=== PATIENT | male | born 1970 | race Caucasian/White ===

== ENCOUNTER 2020-08-20 10:45 | Outpatient (REF) | payer OTHER, MEDICARE, SELFPAY ==
[2020-08-20 13:56] LABS: MANUAL DIFF FLAG NO
[2020-08-20 14:02] LABS: Basophils Absolute Auto 0.1 X10*3/uL (0.0-0.2); Basophils Percent Auto 1.1 % (0-2); Eosinophils Absolute Auto 0.3 X10*3/uL (0.0-0.4); Eosinophils Percent Auto 4.6 % (0-4); Hematocrit 30.1 % (42-52); Hemoglobin 9.3 g/dl (14.0-18.0); Imm Gran Abs Auto 0.02 X10*3/uL (0.00-0.03); Imm Gran Pct Auto 0.4 % (0.0-0.4); Lymphocytes Absolute Auto 1.2 X10*3/uL (1.2-4.9); Lymphocytes Percent Auto 21.7 % (20-40); Mean Corpuscular HGB Conc 30.9 g/dl (31.0-36.0); Mean Corpuscular Hemoglobin 27.4 pg (27.0-33.0); Mean Corpuscular Volume 88.5 fL (80-98); Mean Platelet Volume 10.6 fL (9.4-12.4); Monocytes Absolute Auto 0.6 X10*3/uL (0.1-1.2); Monocytes Percent Auto 10.6 % (2-11); Neutrophils Absolute Auto 3.4 X10*3/uL (2.0-8.3); Neutrophils Percent Auto 61.6 % (45-73); Platelet Count 197 X10*3/uL (160-400); Red Cell Distribution Width 13.2 % (11.0-16.0); White Blood Count 5.5 X10*3/uL (4.8-10.8)
[2020-08-20 14:22] LABS: Estimated Average Glucose 137 mg/dL; Hemoglobin A1c % 6.4 %
[2020-08-20 14:27] LABS: Alanine Aminotransferase 9 U/L (0-40); Albumin Level 4.1 g/dL (3.5-5.0); Alkaline Phosphatase 44 U/L (39-117); Anion Gap 16 (12-20); Aspartate Amino Transferase 13 U/L (5-37); Bilirubin Total 0.5 mg/dL (0.0-1.0); Blood Urea Nitrogen 21 mg/dL (9-16); Calcium 9.1 mg/dL (8.4-10.2); Carbon Dioxide 25 mmol/L (22-29); Chloride 99 mmol/L (96-108); Estimated Glomerular Filt Rate > 60; Glucose Random 296 mg/dL (60-115); Iron 30 mcg/dL (45-160); Percent Iron Saturation 7 % (15-50); Potassium 4.3 mmol/l (3.3-5.1); Sodium 136 mmol/L (135-145); Total Iron Binding Capacity 443 mcg/dL (228-428); Total Protein 7.9 g/dL (6.5-8.0); Unsaturated Iron Binding 413 ug/dL
[2020-08-20 14:50] LABS: Creatinine Urine 13.08 mg/dL; Microalbum/Creatinine Ratio Ur 550.4 ug/mg cr
== END 2020-08-20 10:46 | disposition home or self-care (01) ==
LOC: HO.10HDL 10:45
PROVIDERS: Visit Provider Internal Medicine
DX: E11.9 Type 2 diabetes mellitus without complications (principal); D50.9 Iron deficiency anemia, unspecified; L40.50 Arthropathic psoriasis, unspecified
CPT/HCPCS: 36415; 80053; 82043; 83036; 83540; 85025

== ENCOUNTER 2021-02-16 08:18 | Outpatient (REF) | payer OTHER, MEDICARE, SELFPAY ==
[2021-02-16 10:03] LABS: MANUAL DIFF FLAG NO
[2021-02-16 10:05] LABS: Basophils Absolute Auto 0.1 X10*3/uL (0.0-0.2); Basophils Percent Auto 1.2 % (0-2); Eosinophils Absolute Auto 0.4 X10*3/uL (0.0-0.4); Eosinophils Percent Auto 5.5 % (0-4); Hematocrit 28.7 % (42-52); Hemoglobin 8.7 g/dl (14.0-18.0); Imm Gran Abs Auto 0.02 X10*3/uL (0.00-0.03); Imm Gran Pct Auto 0.3 % (0.0-0.4); Lymphocytes Absolute Auto 1.3 X10*3/uL (1.2-4.9); Lymphocytes Percent Auto 16.9 % (20-40); Mean Corpuscular HGB Conc 30.3 g/dl (31.0-36.0); Mean Corpuscular Hemoglobin 25.1 pg (27.0-33.0); Mean Corpuscular Volume 82.7 fL (80-98); Mean Platelet Volume 10.3 fL (9.4-12.4); Monocytes Absolute Auto 0.7 X10*3/uL (0.1-1.2); Monocytes Percent Auto 9.2 % (2-11); Neutrophils Percent Auto 66.9 % (45-73); Platelet Count 293 X10*3/uL (160-400); Red Blood Count 3.47 X10*6/uL (4.60-5.80); Red Cell Distribution Width 16.7 % (11.0-16.0); White Blood Count 7.5 X10*3/uL (4.8-10.8)
[2021-02-16 10:19] LABS: Estimated Average Glucose 171 mg/dL; Hemoglobin A1c % 7.6 %
[2021-02-16 10:55] LABS: Alanine Aminotransferase 9 U/L (0-40); Alkaline Phosphatase 45 U/L (39-117); Anion Gap 15 (12-20); Aspartate Amino Transferase 13 U/L (5-37); Bilirubin Total 0.3 mg/dL (0.0-1.0); Blood Urea Nitrogen 26 mg/dL (9-16); Carbon Dioxide 24 mmol/L (22-29); Chloride 101 mmol/L (96-108); Cholesterol 151 mg/dL; Estimated Glomerular Filt Rate 55; Glucose Fasting 294 mg/dL (60-99); Iron 23 mcg/dL (45-160); Percent Iron Saturation 5 % (15-50); Potassium 5.4 mmol/L (3.3-5.1); Sodium 135 mmol/L (135-145); Total Iron Binding Capacity 422 mcg/dL (228-428); Total Protein 7.8 g/dL (6.5-8.0); Unsaturated Iron Binding 399 ug/dL
[2021-02-16 11:05] LABS: Prostate Specific Antigen Scr 0.05 ng/mL (<0.05-4.0)
[2021-02-16 11:30] LABS: Creatinine Urine 79.01 mg/dL
== END 2021-02-16 08:19 | disposition home or self-care (01) ==
LOC: HO.10HDL 08:18
PROVIDERS: Visit Provider Internal Medicine
DX: Z12.5 Encounter for screening for malignant neoplasm of prostate (principal); E11.9 Type 2 diabetes mellitus without complications; K21.9 Gastro-esophageal reflux disease without esophagitis; E55.9 Vitamin D deficiency, unspecified; R35.1 Nocturia; D50.9 Iron deficiency anemia, unspecified
CPT/HCPCS: 36415; 80053; 82043; 82465; 83036; 83540; 84153; 85025

== ENCOUNTER 2021-03-24 08:13 | Outpatient (REF) | payer OTHER, MEDICARE, SELFPAY ==
[2021-03-24 10:12] LABS: MANUAL DIFF FLAG NO
[2021-03-24 10:24] LABS: Basophils Absolute Auto 0.1 X10*3/uL (0.0-0.2); Basophils Percent Auto 0.8 % (0-2); Eosinophils Absolute Auto 0.3 X10*3/uL (0.0-0.4); Eosinophils Percent Auto 4.7 % (0-4); Hematocrit 30.8 % (42-52); Hemoglobin 9.1 g/dl (14.0-18.0); Imm Gran Abs Auto 0.01 X10*3/uL (0.00-0.03); Imm Gran Pct Auto 0.1 % (0.0-0.4); Lymphocytes Absolute Auto 1.3 X10*3/uL (1.2-4.9); Lymphocytes Percent Auto 18.2 % (20-40); Mean Corpuscular HGB Conc 29.5 g/dl (31.0-36.0); Mean Corpuscular Volume 84.6 fL (80-98); Mean Platelet Volume 10.1 fL (9.4-12.4); Monocytes Absolute Auto 0.7 X10*3/uL (0.1-1.2); Monocytes Percent Auto 9.8 % (2-11); Neutrophils Absolute Auto 4.8 X10*3/uL (2.0-8.3); Neutrophils Percent Auto 66.4 % (45-73); Platelet Count 266 X10*3/uL (160-400); Red Blood Count 3.64 X10*6/uL (4.60-5.80); Red Cell Distribution Width 16.2 % (11.0-16.0); White Blood Count 7.3 X10*3/uL (4.8-10.8)
[2021-03-24 10:54] LABS: Alanine Aminotransferase 6 U/L (0-40); Alkaline Phosphatase 44 U/L (39-117); Anion Gap 14 (12-20); Aspartate Amino Transferase 11 U/L (5-37); Bilirubin Total 0.5 mg/dL (0.0-1.0); Blood Urea Nitrogen 25 mg/dL (9-16); Calcium 9.4 mg/dL (8.4-10.2); Carbon Dioxide 24 mmol/L (22-29); Chloride 101 mmol/L (96-108); Estimated Glomerular Filt Rate > 60; Glucose Random 238 mg/dL (60-115); Potassium 5.2 mmol/L (3.3-5.1); Sodium 134 mmol/L (135-145)
== END 2021-03-24 08:14 | disposition home or self-care (01) ==
LOC: HO.10HDL 08:13
PROVIDERS: Visit Provider Internal Medicine
DX: D64.9 Anemia, unspecified (principal); E11.22 Type 2 diabetes mellitus with diabetic chronic kidney disease; N18.9 Chronic kidney disease, unspecified
CPT/HCPCS: 36415; 80053; 85025

== ENCOUNTER 2021-06-08 09:31 | Outpatient (REF) | payer OTHER, MEDICARE, SELFPAY ==
[2021-06-08 10:22] LABS: MANUAL DIFF FLAG NO
[2021-06-08 10:26] LABS: Basophils Absolute Auto 0.1 X10*3/uL (0.0-0.2); Eosinophils Absolute Auto 0.4 X10*3/uL (0.0-0.4); Eosinophils Percent Auto 4.9 % (0-4); Hematocrit 27.8 % (42-52); Hemoglobin 8.6 g/dl (14.0-18.0); Imm Gran Abs Auto 0.02 X10*3/uL (0.00-0.03); Imm Gran Pct Auto 0.3 % (0.0-0.4); Lymphocytes Absolute Auto 1.3 X10*3/uL (1.2-4.9); Lymphocytes Percent Auto 17.6 % (20-40); Mean Corpuscular HGB Conc 30.9 g/dl (31.0-36.0); Mean Corpuscular Hemoglobin 25.4 pg (27.0-33.0); Mean Corpuscular Volume 82.2 fL (80-98); Mean Platelet Volume 10.5 fL (9.4-12.4); Monocytes Absolute Auto 0.7 X10*3/uL (0.1-1.2); Monocytes Percent Auto 9.1 % (2-11); Neutrophils Absolute Auto 4.8 X10*3/uL (2.0-8.3); Neutrophils Percent Auto 67.1 % (45-73); Platelet Count 273 X10*3/uL (160-400); Red Blood Count 3.38 X10*6/uL (4.60-5.80); Red Cell Distribution Width 14.3 % (11.0-16.0); White Blood Count 7.2 X10*3/uL (4.8-10.8)
[2021-06-08 10:46] LABS: Alanine Aminotransferase 8 U/L (0-40); Alkaline Phosphatase 45 U/L (39-117); Anion Gap 13 (12-20); Aspartate Amino Transferase 11 U/L (5-37); Bilirubin Total 0.3 mg/dL (0.0-1.0); Blood Urea Nitrogen 20 mg/dL (9-16); Calcium 9.8 mg/dL (8.4-10.2); Carbon Dioxide 27 mmol/L (22-29); Chloride 101 mmol/L (96-108); Estimated Glomerular Filt Rate 55; Glucose Fasting 305 mg/dL (60-99); Iron 31 mcg/dL (45-160); Percent Iron Saturation 7 % (15-50); Potassium 4.8 mmol/L (3.3-5.1); Sodium 136 mmol/L (135-145); Total Iron Binding Capacity 456 mcg/dL (228-428); Total Protein 7.9 g/dL (6.5-8.0); Unsaturated Iron Binding 425 ug/dL
[2021-06-08 11:03] LABS: Estimated Average Glucose 197 mg/dL; Hemoglobin A1c % 8.5 %
== END 2021-06-08 09:32 | disposition home or self-care (01) ==
LOC: HO.10HDL 09:31
PROVIDERS: Visit Provider Internal Medicine
DX: E11.51 Type 2 diabetes mellitus with diabetic peripheral angiopathy without gangrene (principal); I10 Essential (primary) hypertension; D64.9 Anemia, unspecified
CPT/HCPCS: 36415; 80053; 83036; 83540; 85025

== ENCOUNTER 2021-10-14 08:00 | Outpatient (REF) | payer OTHER, MEDICARE, SELFPAY ==
[2021-10-14 11:13] LABS: Alanine Aminotransferase 10 U/L (0-40); Albumin Level 3.9 g/dL (3.5-5.0); Alkaline Phosphatase 43 U/L (39-117); Anion Gap 14 (12-20); Aspartate Amino Transferase 11 U/L (5-37); Bilirubin Total 0.4 mg/dL (0.0-1.0); Blood Urea Nitrogen 18 mg/dL (9-16); Calcium 9.3 mg/dL (8.4-10.2); Carbon Dioxide 27 mmol/L (22-29); Chloride 102 mmol/L (96-108); Estimated Glomerular Filt Rate 51; Glucose Fasting 251 mg/dL (60-99); Iron 23 mcg/dL (45-160); Percent Iron Saturation 5 % (15-50); Potassium 4.6 mmol/L (3.3-5.1); Sodium 138 mmol/L (135-145); Total Iron Binding Capacity 469 mcg/dL (228-428); Total Protein 7.9 g/dL (6.5-8.0); Unsaturated Iron Binding 446 ug/dL
[2021-10-14 11:21] LABS: Vitamin D 25-OH Total 10.9 ng/mL (>30)
[2021-10-14 11:25] LABS: Creatinine Urine 105.27 mg/dL
[2021-10-14 11:33] LABS: Microalbum/Creatinine Ratio Ur 979.3 ug/mg cr
[2021-10-14 11:36] LABS: Estimated Average Glucose 183 mg/dL
== END 2021-10-14 08:01 | disposition home or self-care (01) ==
LOC: HO.10HDL 08:00
PROVIDERS: Visit Provider Internal Medicine
DX: E11.22 Type 2 diabetes mellitus with diabetic chronic kidney disease (principal); N18.9 Chronic kidney disease, unspecified; D63.1 Anemia in chronic kidney disease; L40.50 Arthropathic psoriasis, unspecified; E55.9 Vitamin D deficiency, unspecified
CPT/HCPCS: 36415; 80053; 82043; 82306; 83036; 83540

== ENCOUNTER 2021-12-27 08:11 | Outpatient (REF) | payer OTHER, MEDICARE, SELFPAY ==
--- NOTE | ~2021-12-27 | US_ITS ---
EXAMINATION: US EXTRACRANIAL CAROTID DUPLEX, BILATERAL CLINICAL INFORMATION: Carotid bruit. COMPARISON: None TECHNIQUE: Real-time ultrasound and Doppler techniques (integrating B-mode 2-D vascular images, Doppler spectral analysis and color-flow Doppler imaging) were utilized to interrogate the extracranial carotid arteries, the vertebral arteries and proximal subclavian arteries bilaterally. The degree of stenosis is determined by criteria similar to NASCET. FINDINGS: RIGHT SIDE: 1. There is mild atherosclerotic plaque seen in the bifurcation/proximal ICA region. 2. The common carotid artery PSV proximally is 91.6 cm/s and distally 75.4 cm/s. 3. The proximal internal carotid artery velocities are 101 cm/s systolic and 30.6 cm/s diastolic. 4. The proximal external carotid artery PSV is 133 cm/s. 5. The vertebral artery shows antegrade flow. 6. The subclavian artery waveforms are normal. LEFT SIDE: 1. There is mild atherosclerotic plaque seen in the bifurcation/proximal ICA region. 2. The common carotid artery PSV proximally is 100 cm/s and distally 89.1 cm/s. 3. The proximal internal carotid artery velocities are 71.8 cm/s systolic and 18.3 cm/s diastolic. 4. The proximal external carotid artery PSV is 91.9 cm/s. 5. The vertebral artery shows antegrade flow. 6. The subclavian artery waveforms are 129. US/US carotid duplex BI IMPRESSION: 1. RIGHT: Minimal, non-hemodynamically significant stenosis of the proximal right internal carotid artery corresponding to a 0-49% stenosis by velocity criteria. 2. LEFT: Minimal, non-hemodynamically significant stenosis of the proximal left internal carotid artery corresponding to a 0-49% stenosis by velocity criteria.
== END 2021-12-27 08:12 | disposition home or self-care (01) ==
LOC: HO.HMGCX 08:11
PROVIDERS: PCP Internal Medicine; Visit Provider Internal Medicine
DX: R01.1 Cardiac murmur, unspecified (principal); R09.89 Other specified symptoms and signs involving the circulatory and respiratory systems
CPT/HCPCS: 93880

== ENCOUNTER → 2022-01-18 07:20 | Outpatient (REF) | payer OTHER, MEDICARE, SELFPAY ==
--- NOTE | 2022-01-18 07:45 | CA_ITS ---
Transthoracic Echocardiogram Patient (Last, First, Middle): Dmitriy Dejesus R Gender: Male Date of : 1970 Age: 51 Procedure Date: 01/18/2022 Procedure Type: Transthoracic Echocardiogram Location: OP Height: 162.56 cm Weight: 63.5 kg BSA: 1.68 m2 Heart Rate: bpm BP: 139 / 72 mmHg Broom Bundler: ALETHEA Referring MD: Martínez Dunn MD Various Exceptionalities Teacher: Toni Rahman MD Symptoms: CARDIAC MURMUR,UNSPECIFIED, Study Quality: Fair ECG Rhythm: Sinus Conclusions: - 1. Normal LV systolic function with mild LVH with impaired relaxation filling pattern 2. Moderately dilated left atrium 3. Moderate aortic stenosis 4. Normal RV systolic pressure 5. No gross pericardial effusion Findings Left Ventricle Normal left ventricular size and systolic function. There is mildly increased left ventricular wall thickness. The visually estimated ejection fraction is between 60-65%. Spectral Doppler is indicative of an impaired relaxation filling pattern. E/E prime ratio is between 8 and 15 consistent with indeterminate filling pressures. Right Ventricle Normal right ventricular cavity size and systolic function. Atria The left atrium is moderately dilated. There is lipomatous hypertrophy of the interatrial septum. Interatrial shunt cannot be excluded. The right atrium is normal in size. Aortic Valve There is moderate calcification of the aortic valve. There is moderate aortic valve stenosis. The peak aortic gradient is 32 mmHg.The mean gradient is 15 mmHg. The aortic valve area is 1.41 cm2. There is no aortic valve regurgitation. Mitral Valve There is mild anterior and moderate posterior mitral leaflet thickening. There is moderate mitral annular calcification. There is trace mitral valve regurgitation. There is no mitral valve stenosis. Pulmonic Valve The pulmonic valve was not well visualized. Tricuspid Valve Likely normal tricuspid valve structure and function. There is trace tricuspid valve regurgitation. The right ventricular systolic pressure is normal. The right ventricular systolic pressure is 15 mmHg. Normal right atrial pressure. There is no evidence of pulmonary hypertension. Great Vessels All visible segments of the aorta are normal in size. The pulmonary artery was not well visualized. Venous The inferior vena cava is normal in size and collapses greater than 50% with inspiration. Pericardium/Pleural There is no evidence of pericardial effusion. Prior Study Comparison Changes noted compared to prior study dated: 06/30/2020. aortic stenosis is moderate Measurements 2D Linear Measurements IVSd: 1.28 0.6-0.9/0.6-1.0 cm LVIDd: 3.60 3.9-5.3/4.2-5.9 cm LVIDd Index: 2.14 2.4-3.2/2.2-3.1 cm/m2 LVIDs: 1.75 2.0-3.6 cm LVPWd: 1.26 0.7-1.1 cm LA Diam: 3.60 2.7-3.8/3.0-4.0 cm LAIDs Index: 2.14 1.5-2.3 cm/m2 LV Mass: 192.21 67-162/88-224 g LV Mass Index: 114.41 43-95/49-115 g/m2 LVOT Diam: 2.10 3.0+(-)1.3 cm 2D Systolic Function EF 4C: 61.20 >55% EF 2C: 59.50 >55% EF BiP: 59.90 >55% Mitral Valve MV Pk E: 0.79 MV PK A: 0.97 MV Decel Time: 267.00 E/A: 0.80 E'Lateral: 7.72 E'Medial: 5.22 E/E' Med: 15.10 E/E' Lat: 10.20 PHT: 78.00 MVA PHT: 2.82 Decel Wake: 2.95 Aortic Valve AoV Pk Ruiz: 2.81 AoV Mn Ruiz: 1.81 AoV VTI: 0.56 AoV Pk Grad: 32.00 Aov Mn Grad: 15.00 CHILO Cont.VTI: 1.41 LVOT LVOT Pk Ruiz: 0.88 LVOT Mn Ruiz: 0.67 LVOT VTI: 0.23 LVOT Pk Grad: 3.00 LVOT Mn Grad: 2.00 LVOT Diam: 2.10 LVOT Area: 3.46 Diastolic Function MV Pk E: 0.79 MV Pk A: 0.97 E/A: 0.80 E'Medial: 5.22 E/E' Med: 15.10 E' Laterial: 7.72 E/E' Lat: 10.20 Right Ventricle TAPSE (mm): 26.90 TVS' Ruiz: 14.60 Tricuspid Valve TR Pk Ruiz: 1.72 TR Pk Grad: 12.00 RA Press: 3.00 RVSP: 15.00 Great Vessels Aorta Sinus of Valsalva: 3.40 2.0-3.[address] Ridge: 2.65 1.7-3.4 cm Ao Asc: 3.00 2.1-3.4 cm Ao Arch: 2.90 Updated in Other Vendor System with Status of Final Toni Rahman MD electronically signed on 01/18/2022 10:57:39 AM with status of Final
== END ==
LOC: HO.CARD 07:20
PROVIDERS: PCP Internal Medicine; Visit Provider Internal Medicine
DX: R01.1 Cardiac murmur, unspecified (principal)
CPT/HCPCS: 93306

== ENCOUNTER 2022-02-15 08:11 | Outpatient (REF) | payer OTHER, MEDICARE, SELFPAY ==
[2022-02-15 11:28] LABS: MANUAL DIFF FLAG NO
[2022-02-15 11:33] LABS: Basophils Absolute Auto 0.1 X10*3/uL (0.0-0.2); Basophils Percent Auto 0.9 % (0-2); Eosinophils Absolute Auto 0.3 X10*3/uL (0.0-0.4); Eosinophils Percent Auto 4.7 % (0-4); Hematocrit 26.5 % (42.0-52.0); Hemoglobin 7.6 g/dl (14.0-18.0); Imm Gran Abs Auto 0.01 X10*3/uL (0.00-0.03); Imm Gran Pct Auto 0.2 % (0.0-0.4); Lymphocytes Absolute Auto 1.1 X10*3/uL (1.2-4.9); Lymphocytes Percent Auto 17.3 % (20-40); Mean Corpuscular HGB Conc 28.7 g/dl (31.0-36.0); Mean Corpuscular Volume 80.3 fL (80.0-98.0); Mean Platelet Volume 10.4 fL (9.4-12.4); Monocytes Absolute Auto 0.6 X10*3/uL (0.1-1.2); Monocytes Percent Auto 9.6 % (2-11); Neutrophils Absolute Auto 4.3 x10*3/uL (2.0-8.3); Neutrophils Percent Auto 67.3 % (45-73); Platelet Count 263 X10*3/uL (160-400); Red Cell Distribution Width 16.4 % (11.0-16.0); White Blood Count 6.4 X10*3/uL (4.8-10.8)
[2022-02-15 11:43] LABS: Estimated Average Glucose 151 mg/dL; Hemoglobin A1c % 6.9 %
[2022-02-15 11:45] LABS: Alanine Aminotransferase 9 U/L (0-40); Alkaline Phosphatase 42 U/L (39-117); Anion Gap 15 (12-20); Aspartate Amino Transferase 10 U/L (5-37); Bilirubin Total 0.4 mg/dL (0.0-1.0); Blood Urea Nitrogen 18 mg/dL (9-16); Calcium 9.5 mg/dL (8.4-10.2); Carbon Dioxide 24 mmol/L (22-29); Chloride 105 mmol/L (96-108); Cholesterol 137 mg/dL; Estimated Glomerular Filt Rate > 60; Glucose Fasting 169 mg/dL (60-99); HDL Cholesterol 29 mg/dL; LDL Cholesterol Calculated 67 mg/dl; Potassium 4.7 mmol/L (3.3-5.1); Sodium 139 mmol/L (135-145); Triglycerides 207 mg/dL
[2022-02-15 12:08] LABS: Prostate Specific Antigen 0.16 ng/mL (<0.05-4.0)
== END 2022-02-15 08:12 | disposition home or self-care (01) ==
LOC: HO.HMGCLDS 08:11
PROVIDERS: Visit Provider Internal Medicine
DX: Z00.00 Encounter for general adult medical examination without abnormal findings (principal); Z12.5 Encounter for screening for malignant neoplasm of prostate; E11.9 Type 2 diabetes mellitus without complications
CPT/HCPCS: 36415; 80053; 80061; 83036; 84153; 85025

== ENCOUNTER 2022-06-10 08:01 | Outpatient (REF) | payer OTHER, MEDICARE, SELFPAY ==
[2022-06-10 11:28] LABS: MANUAL DIFF FLAG NO
[2022-06-10 11:44] LABS: Basophils Absolute Auto 0.1 X10*3/uL (0.0-0.2); Basophils Percent Auto 0.8 % (0-2); Eosinophils Absolute Auto 0.3 X10*3/uL (0.0-0.4); Eosinophils Percent Auto 4.6 % (0-4); Hematocrit 33.1 % (42.0-52.0); Hemoglobin 10.6 g/dl (14.0-18.0); Imm Gran Abs Auto 0.01 X10*3/uL (0.00-0.03); Imm Gran Pct Auto 0.2 % (0.0-0.4); Immature Retic Fraction 13.6 % (2.3-13.4); Lymphocytes Absolute Auto 1.2 X10*3/uL (1.2-4.9); Lymphocytes Percent Auto 20.2 % (20-40); Mean Corpuscular Hemoglobin 29.6 pg (27.0-33.0); Mean Corpuscular Volume 92.5 fL (80.0-98.0); Mean Platelet Volume 10.7 fL (9.4-12.4); Monocytes Absolute Auto 0.6 X10*3/uL (0.1-1.2); Monocytes Percent Auto 10.2 % (2-11); Neutrophils Absolute Auto 3.9 x10*3/uL (2.0-8.3); Platelet Count 219 X10*3/uL (160-400); Red Blood Count 3.58 X10*6/uL (4.60-5.80); Red Cell Distribution Width 15.6 % (11.0-16.0); Retic HGB Equivalent 34.3 pg (30.0-35.0); Reticulocyte Percent 1.5 % (0.5-1.8); Reticulocytes Absolute 0.052 X10*6/uL (0.026-0.095); White Blood Count 6.1 X10*3/uL (4.8-10.8)
[2022-06-10 11:53] LABS: Anion Gap 16 (12-20); Blood Urea Nitrogen 22 mg/dL (9-16); Calcium 9.5 mg/dL (8.4-10.2); Carbon Dioxide 24 mmol/L (22-29); Chloride 105 mmol/L (96-108); Estimated Glomerular Filt Rate 52; Glucose Random 233 mg/dL (60-115); Iron 92 mcg/dL (45-160); Percent Iron Saturation 24 % (15-50); Potassium 4.7 mmol/L (3.3-5.1); Sodium 140 mmol/L (135-145); Total Iron Binding Capacity 377 mcg/dL (228-428); Unsaturated Iron Binding 285 ug/dL
[2022-06-10 12:04] LABS: Estimated Average Glucose 146 mg/dL; Hemoglobin A1c % 6.7 %
== END 2022-06-10 08:02 | disposition home or self-care (01) ==
LOC: HO.HMGCLDS 08:01
PROVIDERS: PCP Internal Medicine; Visit Provider Internal Medicine
DX: D64.9 Anemia, unspecified (principal); E11.9 Type 2 diabetes mellitus without complications
CPT/HCPCS: 36415; 80048; 83036; 83540; 85025; 85045

== ENCOUNTER 2022-08-11 07:45 | Outpatient (REF) | payer OTHER, MEDICARE, SELFPAY ==
[2022-08-11 11:07] LABS: MANUAL DIFF FLAG NO
[2022-08-11 11:29] LABS: Basophils Absolute Auto 0.1 X10*3/uL (0.0-0.2); Eosinophils Absolute Auto 0.3 X10*3/uL (0.0-0.4); Eosinophils Percent Auto 5.2 % (0-4); Hematocrit 35.2 % (42.0-52.0); Hemoglobin 11.3 g/dl (14.0-18.0); Imm Gran Abs Auto 0.03 X10*3/uL (0.00-0.03); Imm Gran Pct Auto 0.5 % (0.0-0.4); Lymphocytes Absolute Auto 1.2 X10*3/uL (1.2-4.9); Lymphocytes Percent Auto 19.2 % (20-40); Mean Corpuscular HGB Conc 32.1 g/dl (31.0-36.0); Mean Corpuscular Hemoglobin 30.5 pg (27.0-33.0); Mean Corpuscular Volume 94.9 fL (80.0-98.0); Mean Platelet Volume 10.4 fL (9.4-12.4); Monocytes Absolute Auto 0.6 X10*3/uL (0.1-1.2); Neutrophils Absolute Auto 4.1 x10*3/uL (2.0-8.3); Neutrophils Percent Auto 65.1 % (45-73); Platelet Count 197 X10*3/uL (160-400); Red Blood Count 3.71 X10*6/uL (4.60-5.80); Red Cell Distribution Width 13.2 % (11.0-16.0); White Blood Count 6.2 X10*3/uL (4.8-10.8)
[2022-08-11 12:02] LABS: Anion Gap 16 (12-20); Blood Urea Nitrogen 25 mg/dL (9-16); Carbon Dioxide 23 mmol/L (22-29); Chloride 103 mmol/L (96-108); Estimated Glomerular Filt Rate 51; Glucose Random 315 mg/dL (60-115); Potassium 4.9 mmol/L (3.3-5.1); Sodium 137 mmol/L (135-145)
== END 2022-08-11 07:46 | disposition home or self-care (01) ==
LOC: HO.HMGCLDS 07:45
PROVIDERS: PCP Internal Medicine; Visit Provider Internal Medicine
DX: E11.22 Type 2 diabetes mellitus with diabetic chronic kidney disease (principal); N18.9 Chronic kidney disease, unspecified; E11.40 Type 2 diabetes mellitus with diabetic neuropathy, unspecified; D64.9 Anemia, unspecified
CPT/HCPCS: 36415; 80048; 85025

== ENCOUNTER 2022-11-12 07:07 | Outpatient (REF) | payer OTHER, MEDICARE, SELFPAY ==
[2022-11-12 11:03] LABS: MANUAL DIFF FLAG NO
[2022-11-12 11:09] LABS: Basophils Absolute Auto 0.1 X10*3/uL (0.0-0.2); Eosinophils Absolute Auto 0.4 X10*3/uL (0.0-0.4); Eosinophils Percent Auto 6.6 % (0-4); Hematocrit 33.5 % (42.0-52.0); Hemoglobin 11.1 g/dl (14.0-18.0); Imm Gran Abs Auto 0.02 X10*3/uL (0.00-0.03); Imm Gran Pct Auto 0.3 % (0.0-0.4); Lymphocytes Absolute Auto 1.1 X10*3/uL (1.2-4.9); Lymphocytes Percent Auto 18.4 % (20-40); Mean Corpuscular HGB Conc 33.1 g/dl (31.0-36.0); Mean Corpuscular Hemoglobin 30.7 pg (27.0-33.0); Mean Corpuscular Volume 92.8 fL (80.0-98.0); Mean Platelet Volume 10.7 fL (9.4-12.4); Monocytes Absolute Auto 0.5 X10*3/uL (0.1-1.2); Neutrophils Absolute Auto 3.9 x10*3/uL (2.0-8.3); Neutrophils Percent Auto 64.7 % (45-73); Platelet Count 205 X10*3/uL (160-400); Red Blood Count 3.61 X10*6/uL (4.60-5.80); Red Cell Distribution Width 13.5 % (11.0-16.0)
[2022-11-12 11:21] LABS: Estimated Average Glucose 186 mg/dL; Hemoglobin A1c % 8.1 %
[2022-11-12 11:40] LABS: Alanine Aminotransferase 10 U/L (0-40); Albumin Level 4.1 g/dL (3.5-5.0); Alkaline Phosphatase 44 U/L (39-117); Anion Gap 14 (12-20); Aspartate Amino Transferase 12 U/L (5-37); Bilirubin Total 0.3 mg/dL (0.0-1.0); Blood Urea Nitrogen 29 mg/dL (9-16); Calcium 9.2 mg/dL (8.4-10.2); Carbon Dioxide 21 mmol/L (22-29); Chloride 105 mmol/L (96-108); Estimated Glomerular Filt Rate 46; Glucose Random 345 mg/dL (60-115); Iron 54 mcg/dL (45-160); Sodium 135 mmol/L (135-145); Total Protein 7.5 g/dL (6.5-8.0)
[2022-11-12 13:09] LABS: Percent Iron Saturation 19 % (15-50); Total Iron Binding Capacity 284 mcg/dL (228-428); Unsaturated Iron Binding 230 ug/dL
== END 2022-11-12 07:08 | disposition home or self-care (01) ==
LOC: HO.HMGCLDS 07:07
PROVIDERS: PCP Internal Medicine; Visit Provider Internal Medicine
DX: D64.9 Anemia, unspecified (principal); I12.9 Hypertensive chronic kidney disease with stage 1 through stage 4 chronic kidney disease, or unspecified chronic kidney disease; E11.22 Type 2 diabetes mellitus with diabetic chronic kidney disease; N18.9 Chronic kidney disease, unspecified
CPT/HCPCS: 36415; 80053; 83036; 83540; 85025

== ENCOUNTER 2022-12-23 18:29 | Inpatient (IN) | payer OTHER, MEDICARE, SELFPAY ==
[2022-12-23] VITALS (9 sets, daily range): BP systolic 153–252; BP diastolic 74–112; PULSE 73–87; RESP 18–20; TEMP 36.6–36.9; O2SAT 94–98; BMI 24.5
--- NOTE | ~2022-12-23 | MR_ITS ---
EXAMINATION: MR BRAIN WITHOUT CONTRAST CLINICAL INFORMATION: Facial droop COMPARISON: None. TECHNIQUE: MRI of the brain was obtained using routine sequences without contrast. FINDINGS: Mildly motion degraded examination. There is an acute punctate infarct within the posterior right middle temporal gyrus with diffusion restriction and corresponding T2 FLAIR hyperintensity. No significant mass effect or hemorrhagic transformation. Mild to moderate generalized parenchymal volume loss. Patchy T2 hyperintense foci in the subcortical and periventricular white matter are nonspecific but most suggestive of mild chronic microangiopathy. 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 No mass lesion, mass effect, or herniation pattern. No extra-axial fluid collection. Normal intracranial arterial and dural venous sinus flow voids. Normal appearance of the midline structures. Bilateral intraocular lens replacements. Left ostiomeatal unit pattern of obstruction with opacified left maxillary sinus, anterior ethmoid air cells, and frontal sinus, with suggestion of sclerotic wall thickening of the left maxillary sinus patterson compatible with chronicity. Trace bilateral mastoid effusions. Normal marrow signal. MR/MR head/brain wo con IMPRESSION: 1. Acute punctate infarct within the posterior right middle temporal gyrus without significant mass effect or hemorrhagic transformation. 2. Mild to moderate volume loss and mild chronic microangiopathy. 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 3. Left ostiomeatal unit pattern of obstruction as above with suggestion of sclerotic wall thickening of the left maxillary sinus patterson compatible with chronicity.
--- NOTE | ~2022-12-23 | XR_ITS ---
EXAMINATION: XR CHEST CLINICAL INFORMATION: Confusion COMPARISON: 11/12/2009 TECHNIQUE: AP view of the chest was obtained. FINDINGS: Cardiac leads overlie the chest. The lungs are well expanded. There is no focal consolidation, edema, or effusion. No pneumothorax. The cardiomediastinal silhouette is within normal limits. No acute osseous abnormality. XR/XR chest 1V IMPRESSION: No acute pulmonary disease.
--- NOTE | ~2022-12-23 | CT_ITS ---
EXAMINATION: CT HEAD WITHOUT CONTRAST (STROKE PROTOCOL) CLINICAL INFORMATION: Stroke protocol. Right facial numbness, headache, hypertension COMPARISON: None available. TECHNIQUE: Contiguous axial imaging was performed from the skull base to vertex without intravenous administration of contrast. This CT examination was performed using dose optimization techniques as appropriate, variously including the following: *Automated exposure control *Adjustment of mA and/or kV according to patient size (this includes techniques or standardized protocols for targeted exams where dose is matched to indication/reason for exam; i.e. extremities or head) *Use of iterative reconstruction technique DLP: 579.65 mGy-cm FINDINGS: CT examination shows the ventricles and sulci are normal in size and configuration. No acute hemorrhage, mass effect or shift is evident. Weems-white differentiation is preserved. In the posterior fossa, the brainstem, cerebellum and fourth ventricle image normally. Both orbits are aphakic. The left maxillary sinus is completely opacified. Inflammatory soft tissue extends directly into opacified left ethmoid air cells and the poorly opacified left frontal sinus. The left maxillary infundibulum and frontal ethmoidal recesses are occluded. There is some hyperostosis of the posterior and anterior patterson of the left maxillary sinus as compared to the right. CT/CT head for stroke IMPRESSION: 1. No acute hemorrhage, mass effect or shift. 2. Confluent left maxillary, frontal and ethmoid sinusitis with some hyperostosis and remodeling in the left maxillary sinus suggesting possible antrochoanal polyp formation. ENT correlation is advised This critical result was discussed with Grisel Rojo in the [place] ED at 7:20 PM hours on 12/23/2022. It was ascertained that the content and urgency of the report was understood at the time of direct communication.
--- NOTE | ~2022-12-23 | CT_ITS ---
EXAMINATION: CTA OF THE HEAD/NECK CLINICAL INFORMATION: Right facial numbness. Mild drooping. COMPARISON: Head CT from today TECHNIQUE: A routine non contrast head CT was performed earlier in the evening. A 70 mL bolus of Omnipaque 350 was given. Subsequent multidetector helical imaging was performed of the head and neck. Delayed post contrast imaging was also performed through the head. Multiplanar reformats and MIP were also obtained. Internal carotid artery stenoses are assessed in accordance with NASCET criteria unless otherwise indicated. This CT examination was performed using dose optimization techniques as appropriate, variously including the following: *Automated exposure control *Adjustment of mA and/or kV according to patient size (this includes techniques or standardized protocols for targeted exams where dose is matched to indication/reason for exam; i.e. extremities or head) *Use of iterative reconstruction technique DLP: 1445 mGy-cm. FINDINGS: CT HEAD: There is no evidence of acute intracranial hemorrhage or territorial infarction. No abnormal mass effect or midline shift is seen. Weems to white matter differentiation is well preserved. No extra-axial fluid collections are identified. No suspicious leptomeningeal or parenchymal enhancement on the post-contrast images. No hydrocephalus. Proportional prominence of the ventricles and sulcal spaces is consistent with mild volume loss. Patchy periventricular and deep white matter hypoattenuation is consistent with mild small vessel ischemic changes. The osseous structures and soft tissues are normal. The mastoid air cells are well aerated . Fully opacified left maxillary sinus and anterior aspect of the left ethmoid air cells. CTA NECK: The aortic arch is of normal caliber and the origins of the great vessels are patent without evidence of significant stenosis. The cervical portion of the vertebral arteries are patent bilaterally. No luminal irregularities in the common carotid arteries and the carotid bifurcations are patent bilaterally. The cervical portion of the internal carotid arteries are of normal caliber. Calcified plaque at the origin of the internal carotid arteries without flow-limiting stenosis. The laryngeal structures and pharyngeal mucosal spaces are unremarkable. The oral cavity appears normal. The parotid and submandibular glands are normal. No pathologically enlarged lymph nodes. The thyroid gland is unremarkable. The lung apices are clear without evidence of pneumothorax. Spinal alignment is maintained. CTA HEAD: The intradural portion of the vertebral arteries are of normal caliber. The basilar, superior cerebellar, and posterior communicating arteries are patent. The posterior, middle, and anterior cerebral arteries are of normal caliber without evidence of significant luminal irregularity. No definite intracranial aneurysms. CT/CT angio head neck IMPRESSION: 1. No acute vascular abnormality. No large vessel occlusion. 2. No acute intracranial finding. 3. Opacification of the left maxillary sinus and anterior aspect of the left ethmoid air cells.
--- NOTE | 2022-12-23 19:05 | ED.GENADULT ---
HPI - General Adult General Chief complaint: Stroke <ISABEL Jain - Last Filed: 12/23/22 19:09> Stated complaint: R side face is numb, severe head pain, <ISABEL Jain - Last Filed: 12/23/22 19:09> Time Seen by Provider: 12/23/22 19:14 <ISABEL Jain - Last Filed: 12/23/22 19:09> Source: patient and family <Grisel Rojo MD - Last Filed: 12/23/22 23:35> Mode of arrival: ambulatory <Grisel Rojo MD - Last Filed: 12/23/22 23:35> Limitations: no limitations <Grisel Rojo MD - Last Filed: 12/23/22 23:35> History of Present Illness HPI narrative: Patient comes to the emergency room complaining of a severe headache. Patient states that early in the morning, patient woke up with a severe headache, some right-sided facial numbness sensation, now close to 12 hrs since he symptoms started. Patient states that he was able to take his to work. Then in the afternoon around 17:30, the symptoms that he already had intensified. Patient states that the headache got much worse. The pain is mostly in the front of his head. The patient arrived in triage, patient's blood pressure was 252/102. Patient was taken immediately to the CT scan. Patient states that he has no history of hypertension <Grisel Rojo MD - Last Filed: 12/23/22 23:35> Related Data Home medications: Home Medications Medication Instructions Recorded Confirmed furosemide 20 mg tablet 20 mg PO BID 12/23/22 12/23/22 gabapentin 300 mg capsule PO 12/23/22 glipizide 10 mg tablet, extended 10 mg PO BID 12/23/22 12/23/22 release 24 hr metformin 500 mg tablet 500 mg PO BID 12/23/22 12/23/22 omeprazole 20 mg capsule,delayed 20 mg PO BID 12/23/22 12/23/22 release secukinumab 150 mg/mL subcutaneous mg subcut 12/23/22 pen injector (Cosentyx Pen 300 mg/2 Pens () spironolactone 100 mg tablet PO 12/23/22 <ISABEL Jain - Last Filed: 12/23/22 19:09> Allergies/adverse reactions: Allergies Allergy/AdvReac Type Severity Reaction Status Date / Time shellfish derived Allergy Severe ANAPHYLAXIS Verified 12/23/22 19:43 [SHELLFISH DERIVED] <ISABEL Jain - Last Filed: 12/23/22 19:09> Review of Systems Review of Systems: Constitutional : No Weight loss, No Fever, No Chills, No Night Sweats, No Fatigue, No Malaise ENT/Mouth : No Hearing loss, No Ear Pain, No Nasal Congestion, No Sinus Pain, No Hoarseness, No sore throat, No Rhinorrhea, No Swallowing Difficulty Eyes: No Eye Pain, No Swelling, No Redness, No Foreign Body, No Discharge, No Vision Changes Cardiovascular : No Chest Pain, No SOB, No Dyspnea on Exertion, No Orthopnea, No Edema, No Palpitations Respiratory : No Cough, No Sputum, No Wheezing, No Smoke Exposure, No Dyspnea Gastrointestinal : No Nausea, No Vomiting, No Diarrhea, No Constipation, No abdominal Pain, No Hematochezia, No Melena Genitourinary : no irregular bleeding, No Dysuria, No Urinary Frequency, No Hematuria, No Urinary Incontinence, No Urgency, No Flank Pain, No Urinary Flow Changes, No Hesitancy Musculoskeletal : No joint pain, No Myalgias, No Joint Swelling Skin : No Skin Lesions, No rash Neuro : No Weakness, No Numbness, complaining of paresthesias on the right side of the face, complaining of severe headache Psych : No Anxiety/Panic, No Depression, No SI/HI/AH/VH, No Social Issues, Heme/Lymph: No Bruising, No Bleeding,No Lymphadenopathy Endocrine : No Polyuria, No Polydipsia, No Temperature Intolerance <Grisel Rojo MD - Last Filed: 12/23/22 23:35> COUNT INCLUDES THE [facility] Past Medical History Medical History: Medical History Cirrhosis of liver not due to alcohol Diabetes Rheumatoid arthritis <ISABEL Jain - Last Filed: 12/23/22 19:09> Social History Social History: Social History Advance Directives: No Advance Directives Information Provided: Yes <ISABEL Jain - Last Filed: 12/23/22 19:09> Physical Exam ED Vital Signs: Vital Signs - 24 hr 12/23/22 18:59 12/23/22 19:35 12/23/22 19:23 Temperature 97.8 F Pulse Rate 87 78 78 Respiratory Rate 20 18 20 Blood Pressure 222/112 H 218/92 H 252/102 H Pulse Oximetry 98 97 98 Oxygen Delivery Method Room Air Room Air Room Air 12/23/22 19:49 12/23/22 20:08 12/23/22 20:23 Temperature Pulse Rate 78 77 73 Respiratory Rate 18 18 18 Blood Pressure 203/91 H 193/90 H 174/78 H Pulse Oximetry 97 95 Oxygen Delivery Method Room Air Room Air Room Air 12/23/22 21:04 12/23/22 22:25 Temperature 98.1 F Pulse Rate 75 80 Respiratory Rate 19 Blood Pressure 168/78 H 153/74 H Pulse Oximetry 96 98 Oxygen Delivery Method Room Air BMI result Body Mass Index 24.5 <ISABEL Jain - Last Filed: 12/23/22 19:09> Vital Signs - 24 hr 12/23/22 18:59 12/23/22 19:35 12/23/22 19:23 Temperature 97.8 F Pulse Rate 87 78 78 Respiratory Rate 20 18 20 Blood Pressure 222/112 H 218/92 H 252/102 H Pulse Oximetry 98 97 98 Oxygen Delivery Method Room Air Room Air Room Air 12/23/22 19:49 12/23/22 20:08 12/23/22 20:23 Temperature Pulse Rate 78 77 73 Respiratory Rate 18 18 18 Blood Pressure 203/91 H 193/90 H 174/78 H Pulse Oximetry 97 95 Oxygen Delivery Method Room Air Room Air Room Air 12/23/22 21:04 12/23/22 22:25 Temperature 98.1 F Pulse Rate 75 80 Respiratory Rate 19 Blood Pressure 168/78 H 153/74 H Pulse Oximetry 96 98 Oxygen Delivery Method Room Air BMI result Body Mass Index 24.5 <Grisel Rojo MD - Last Filed: 12/23/22 23:35> Const Other: Appearance: Alert. Oriented X3. No acute distress. Eyes: Pupils equal, round and reactive to light. ENT: Pharynx normal. Neck: Normal inspection. Neck supple. No lymph nodes noted. No crepitus CVS: Normal heart rate and rhythm. Pulses normal. Normal S1 and S2 Respiratory: No respiratory distress. Breath sounds normal. No Wheezing. No rales Abdomen: Soft and nontender. No rigidity. No distention. Skin: Skin warm and dry. Normal skin color. Normal skin turgor. Extremities: No lower extremity edema. No Lacerations. No Rash Neuro: Oriented X 3. No motor deficit. No sensory deficit. Moving all extremities. No slurred speech. CN 2 through 12 grossly intact Psych: calm, cooperative, normal affect <Grisel Rojo MD - Last Filed: 12/23/22 23:35> NIH Stroke Scale Level of Consciousness: Alert <Grisel Rojo MD - Last Filed: 12/23/22 23:35> Level of Consciousness Questions: Answers both questions correctly <Grisel Rojo MD - Last Filed: 12/23/22 23:35> Level of Consciousness Commands: Performs both tasks correctly <Grisel Rojo MD - Last Filed: 12/23/22 23:35> Best Gaze: Normal <Grisel Rojo MD - Last Filed: 12/23/22 23:35> Visual: No visual loss <Grisel Rojo MD - Last Filed: 12/23/22 23:35> Facial Palsy: Normal <Grisel Rojo MD - Last Filed: 12/23/22 23:35> Motor Arm (Right): No drift <Grisel Rojo MD - Last Filed: 12/23/22 23:35> Motor Arm (Left): No drift <Grisel Rojo MD - Last Filed: 12/23/22 23:35> Motor Leg (Right): No drift <Grisel Rojo MD - Last Filed: 12/23/22 23:35> Motor Leg (Left): No drift <Grisel Rojo MD - Last Filed: 12/23/22 23:35> Limb Ataxia: Absent <Grisel Rojo MD - Last Filed: 12/23/22 23:35> Sensory: Normal <Grisel Rojo MD - Last Filed: 12/23/22 23:35> Best Language: No aphasia <Grisel Rojo MD - Last Filed: 12/23/22 23:35> Dysarthia: Normal <Grisel Rojo MD - Last Filed: 12/23/22 23:35> Extinction and Inattention: No abnormality <Grisel Rojo MD - Last Filed: 12/23/22 23:35> Score: 0 <Grisel Rojo MD - Last Filed: 12/23/22 23:35> Course Course Course Narrative: RME--52-year-old male with a past medical history of cirrhosis, CKD, presenting to ED complaining of headache since waking this morning, reports headache became more severe at approximately 17:00 with associated right-sided facial numbness, tingling, and reported confusion per . Patient admits to increasing lethargy. Patient very hypertensive to 224/112 in triage. No focal deficits appreciated. Patient in wheelchair ED attending and charge nurse aware, patient headed directly to CT <ISABEL Jain - Last Filed: 12/23/22 19:09> Medications Administered Discontinued Medications Generic Name Dose Route Start Last Admin Trade Name Freq PRN Reason Stop Dose Admin Diphenhydramine HCl 25 mg 12/23/22 21:53 12/23/22 22:07 Diphenhydramine Hcl 50 Mg/Ml Vial IVPUSH 12/23/22 21:54 25 mg ONCE ONE Administration Hydromorphone HCl 1 mg 12/23/22 21:53 12/23/22 22:27 Hydromorphone Hcl 1 Mg/Ml Syringe IVPUSH 12/23/22 21:54 1 mg ONCE ONE Administration Protocol Iohexol 70 ml 12/23/22 23:10 12/23/22 23:11 Iohexol 350 Mg/Ml 100 Ml Infus..Btl IV 12/23/22 23:11 70 ml ONCE ONE Administration Labetalol HCl 10 mg 12/23/22 19:20 12/23/22 19:28 Labetalol Hcl 100 Mg/20 Ml Vial IVPUSH 12/23/22 19:21 10 mg ONCE ONE Administration Labetalol HCl 10 mg 12/23/22 20:05 12/23/22 20:16 Labetalol Hcl 100 Mg/20 Ml Vial IVPUSH 12/23/22 20:06 10 mg ONCE ONE Administration Lorazepam 1 mg 12/23/22 19:24 12/23/22 19:44 Lorazepam 2 Mg/Ml Vial IVPUSH 12/23/22 19:25 1 mg ONCE ONE Administration Metoclopramide HCl 10 mg 12/23/22 21:53 12/23/22 22:07 Metoclopramide Hcl 10 Mg/2 Ml Vial IVPUSH 12/23/22 21:54 10 mg ONCE ONE Administration Morphine Sulfate 4 mg 12/23/22 19:24 12/23/22 19:31 Morphine Sulfate 4 Mg/Ml Cartridge IVPUSH 12/23/22 19:25 4 mg ONCE ONE Administration Protocol <ISABEL Jain - Last Filed: 12/23/22 19:09> Medications Administered Discontinued Medications Generic Name Dose Route Start Last Admin Trade Name Carlita PRN Reason Stop Dose Admin Diphenhydramine HCl 25 mg 12/23/22 21:53 12/23/22 22:07 Diphenhydramine Hcl 50 Mg/Ml Vial IVPUSH 12/23/22 21:54 25 mg ONCE ONE Administration Hydromorphone HCl 1 mg 12/23/22 21:53 12/23/22 22:27 Hydromorphone Hcl 1 Mg/Ml Syringe IVPUSH 12/23/22 21:54 1 mg ONCE ONE Administration Protocol Iohexol 70 ml 12/23/22 23:10 12/23/22 23:11 Iohexol 350 Mg/Ml 100 Ml Infus..Btl IV 12/23/22 23:11 70 ml ONCE ONE Administration Labetalol HCl 10 mg 12/23/22 19:20 12/23/22 19:28 Labetalol Hcl 100 Mg/20 Ml Vial IVPUSH 12/23/22 19:21 10 mg ONCE ONE Administration Labetalol HCl 10 mg 12/23/22 20:05 12/23/22 20:16 Labetalol Hcl 100 Mg/20 Ml Vial IVPUSH 12/23/22 20:06 10 mg ONCE ONE Administration Lorazepam 1 mg 12/23/22 19:24 12/23/22 19:44 Lorazepam 2 Mg/Ml Vial IVPUSH 12/23/22 19:25 1 mg ONCE ONE Administration Metoclopramide HCl 10 mg 12/23/22 21:53 12/23/22 22:07 Metoclopramide Hcl 10 Mg/2 Ml Vial IVPUSH 12/23/22 21:54 10 mg ONCE ONE Administration Morphine Sulfate 4 mg 12/23/22 19:24 12/23/22 19:31 Morphine Sulfate 4 Mg/Ml Cartridge IVPUSH 12/23/22 19:25 4 mg ONCE ONE Administration Protocol <Grisel Rojo MD - Last Filed: 12/23/22 23:35> Medical Decision Making Medical Decision Making [facility] Narrative: -it is unclear when patient's symptoms started, all we know it was that he woke up with a severe headache and facial numbness on the right side, by 17:00, all the symptoms worsen. -given the uncertainty of when the patient's symptoms started, he is not a candidate to tPA. Also, patient's NIH score is 0. -when patient arrived to the main ED, initial blood pressure 253/106. Patient had already had a head CT done which showed no acute intracranial bleed. -patient received 1 dose of 10 mg IV labetalol, blood pressure improved to 203/91, patient still having severe headache. -a 2nd dose of labetalol 10 mg IV was given, blood pressure improved to 168/78. However, patient states that the headache is getting better but still present. -patient got 1 dose of Dilaudid on arrival he already had a dose of morphine -I discussed the patient with Dr. Oro, when she evaluated the patient, she noted that the patient has mild right-sided mouth droop when he speaks -CTA has been ordered. <Grisel Rojo MD - Last Filed: 12/23/22 23:35> Differential Diagnosis Differential Diagnoses: The differential diagnosis associated with the presentation includes <Grisel Rojo MD - Last Filed: 12/23/22 23:35> Intracerebral hemorrhage, CVA, hypertensive emergency <Grisel Rojo MD - Last Filed: 12/23/22 23:35> Admission/Observation Consideration of admission/observation: Escalation of care including admission/observation considered <Grisel Rojo MD - Last Filed: 12/23/22 23:35> Consult Healthcare Provider Management of the patient was discussed with: [employer] Clerk <Grisel Rojo MD - Last Filed: 12/23/22 23:35> Lab Data [facility] Lab Attestation statement: I reviewed the patient's lab results. <Grisel Rojo MD - Last Filed: 12/23/22 23:35> Result Diagrams: 12/23/22 19:28 12/23/22 19:28 <ISABEL Jain - Last Filed: 12/23/22 19:09> Labs: Lab Results 12/23/22 12/23/22 12/23/22 Range/Units 19:18 19:28 19:28 WBC 6.6 (4.8-10.8) X10*3/uL RBC 3.62 L (4.60-5.80) X10*6/uL Hgb 11.4 L (14.0-18.0) g/dl Hct 33.4 L (42.0-52.0) % MCV 92.3 (80.0-98.0) fL MCH 31.5 (27.0-33.0) pg MCHC 34.1 (31.0-36.0) g/dl RDW 13.4 (11.0-16.0) % Plt Count 221 (160-400) X10*3/uL MPV 9.6 (9.4-12.4) fL Immature Gran % (Auto) 0.2 (0.0-0.4) % Neut % (Auto) 59.3 (45-73) % Lymph % (Auto) 23.3 (20-40) % [place] % (Auto) 10.9 (2-11) % Eos % (Auto) 5.4 H (0-4) % Baso % (Auto) 0.9 (0-2) % Lymph # (Auto) 1.5 (1.2-4.9) X10*3/uL [place] # (Auto) 0.7 (0.1-1.2) X10*3/uL Eos # (Auto) 0.4 (0.0-0.4) X10*3/uL Baso # (Auto) 0.1 (0.0-0.2) X10*3/uL Abs Immat Gran (auto) 0.01 (0.00-0.03) X10*3/uL Absolute Neuts (auto) 3.9 (2.0-8.3) x10*3/uL Absolute Nucleated RBC 0.000 (0.0-0.012) X10*3/uL Nucleated RBC % (auto) 0.0 (0.0-0.2) /100WBC PT 12.8 (10.0-13.1) SEC Whole Blood PT 13.0 (11.1-13.5) sec INR 1.1 (0.9-1.1) Whole Blood INR 1.1 (0.9-1.1) Sodium (135-145) mmol/L Potassium (3.3-5.1) mmol/L Chloride (96-108) mmol/L Carbon Dioxide (22-29) mmol/L Anion Gap (12-20) BUN (9-16) mg/dL Creatinine (0.5-1.4) mg/dL Estim Creat Clear Calc Estimated GFR Random Glucose (60-115) mg/dL Calcium (8.4-10.2) mg/dL Magnesium (1.6-2.6) mg/dL Total Bilirubin (0.0-1.0) mg/dL Direct Bilirubin (0.0-0.5) mg/dL AST (5-37) U/L ALT (0-40) U/L Alkaline Phosphatase (39-117) U/L Troponin I High Sens (<3.5-35.0) ng/L Total Protein (6.5-8.0) g/dL Albumin (3.5-5.0) g/dL COVID-19 ([facility]) (Negative) COVID-19 Clin Com 12/23/22 12/23/22 12/23/22 Range/Units 19:28 19:28 19:33 WBC (4.8-10.8) X10*3/uL RBC (4.60-5.80) X10*6/uL Hgb (14.0-18.0) g/dl Hct (42.0-52.0) % MCV (80.0-98.0) fL MCH (27.0-33.0) pg MCHC (31.0-36.0) g/dl RDW (11.0-16.0) % Plt Count (160-400) X10*3/uL MPV (9.4-12.4) fL Immature Gran % (Auto) (0.0-0.4) % Neut % (Auto) (45-73) % Lymph % (Auto) (20-40) % [place] % (Auto) (2-11) % Eos % (Auto) (0-4) % Baso % (Auto) (0-2) % Lymph # (Auto) (1.2-4.9) X10*3/uL [place] # (Auto) (0.1-1.2) X10*3/uL Eos # (Auto) (0.0-0.4) X10*3/uL Baso # (Auto) (0.0-0.2) X10*3/uL Abs Immat Gran (auto) (0.00-0.03) X10*3/uL Absolute Neuts (auto) (2.0-8.3) x10*3/uL Absolute Nucleated RBC (0.0-0.012) X10*3/uL Nucleated RBC % (auto) (0.0-0.2) /100WBC PT (10.0-13.1) SEC Whole Blood PT (11.1-13.5) sec INR (0.9-1.1) Whole Blood INR (0.9-1.1) Sodium 134 L (135-145) mmol/L Potassium 4.8 (3.3-5.1) mmol/L Chloride 104 (96-108) mmol/L Carbon Dioxide 21 L (22-29) mmol/L Anion Gap 14 (12-20) BUN 26 H (9-16) mg/dL Creatinine 1.47 H (0.5-1.4) mg/dL Estim Creat Clear Calc 48.1 Estimated GFR 50 Random Glucose 141 H (60-115) mg/dL Calcium 8.8 (8.4-10.2) mg/dL Magnesium 2.0 (1.6-2.6) mg/dL Total Bilirubin 0.3 (0.0-1.0) mg/dL Direct Bilirubin < 0.2 (0.0-0.5) mg/dL AST 14 (5-37) U/L ALT 8 (0-40) U/L Alkaline Phosphatase 45 (39-117) U/L Troponin I High Sens < 3.5 (<3.5-35.0) ng/L Total Protein 7.5 (6.5-8.0) g/dL Albumin 4.1 (3.5-5.0) g/dL COVID-19 ([facility]) Negative (Negative) COVID-19 Clin Com See Note <ISABEL Jain - Last Filed: 12/23/22 19:09> Lab Results 12/23/22 12/23/22 12/23/22 Range/Units 19:18 19:28 19:28 WBC 6.6 (4.8-10.8) X10*3/uL RBC 3.62 L (4.60-5.80) X10*6/uL Hgb 11.4 L (14.0-18.0) g/dl Hct 33.4 L (42.0-52.0) % MCV 92.3 (80.0-98.0) fL MCH 31.5 (27.0-33.0) pg MCHC 34.1 (31.0-36.0) g/dl RDW 13.4 (11.0-16.0) % Plt Count 221 (160-400) X10*3/uL MPV 9.6 (9.4-12.4) fL Immature Gran % (Auto) 0.2 (0.0-0.4) % Neut % (Auto) 59.3 (45-73) % Lymph % (Auto) 23.3 (20-40) % [place] % (Auto) 10.9 (2-11) % Eos % (Auto) 5.4 H (0-4) % Baso % (Auto) 0.9 (0-2) % Lymph # (Auto) 1.5 (1.2-4.9) X10*3/uL [place] # (Auto) 0.7 (0.1-1.2) X10*3/uL Eos # (Auto) 0.4 (0.0-0.4) X10*3/uL Baso # (Auto) 0.1 (0.0-0.2) X10*3/uL Abs Immat Gran (auto) 0.01 (0.00-0.03) X10*3/uL Absolute Neuts (auto) 3.9 (2.0-8.3) x10*3/uL Absolute Nucleated RBC 0.000 (0.0-0.012) X10*3/uL Nucleated RBC % (auto) 0.0 (0.0-0.2) /100WBC PT 12.8 (10.0-13.1) SEC Whole Blood PT 13.0 (11.1-13.5) sec INR 1.1 (0.9-1.1) Whole Blood INR 1.1 (0.9-1.1) Sodium (135-145) mmol/L Potassium (3.3-5.1) mmol/L Chloride (96-108) mmol/L Carbon Dioxide (22-29) mmol/L Anion Gap (12-20) BUN (9-16) mg/dL Creatinine (0.5-1.4) mg/dL Estim Creat Clear Calc Estimated GFR Random Glucose (60-115) mg/dL Calcium (8.4-10.2) mg/dL Magnesium (1.6-2.6) mg/dL Total Bilirubin (0.0-1.0) mg/dL Direct Bilirubin (0.0-0.5) mg/dL AST (5-37) U/L ALT (0-40) U/L Alkaline Phosphatase (39-117) U/L Troponin I High Sens (<3.5-35.0) ng/L Total Protein (6.5-8.0) g/dL Albumin (3.5-5.0) g/dL COVID-19 ([facility]) (Negative) COVID-19 Clin Com 12/23/22 12/23/22 12/23/22 Range/Units 19:28 19:28 19:33 WBC (4.8-10.8) X10*3/uL RBC (4.60-5.80) X10*6/uL Hgb (14.0-18.0) g/dl Hct (42.0-52.0) % MCV (80.0-98.0) fL MCH (27.0-33.0) pg MCHC (31.0-36.0) g/dl RDW (11.0-16.0) % Plt Count (160-400) X10*3/uL MPV (9.4-12.4) fL Immature Gran % (Auto) (0.0-0.4) % Neut % (Auto) (45-73) % Lymph % (Auto) (20-40) % [place] % (Auto) (2-11) % Eos % (Auto) (0-4) % Baso % (Auto) (0-2) % Lymph # (Auto) (1.2-4.9) X10*3/uL [place] # (Auto) (0.1-1.2) X10*3/uL Eos # (Auto) (0.0-0.4) X10*3/uL Baso # (Auto) (0.0-0.2) X10*3/uL Abs Immat Gran (auto) (0.00-0.03) X10*3/uL Absolute Neuts (auto) (2.0-8.3) x10*3/uL Absolute Nucleated RBC (0.0-0.012) X10*3/uL Nucleated RBC % (auto) (0.0-0.2) /100WBC PT (10.0-13.1) SEC Whole Blood PT (11.1-13.5) sec INR (0.9-1.1) Whole Blood INR (0.9-1.1) Sodium 134 L (135-145) mmol/L Potassium 4.8 (3.3-5.1) mmol/L Chloride 104 (96-108) mmol/L Carbon Dioxide 21 L (22-29) mmol/L Anion Gap 14 (12-20) BUN 26 H (9-16) mg/dL Creatinine 1.47 H (0.5-1.4) mg/dL Estim Creat Clear Calc 48.1 Estimated GFR 50 Random Glucose 141 H (60-115) mg/dL Calcium 8.8 (8.4-10.2) mg/dL Magnesium 2.0 (1.6-2.6) mg/dL Total Bilirubin 0.3 (0.0-1.0) mg/dL Direct Bilirubin < 0.2 (0.0-0.5) mg/dL AST 14 (5-37) U/L ALT 8 (0-40) U/L Alkaline Phosphatase 45 (39-117) U/L Troponin I High Sens < 3.5 (<3.5-35.0) ng/L Total Protein 7.5 (6.5-8.0) g/dL Albumin 4.1 (3.5-5.0) g/dL COVID-19 ([facility]) Negative (Negative) COVID-19 Clin Com See Note <Grisel Rojo MD - Last Filed: 12/23/22 23:35> Independent Interpretation I performed an independent interpretation of an: CT Scan (CT scan my interpretation: No acute intracranial bleed) <Grisel Rojo MD - Last Filed: 12/23/22 23:35> Radiology Impression Discussion of test interpretation with radiology: I have reviewed the radiologist's reading. <Grisel Rojo MD - Last Filed: 12/23/22 23:35> Radiologist Impression: IMPRESSION: ? 1. No acute hemorrhage, mass effect or shift. ? 2. Confluent left maxillary, frontal and ethmoid sinusitis with some hyperostosis and remodeling in the left maxillary sinus suggesting possible antrochoanal polyp formation. ENT correlation is advised <Grisel Rojo MD - Last Filed: 12/23/22 23:35> Critical Care Time Critical Care Time Critical Care Time: Yes <Grisel Rojo MD - Last Filed: 12/23/22 23:35> Total Critical Care Time: 90 <Grisel Rojo MD - Last Filed: 12/23/22 23:35> Attestation: I have personally provided critical care time. Time includes review of lab data, radiology results, discussion with consultants, and monitoring for potential decompensation. Intervention performed as documented. <Grisel Rojo MD - Last Filed: 12/23/22 23:35> Discharge Plan Discharge Clinical Impression: Hypertensive emergency, Headache, Paresthesia <ISABEL Jain - Last Filed: 12/23/22 19:09> Patient Disposition: Admitted As Inpatient <ISABEL Jain - Last Filed: 12/23/22 19:09>
--- NOTE | 2022-12-23 19:06 | ECG_ITS ---
Test Reason : ?STROKE Blood Pressure : / mmHG Vent. Rate : 094 BPM Atrial Rate : 094 BPM P-R Int : 166 ms QRS Dur : 080 ms QT Int : 354 ms P-R-T Axes : 038 -21 013 degrees QTc Int : 442 ms Normal sinus rhythm Normal ECG When compared with ECG of 12-NOV-2009 09:50, No significant change was found Referred By: Kalli Freedman Electronically Signed By:ANNY TERRY MD
[2022-12-23] MEDS: Labetalol HCL 100 MG/20 ML VIAL 10 MG IVPUSH ×2 (19:28→20:16)
[2022-12-23] MEDS: Morphine Sulfate 4 MG/ML CARTRIDGE IVPUSH (19:31)
[2022-12-23 19:32] LABS: MANUAL DIFF FLAG NO
[2022-12-23 19:34] LABS: Basophils Absolute Auto 0.1 X10*3/uL (0.0-0.2); Basophils Percent Auto 0.9 % (0-2); Eosinophils Absolute Auto 0.4 X10*3/uL (0.0-0.4); Eosinophils Percent Auto 5.4 % (0-4); Hematocrit 33.4 % (42.0-52.0); Hemoglobin 11.4 g/dl (14.0-18.0); Imm Gran Abs Auto 0.01 X10*3/uL (0.00-0.03); Imm Gran Pct Auto 0.2 % (0.0-0.4); Lymphocytes Absolute Auto 1.5 X10*3/uL (1.2-4.9); Lymphocytes Percent Auto 23.3 % (20-40); Mean Corpuscular HGB Conc 34.1 g/dl (31.0-36.0); Mean Corpuscular Hemoglobin 31.5 pg (27.0-33.0); Mean Corpuscular Volume 92.3 fL (80.0-98.0); Mean Platelet Volume 9.6 fL (9.4-12.4); Monocytes Absolute Auto 0.7 X10*3/uL (0.1-1.2); Monocytes Percent Auto 10.9 % (2-11); Neutrophils Absolute Auto 3.9 x10*3/uL (2.0-8.3); Neutrophils Percent Auto 59.3 % (45-73); Platelet Count 221 X10*3/uL (160-400); Red Blood Count 3.62 X10*6/uL (4.60-5.80); Red Cell Distribution Width 13.4 % (11.0-16.0); White Blood Count 6.6 X10*3/uL (4.8-10.8)
--- NOTE | 2022-12-23 19:34 | MHC.EDTECH ---
this pct collected pt pt/inr finger stick results are pt result:13.0 INR:1.1 @191
[2022-12-23 19:37] LABS: ~PT, ~INR - Anti Coag Clinic 1.1 (0.9-1.1)
[2022-12-23 19:40] LABS: INTERNATIONAL NORM RATIO 1.1 (0.9-1.1); Prothrombin Time 12.8 SEC (10.0-13.1)
[2022-12-23] MEDS: LORazepam 2 MG/ML VIAL 1 MG IVPUSH (19:44)
[2022-12-23 19:49] LABS: COVID-19 Test Negative (Negative); IDNOW Serial# 08D9AD1C
[2022-12-23 19:58] LABS: Alanine Aminotransferase 8 U/L (0-40); Albumin Level 4.1 g/dL (3.5-5.0); Alkaline Phosphatase 45 U/L (39-117); Anion Gap 14 (12-20); Aspartate Amino Transferase 14 U/L (5-37); Bilirubin Direct < 0.2 mg/dL (0.0-0.5); Bilirubin Total 0.3 mg/dL (0.0-1.0); Blood Urea Nitrogen 26 mg/dL (9-16); Calcium 8.8 mg/dL (8.4-10.2); Carbon Dioxide 21 mmol/L (22-29); Chloride 104 mmol/L (96-108); Creatinine Clr Calc Pharmacy 48.1; Estimated Glomerular Filt Rate 50; Glucose Random 141 mg/dL (60-115); Potassium 4.8 mmol/L (3.3-5.1); Sodium 134 mmol/L (135-145); Total Protein 7.5 g/dL (6.5-8.0)
[2022-12-23 20:04] LABS: Troponin-I High Sensitivity < 3.5 ng/L (<3.5-35.0)
[2022-12-23] MEDS: Metoclopramide HCl 10 MG/2 ML VIAL IVPUSH (22:07)
[2022-12-23] MEDS: diphenhydrAMINE HCL 50 MG/ML VIAL 25 MG IVPUSH (22:07)
--- NOTE | 2022-12-23 22:10 | PC.NURSE ---
Pt drowsy after bendryl admin. Dilaudid held at this time.
--- NOTE | 2022-12-23 22:24 | PC.NURSE ---
Per Dr. Rojo, okay to give dilaudid. Pt drowsy but easy to rouse,answering all questions appropriately, moving all extremities with no difficulty. Respirations even and unlabored.
[2022-12-23] MEDS: HYDROmorphone HCl 1 MG/ML SYRINGE IVPUSH (22:27)
--- NOTE | 2022-12-23 22:37 | PC.NURSE ---
Pt to CT for CTA.
[2022-12-23] MEDS: iohexoL 350 MG/ML 100 ML INFUS..BTL 70 ML IV (23:11)
--- NOTE | 2022-12-23 23:13 | MHC.EDTECH ---
THIS TECH TOOK OVER @2300 EKG WAS DONE BUT WAS NOT DOCUMENTED
[2022-12-24] VITALS (11 sets, daily range): BP systolic 158–199; BP diastolic 74–101; PULSE 69–86; RESP 16–20; TEMP 36.3–37; O2SAT 95–98
--- NOTE | 2022-12-24 00:44 | PM.IMHP ---
History of Present Illness Date of Service: 12/24/22 Chief Complaint: headache 52-year-old male with past medical history of cirrhosis of the liver due to alcohol abuse, diabetes, history of psoriatic arthritis including in the eyes presents to the hospital with complaints of severe headache, he describes attic is 10/10, localized to the front of the head, constant, started earlier in the day, non relenting, associated with blurred vision, no numbness or tingling in his lower extremities, he feels heaviness on his right side of the face, with no difficulty in his speech. Denies any abdominal pain, no chest pain, no shortness of breath, no cough, no UE nausea vomiting, no diarrhea constipation, no urinary symptoms and no lower extremity edema. On arrival to the ED patient was found to have a blood pressure of 222/112 increased to 252/102 at some point while in the ED. Patient received labetalol 10 mg IV x2. Blood pressure dropping to the 150s over 70s within 2 hours. He states a remote history of hypertension many years ago but currently not on antihypertensives. Labs are significant for WBC count of 6.6, hemoglobin of 11.4, hematocrit 33.4, sodium 134, creatinine of 1.47 which is around his baseline, UA positive for blood but no acute infection, COVID-[address] and neck [address] angiogram shows no acute vascular abnormality, no large vessel occlusion, no acute intracranial finding, Review of Systems Review of Systems: Yes all other systems are reviewed and are negative [facility] Medical History (Updated 12/24/22 @ 06:42 by Ivonne Oro MD) Cirrhosis of liver not due to alcohol Diabetes Psoriatic arthritis Surgical History (Updated 12/24/22 @ 06:42 by Ivonne Oro MD) No pertinent past surgical history Social History (Updated 12/24/22 @ 06:42 by Ivonne Oro MD) Alcohol intake: current Patient Tobacco Use Status: Never used Tobacco Meds Allergies Allergy/AdvReac Type Severity Reaction Status Date / Time shellfish derived Allergy Severe ANAPHYLAXIS Verified 12/23/22 19:43 [SHELLFISH DERIVED] Home Medications Medication Instructions Recorded Confirmed Last Taken Type furosemide 20 mg tablet 20 mg PO BID 12/23/22 12/23/22 12/23/22 History gabapentin 300 mg capsule PO 12/23/22 12/23/22 History glipizide 10 mg tablet, extended 10 mg PO BID 12/23/22 12/23/22 12/23/22 History release 24 hr metformin 500 mg tablet 500 mg PO BID 12/23/22 12/23/22 12/23/22 History omeprazole 20 mg capsule,delayed 20 mg PO BID 12/23/22 12/23/22 12/23/22 History release secukinumab 150 mg/mL subcutaneous mg subcut 12/23/22 12/23/22 History pen injector (Cosentyx Pen 300 mg/2 Pens () spironolactone 100 mg tablet PO 12/23/22 12/23/22 History Physical Exam Vital Signs and Narrative: Vital Signs: Last Vital Signs Temp 98.4 F 12/23/22 23:37 Pulse 78 12/23/22 23:37 Resp 19 12/23/22 21:04 BP 175/75 H 12/23/22 23:37 Pulse Ox 94 12/23/22 23:37 O2 Del Method Room Air 12/23/22 23:37 BMI result Body Mass Index 24.5 Results Labs 12/23/22 19:28 12/23/22 19:28 Labs: Laboratory Results - last 24 hr 12/23/22 12/23/22 12/23/22 19:18 19:28 19:28 MCV 92.3 MCH 31.5 MCHC 34.1 RDW 13.4 Plt Count 221 MPV 9.6 Immature Gran % (Auto) 0.2 Neut % (Auto) 59.3 Lymph % (Auto) 23.3 Rogers % (Auto) 10.9 Eos % (Auto) 5.4 H Baso % (Auto) 0.9 Lymph # (Auto) 1.5 Rogers # (Auto) 0.7 Eos # (Auto) 0.4 Baso # (Auto) 0.1 Abs Immat Gran (auto) 0.01 Absolute Neuts (auto) 3.9 Absolute Nucleated RBC 0.000 Nucleated RBC % (auto) 0.0 PT 12.8 Whole Blood PT 13.0 INR 1.1 Whole Blood INR 1.1 Anion Gap Estim Creat Clear Calc Estimated GFR Random Glucose Calcium Magnesium Total Bilirubin Direct Bilirubin AST ALT Alkaline Phosphatase Troponin I High Sens Total Protein Albumin COVID-19 ([facility]) COVID-19 Clin Com 12/23/22 12/23/22 12/23/22 19:28 19:28 19:33 MCV MCH MCHC RDW Plt Count MPV Immature Gran % (Auto) Neut % (Auto) Lymph % (Auto) Rogers % (Auto) Eos % (Auto) Baso % (Auto) Lymph # (Auto) Rogers # (Auto) Eos # (Auto) Baso # (Auto) Abs Immat Gran (auto) Absolute Neuts (auto) Absolute Nucleated RBC Nucleated RBC % (auto) PT Whole Blood PT INR Whole Blood INR Anion Gap 14 Estim Creat Clear Calc 48.1 Estimated GFR 50 Random Glucose 141 H Calcium 8.8 Magnesium 2.0 Total Bilirubin 0.3 Direct Bilirubin < 0.2 AST 14 ALT 8 Alkaline Phosphatase 45 Troponin I High Sens < 3.5 Total Protein 7.5 Albumin 4.1 COVID-19 ([facility]) Negative COVID-19 Clin Com See Note Imaging Radiologist's Impressions: Impressions Head CT 12/23/22 19:14 IMPRESSION: 1. No acute hemorrhage, mass effect or shift. 2. Confluent left maxillary, frontal and ethmoid sinusitis with some hyperostosis and remodeling in the left maxillary sinus suggesting possible antrochoanal polyp formation. ENT correlation is advised This critical result was discussed with Grisel Rojo in the [place] ED at 7:20 PM hours on 12/23/2022. It was ascertained that the content and urgency of the report was understood at the time of direct communication. Chest X-Ray 12/23/22 19:47 IMPRESSION: No acute pulmonary disease. Head/Neck CTA 12/23/22 23:14 IMPRESSION: 1. No acute vascular abnormality. No large vessel occlusion. 2. No acute intracranial finding. 3. Opacification of the left maxillary sinus and anterior aspect of the left ethmoid air cells. Assessment and Plan (1) Hypertensive emergency: Status: Acute (2) Intractable headache: Status: Acute (3) Paresthesia: Status: Acute Plan 52-year-old male with past medical history of liver cirrhosis on spironolactone and furosemide presents to the hospital with headache found to have hypertensive emergency # acute hypertensive emergency - states history of hypertension but many years ago, currently not on any specific antihypertensives - does take furosemide and spironolactone for his history of liver cirrhosis - presents with BP of 250s over 110s - controlled with labetalol - at this time will continue spironolactone, will add amlodipine - monitor BP closely # intractable headache - likely secondary to above - CT head and CT head and neck angiogram negative for any acute abnormality - monitor closely # paresthesia and facial droop - likely secondary to above - less likely to be hemorrhagic or ischemic stroke - monitor symptoms, if persistent consider MRI # liver cirrhosis - continue furosemide and spironolactone # diabetes - hold oral antihyperglycemics - will add low-dose sliding scale insulin DVT prophylaxis: Early ambulation Time Spent With Patient Time: Total time managing care of this patient today ____ minutes. Quality Stroke Does the patient have a stroke diagnosis?: No VTE Prior VTE?: No VTE Risk Level:: Medical - low VTE Device Contraindication: Treatment Not Indicated VTE Drug Contraindication: Treatment Not Indicated
--- NOTE | 2022-12-24 01:14 | PC.NURSE ---
MRI checklist completed.
--- NOTE | 2022-12-24 04:08 | PC.NURSE ---
Pt up to use urinal at bedside. Urine collected and sent to lab. Provider Shorty made aware of elevated BP via [place] text.
[2022-12-24 04:09] LABS: Appearance Urine Clear; Color Urine Yellow; Glucose Urine UA 100 mg/dL (Negative); Leukocyte Esterase Urine Negative (Negative); Nitrite Urine Negative (Negative); Specific Gravity - Urine >= 1.030 (1.005-1.025); UMIC TRIGGER UACC YES; Urine Blood Trace (Negative); Urine Ketones Negative (Negative); Urine Protein 300 (3+) mg/dL (Neg-Trace)
[2022-12-24 04:14] LABS: Bacteria Urine None Seen (None Seen); Hyaline Casts Urine 0-2 /LPF (0-2); RBC Urine 0-2 /HPF (0-2); Squamous Epithelial Cell Urine 0-2 /HPF (0-2); WBC Urine 0-5 /HPF (0-5)
[2022-12-24 06:35] LABS: Alanine Aminotransferase 7 U/L (0-40); Albumin Level 3.8 g/dL (3.5-5.0); Alkaline Phosphatase 39 U/L (39-117); Anion Gap 15 (12-20); Aspartate Amino Transferase 9 U/L (5-37); Bilirubin Total 0.3 mg/dL (0.0-1.0); Blood Urea Nitrogen 24 mg/dL (9-16); Calcium 8.7 mg/dL (8.4-10.2); Carbon Dioxide 20 mmol/L (22-29); Chloride 108 mmol/L (96-108); Creatinine Clr Calc Pharmacy 55.6; Estimated Glomerular Filt Rate 59; Glucose Random 152 mg/dL (60-115); Potassium 4.5 mmol/L (3.3-5.1); Sodium 138 mmol/L (135-145); Total Protein 6.9 g/dL (6.5-8.0)
--- NOTE | 2022-12-24 07:12 | PC.NURSE ---
Report to Misti RN patient AOx 4 some slight left sided facial droop no slurring of words grasp equal no drift. Volitional cough puffs cheeks manages small and large fluids patient remains hypertensive denies chest pain or SOB
[2022-12-24] MEDS: amLODIPine Besylate 5 MG TABLET PO ×2 (08:41→10:07)
[2022-12-24] MEDS: 0.9 % Sodium Chloride Flush 3 ML SYRINGE IVFLUSH ×2 (08:42→16:23)
[2022-12-24] MEDS: Spironolactone 25 MG TABLET 100 MG PO (08:42)
--- NOTE | 2022-12-24 09:02 | PHA.MEDREC ---
Addendum entered by Jo-Ann Dubose, [facility] 12/24/22 09:17: contacted jm carmen to notify her of changes to med rec. Original Note: Pharmacy Consult ? Medication Reconciliation Pharmacy has completed the medication reconciliation. Patient had list with him of all medications
[2022-12-24] MEDS: Furosemide 20 MG TABLET PO ×2 (09:42→20:28)
--- NOTE | 2022-12-24 09:45 | MHC.CM.PN ---
CM met with Patient at bedside and addressed [place] with him, providing him with the original and placing a copy on the chart. Patient lives in a condo with his /HCP and he required no services nor DME [employer] WORK[employer]. Home self care is the goal and CM has initiated and will follow for dc planning. Patient has received Moderna/Covid vax x4 and his PCP is Dr. Martínez Dunn.
[2022-12-24] MEDS: Spironolactone 25 MG TABLET 300 MG PO (10:08)
[2022-12-24] MEDS: Spironolactone 25 MG TABLET 200 MG PO (10:16)
--- NOTE | 2022-12-24 10:28 | PM.EVENT ---
Event Note Date of Service: 12/24/22 Event Note: seen and examined this morning admitted overnight with headache and elevated blood pressure, right side facial paresthesias and ?facial droop. received two doses of IV labetalol in ED with good effect in controlling blood pressure. Today headache is improving, paresthesias have resolved and no facial droop is appreciated. 52-year-old male with past medical history of liver cirrhosis on spironolactone and furosemide presents to the hospital with headache found to have hypertensive emergency # acute hypertensive emergency - states history of hypertension but many years ago, currently not on any specific antihypertensives - does take furosemide and spironolactone for his history of liver cirrhosis - presents with BP of 250s over 110s - controlled with labetalol - at this time will continue spironolactone, will add amlodipine - dose increased today - monitor BP closely # intractable headache - likely secondary to above. improving - CT head and CT head and neck angiogram negative for any acute abnormality - monitor closely # paresthesia and facial droop resolved - likely secondary to above - less likely to be hemorrhagic or ischemic stroke - MRI pending # liver cirrhosis - continue furosemide and spironolactone # diabetes - hold oral antihyperglycemics - SSI, POCs CKD3 renal function appears to be at baseline DVT prophylaxis:? Early ambulation attending - dr. ordaz Time Spent With Patient Time: Total time managing care of this patient today ____ minutes.
--- NOTE | 2022-12-24 11:01 | PM.NEUROCN ---
History of Present Illness Data of Consult Service Date: 12/24/22 Primary Care Provider: Martínez Dunn MD HPI Reason for consult: Headache 52 years old man with cirrhotic arthritis treated with Cosentyx, alcohol abuse and related cirrhosis of liver, chronic hypertension (though he stated that he did not have high blood pressure but his medical records even in 2009 revealed hypertension) came to hospital with new onset of severe headache. He said that he was in usual state of health when he developed a frontal headache that got quite severe and at 1 point he developed right-sided facial numbness and difficulty speaking. When I saw him is headache was almost resolved with resolution of symptoms. His blood pressure on admission was 222 systolic. Review of Systems Review of Systems: No recent trauma or cold or flu-like illness PMFSH Past Medical History Medical History (Updated 12/24/22 @ 11:05 by Kyaw Buitrago MD) Cirrhosis of liver not due to alcohol Diabetes Psoriatic arthritis Surgical History Surgical History (Updated 12/24/22 @ 06:42 by Ivonne Oro MD) No pertinent past surgical history Social History Social History (Updated 12/24/22 @ 06:42 by Ivonne Oro MD) Household Members: None Housing: [facility] Do you presently have visiting nurse or other home services: No Alcohol intake: current Patient Tobacco Use Status: Never used Tobacco Substance Use Type: Marijuana service: No Current occupational status: disabled Meds Allergies Allergy/AdvReac Type Severity Reaction Status Date / Time shellfish derived Allergy Severe ANAPHYLAXIS Verified 12/23/22 19:43 [SHELLFISH DERIVED] Active Medications: Current Medications Acetaminophen (Acetaminophen 325 Mg Tablet) 650 mg PO Q6H PRN PRN Reason: Pain, Mild (Pain Scale 1-3) Amlodipine Besylate (Amlodipine Besylate 10 Mg Tablet) 10 mg PO DAILY [facility]; Protocol Docusate Sodium (Docusate Sodium 100 Mg Capsule) 100 mg PO DAILY PRN PRN Reason: Constipation Furosemide (Furosemide 20 Mg Tablet) 20 mg PO BID [facility]; Protocol Last Admin: 12/24/22 09:42 Dose: 20 mg Gabapentin (Gabapentin 300 Mg Capsule) 300 mg PO BEDTIME [facility] Glucose (Glucose Gel 15 Gm Gel..Gram.) 15 gm PO Q15M PRN; Protocol PRN Reason: per Hypoglycemia Standing Ord. Dextrose (D10) 250 mls @ 750 mls/hr IV Q15M PRN; Protocol PRN Reason: per Hypoglycemia Standing Ord. Insulin Human Lispro (Insulin Lispro 100 Unit/Ml 3 Ml Vial) 0 unit SUBCUT QIDACHS [facility]; Protocol Morphine Sulfate (Morphine Sulfate 4 Mg/Ml Cartridge) 4 mg IVPUSH Q4H PRN; Protocol PRN Reason: Pain, Severe (Pain Scale 7-10) Omeprazole (Omeprazole 20 Mg Capsule.Dr) 20 mg PO DAILY@0630 [facility] Ondansetron HCl (Ondansetron Hcl 4 Mg/2 Ml Vial) 4 mg IVPUSH Q8H PRN PRN Reason: Nausea and Vomiting Pharmacy Consult (Consult Rx Perform Med Rec) 1 each MISCELLANE ONCE PRN PRN Reason: Consult order Sodium Chloride (0.9 % Sodium Chloride Flush 3 Ml Syringe) 3 ml IVFLUSH QSHIFT [facility] Last Admin: 12/24/22 08:42 Dose: 3 ml Spironolactone (Spironolactone 25 Mg Tablet) 300 mg PO DAILY [facility]; Protocol Last Admin: 12/24/22 10:08 Dose: 300 mg Home Medications Medication Instructions Recorded Confirmed Last Taken Type furosemide 20 mg tablet 20 mg PO BID 12/23/22 12/23/22 Unknown History gabapentin 300 mg capsule 300 mg PO BEDTIME 12/23/22 12/24/22 Unknown History glipizide 10 mg tablet, extended 10 mg PO BIDAC 12/23/22 12/24/22 Unknown History release 24 hr metformin 500 mg tablet 500 mg PO BIDWM 12/23/22 12/24/22 Unknown History omeprazole 20 mg capsule,delayed 20 mg PO DAILY@0630 12/23/22 12/24/22 Unknown History release secukinumab 150 mg/mL subcutaneous 300 mg subcut QMONTH 12/23/22 12/24/22 Unknown History pen injector (Cosentyx Pen 300 mg/2 Pens () spironolactone 100 mg tablet 300 mg PO DAILY 12/23/22 12/24/22 Unknown History Physical Exam Vital Signs: Vital Signs: Last Vital Signs Temp 97.6 F 12/24/22 08:00 Pulse 80 12/24/22 09:37 Resp 18 12/24/22 09:37 BP 190/90 H 12/24/22 09:39 Pulse Ox 97 12/24/22 08:00 O2 Del Method Room Air 12/24/22 09:34 BMI result Body Mass Index 24.5 Neuro: Other: He is alert and awake with normal spontaneity of speech fluency comprehension and somewhat flat affect. Face is symmetrical. Visual [place] are full. There is no focal arm or leg weakness. Deep tendon reflexes are absent with flexor plantars. Results Labs 12/23/22 19:28 12/24/22 06:07 Labs: Short CBC 12/23/22 Range/Units 19:28 WBC 6.6 (4.8-10.8) X10*3/uL Hgb 11.4 L (14.0-18.0) g/dl Hct 33.4 L (42.0-52.0) % Plt Count 221 (160-400) X10*3/uL BMP 12/23/22 12/24/22 19:28 06:07 Sodium 134 L 138 Potassium 4.8 4.5 Chloride 104 108 Carbon Dioxide 21 L 20 L BUN 26 H 24 H Creatinine 1.47 H 1.27 Calcium 8.8 8.7 Liver Function 12/23/22 12/24/22 Range/Units 19:28 06:07 Total Bilirubin 0.3 0.3 (0.0-1.0) mg/dL Direct Bilirubin < 0.2 (0.0-0.5) mg/dL AST 14 9 (5-37) U/L ALT 8 7 (0-40) U/L Alkaline Phosphatase 45 39 (39-117) U/L Albumin 4.1 3.8 (3.5-5.0) g/dL Urine 12/24/22 Range/Units 04:03 Urine Color Yellow Urine Appearance Clear Urine pH 6.0 (5.0-9.0) Ur Specific [place] >= 1.030 H (1.005-1.025) Urine Protein 300 (3+) H (Neg-Trace) mg/dL Urine Glucose (UA) 100 H (Negative) mg/dL Brain imaging with CT scan and MRI of brain and CTA of brain and neck were reviewed. It revealed moderately severe diffuse cerebral atrophy and [id number] chronic microvascular ischemic changes. No vascular lesion was noted. 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 This would reflect on his mental status, probably alcoholic dementia evidenced by significant cerebral atrophy. Headache was likely due to high blood pressure including facial numbness and difficulty speaking. All symptoms now were resolved. Mainstay of management is education of the family, and blood pressure control. Time Spent With Patient Time: Total time managing care of this patient today ____ minutes. Procedures Date of Service Date of Service: 12/24/22
[2022-12-24 12:06] LABS: Glucose, Whole Blood 345 mg/dL (60-115)
[2022-12-24] MEDS: Insulin Lispro 100 UNIT/ML 3 ML VIAL SUBCUT ×3 (12:12→20:28)
[2022-12-24] MEDS: Acetaminophen 325 MG TABLET 650 MG PO ×2 (12:18→20:27)
--- NOTE | 2022-12-24 14:05 | MHC.STROKE ---
Addendum entered by Vilma Daniel RN 12/26/22 10:57: I MET WITH THE PATIENT TODAY AND REINFORCED STROKE EDUCATION. WE REVIEWED HIS PRESENTATION AND SYMPTOMS, I EXPLAINED THE LOCATION OF THE STROKE BY USING POWERPOINT HANDOUTS AND THE MRI IMAGE. WE DISCUSSED HIS RISK FACTORS FOR STROKE AND FOCUSED ON HIS HIGH BP AND HLD. I REVIEWED HIS NUMBERS WITH HIM. HE EXPLAINED THAT HE HAS BEEN DISABLED DUE TO HIS PSORIATIC ARTHRITIS AND HAS CHRONIC PAIN ALTHOUGH HE KEEPS HIMSELF BUSY AND VOLUNTEERS ANT THE [facility]. HE UNDERSTANDS THE CORRELATION BETWEEN HIGH BP AND STROKE AND WE REVIEWED HIS MEDICATIONS, BP MEDS, STATIN AND ASPIRIN AND WHY HE NEEDS THESE MEDICATIONS. HE AGREES TO COMPLY AND HE WILL FOLLOW UP WITH HIS PCP DR CRUM. I ANSWERED ALL OF HIS QUESTIONS AND RE-REVIEWED THE STROKE EDUCATION BOOKLET. HE WAS ASSESSED FOR REHAB AND HE HAS BEEN INDEPENDENT, EXCLUDED FOR REHAB ASSESSMENT AND VTE PROPHYLAXIS. I WILL CONTINUE TO FOLLOW. Original Note: 12/23/22 1829 WALK-IN, C/O SHEPHERD AND SOME FACIAL NUMBNESS THAT WAS PRESENT UPON WAKING AROUND 0800 AND CONTINUED THROUGHOUT THE DAY [facility] INCLUDED A HEADACHE. HE WAS VERY HYPERTENSIVE UPON ARRIVAL 222/112, SEEN BY THE PROVIDER, NIHSS = 0, CTH FOR STROKE ORDERED, NO BLEED, FOLLOWED UP WITH CTA H/N AND NO LVO NOTED. OUT OF THE WINDOW FOR TPA THROMBOLYTICS, SEE PROVIDER NOTE. HE PASSED SWALLOW SCREEN PRIOR TO PO. HE HAD AN MRI TODAY THAT REVEALED A SMALL ACUTE ISCHEMIC STROKE ?R/T HYPERTENSION. REVIEWED STROKE ORDERED WITH PA, ALL ORDERS IN PLACE, SHE ASSESSED THE PATIENT FOR REHAB AND NO DISABILITY NOTED. SEEEN BY NEUROLOGY, ASSESS MEDICATION COMPLIANCE.WILL START ASPIRIN AND STATIN, INITIATE STROKE EDUCATION. REALYED THIS INFORMATION TO RN CARING FOR THE PATIENT. I WILL CONTINUE TO FOLLOW.
[2022-12-24 16:23] LABS: Glucose, Whole Blood 281 mg/dL (60-115)
[2022-12-24] MEDS: Aspirin Enteric Coated 81 MG TABLET.DR PO (16:23)
--- NOTE | 2022-12-24 17:48 | PC.NURSE ---
Pt alert and oriented x4. Pt admitted this am to rm 462 with severe headache and right side face numbness. Pt placed on tele. NSR on tele but BP in the 180s-190s. ISABEL Garcia noitified via [place] text. PA at bedside to evaluate. MRI done with results showing a right side acute punctate infarct within the posterior right middle temporal without mass effect or hemorrhagic transformation. Pt Started on Aspirin and Atovarstatin. BP meds also increased. BP still high in the 180s. Radha HALL notified.
[2022-12-24 20:15] LABS: Glucose, Whole Blood 231 mg/dL (60-115)
[2022-12-24] MEDS: Atorvastatin Calcium 40 MG TABLET PO (20:27)
[2022-12-24] MEDS: Gabapentin 300 MG CAPSULE PO (20:28)
[2022-12-25 03:07] VITALS: BP 174/77; PULSE 76; RESP 16; TEMP 36.9; O2SAT 97
[2022-12-25] MEDS: Omeprazole 20 MG CAPSULE.DR PO (06:12)
[2022-12-25 07:23] LABS: Glucose, Whole Blood 220 mg/dL (60-115)
[2022-12-25 07:30] VITALS: BP 174/82; PULSE 75; RESP 20; TEMP 36.8; O2SAT 97
[2022-12-25] MEDS: Insulin Lispro 100 UNIT/ML 3 ML VIAL SUBCUT ×4 (07:40→20:44)
[2022-12-25] MEDS: Furosemide 20 MG TABLET PO ×2 (07:42→20:44)
[2022-12-25] MEDS: Aspirin Enteric Coated 81 MG TABLET.DR PO (07:42)
[2022-12-25] MEDS: 0.9 % Sodium Chloride Flush 3 ML SYRINGE IVFLUSH ×2 (07:42→16:50)
[2022-12-25] MEDS: amLODIPine Besylate 10 MG TABLET PO (07:42)
[2022-12-25 08:06] LABS: Cholesterol 186 mg/dL; HDL Cholesterol 27 mg/dL; LDL Cholesterol Calculated 117 mg/dl; Triglycerides 210 mg/dL
--- NOTE | 2022-12-25 09:57 | P.PNIM_ITS ---
Subjective Subjective Date of Service: 12/25/22 Interval History: f/u on headache, stroke BP remains high but better Review of Systems mild headache no n/v, no chest pain Physical Exam Vital Signs: Vital Signs: Last Vital Signs Temp 98.3 F 12/25/22 07:30 Pulse 75 12/25/22 07:30 Resp 20 12/25/22 07:30 BP 174/82 H 12/25/22 07:30 Pulse Ox 97 12/25/22 07:30 O2 Del Method Room Air 12/25/22 07:30 BMI result Body Mass Index 24.5 Const: Other: General: AO X 3, no acute distress Resp: CTA bilateral CVS: S1,S2,RRR GI: +BS, NT, no distention Skin: No rash Neuro: motor grossly intact Psych: appropriate affect Objective Data Active Medications Acetaminophen (Acetaminophen 325 Mg Tablet) 650 mg PO Q6H PRN PRN Reason: Pain, Mild (Pain Scale 1-3) Last Admin: 12/24/22 20:27 Dose: 650 mg Documented By: YAZMIN Amlodipine Besylate (Amlodipine Besylate 10 Mg Tablet) 10 mg PO DAILY [facility]; Protocol Last Admin: 12/25/22 07:42 Dose: 10 mg Documented By: NAIMA Aspirin (Aspirin Enteric Coated 81 Mg Tablet.) 81 mg PO DAILY [facility] Last Admin: 12/25/22 07:42 Dose: 81 mg Documented By: NAIMA Atorvastatin Calcium (Atorvastatin Calcium 40 Mg Tablet) 40 mg PO BEDTIME [facility] Last Admin: 12/24/22 20:27 Dose: 40 mg Documented By: YAZMIN Docusate Sodium (Docusate Sodium 100 Mg Capsule) 100 mg PO DAILY PRN PRN Reason: Constipation Furosemide (Furosemide 20 Mg Tablet) 20 mg PO BID [facility]; Protocol Last Admin: 12/25/22 07:42 Dose: 20 mg Documented By: NAIMA Gabapentin (Gabapentin 300 Mg Capsule) 300 mg PO BEDTIME [facility] Last Admin: 12/24/22 20:28 Dose: 300 mg Documented By: YAZMIN Glucose (Glucose Gel 15 Gm Gel..Gram.) 15 gm PO Q15M PRN; Protocol PRN Reason: per Hypoglycemia Standing Ord. Dextrose (D10) 250 mls @ 750 mls/hr IV Q15M PRN; Protocol PRN Reason: per Hypoglycemia Standing Ord. Insulin Human Lispro (Insulin Lispro 100 Unit/Ml 3 Ml Vial) 0 unit SUBCUT QIDACHS [facility]; Protocol Last Admin: 12/25/22 07:40 Dose: 4 unit Documented By: NAIMA Morphine Sulfate (Morphine Sulfate 4 Mg/Ml Cartridge) 4 mg IVPUSH Q4H PRN; Protocol PRN Reason: Pain, Severe (Pain Scale 7-10) Omeprazole (Omeprazole 20 Mg Capsule.Dr) 20 mg PO DAILY@0630 [facility] Last Admin: 12/25/22 06:12 Dose: 20 mg Documented By: YAZMIN Ondansetron HCl (Ondansetron Hcl 4 Mg/2 Ml Vial) 4 mg IVPUSH Q8H PRN PRN Reason: Nausea and Vomiting Pharmacy Consult (Consult Rx Perform Med Rec) 1 each MISCELLANE ONCE PRN PRN Reason: Consult order Sodium Chloride (0.9 % Sodium Chloride Flush 3 Ml Syringe) 3 ml IVFLUSH QSHIFT [facility] Last Admin: 12/25/22 07:42 Dose: 3 ml Documented By: NAIMA Spironolactone (Spironolactone 25 Mg Tablet) 300 mg PO DAILY [facility]; Protocol Last Admin: 12/24/22 10:08 Dose: 300 mg Documented By: NGENOAL Labs 12/23/22 19:28 12/24/22 06:07 Labs: Laboratory Results - last 24 hr 12/24/22 12/24/22 12/24/22 12:02 16:20 20:11 POC Glucose 345 H 281 H 231 H Triglycerides Cholesterol LDL Cholesterol, Calc HDL Cholesterol 12/25/22 12/25/22 06:58 07:19 POC Glucose 220 H Triglycerides 210 Cholesterol 186 LDL Cholesterol, Calc 117 HDL Cholesterol 27 Assessment and Plan (1) Stroke: Status: Acute Plan 52-year-old male with past medical history of liver cirrhosis on spironolactone and furosemide presents to the hospital with headache found to have hypertensive emergency # acute hypertensive emergency - states history of hypertension but many years ago, currently not on any specific antihypertensives - does take furosemide and spironolactone for his history of liver cirrhosis - presents with BP of 250s over 110s - given IV labatelol in ED -Presently on PO norvasc BP 174/83, -MRI shows acute stroke - at this time will continue spironolactone, amlodipine 10, add coreg 3.125 today - monitor BP closely - # intractable headache - likely secondary to above. improving - CT head and CT head and neck angiogram negative for any acute abnormality - MRI showed acute stroke # paresthesia and facial droop d/t stroke resolved - MRI--Acute punctate infarct within the posterior right middle temporal gyrus without significant mass effect or hemorrhagic transformation. -ASA, statin, BP control # liver cirrhosis - continue furosemide and spironolactone # diabetes - hold oral antihyperglycemics - SSI, POCs CKD3 renal function appears to be at baseline DVT prophylaxis:? Early ambulation, lovenox Need fo inaptient : acute stroke with uncontrolled BP Time Spent With Patient Time: Total time managing care of this patient today ____ minutes. Quality Stroke Does the patient have a stroke diagnosis?: No VTE Prior VTE?: No VTE Risk Level:: Medical - low VTE Device Contraindication: Treatment Not Indicated VTE Drug Contraindication: Treatment Not Indicated
[2022-12-25 11:00] LABS: Glucose, Whole Blood 207 mg/dL (60-115)
[2022-12-25 11:05] VITALS: BP 157/72; PULSE 79; RESP 20; TEMP 36.8; O2SAT 96
[2022-12-25] MEDS: carvediloL 3.125 MG TABLET PO ×2 (11:22→20:43)
[2022-12-25 16:00] VITALS: BP 149/75; PULSE 77; RESP 20; TEMP 36.8; O2SAT 97
[2022-12-25 16:23] LABS: Glucose, Whole Blood 306 mg/dL (60-115)
[2022-12-25 19:56] VITALS: PULSE 72; RESP 20; TEMP 36.6; O2SAT 98
[2022-12-25 20:09] LABS: Glucose, Whole Blood 232 mg/dL (60-115)
[2022-12-25] MEDS: Atorvastatin Calcium 40 MG TABLET PO (20:44)
[2022-12-25] MEDS: Gabapentin 300 MG CAPSULE PO (20:44)
[2022-12-25 23:05] VITALS: BP 142/65; PULSE 66; RESP 20; TEMP 36.9; O2SAT 97
[2022-12-26 03:49] VITALS: BP 181/93; PULSE 74; RESP 16; TEMP 36.6; O2SAT 97
--- NOTE | 2022-12-26 07:00 | CA_ITS ---
Transthoracic Echocardiogram Patient (Last, First, Middle): Dmitriy Dejesus R Gender: Male Date of : 1970 Age: 52 Procedure Date: 12/26/2022 Procedure Type: Transthoracic Echocardiogram [place] [facility] [place]: 162. cm Weight: 64.87 kg BSA: 1.69 m2 Heart Rate: 66 bpm BP: 181 / 93 mmHg Studio Operations Engineer In Charge: RICKEY Referring MD: Ivonne Oro MD Symptoms: hypertensive emergency Study Quality: Fair ECG Rhythm: Sinus Conclusions: - The left ventricular systolic function is normal. The calculated ejection fraction is 60% by biplane method. - There is moderate aortic valve stenosis. Findings Left Ventricle Normal left ventricular cavity size. There is mildly increased left ventricular wall thickness. The left ventricular systolic function is normal. The calculated ejection fraction is 60% by biplane method. There is no evidence of regional wall motion abnormalities. E/E prime ratio is between 8 and 15 consistent with indeterminate filling pressures. Evidence suggests grade I (mild) diastolic dysfunction. Right Ventricle Normal right ventricular cavity size and systolic function. Atria Both atria are normal in size. Aortic Valve There is moderate calcification of the aortic valve. There is moderate aortic valve stenosis. The peak aortic gradient is 27 mmHg.The mean gradient is 15 mmHg. The aortic valve area is 1.13 cm2. There is no aortic valve regurgitation. Dimensionless index 0.34.Cannot exclude bicuspid morphology. Mitral Valve There is mild mitral annular calcification. There is trace mitral valve regurgitation. There is no mitral valve stenosis. Pulmonic Valve The pulmonic valve is likely normal. Tricuspid Valve Normal tricuspid valve structure. There is trace tricuspid valve regurgitation. Tricuspid regurgitation envelope is inadequate for calculation of right ventricular systolic pressure. Great Vessels The asc aorta is normal in size. Venous The inferior vena cava is normal in size and collapses greater than 50% with inspiration. Pericardium/Pleural There is no evidence of pericardial effusion. Prior Study Comparison No significant change compared to prior study dated: 01/18/2022. Measurements 2D Linear Measurements IVSd: 1.28 0.6-0.9/0.6-1.0 cm LVIDd: 4.08 3.9-5.3/4.2-5.9 cm LVIDd Index: 2.41 2.4-3.2/2.2-3.1 cm/m2 LVIDs: 2.87 2.0-3.6 cm LVPWd: 1.05 0.7-1.1 cm LA Diam: 3.60 2.7-3.8/3.0-4.0 cm LAIDs Index: 2.13 1.5-2.3 cm/m2 LV Mass: 203.28 67-162/88-224 g LV Mass Index: 120.28 43-95/49-115 g/m2 LVOT Diam: 2.00 3.0+(-)1.3 cm 2D Systolic Function EF 4C: 61.60 >55% EF 2C: 58.70 >55% EF BiP: 59.90 >55% Mitral Valve MV Pk E: 0.89 MV PK A: 1.13 MV Decel Time: 278.00 E/A: 0.80 E'Lateral: 7.94 E'Medial: 5.87 E/E' Med: 15.20 E/E' Lat: 11.30 PHT: 81.00 MVA PHT: 2.72 Decel [place]: 3.21 Aortic Valve AoV Pk Ruiz: 2.62 AoV Mn Ruiz: 1.85 AoV VTI: 0.60 AoV Pk Grad: 27.00 Aov Mn Grad: 15.00 CHILO Cont.VTI: 1.13 LVOT LVOT Pk Ruiz: 0.88 LVOT Mn Ruiz: 0.68 LVOT VTI: 0.22 LVOT Pk Grad: 3.00 LVOT Mn Grad: 2.00 LVOT Diam: 2.00 LVOT Area: 3.14 Diastolic Function MV Pk E: 0.89 MV Pk A: 1.13 E/A: 0.80 E'Medial: 5.87 E/E' Med: 15.20 E' Laterial: 7.94 E/E' Lat: 11.30 Right Ventricle TAPSE (mm): 20.40 TVS' Ruiz: 12.00 Tricuspid Valve RA Press: 3.00 Great Vessels Aorta Sinus of Valsalva: 3.50 2.0-3.5 cm Ao Asc: 3.10 2.1-3.4 cm Pulmonary Valve PV Pk Ruiz: 1.06 Peak PV Grad: 4.00 Updated in Other Vendor System with Status of Final Mars Dumont MD electronically signed on 12/26/2022 11:57:27 AM with status of Final
[2022-12-26 07:17] VITALS: BP 172/76; PULSE 69; RESP 20; TEMP 36.1; O2SAT 97
[2022-12-26 07:21] LABS: Glucose, Whole Blood 272 mg/dL (60-115)
[2022-12-26 07:47] LABS: Glucose, Whole Blood 136 mg/dL (60-115)
[2022-12-26] MEDS: Aspirin Enteric Coated 81 MG TABLET.DR PO (08:03)
[2022-12-26] MEDS: amLODIPine Besylate 10 MG TABLET PO (08:04)
[2022-12-26] MEDS: carvediloL 3.125 MG TABLET PO ×2 (08:04→20:31)
[2022-12-26] MEDS: Furosemide 20 MG TABLET PO ×2 (08:04→20:31)
[2022-12-26] MEDS: Spironolactone 25 MG TABLET 300 MG PO (08:04)
[2022-12-26] MEDS: 0.9 % Sodium Chloride Flush 3 ML SYRINGE IVFLUSH ×2 (08:04→17:20)
[2022-12-26] MEDS: Insulin Lispro 100 UNIT/ML 3 ML VIAL SUBCUT ×4 (08:05→20:31)
[2022-12-26] MEDS: Acetaminophen 325 MG TABLET 650 MG PO (08:20)
--- NOTE | 2022-12-26 10:13 | PM.DS ---
DS: Providers Provider Date of Service: 12/27/22 Date of admission: 12/24/22 12:45 Primary care physician: Martínez Dunn MD Consults: 12/24/22 00:41 Consult to Neurology Routine Consulting Provider: [facility] [place] [facility] Reason for consultation: intractble headache, hypertensive emergency Has provider been notified: No DS: Diagnosis Discharge Diagnosis (1) Stroke: Status: Acute DS: Summary Hospital Course Hospital Course: Chief Complaint: headache 52-year-old male with past medical history of cirrhosis of the liver due to alcohol abuse, diabetes, history of psoriatic arthritis including in the eyes presents to the hospital with complaints of severe headache, he describes attic is 10/10, localized to the front of the head, constant, started earlier in the day, non relenting, associated with blurred vision, no numbness or tingling in his lower extremities, he feels heaviness on his right side of the face, with no difficulty in his speech.? Denies any abdominal pain, no chest pain, no shortness of breath, no cough, no UE nausea vomiting, no diarrhea constipation, no urinary symptoms and no lower extremity edema.? On arrival to the ED patient was found to have a blood pressure of 222/112 increased to 252/102 at some point while in the ED.? Patient received labetalol 10 mg IV x2.? Blood pressure dropping to the 150s over 70s within 2 hours.? He states a remote history of hypertension many years ago but currently not on antihypertensives. Labs are significant for WBC count of 6.6, hemoglobin of 11.4, hematocrit 33.4, sodium 134, creatinine of 1.47 which is around his baseline, UA positive for blood but no acute infection, COVID-[address] and neck CT angiogram shows no acute vascular abnormality, no large vessel occlusion, no acute intracranial finding Hospital course: # acute hypertensive emergency - states history of hypertension but many years ago, currently not on any specific antihypertensives other thanfurosemide and spironolactone for his history of liver cirrhosis He presented with BP of 250s over 110s and treated with IV med at that time and has since been initiated on Norvasc 10 daily, Coreg 6.5 bid with Peristent high BP of 170s systolic so adding Hydralazine 20 bid. He will need close follow up on outpatient basis for further med adjustement. Advised home BP monitoring as weel # intractable headache - likely secondary to the high Blood pressure, and this has resolved. CT showed no bleed but ultimately MRI showed acute stroke # paresthesia and facial droop d/t stroke resolved Stroke- MRI--Acute punctate infarct within the posterior right middle temporal gyrus without significant mass effect or hemorrhagic transformation. Being medically treated with -ASA, statin, BP control # liver cirrhosis - continue furosemide and spironolactone # diabetes--resume home meds CKD3 renal function appears to be at baseline Time Spent with Patient Time attestation: Total time managing care of this patient today ____ minutes. Discharge coordination time: Greater than 30 minutes Quality: Safe Use of Opioids Does Pt have an Active Cancer Diagnosis on the Problem List?: No Quality: Stroke Does the patient have a stroke diagnosis?: No Physical Exam Vital Signs: Vital Signs: Last Vital Signs Temp 96.9 F 12/26/22 07:17 Pulse 69 12/26/22 07:17 Resp 20 12/26/22 07:17 BP 172/76 H 12/26/22 07:17 Pulse Ox 97 12/26/22 07:17 O2 Del Method Room Air 12/26/22 07:17 BMI result Body Mass Index 24.5 Const: Other: General: AO X 3, no acute distress Resp: CTA bilateral CVS: S1,S2,RRR GI: +BS, NT, no distention Skin: No rash Neuro: motor grossly intact Psych: appropriate affect DS: Data Data Completed and Pending Labs on day of discharge: Laboratory Results - last 24 hr 12/23/22 12/25/22 12/25/22 19:02 10:57 16:15 POC Glucose 136 H 207 H 306 H 12/25/22 12/26/22 20:05 07:18 POC Glucose 232 H 272 H Discharge Plan Discharge Anticipated Discharge Date/Time: 12/27/22 08:29 Patient Disposition: Home Health Service Discharge Diagnosis: Acute stroke, Hypertensive emergency Referrals: Martínez Dunn MD [Primary Care Provider] - 1 Week Discharge Medications: New atorvastatin 40 mg Tablet 40 mg PO BEDTIME Qty: 30 0RF amlodipine 10 mg Tablet 10 mg PO DAILY Qty: 30 0RF Protocol: Hold for SBP< HOLD for SBP < : 90 carvedilol [Coreg] 6.25 mg tablet 6.25 mg PO BID Qty: 60 0RF Rx Instructions: must administer with a meal/food aspirin 81 mg Tablet,Delayed Release (Dr/Ec) 81 mg PO DAILY Qty: 30 0RF hydralazine 10 mg Tablet 20 mg PO BID Qty: 60 0RF Protocol: Hold for SBP< HOLD for SBP < : 90 Continued metformin 500 mg tablet 500 mg PO BIDWM glipizide 10 mg tablet extended release 24hr 10 mg PO BIDAC spironolactone 100 mg tablet 300 mg PO DAILY gabapentin 300 mg capsule 300 mg PO BEDTIME omeprazole 20 mg capsule,delayed release(DR/EC) 20 mg PO DAILY@0630 furosemide 20 mg tablet 20 mg PO BID Cosentyx Pen (2 Pens) 150 mg/mL pen injector 300 mg subcut QMONTH Discharge Orders: Discharge Order (Routine); Ordered 12/27/22 Ordered By: Bulmaro Sharif Diet: Diabetic diet Activity on Discharge: As tolerated Stand Alone Forms: Patient Portal Discharge page Care Plan Goals: Blood pressure control, and stroke prevention Health Concerns: Extremely high blood pressure, Acute stroke diabetes, Hyperlipidemia Plan of Treatment: Take all medication as instructed to treat blood pressure and prevent stroke, follow up with your Doctor in a week Take Norvasc, Coreg, lasix and Aldactone as recommended, follow up with Dr. Dunn call office tomorrow for appointment monday or Assessment: as above
[2022-12-26 10:52] VITALS: BP 153/78; PULSE 69; RESP 20; TEMP 36.4; O2SAT 97
[2022-12-26 10:58] LABS: Glucose, Whole Blood 335 mg/dL (60-115)
[2022-12-26] MEDS: hydrALAZINE HCl 10 MG TABLET 20 MG PO ×2 (10:59→20:25)
[2022-12-26 12:15] VITALS: BP 138/65
[2022-12-26 17:15] LABS: Glucose, Whole Blood 191 mg/dL (60-115)
[2022-12-26] MEDS: Morphine Sulfate 4 MG/ML CARTRIDGE IVPUSH (17:18)
--- NOTE | 2022-12-26 17:59 | P.PNIM_ITS ---
Subjective Subjective Date of Service: 12/26/22 Interval History: f/u stroke and uncontrolled blood pressure BP remains high, SHEPHERD nearly gone Physical Exam Vital Signs: Vital Signs: Last Vital Signs Temp 97.5 F 12/26/22 10:52 Pulse 69 12/26/22 10:52 Resp 20 12/26/22 10:52 BP 138/65 12/26/22 12:15 Pulse Ox 97 12/26/22 10:52 O2 Del Method Room Air 12/26/22 10:52 BMI result Body Mass Index 24.5 Const: Other: General: AO X 3, no acute distress Resp: CTA bilateral CVS: S1,S2,RRR GI: +BS, NT, no distention Skin: No rash Neuro: motor grossly intact Psych: appropriate affect Objective Data Active Medications Acetaminophen (Acetaminophen 325 Mg Tablet) 650 mg PO Q6H PRN PRN Reason: Pain, Mild (Pain Scale 1-3) Last Admin: 12/26/22 08:20 Dose: 650 mg Documented By: ABDIAS Amlodipine Besylate (Amlodipine Besylate 10 Mg Tablet) 10 mg PO DAILY [facility]; Protocol Last Admin: 12/26/22 08:04 Dose: 10 mg Documented By: ABDIAS Aspirin (Aspirin Enteric Coated 81 Mg Tablet.) 81 mg PO DAILY [facility] Last Admin: 12/26/22 08:03 Dose: 81 mg Documented By: ABDIAS Atorvastatin Calcium (Atorvastatin Calcium 40 Mg Tablet) 40 mg PO BEDTIME [facility] Last Admin: 12/25/22 20:44 Dose: 40 mg Documented By: YAZMIN Carvedilol (Carvedilol 3.125 Mg Tablet) 3.125 mg PO BID [facility]; Protocol Last Admin: 12/26/22 08:04 Dose: 3.125 mg Documented By: ABDIAS Docusate Sodium (Docusate Sodium 100 Mg Capsule) 100 mg PO DAILY PRN PRN Reason: Constipation Furosemide (Furosemide 20 Mg Tablet) 20 mg PO BID [facility]; Protocol Last Admin: 12/26/22 08:04 Dose: 20 mg Documented By: ABDIAS Gabapentin (Gabapentin 300 Mg Capsule) 300 mg PO BEDTIME [facility] Last Admin: 12/25/22 20:44 Dose: 300 mg Documented By: YAZMIN Glucose (Glucose Gel 15 Gm Gel..Gram.) 15 gm PO Q15M PRN; Protocol PRN Reason: per Hypoglycemia Standing Ord. Hydralazine HCl (Hydralazine Hcl 10 Mg Tablet) 20 mg PO BID [facility]; Protocol Last Admin: 12/26/22 10:59 Dose: 20 mg Documented By: ABDIAS Dextrose (D10) 250 mls @ 750 mls/hr IV Q15M PRN; Protocol PRN Reason: per Hypoglycemia Standing Ord. Insulin Human Lispro (Insulin Lispro 100 Unit/Ml 3 Ml Vial) 0 unit SUBCUT QIDACHS [facility]; Protocol Last Admin: 12/26/22 17:16 Dose: 2 unit Documented By: ABDIAS Morphine Sulfate (Morphine Sulfate 4 Mg/Ml Cartridge) 4 mg IVPUSH Q4H PRN; Protocol PRN Reason: Pain, Severe (Pain Scale 7-10) Last Admin: 12/26/22 17:18 Dose: 4 mg Documented By: ABDIAS Omeprazole (Omeprazole 20 Mg Capsule.Dr) 20 mg PO DAILY@0630 [facility] Last Admin: 12/26/22 06:09 Dose: Not Given Documented By: YAZMIN Non-Admin Reason: Patient Refused Ondansetron HCl (Ondansetron Hcl 4 Mg/2 Ml Vial) 4 mg IVPUSH Q8H PRN PRN Reason: Nausea and Vomiting Pharmacy Consult (Consult Rx Perform Med Rec) 1 each MISCELLANE ONCE PRN PRN Reason: Consult order Sodium Chloride (0.9 % Sodium Chloride Flush 3 Ml Syringe) 3 ml IVFLUSH [facility] Last Admin: 12/26/22 17:20 Dose: 3 ml Documented By: ABDIAS Spironolactone (Spironolactone 25 Mg Tablet) 300 mg PO DAILY [facility]; Protocol Last Admin: 12/26/22 08:04 Dose: 300 mg Documented By: ABDIAS Labs 12/23/22 19:28 12/24/22 06:07 Labs: Laboratory Results - last 24 hr 12/23/22 12/25/22 12/26/22 19:02 20:05 07:18 POC Glucose 136 H 232 H 272 H 12/26/22 12/26/22 10:54 17:11 POC Glucose 335 H 191 H Assessment and Plan (1) Stroke: Status: Acute (2) Hypertensive emergency: Status: Acute Plan # acute hypertensive emergency - states history of hypertension but many years ago, currently not on any specific antihypertensives other thanfurosemide and spironolactone for his history of liver cirrhosis He presented with BP of 250s over 110s and treated with IV med at that time and has since been initiated on Norvasc 10 daily, Coreg 3.25 bid with Peristent high BP of 170s systolic so adding Hydralazine 20 bid. Double Coreg. He will need close follow up on outpatient basis for further med adjustement. Advised home BP monitoring as well post discharge #Stroke- MRI--Acute punctate infarct within the posterior right middle temporal gyrus without significant mass effect or hemorrhagic transformation. Being medically treated with -ASA, statin, BP control # intractable headache - likely secondary to the high Blood pressure, and this has resolved. CT showed no bleed but ultimately MRI showed acute stroke # paresthesia and facial droop d/t stroke resolved # liver cirrhosis - continue furosemide and spironolactone # diabetes--resume home meds Time Spent With Patient Time: Total time managing care of this patient today ____ minutes. Quality Stroke Does the patient have a stroke diagnosis?: No VTE Prior VTE?: No VTE Risk Level:: Medical - low VTE Device Contraindication: Treatment Not Indicated VTE Drug Contraindication: Treatment Not Indicated
[2022-12-26 20:00] VITALS: BP 166/78; PULSE 69; RESP 17; TEMP 37.1; O2SAT 97
[2022-12-26 20:10] LABS: Glucose, Whole Blood 245 mg/dL (60-115)
[2022-12-26] MEDS: Atorvastatin Calcium 40 MG TABLET PO (20:30)
[2022-12-26] MEDS: Gabapentin 300 MG CAPSULE PO (20:31)
[2022-12-26 23:39] VITALS: BP 174/80; PULSE 69; RESP 15; TEMP 36.8; O2SAT 97
[2022-12-27 03:14] VITALS: BP 155/74; PULSE 67; RESP 16; TEMP 36.9; O2SAT 96
[2022-12-27 07:16] LABS: Glucose, Whole Blood 232 mg/dL (60-115)
[2022-12-27 07:28] VITALS: BP 151/76; PULSE 67; RESP 20; TEMP 37.2; O2SAT 96
[2022-12-27] MEDS: Spironolactone 25 MG TABLET 300 MG PO (07:54)
[2022-12-27] MEDS: 0.9 % Sodium Chloride Flush 3 ML SYRINGE IVFLUSH (07:54)
[2022-12-27] MEDS: amLODIPine Besylate 10 MG TABLET PO (07:55)
[2022-12-27] MEDS: Insulin Lispro 100 UNIT/ML 3 ML VIAL SUBCUT (07:55)
[2022-12-27] MEDS: carvediloL 3.125 MG TABLET PO (07:56)
[2022-12-27] MEDS: hydrALAZINE HCl 10 MG TABLET 20 MG PO (07:56)
[2022-12-27] MEDS: Furosemide 20 MG TABLET PO (07:56)
[2022-12-27] MEDS: Aspirin Enteric Coated 81 MG TABLET.DR PO (07:56)
[2022-12-27] MEDS: carvediloL 6.25 MG TABLET PO (09:25)
--- NOTE | 2022-12-27 10:17 | MHC.CM.PN ---
Per [facility] discussion, Patient is medically cleared for dc today. CM informed MD @ [facility] that no VNA is secured as of yet and MD indicated that Patient would be dc with or without VNA.
[2022-12-27 11:12] LABS: Glucose, Whole Blood 237 mg/dL (60-115)
== END 2022-12-27 10:00 | disposition home health service (06) | DRG 45 ==
LOC: HO.ED 23:13 → HO.EDOVER 12-24 00:53 → HO.IMC 12-24 06:40
PROVIDERS: Physician Assistant; Physician Assistant Medical; Admitting Provider Internal Medicine; Emergency Provider Emergency Medicine; PCP Internal Medicine; Visit Provider Internal Medicine
DX: I63.9 Cerebral infarction, unspecified (principal); K74.60 Unspecified cirrhosis of liver; L40.50 Arthropathic psoriasis, unspecified; E11.9 Type 2 diabetes mellitus without complications; R29.810 Facial weakness; R20.2 Paresthesia of skin; R29.700 NIHSS score 0; I16.1 Hypertensive emergency; Z20.822 Contact with and (suspected) exposure to COVID-19; Z79.82 Long term (current) use of aspirin; Z79.84 Long term (current) use of oral hypoglycemic drugs; Z79.899 Other long term (current) drug therapy
CPT/HCPCS: 36415; 70450; 70496; 70498; 70551; 71045; 80048; 80053; 80061; 80076; 81001; 82947; 83735; 84484; 85025; 85610; 87635; 93005; 93306; 99285; J1170; J1200; J2060; J2270; J2765; Q9957; Q9967

== ENCOUNTER 2023-01-05 08:00 | Outpatient (REF) | payer OTHER, MEDICARE, SELFPAY ==
[2023-01-05 11:33] LABS: MANUAL DIFF FLAG NO
[2023-01-05 11:51] LABS: Basophils Absolute Auto 0.1 X10*3/uL (0.0-0.2); Basophils Percent Auto 1.3 % (0-2); Eosinophils Absolute Auto 0.4 X10*3/uL (0.0-0.4); Eosinophils Percent Auto 5.2 % (0-4); Hematocrit 31.3 % (42.0-52.0); Hemoglobin 9.9 g/dl (14.0-18.0); Imm Gran Abs Auto 0.03 X10*3/uL (0.00-0.03); Imm Gran Pct Auto 0.4 % (0.0-0.4); Lymphocytes Absolute Auto 1.3 X10*3/uL (1.2-4.9); Lymphocytes Percent Auto 18.1 % (20-40); Mean Corpuscular HGB Conc 31.6 g/dl (31.0-36.0); Mean Corpuscular Hemoglobin 30.5 pg (27.0-33.0); Mean Corpuscular Volume 96.3 fL (80.0-98.0); Mean Platelet Volume 10.5 fL (9.4-12.4); Monocytes Absolute Auto 0.6 X10*3/uL (0.1-1.2); Neutrophils Absolute Auto 4.7 x10*3/uL (2.0-8.3); Platelet Count 236 X10*3/uL (160-400); Red Blood Count 3.25 X10*6/uL (4.60-5.80); Red Cell Distribution Width 12.7 % (11.0-16.0)
[2023-01-05 12:13] LABS: Estimated Average Glucose 183 mg/dL
[2023-01-05 12:15] LABS: Alanine Aminotransferase 12 U/L (0-40); Alkaline Phosphatase 49 U/L (39-117); Anion Gap 12 (12-20); Aspartate Amino Transferase 11 U/L (5-37); Bilirubin Total 0.3 mg/dL (0.0-1.0); Blood Urea Nitrogen 26 mg/dL (9-16); C Reactive Protein 0.99 mg/dL (< or = 0.50); Carbon Dioxide 24 mmol/L (22-29); Chloride 107 mmol/L (96-108); Estimated Glomerular Filt Rate 44; Glucose Random 305 mg/dL (60-115); Potassium 4.9 mmol/L (3.3-5.1); Sodium 138 mmol/L (135-145); Total Protein 7.2 g/dL (6.5-8.0)
== END 2023-01-05 08:01 | disposition home or self-care (01) ==
LOC: HO.HMGCLDS 08:00
PROVIDERS: PCP Internal Medicine; Visit Provider Internal Medicine
DX: I10 Essential (primary) hypertension (principal); E11.9 Type 2 diabetes mellitus without complications; Z86.73 Personal history of transient ischemic attack (TIA), and cerebral infarction without residual deficits
CPT/HCPCS: 36415; 80053; 83036; 85025; 86140

== ENCOUNTER → 2023-01-24 09:56 | Outpatient (BNVA) | payer OTHER, MEDICARE, SELFPAY | PROVIDERS: PCP Internal Medicine; Referring Provider Internal Medicine; Visit Provider Internal Medicine Cardiovascular Disease | DX: I35.0 Nonrheumatic aortic (valve) stenosis (principal); I10 Essential (primary) hypertension; R06.02 Shortness of breath; I73.9 Peripheral vascular disease, unspecified | CPT/HCPCS: 99202 ==

== ENCOUNTER 2023-02-15 08:51 | Outpatient (REF) | payer OTHER, MEDICARE, SELFPAY ==
--- NOTE | ~2023-02-15 | US_ITS ---
EXAMINATION: US RETROPERITONEAL LIMITED (RENAL ONLY) and renal Doppler exam CLINICAL INFORMATION: Hypertension. COMPARISON: Previous CT of the abdomen and pelvis from 2015 TECHNIQUE: Doppler color and grayscale evaluation of the kidneys and renal arteries including waveform spectral analysis FINDINGS: RIGHT KIDNEY: 11 x 6.3 x 5 cm (SAG x AP x TRV). The kidney is normal in size, contour, and echogenicity. Renal cortical thickness is normal. No calculi or focal parenchymal lesions. No hydronephrosis. LEFT KIDNEY: 11 x 6.3 x 5.3 cm (SAG x AP x TRV). The kidney is normal in size, contour, and echogenicity. Renal cortical thickness is normal. No calculi or focal parenchymal lesions. No hydronephrosis. Renal Doppler exam: Mid aortic peak systolic velocity is normal measuring 60 cm/s. Right renal artery peak systolic velocity measures 194, 124 and 98 cm/s proximally, in the midportion and distally. Right renal artery to aorta ratio measures 3.2. Resistive indices in the interlobar renal arteries in the right kidney measures 0.8. The right renal vein is patent. Left renal artery peak systolic velocity measures 93, 134 and 1 5 8 cm/s proximally, in the midportion and distally. Left renal artery to aorta ratio is 2.6. Resistive indices of the interlobar renal arteries in the left kidney measures 0.8-0.9. The left renal vein is patent. US/US renal BI IMPRESSION: Renal ultrasound: Normal-appearing kidneys. Renal Doppler exam: Right: Abnormal and indirect renal artery evaluation suggestive of less than 60% right renal artery stenosis. Left: Normal direct left renal artery Doppler evaluation. Abnormal indirect left renal artery evaluation with elevated resistive indices of the interlobar arteries in the left kidney.
--- NOTE | ~2023-02-15 | US_ITS ---
EXAMINATION: US RETROPERITONEAL LIMITED (RENAL ONLY) and renal Doppler exam CLINICAL INFORMATION: Hypertension. COMPARISON: Previous CT of the abdomen and pelvis from 2015 TECHNIQUE: Doppler color and grayscale evaluation of the kidneys and renal arteries including waveform spectral analysis FINDINGS: RIGHT KIDNEY: 11 x 6.3 x 5 cm (SAG x AP x TRV). The kidney is normal in size, contour, and echogenicity. Renal cortical thickness is normal. No calculi or focal parenchymal lesions. No hydronephrosis. LEFT KIDNEY: 11 x 6.3 x 5.3 cm (SAG x AP x TRV). The kidney is normal in size, contour, and echogenicity. Renal cortical thickness is normal. No calculi or focal parenchymal lesions. No hydronephrosis. Renal Doppler exam: Mid aortic peak systolic velocity is normal measuring 60 cm/s. Right renal artery peak systolic velocity measures 194, 124 and 98 cm/s proximally, in the midportion and distally. Right renal artery to aorta ratio measures 3.2. Resistive indices in the interlobar renal arteries in the right kidney measures 0.8. The right renal vein is patent. Left renal artery peak systolic velocity measures 93, 134 and 1 5 8 cm/s proximally, in the midportion and distally. Left renal artery to aorta ratio is 2.6. Resistive indices of the interlobar renal arteries in the left kidney measures 0.8-0.9. The left renal vein is patent. US/US renal doppler IMPRESSION: Renal ultrasound: Normal-appearing kidneys. Renal Doppler exam: Right: Abnormal and indirect renal artery evaluation suggestive of less than 60% right renal artery stenosis. Left: Normal direct left renal artery Doppler evaluation. Abnormal indirect left renal artery evaluation with elevated resistive indices of the interlobar arteries in the left kidney.
--- NOTE | ~2023-02-15 | US_ITS ---
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 COMPARISON: 06/30/2020. TECHNIQUE: Duplex Doppler of the bilateral lower extremity arterial systems was performed. FINDINGS: RIGHT: Mild diffuse atherosclerotic disease. Common femoral: PSV 88 cm/s. Triphasic waveform. Deep femoral: PSV 72 cm/s. Triphasic waveform. Proximal superficial femoral: PSV 76 cm/s. Triphasic waveform. Mid superficial femoral: PSV 90 cm/s. Triphasic waveform. Distal superficial femoral: PSV 71 cm/s. Triphasic waveform. Popliteal: PSV 60 cm/s. Triphasic waveform. Posterior tibial: PSV 116 cm/s. Monophasic waveform. Peroneal: PSV 81 cm/s. Monophasic waveform. LEFT: Mild diffuse atherosclerotic disease. Common femoral: PSV 86 cm/s. Triphasic waveform. Deep femoral: PSV 70 cm/s. Biphasic waveform. Proximal superficial femoral: PSV 84 cm/s. Triphasic waveform. Mid superficial femoral: PSV 93 cm/s. Triphasic waveform. Distal superficial femoral: PSV 118 cm/s. Triphasic waveform. Popliteal: PSV 87 cm/s. Triphasic waveform. Posterior tibial: PSV 98 cm/s. Monophasic waveform. Peroneal: PSV 64 cm/s. Monophasic waveform. US/US arterial duplex LE BI IMPRESSION: Right: Mild diffuse atherosclerotic disease. No evidence of hemodynamically significant inflow disease or femoropopliteal disease. Monophasic waveforms in the posterior tibial and peroneal arteries consistent with tibial level disease. Left: Mild diffuse atherosclerotic disease. No evidence of hemodynamically significant inflow disease or femoropopliteal disease. Monophasic waveforms in the posterior tibial and peroneal arteries consistent with tibial level disease. Exam is likely stable compared to prior.
== END 2023-02-15 08:52 | disposition home or self-care (01) ==
LOC: HO.US 08:51
PROVIDERS: PCP Internal Medicine; Visit Provider Internal Medicine Cardiovascular Disease
DX: I25.10 Atherosclerotic heart disease of native coronary artery without angina pectoris (principal); I73.9 Peripheral vascular disease, unspecified; I10 Essential (primary) hypertension
CPT/HCPCS: 76775; 93925; 93975

== ENCOUNTER → 2023-02-16 07:51 | Outpatient (REF) | payer OTHER, MEDICARE, SELFPAY ==
--- NOTE | ~2023-02-16 | NM_ITS ---
Myocardial perfusion study Indication: Chest pain to evaluate for myocardial ischemia Technique: The patient was brought in for a Lexiscan perfusion study on 02/16/2023. Patient performed low-level exercise and was injected 0.4 mg of Lexiscan intravenously. Within a minute of injection, 25 mCi of sestamibi was given intravenously. Images were obtained using the SPECT gamma camera interlaced with the gating device. Images were obtained in supine position. Resting perfusion study was performed on 02/20/2023. Patient was administered 25 mCi of sestamibi intravenously at rest. Images were then obtained in supine position. Images obtained with and without CT attenuation. Total DLP 85 mGy-cm. Images were processed with the software and compared side to side in short axis, horizontal long axis and vertical long axis views. Findings: The stress perfusion study showed non attenuated images show normal uptake of radiotracer in all segments of LV myocardium. Attenuation corrected images show mildly reduced uptake in the apex of the LV myocardium.. The gated study shows normal LV systolic function with calculated LVEF of 61%. LV cavity is normal in size. The gated study shows normal systolic wall thickening and contraction of segments. Resting study shows no change in perfusion pattern compared to stress perfusion study. Gating at rest reveals normal systolic wall motion with ejection fraction at 70%. The findings are consistent with normal myocardial perfusion. NM/NM cardiolite stress test Impression: 1. Myocardial perfusion imaging study shows normal myocardial perfusion 2. Gated LVEF is 61% 3. Transient ischemic dilatation not present EKG is nondiagnostic for ischemia MIBI
--- NOTE | 2023-02-16 07:53 | CA_ITS ---
Acquisition Time: 2023-02-16 08:09:56 Total Exercise Time: 00:03:25 Test Indications: mod aortic stenosis Medications: see h Protocol: ANDREW Max HR: 097 BPM 58% of Pred: 166 BPM Max BP: 144/068 mmHG Max Work Load: 4.9 METS Exercise stress test exercise 3 min 25 seconds of Andrew protocol achieivng 58% MPHR with request to stop due to MIRIAM leg pain. Assisted to sitting position and test changed to pharmacological stress test with Lexiscan injection. Without anginal symptoms, without arrhythmias, with normotensive response to injection, without EKG changes. Nuclear images pending. Test reviewed with Dr. Laguerre. Referred By: Toni Rahman Overread By: SOCORRO ROJAS
== END ==
LOC: HO.CARD 07:51
PROVIDERS: PCP Internal Medicine; Visit Provider Internal Medicine Cardiovascular Disease
DX: R07.9 Chest pain, unspecified (principal); R06.02 Shortness of breath; I10 Essential (primary) hypertension
CPT/HCPCS: 78452; 93017; 95806; A9500; J0280; J2785

== ENCOUNTER 2023-02-18 07:08 | Outpatient (REF) | payer OTHER, MEDICARE, SELFPAY ==
[2023-02-18 11:27] LABS: Cholesterol 180 mg/dL; HDL Cholesterol 27 mg/dL; LDL Cholesterol Calculated 115 mg/dl; Triglycerides 192 mg/dL
== END 2023-02-18 07:09 | disposition home or self-care (01) ==
LOC: HO.HMGCLDS 07:08
PROVIDERS: Visit Provider Internal Medicine Cardiovascular Disease
DX: I35.0 Nonrheumatic aortic (valve) stenosis (principal); R07.9 Chest pain, unspecified; R06.02 Shortness of breath
CPT/HCPCS: 36415; 80061

== ENCOUNTER → 2023-02-22 08:46 | Outpatient (BNVA) | payer OTHER, MEDICARE, SELFPAY | PROVIDERS: PCP Internal Medicine; Visit Provider Internal Medicine Cardiovascular Disease ==

== ENCOUNTER 2023-03-13 07:50 | Outpatient (REF) | payer OTHER, MEDICARE, SELFPAY ==
[2023-03-13 11:12] LABS: MANUAL DIFF FLAG NO
[2023-03-13 11:27] LABS: Appearance Urine Clear; Color Urine Yellow; Glucose Urine UA Negative (Negative); Leukocyte Esterase Urine Negative (Negative); Nitrite Urine Negative (Negative); PH 5.5 (5.0-9.0); UMIC TRIGGER UA YES; Urine Blood Negative (Negative); Urine Ketones Negative (Negative); Urine Protein 100 (2+) mg/dL (Neg-Trace)
[2023-03-13 11:31] LABS: Bacteria Urine None Seen (None Seen); Hyaline Casts Urine 0-2 /LPF (0-2); RBC Urine 0-2 /HPF (0-2); Squamous Epithelial Cell Urine 0-2 /HPF (0-2); WBC Urine 0-5 /HPF (0-5)
[2023-03-13 11:36] LABS: Basophils Absolute Auto 0.1 X10*3/uL (0.0-0.2); Basophils Percent Auto 1.2 % (0-2); Eosinophils Absolute Auto 0.4 X10*3/uL (0.0-0.4); Eosinophils Percent Auto 6.2 % (0-4); Hemoglobin 10.1 g/dl (14.0-18.0); Imm Gran Abs Auto 0.03 X10*3/uL (0.00-0.03); Imm Gran Pct Auto 0.5 % (0.0-0.4); Lymphocytes Absolute Auto 1.3 X10*3/uL (1.2-4.9); Lymphocytes Percent Auto 19.6 % (20-40); Mean Corpuscular HGB Conc 31.6 g/dl (31.0-36.0); Mean Corpuscular Hemoglobin 30.2 pg (27.0-33.0); Mean Corpuscular Volume 95.8 fL (80.0-98.0); Mean Platelet Volume 10.8 fL (9.4-12.4); Monocytes Absolute Auto 0.7 X10*3/uL (0.1-1.2); Neutrophils Absolute Auto 4.1 x10*3/uL (2.0-8.3); Neutrophils Percent Auto 62.5 % (45-73); Platelet Count 205 X10*3/uL (160-400); Red Blood Count 3.34 X10*6/uL (4.60-5.80); Red Cell Distribution Width 14.2 % (11.0-16.0); White Blood Count 6.5 X10*3/uL (4.8-10.8)
[2023-03-13 11:49] LABS: Estimated Average Glucose 140 mg/dL; Hemoglobin A1c % 6.5 %
[2023-03-13 12:07] LABS: Alanine Aminotransferase 9 U/L (0-40); Albumin Level 4.2 g/dL (3.5-5.0); Alkaline Phosphatase 42 U/L (39-117); Anion Gap 14 (12-20); Aspartate Amino Transferase 12 U/L (5-37); Bilirubin Total 0.4 mg/dL (0.0-1.0); Blood Urea Nitrogen 31 mg/dL (9-16); Calcium 9.5 mg/dL (8.4-10.2); Carbon Dioxide 20 mmol/L (22-29); Chloride 111 mmol/L (96-108); Cholesterol 181 mg/dL; Estimated Glomerular Filt Rate 50; Glucose Fasting 168 mg/dL (60-99); HDL Cholesterol 33 mg/dL; LDL Cholesterol Calculated 118 mg/dl; Potassium 4.8 mmol/L (3.3-5.1); Sodium 140 mmol/L (135-145); Total Protein 7.5 g/dL (6.5-8.0); Triglycerides 151 mg/dL
[2023-03-13 12:09] LABS: Prostate Specific Antigen < 0.10 ng/mL (<0.05-4.0)
[2023-03-13 12:11] LABS: Creatinine Urine 35.17 mg/dL
[2023-03-13 12:22] LABS: Microalbum/Creatinine Ratio Ur 1887.9 ug/mg cr
== END 2023-03-13 07:51 | disposition home or self-care (01) ==
LOC: HO.HMGCLDS 07:50
PROVIDERS: PCP Internal Medicine; Visit Provider Internal Medicine
DX: Z00.00 Encounter for general adult medical examination without abnormal findings (principal); E11.9 Type 2 diabetes mellitus without complications; Z12.5 Encounter for screening for malignant neoplasm of prostate
CPT/HCPCS: 36415; 80053; 80061; 81001; 82043; 83036; 84153; 85025

== ENCOUNTER 2023-06-19 12:34 | Outpatient (REF) | payer OTHER, MEDICARE, SELFPAY ==
[2023-06-19 16:03] LABS: MANUAL DIFF FLAG NO
[2023-06-19 16:07] LABS: Basophils Absolute Auto 0.1 X10*3/uL (0.0-0.2); Basophils Percent Auto 1.1 % (0-2); Eosinophils Absolute Auto 0.2 X10*3/uL (0.0-0.4); Eosinophils Percent Auto 3.5 % (0-4); Hematocrit 31.5 % (42.0-52.0); Hemoglobin 10.5 g/dl (14.0-18.0); Imm Gran Abs Auto 0.02 X10*3/uL (0.00-0.03); Imm Gran Pct Auto 0.3 % (0.0-0.4); Lymphocytes Absolute Auto 1.1 X10*3/uL (1.2-4.9); Mean Corpuscular HGB Conc 33.3 g/dl (31.0-36.0); Mean Corpuscular Hemoglobin 29.7 pg (27.0-33.0); Mean Platelet Volume 11.1 fL (9.4-12.4); Monocytes Absolute Auto 0.7 X10*3/uL (0.1-1.2); Monocytes Percent Auto 11.3 % (2-11); Neutrophils Absolute Auto 4.1 x10*3/uL (2.0-8.3); Neutrophils Percent Auto 65.8 % (45-73); Platelet Count 217 X10*3/uL (160-400); Red Blood Count 3.54 X10*6/uL (4.60-5.80); Red Cell Distribution Width 13.7 % (11.0-16.0); White Blood Count 6.3 X10*3/uL (4.8-10.8)
[2023-06-19 16:20] LABS: Alanine Aminotransferase 8 U/L (0-40); Alkaline Phosphatase 47 U/L (39-117); Anion Gap 13 (12-20); Aspartate Amino Transferase 15 U/L (5-37); Bilirubin Total 0.2 mg/dL (0.0-1.0); Blood Urea Nitrogen 28 mg/dL (9-16); Calcium 9.3 mg/dL (8.4-10.2); Carbon Dioxide 21 mmol/L (22-29); Chloride 103 mmol/L (96-108); Estimated Glomerular Filt Rate 42; Glucose Random 217 mg/dL (60-115); Potassium 4.5 mmol/L (3.3-5.1); Sodium 132 mmol/L (135-145); Total Protein 7.7 g/dL (6.5-8.0)
[2023-06-19 16:21] LABS: Estimated Average Glucose 166 mg/dL; Hemoglobin A1c % 7.4 % (<6.0)
[2023-06-19 18:35] LABS: Creatinine Urine 27.18 mg/dL; Microalbum/Creatinine Ratio Ur 1350.2 ug/mg cr (<30)
== END 2023-06-19 12:35 | disposition home or self-care (01) ==
LOC: HO.HMGCLDS 12:34
PROVIDERS: PCP Internal Medicine; Visit Provider Internal Medicine
DX: I12.9 Hypertensive chronic kidney disease with stage 1 through stage 4 chronic kidney disease, or unspecified chronic kidney disease (principal); E11.22 Type 2 diabetes mellitus with diabetic chronic kidney disease; N18.9 Chronic kidney disease, unspecified; L40.9 Psoriasis, unspecified; D64.9 Anemia, unspecified
CPT/HCPCS: 36415; 80053; 82043; 82570; 83036; 85025

== ENCOUNTER 2023-07-05 14:59 | Outpatient (REF) | payer OTHER, MEDICARE, SELFPAY | END 2023-07-05 15:00 | disposition home or self-care (01) | LOC: HO.US 14:59 | PROVIDERS: PCP Internal Medicine; Visit Provider Internal Medicine | DX: I70.213 Atherosclerosis of native arteries of extremities with intermittent claudication, bilateral legs (principal) | CPT/HCPCS: 93925 ==

== ENCOUNTER 2023-11-24 13:03 | Outpatient (REF) | payer OTHER, MEDICARE, SELFPAY ==
[2023-11-24 16:05] LABS: MANUAL DIFF FLAG NO
[2023-11-24 16:07] LABS: Basophils Absolute Auto 0.1 X10*3/uL (0.0-0.2); Basophils Percent Auto 1.2 % (0-2); Eosinophils Absolute Auto 0.2 X10*3/uL (0.0-0.4); Eosinophils Percent Auto 2.4 % (0-4); Hematocrit 31.6 % (42.0-52.0); Hemoglobin 10.5 g/dl (14.0-18.0); Imm Gran Abs Auto 0.02 X10*3/uL (0.00-0.03); Imm Gran Pct Auto 0.3 % (0.0-0.4); Lymphocytes Absolute Auto 1.1 X10*3/uL (1.2-4.9); Lymphocytes Percent Auto 15.8 % (20-40); Mean Corpuscular HGB Conc 33.2 g/dl (31.0-36.0); Mean Corpuscular Hemoglobin 29.5 pg (27.0-33.0); Mean Corpuscular Volume 88.8 fL (80.0-98.0); Mean Platelet Volume 10.6 fL (9.4-12.4); Monocytes Absolute Auto 0.7 X10*3/uL (0.1-1.2); Monocytes Percent Auto 10.4 % (2-11); Neutrophils Absolute Auto 4.7 x10*3/uL (2.0-8.3); Neutrophils Percent Auto 69.9 % (45-73); Platelet Count 284 X10*3/uL (160-400); Red Blood Count 3.56 X10*6/uL (4.60-5.80); Red Cell Distribution Width 14.4 % (11.0-16.0); White Blood Count 6.8 X10*3/uL (4.8-10.8)
[2023-11-24 16:14] LABS: Estimated Average Glucose 154 mg/dL
[2023-11-24 16:21] LABS: Alanine Aminotransferase 7 U/L (0-40); Albumin Level 4.3 g/dL (3.5-5.0); Alkaline Phosphatase 49 U/L (39-117); Anion Gap 14 (12-20); Aspartate Amino Transferase 10 U/L (5-37); Bilirubin Total 0.3 mg/dL (0.0-1.0); Blood Urea Nitrogen 46 mg/dL (9-16); Calcium 9.2 mg/dL (8.4-10.2); Carbon Dioxide 11 mmol/L (22-29); Chloride 112 mmol/L (96-108); Estimated Glomerular Filt Rate 30; Glucose Random 167 mg/dL (60-115); Potassium 4.3 mmol/L (3.3-5.1); Sodium 133 mmol/L (135-145); Total Protein 8.1 g/dL (6.5-8.0)
== END 2023-11-24 13:04 | disposition home or self-care (01) ==
LOC: HO.HMGCLDS 13:03
PROVIDERS: PCP Internal Medicine; Visit Provider Internal Medicine
DX: I12.9 Hypertensive chronic kidney disease with stage 1 through stage 4 chronic kidney disease, or unspecified chronic kidney disease (principal); E11.22 Type 2 diabetes mellitus with diabetic chronic kidney disease; N18.9 Chronic kidney disease, unspecified; E78.00 Pure hypercholesterolemia, unspecified
CPT/HCPCS: 36415; 80053; 83036; 85025

== ENCOUNTER 2023-12-21 02:00 | Inpatient (IN) | payer OTHER, MEDICARE, SELFPAY ==
[2023-12-21] VITALS (15 sets, daily range): BP systolic 141–190; BP diastolic 72–84; PULSE 76–97; RESP 12–25; TEMP -17.7–37; O2SAT 74–98; BMI 25.9; BMI 25.4
--- NOTE | 2023-12-21 | ECG_ITS ---
Test Reason : SOB CHEST PX Blood Pressure : / mmHG Vent. Rate : 096 BPM Atrial Rate : 096 BPM P-R Int : 172 ms QRS Dur : 082 ms QT Int : 356 ms P-R-T Axes : 056 -08 023 degrees QTc Int : 449 ms Normal sinus rhythm Normal ECG When compared with ECG of 23-DEC-2022 19:19, No significant change was found Referred By: Generic ED Physician Electronically Signed By:NUSRAT VICENTE
--- NOTE | ~2023-12-21 | XR_ITS ---
EXAMINATION: XR CHEST CLINICAL INFORMATION: Shortness of breath COMPARISON: 12/23/2022 TECHNIQUE: Frontal view of the chest was obtained. FINDINGS: New hazy opacification is present at the lung bases with partial obscuration of the hemidiaphragms, likely due to small pleural effusions with superimposed atelectasis and/or consolidation. Upper lobes are clear. No pneumothorax. Cardiac silhouette is within normal limits in size for technique. Pulmonary vasculature is normal. No acute osseous findings XR/XR chest 1V IMPRESSION: New hazy opacification of the lung bases, likely due to small pleural effusions with superimposed atelectasis and/or consolidation.
--- NOTE | 2023-12-21 02:38 | PC.NURSE ---
pt changed into hospital attire, ekg completed, line place, labs collected and sent, respiratory notified, Reported To YOLANDA Granados
[2023-12-21 02:41] LABS: MANUAL DIFF FLAG NO
[2023-12-21 02:44] LABS: Basophils Absolute Auto 0.1 X10*3/uL (0.0-0.2); Basophils Percent Auto 0.8 % (0-2); Eosinophils Absolute Auto 0.2 X10*3/uL (0.0-0.4); Eosinophils Percent Auto 3.7 % (0-4); Hematocrit 27.7 % (42.0-52.0); Hemoglobin 8.8 g/dl (14.0-18.0); Imm Gran Abs Auto 0.01 X10*3/uL (0.00-0.03); Imm Gran Pct Auto 0.2 % (0.0-0.4); Lymphocytes Absolute Auto 0.9 X10*3/uL (1.2-4.9); Lymphocytes Percent Auto 14.4 % (20-40); Mean Corpuscular HGB Conc 31.8 g/dl (31.0-36.0); Mean Corpuscular Hemoglobin 29.5 pg (27.0-33.0); Mean Platelet Volume 9.9 fL (9.4-12.4); Monocytes Absolute Auto 0.4 X10*3/uL (0.1-1.2); Monocytes Percent Auto 7.4 % (2-11); Neutrophils Absolute Auto 4.4 x10*3/uL (2.0-8.3); Neutrophils Percent Auto 73.5 % (45-73); Platelet Count 194 X10*3/uL (160-400); Red Blood Count 2.98 X10*6/uL (4.60-5.80); Red Cell Distribution Width 15.4 % (11.0-16.0); White Blood Count 5.9 X10*3/uL (4.8-10.8)
--- NOTE | 2023-12-21 02:53 | PC.NURSE ---
new iv established labs drawn. respiratory at bedside. dr. mitchell notified. pt speaking full clear sentences at this time.
--- NOTE | 2023-12-21 02:57 | PC.NURSE ---
pt ambulatory to triage, found to be 74% on room air and immediately brought back to [facility] for O2 application and initiation of treatment. RN triaged patient at bedside, unable to obtain an oral temp as nonrebreather in place and required. RN made primary RN aware that pt requires temp and why it was unable to initially be obtained.
--- NOTE | 2023-12-21 03:11 | ED_ITS ---
HPI - SOB/Dyspnea General Chief Complaint: Dyspnea Stated Complaint: trouble breathing Time Seen by Provider: 12/21/23 02:53 History of Present Illness HPI Narrative: Patient is a 53-year-old male presents today with having shortness of breath. He has a history of aortic stenosis. No history of congestive heart failure in the past. Previous history of EtOH history of hypertension history of diabetes baseline is on carvedilol and amlodipine. Patient had his dose of Lasix decreased. In addition patient's spironolactone was decreased from 3 times a day to twice a day. Now is noticing increasing swelling in the legs. Increasing shortness of breath. No fever no chills. No coughing or congestion or upper respiratory symptoms. No diaphoresis. No chest pain. Related Data Home Medications Medication Instructions Recorded Confirmed furosemide 20 mg tablet 20 mg PO BID 12/23/22 02/22/23 gabapentin 300 mg capsule 300 mg PO BEDTIME 12/23/22 02/22/23 glipizide 10 mg tablet, extended 10 mg PO BIDAC 12/23/22 02/22/23 release 24 hr metformin 500 mg tablet 500 mg PO BIDWM 12/23/22 02/22/23 omeprazole 20 mg capsule,delayed 20 mg PO DAILY@0630 12/23/22 02/22/23 release secukinumab 150 mg/mL subcutaneous 300 mg subcut QMONTH 12/23/22 02/22/23 pen injector (Cosentyx Pen 300 mg/2 Pens () spironolactone 100 mg tablet 300 mg PO DAILY 12/23/22 02/22/23 brimonidine 0.1 % eye drops 1 drp ophthalmic (eye) Q8H 01/24/23 02/22/23 dorzolamide 2 % eye drops 1 drp ophthalmic (eye) TID 01/24/23 02/22/23 Previous Rx's Medication Instructions Recorded amlodipine 10 mg tablet 10 mg PO DAILY #30 tabs 12/26/22 aspirin 81 mg tablet,delayed 81 mg PO DAILY #30 tabs 12/26/22 release carvedilol 6.25 mg tablet (Coreg) 6.25 mg PO BID #60 tabs 12/26/22 hydralazine 50 mg tablet 50 mg PO BID 90 days #180 tabs 02/08/23 Allergies Allergy/AdvReac Type Severity Reaction Status Date / Time shellfish derived Allergy Severe ANAPHYLAXIS Verified 12/21/23 02:12 [SHELLFISH DERIVED] Review of Systems 2 Review of Systems: Positive shortness of breath Yes all other systems are reviewed and are negative [facility] Past Medical History Attestation statement: The following information was validated with the patient. Medical History Cataract Psoriatic arthritis Cirrhosis of liver not due to alcohol Diabetes Surgical History No pertinent past surgical history Family History Family History Mother CHF (congestive heart failure) Father No problems noted. Social History Social History Household Members: None [facility] Do you presently have visiting nurse or other home services: No Alcohol intake: current Patient Tobacco Use Status: Never used Tobacco Substance Use Type: Marijuana Advance Directives: No Advance Directives Information Provided: Yes service: No Current occupational status: disabled Physical Exam 2 Vital Signs: Vital Signs: Last Vital Signs Temp 98.3 F 12/21/23 03:15 Pulse 89 12/21/23 03:51 Resp 18 12/21/23 03:51 BP 190/84 H 12/21/23 03:51 Pulse Ox 95 12/21/23 03:51 O2 Del Method Oxymask 12/21/23 03:51 O2 Flow Rate 5 12/21/23 03:51 BMI result Body Mass Index 25.9 Appearance: Alert. Oriented X3. No acute distress. Eyes: Pupils equal, round and reactive to light. ENT: Pharynx normal. Neck: Normal inspection. Neck supple. No lymph nodes noted. No crepitus CVS: Normal heart rate and rhythm. Pulses normal. Normal S1 and S2. Positive systolic murmur Respiratory: No respiratory distress. Breath sounds normal. No Wheezing. No rales Abdomen: Soft and nontender. No rigidity. No distention. good BS x4 Skin: Skin warm and dry. Normal skin color. Normal skin turgor. Extremities: 2+ lower extremity edema. Neurovascular intact to all extremities. No Lacerations. No Rash Neuro: Oriented X 3. No motor deficit. No sensory deficit. Moving all extermities. No slurred speech Medications Administered Discontinued Medications Generic Name Dose Route Start Last Admin Trade Name Benjaminq PRN Reason Stop Dose Admin Furosemide 40 mg 12/21/23 02:55 12/21/23 03:15 Furosemide 40 Mg/4 Ml Vial IVPUSH 12/21/23 02:56 40 mg ONCE ONE Administration Protocol Losartan Potassium 25 mg 12/21/23 03:41 12/21/23 03:49 Losartan Potassium 25 Mg Tablet PO 12/21/23 03:42 25 mg ONCE ONE Administration Protocol Medical Decision Making Medical Decision Making [facility] Narrative: Patient chest x-ray shows evidence for congestive heart failure. In the setting of patient having shortness of breath. History of aortic stenosis. Will start patient on a dose of Lasix. A dose of BARRIE inhibitor. My interpretation of patient's EKG showed a sinus rhythm heart rate is 100 UT QRS QTC within normal limits. Will check patient's electrolytes. Patient's creatinine actually came back normal today. Compared to an elevated creatinine from back in November. A dose of 40 mg of Lasix was given. We do not have enalapril at [facility]. Will give a low dose of losartan. Patient is symptomatically feel improved. Will admit patient for further evaluation. Differential Diagnosis Differential Diagnoses: The differential diagnosis associated with the presentation includes Congestive heart failure, pneumonia, pneumothorax Admission/Observation Consideration of admission/observation: Escalation of care including admission/observation considered Consult Healthcare Provider Management of the patient was discussed with: Hospitalist Lab Data [facility] Lab Attestation statement: I reviewed the patient's lab results. 12/21/23 02:36 12/21/23 02:50 Labs: Lab Results 12/21/23 12/21/23 12/21/23 Range/Units 02:36 02:50 03:06 WBC 5.9 (4.8-10.8) X10*3/uL RBC 2.98 L (4.60-5.80) X10*6/uL Hgb 8.8 L (14.0-18.0) g/dl Hct 27.7 L (42.0-52.0) % MCV 93.0 (80.0-98.0) fL MCH 29.5 (27.0-33.0) pg MCHC 31.8 (31.0-36.0) g/dl RDW 15.4 (11.0-16.0) % Plt Count 194 D (160-400) X10*3/uL MPV 9.9 (9.4-12.4) fL Immature Gran % (Auto) 0.2 (0.0-0.4) % Neut % (Auto) 73.5 H (45-73) % Lymph % (Auto) 14.4 L (20-40) % [place] % (Auto) 7.4 (2-11) % Eos % (Auto) 3.7 (0-4) % Baso % (Auto) 0.8 (0-2) % Lymph # (Auto) 0.9 L (1.2-4.9) X10*3/uL [place] # (Auto) 0.4 (0.1-1.2) X10*3/uL Eos # (Auto) 0.2 (0.0-0.4) X10*3/uL Baso # (Auto) 0.1 (0.0-0.2) X10*3/uL Abs Immat Gran (auto) 0.01 (0.00-0.03) X10*3/uL Absolute Neuts (auto) 4.4 (2.0-8.3) x10*3/uL Absolute Nucleated RBC 0.000 (0.0-0.012) X10*3/uL Nucleated RBC % (auto) 0.0 (0.0-0.2) /100WBC Sodium 139 (135-145) mmol/L Potassium 4.5 (3.3-5.1) mmol/L Chloride 104 (96-108) mmol/L Carbon Dioxide 25 (22-29) mmol/L Anion Gap 15 (12-20) BUN 22 H (9-16) mg/dL Creatinine 1.35 (0.5-1.4) mg/dL Estim Creat Clear Calc 51.7 Estimated GFR 55 Random Glucose 278 H (60-115) mg/dL Calcium 9.0 (8.4-10.2) mg/dL Magnesium 1.9 (1.6-2.6) mg/dL Total Bilirubin 0.3 (0.0-1.0) mg/dL AST 10 (5-37) U/L ALT 11 (0-40) U/L Alkaline Phosphatase 51 (39-117) U/L Troponin I High Sens 8.6 D (<3.5-35.0) ng/L B-Natriuretic Peptide 654 H (<100) pg/mL Total Protein 7.3 (6.5-8.0) g/dL Albumin 3.8 (3.5-5.0) g/dL Influenza Type A (PCR) NEGATIVE (Negative) Influenza Type B (PCR) NEGATIVE (Negative) RSV RNA Qual (PCR) NEGATIVE (Negative) SARS-CoV-2 RNA (RT-PCR) NEGATIVE (Negative) Independent Interpretation I performed an independent interpretation of an: EKG (My interpretation of patient's EKG showed a sinus rhythm heart rate is 100 UT QRS QTC within normal limits is no acute ST segment elevation) and Plain X-Ray (My interpretation patient's chest x-ray was positive for congestive heart failure) Radiology Impression Discussion of test interpretation with radiology: I have reviewed the radiologist's reading. Independent Historian Clinical information obtained from an independent historian. History obtained from or confirmed by: Spouse External Record Review External record reviewed: Office record Previous echo report was reviewed Chronic Conditions Patient?s care impacted by: Diabetes and Hypertension History of aortic stenosis Critical Care Time Critical Care Time Critical Care Time: Yes Total Critical Care Time: 40 Attestation: I have personally provided 40 minutes of critical care time exclusive of time spent on separately billable procedures. ?Time includes review of lab data, radiology results, discussion with consultants, and monitoring for potential decompensation. ?Interventions were performed as documented above Discharge Plan Discharge Clinical Impression: Aortic stenosis, Congestive heart failure Patient Disposition: Admitted As Inpatient
[2023-12-21 03:13] LABS: Alanine Aminotransferase 11 U/L (0-40); Albumin Level 3.8 g/dL (3.5-5.0); Alkaline Phosphatase 51 U/L (39-117); Anion Gap 15 (12-20); Aspartate Amino Transferase 10 U/L (5-37); Bilirubin Total 0.3 mg/dL (0.0-1.0); Blood Urea Nitrogen 22 mg/dL (9-16); Carbon Dioxide 25 mmol/L (22-29); Chloride 104 mmol/L (96-108); Creatinine Clr Calc Pharmacy 51.7; Estimated Glomerular Filt Rate 55; Glucose Random 278 mg/dL (60-115); Magnesium 1.9 mg/dL (1.6-2.6); Potassium 4.5 mmol/L (3.3-5.1); Sodium 139 mmol/L (135-145); Total Protein 7.3 g/dL (6.5-8.0)
[2023-12-21] MEDS: Furosemide 40 MG/4 ML VIAL IVPUSH (03:15)
[2023-12-21 03:18] LABS: Troponin-I High Sensitivity 8.6 ng/L (<3.5-35.0)
[2023-12-21 03:33] LABS: B Type Natriuretic Peptide 654 pg/mL (<100)
[2023-12-21 03:47] LABS: Influenza A PCR NEGATIVE (Negative); Influenza B PCR NEGATIVE (Negative); Resp Syncy Virus RNA Qual PCR NEGATIVE (Negative); SARS COV2 PCR INHOUSE NEGATIVE (Negative)
[2023-12-21] MEDS: Losartan Potassium 25 MG TABLET PO (03:49)
--- NOTE | 2023-12-21 03:55 | PC.NURSE ---
respiratory titrated o2; as documented.
--- NOTE | 2023-12-21 06:44 | P.HPHOSP_ITS ---
History of Present Illness Date of Service: 12/21/23 Attending physician on admission: Shabana Waggoner Chief Complaint: Shortness on breath Dmitriy Dejesus is a 53 years old man with past medical history significant for chronic kidney disease, essential hypertension, aortic stenosis, type 2 diabetes mellitus on metformin and glipizide and congestive heart failure on Lasix presents to the emergency department complaining of worsening shortness of breath that started yesterday. He denied any associated chest pain, cough, fever or chills. He mentioned his Lasix was decreased to 20 mg p.o. daily (he was taking it twice daily) and spironolactone was decreased to 200 mg p.o. daily from 300 mg p.o. daily as his renal function was deteriorating. He mentioned that he was taking acetazolamide for his eyes (he recently had eye surgery) bulky him bad side effects. He denied tobacco smoking or illicit drug use. He has been drinking alcohol recently as his mother recently but he only drank 1 beer last night. In the ED, he was found to have oxygen saturation of 74% on room air. He is currently requiring 4 L supplemental oxygen via nasal cannula. His blood pressure was also elevated. Loose no tachycardia fever. Hemoglobin is 8.8. There is no leukocytosis. Platelets are 73.5. Creatinine is 1.75. There are no significant electrolyte imbalances. LFTs are normal. BNP is 654. CXR is consistent with congestive heart failure. ED tx: Furosemide 40 mg IV, Vasotec 5 mg IV, losartan 25 mg p.o. Review of Systems 2 Review of Systems: All 12 systems were reviewed and normal except as noted in HPI. 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 Surgical History No pertinent past surgical history Social History Household Members: None Housing: Condominium Do you presently have visiting nurse or other home services: No Alcohol intake: current Alcohol intake frequency: holidays/special occasions only Patient Tobacco Use Status: Never used Tobacco Smoked in Last 30 Days: No Use of substances other than those prescribed or required for medical reasons: No Substance Use Type: Marijuana Advance Directives: No Advance Directives Information Provided: Yes service: No Current occupational status: disabled Meds Allergies Allergy/AdvReac Type Severity Reaction Status Date / Time shellfish derived Allergy Severe ANAPHYLAXIS Verified 12/21/23 02:12 [SHELLFISH DERIVED] Active Medications: Current Medications Acetaminophen (Acetaminophen 325 Mg Tablet) 650 mg PO Q6H PRN PRN Reason: Pain, Mild (Pain Scale 1-3) Amlodipine Besylate (Amlodipine Besylate 5 Mg Tablet) 5 mg PO DAILY [facility]; Protocol Carvedilol (Carvedilol 6.25 Mg Tablet) 6.25 mg PO BID CHICHI; Protocol Dextrose (Dextrose 50 % 25 Gm/50 Ml Syringe) 25 gm IVPUSH Q15M PRN; Protocol PRN Reason: per Hypoglycemia Standing Ord. Furosemide (Furosemide 40 Mg/4 Ml Vial) 40 mg IVPUSH DAILY ONE; Protocol Stop: 12/22/23 09:01 Gabapentin (Gabapentin 300 Mg Capsule) 300 mg PO BEDTIME [facility] Glucose (Glucose Gel 15 Gm Gel..Gram.) 15 gm PO Q15M PRN; Protocol PRN Reason: per Hypoglycemia Standing Ord. Hydralazine HCl (Hydralazine Hcl 50 Mg Tablet) 50 mg PO BID [facility]; Protocol Insulin Human Lispro (Insulin Lispro 100 Unit/Ml 3 Ml Vial) 0 unit SUBCUT QIDACHS [facility]; Protocol Pantoprazole Sodium (Pantoprazole Sodium 40 Mg/10 Ml Vial) 40 mg IVPUSH BID [facility] Prednisolone Acetate (Prednisolone Acetate 1 % Oph Susp 5 Ml Drpbtl) 1 drop EYE-BOTH QID [facility] Sodium Chloride (0.9 % Sodium Chloride Flush 3 Ml Syringe) 3 ml IVFLUSH QSHIFT [facility] Spironolactone (Spironolactone 25 Mg Tablet) 200 mg PO DAILY [facility]; Protocol Home Medications Medication Instructions Recorded Confirmed Last Taken Type furosemide 20 mg tablet 20 mg PO DAILY 12/23/22 12/21/23 Unknown History gabapentin 300 mg capsule 300 mg PO BEDTIME 12/23/22 02/22/23 Unknown History glipizide 10 mg tablet, extended 10 mg PO BIDAC 12/23/22 02/22/23 Unknown History release 24 hr metformin 500 mg tablet 500 mg PO BIDWM 12/23/22 02/22/23 Unknown History omeprazole 20 mg capsule,delayed 20 mg PO DAILY@0630 12/23/22 02/22/23 Unknown History release secukinumab 150 mg/mL subcutaneous 300 mg subcut QMONTH 12/23/22 02/22/23 Unknown History pen injector (Cosentyx Pen 300 mg/2 Pens () spironolactone 100 mg tablet 300 mg PO DAILY 12/23/22 02/22/23 Unknown History brimonidine 0.1 % eye drops 1 drp ophthalmic (eye) Q8H 01/24/23 02/22/23 Unknown History dorzolamide 2 % eye drops 1 drp ophthalmic (eye) TID 01/24/23 02/22/23 Unknown History amlodipine 5 mg tablet 5 mg PO DAILY 12/21/23 12/21/23 Unknown History gabapentin 300 mg capsule 300 mg PO BEDTIME 12/21/23 12/21/23 Unknown History hydralazine 50 mg tablet 50 mg PO BID 12/21/23 12/21/23 Unknown History prednisolone acetate 1 % eye 1 drp ophthalmic (eye) QID 12/21/23 12/21/23 Unknown History drops,suspension spironolactone 100 mg tablet 200 mg PO DAILY 12/21/23 12/21/23 Unknown History Physical Exam 2 Vital Signs and Narrative: Vital Signs: Last Vital Signs Temp 98.3 F 12/21/23 03:15 Pulse 76 12/21/23 05:24 Resp 15 12/21/23 05:24 BP 171/78 H 12/21/23 05:24 Pulse Ox 95 12/21/23 05:24 O2 Del Method Nasal Cannula 12/21/23 05:24 O2 Flow Rate 4 12/21/23 05:24 BMI result Body Mass Index 25.9 Constitutional - Awake and Alert, No apparent distress. Nasal cannula in place. Pleasant. Cooperative HEENT - pupils equally round. Normal sclerae Heart - RRR, (+) murmur Lungs - Normal lung expansion, Normal respiratory effort, No respiratory distress, tachypnea. Bibasilar crackles. Abdomen - NT / ND; +BS; No rebound or guarding Extremities - PT edema to the lower extremities Musculoskeletal - Normal inspection, normal ROM Skin - Warm/Dry Neurological - Alert & oriented x3. No focal weakness. Normal speech. Psychological - Appropriate affect Results Labs 12/21/23 02:36 12/21/23 02:50 Labs: Laboratory Results - last 24 hr 12/21/23 12/21/23 12/21/23 02:36 02:50 03:06 MCV 93.0 MCH 29.5 MCHC 31.8 RDW 15.4 Plt Count 194 D MPV 9.9 Immature Gran % (Auto) 0.2 Neut % (Auto) 73.5 H Lymph % (Auto) 14.4 L [place] % (Auto) 7.4 Eos % (Auto) 3.7 Baso % (Auto) 0.8 Lymph # (Auto) 0.9 L [place] # (Auto) 0.4 Eos # (Auto) 0.2 Baso # (Auto) 0.1 Abs Immat Gran (auto) 0.01 Absolute Neuts (auto) 4.4 Absolute Nucleated RBC 0.000 Nucleated RBC % (auto) 0.0 Anion Gap 15 Estim Creat Clear Calc 51.7 Estimated GFR 55 Random Glucose 278 H Calcium 9.0 Magnesium 1.9 Total Bilirubin 0.3 AST 10 ALT 11 Alkaline Phosphatase 51 Troponin I High Sens 8.6 D B-Natriuretic Peptide 654 H Total Protein 7.3 Albumin 3.8 Influenza Type A (PCR) NEGATIVE Influenza Type B (PCR) NEGATIVE RSV RNA Qual (PCR) NEGATIVE SARS-CoV-2 RNA (RT-PCR) NEGATIVE Imaging Radiologist's Impressions: Impressions Chest X-Ray 12/21/23 02:42 IMPRESSION: New hazy opacification of the lung bases, likely due to small pleural effusions with superimposed atelectasis and/or consolidation. Assessment and Plan (1) Congestive heart failure: Qualifiers: Heart failure type: diastolic Heart failure chronicity: acute on chronic Qualified Code(s): I50.33 - Acute on chronic diastolic (congestive) heart failure Status: Acute (2) Uncontrolled hypertension: Status: Acute (3) Aortic stenosis: Qualifiers: Cardiac valve disease etiology: nonrheumatic Qualified Code(s): I35.0 - Nonrheumatic aortic (valve) stenosis Status: Acute (4) Anemia: Qualifiers: Anemia type: unspecified type Qualified Code(s): D64.9 - Anemia, unspecified Status: Acute Plan Dmitriy Dejesus is a 53 years old man with past medical history significant for aortic stenosis admitted with: * Acute on chronic diastolic congestive heart failure. Admit to hospitalist service. Telemetry. Pulse oximetry. Supplemental oxygen to keep oxygen saturation > 90%. Continue treatment with Lasix IV. * Worsening anemia. Hold aspirin. Continue Protonix IV. Check H&H 8 am. Check stool for occult blood. * Type 2 diabetes mellitus. Hold metformin. Look glucose monitoring before meals at bedtime. Continue glipizide Insulin sliding scale. * Essential hypertension. Continue hydralazine, amlodipine and carvedilol. * Recent eye surgery related to psoriasis. Continue prednisolone. * GERD. Continue PPI. * Liver cirrhosis. Continue spironolactone and furosemide. DVT prophylaxis: SCDs Code status:Full Patient will need hospitalization for at least 2 midnights for CHF treatment with IV diuresis and supplemental oxygen. Patient will also need close monitoring of hemoglobin and possible evaluation by subspecialty Quality Stroke Does the patient have a stroke diagnosis?: No VTE Prior VTE?: No VTE Risk Level:: Medical - moderate - high VTE Device Contraindication: N/A - Device Ordered VTE Drug Contraindication: Treatment Not Indicated
[2023-12-21 07:25] LABS: Glucose, Whole Blood 233 mg/dL (60-115)
[2023-12-21] MEDS: Insulin Lispro 100 UNIT/ML 3 ML VIAL SUBCUT ×4 (07:37→19:58)
--- NOTE | 2023-12-21 08:03 | PHA.MEDREC ---
Pharmacy Consult ? Medication Reconciliation Pharmacy has completed the medication reconciliation. Patient and Spouse had a list with them
[2023-12-21 08:15] LABS: Hematocrit 27.7 % (42.0-52.0); Hemoglobin 8.6 g/dl (14.0-18.0)
[2023-12-21] MEDS: Spironolactone 25 MG TABLET 200 MG PO (08:17)
[2023-12-21] MEDS: carvediloL 6.25 MG TABLET 3.125 MG PO ×2 (08:18→19:58)
[2023-12-21] MEDS: amLODIPine Besylate 5 MG TABLET PO (08:18)
[2023-12-21] MEDS: hydrALAZINE HCl 50 MG TABLET PO ×2 (08:18→19:58)
[2023-12-21] MEDS: 0.9 % Sodium Chloride Flush 3 ML SYRINGE IVFLUSH ×3 (08:19→20:04)
[2023-12-21] MEDS: prednisoLONE Acetate 1 % Oph Susp 5 ML DRPBTL 1 DROP EYE-BOTH ×4 (08:26→20:10)
[2023-12-21] MEDS: Pantoprazole Sodium 40 MG/10 ML VIAL IVPUSH (08:30)
--- NOTE | 2023-12-21 09:25 | PC.NURSE ---
attempted to remove pt from o2 per Dr. Rose. pt desat to 84%. resting comfortably in bed. replaced on 2L NC at this time satting 91%
--- NOTE | 2023-12-21 09:39 | P.PNIM_ITS ---
Subjective Subjective Date of Service: 12/21/23 Interval History: sob improving Physical Exam 2 Vital Signs: Vital Signs: Last Vital Signs Temp 98.6 F 12/21/23 08:15 Pulse 84 12/21/23 08:15 Resp 15 12/21/23 08:15 BP 174/73 H 12/21/23 08:15 Pulse Ox 97 12/21/23 08:15 O2 Del Method Nasal Cannula 12/21/23 08:15 O2 Flow Rate 3 12/21/23 08:15 BMI result Body Mass Index 25.9 General: AO X 3, no acute distress Resp: diminished bilateral, no accessory muscles used CVS: S1,S2,RRR, murmur GI: soft, non tender, non distended Neuro: motor grossly intact, alert Psych: appropriate affect, appropriate insight Objective Data Active Medications Acetaminophen (Acetaminophen 325 Mg Tablet) 650 mg PO Q6H PRN PRN Reason: Pain, Mild (Pain Scale 1-3) Amlodipine Besylate (Amlodipine Besylate 5 Mg Tablet) 5 mg PO DAILY [facility]; Protocol Last Admin: 12/21/23 08:18 Dose: 5 mg Documented By: RASHEEDA Carvedilol (Carvedilol 6.25 Mg Tablet) 3.125 mg PO BID [facility]; Protocol Last Admin: 12/21/23 08:18 Dose: 3.125 mg Documented By: RASHEEDA Dextrose (Dextrose 50 % 25 Gm/50 Ml Syringe) 25 gm IVPUSH Q15M PRN; Protocol PRN Reason: per Hypoglycemia Standing Ord. Furosemide (Furosemide 40 Mg/4 Ml Vial) 40 mg IVPUSH DAILY [facility]; Protocol Stop: 12/22/23 09:01 Gabapentin (Gabapentin 300 Mg Capsule) 300 mg PO BEDTIME [facility] Glucose (Glucose Gel 15 Gm Gel..Gram.) 15 gm PO Q15M PRN; Protocol PRN Reason: per Hypoglycemia Standing Ord. Hydralazine HCl (Hydralazine Hcl 50 Mg Tablet) 50 mg PO BID [facility]; Protocol Last Admin: 12/21/23 08:18 Dose: 50 mg Documented By: RASHEEDA Insulin Human Lispro (Insulin Lispro 100 Unit/Ml 3 Ml Vial) 0 unit SUBCUT QIDACHS [facility]; Protocol Last Admin: 12/21/23 07:37 Dose: 4 unit Documented By: RASHEEDA Pantoprazole Sodium (Pantoprazole Sodium 40 Mg/10 Ml Vial) 40 mg IVPUSH BID [facility] Last Admin: 12/21/23 08:30 Dose: 40 mg Documented By: RASHEEDA Prednisolone Acetate (Prednisolone Acetate 1 % Oph Susp 5 Ml Drpbtl) 1 drop EYE-BOTH QID [facility] Last Admin: 12/21/23 08:26 Dose: 1 drop Documented By: RASHEEDA Sodium Chloride (0.9 % Sodium Chloride Flush 3 Ml Syringe) 3 ml IVFLUSH QSHIFT [facility] Last Admin: 12/21/23 08:19 Dose: 3 ml Documented By: RASHEEDA Spironolactone (Spironolactone 25 Mg Tablet) 200 mg PO DAILY [facility]; Protocol Last Admin: 12/21/23 08:17 Dose: 200 mg Documented By: RASHEEDA Labs 12/21/23 08:08 12/21/23 02:50 Labs: Laboratory Results - last 24 hr 12/21/23 12/21/23 12/21/23 02:36 02:50 03:06 MCV 93.0 MCH 29.5 MCHC 31.8 RDW 15.4 Plt Count 194 D MPV 9.9 Immature Gran % (Auto) 0.2 Neut % (Auto) 73.5 H Lymph % (Auto) 14.4 L [place] % (Auto) 7.4 Eos % (Auto) 3.7 Baso % (Auto) 0.8 Lymph # (Auto) 0.9 L [place] # (Auto) 0.4 Eos # (Auto) 0.2 Baso # (Auto) 0.1 Abs Immat Gran (auto) 0.01 Absolute Neuts (auto) 4.4 Absolute Nucleated RBC 0.000 Nucleated RBC % (auto) 0.0 Anion Gap 15 Estim Creat Clear Calc 51.7 Estimated GFR 55 POC Glucose Random Glucose 278 H Calcium 9.0 Magnesium 1.9 Total Bilirubin 0.3 AST 10 ALT 11 Alkaline Phosphatase 51 Troponin I High Sens 8.6 D B-Natriuretic Peptide 654 H Total Protein 7.3 Albumin 3.8 Influenza Type A (PCR) NEGATIVE Influenza Type B (PCR) NEGATIVE RSV RNA Qual (PCR) NEGATIVE SARS-CoV-2 RNA (RT-PCR) NEGATIVE 12/21/23 07:22 MCV MCH MCHC RDW Plt Count MPV Immature Gran % (Auto) Neut % (Auto) Lymph % (Auto) [place] % (Auto) Eos % (Auto) Baso % (Auto) Lymph # (Auto) [place] # (Auto) Eos # (Auto) Baso # (Auto) Abs Immat Gran (auto) Absolute Neuts (auto) Absolute Nucleated RBC Nucleated RBC % (auto) Anion Gap Estim Creat Clear Calc Estimated GFR POC Glucose 233 H Random Glucose Calcium Magnesium Total Bilirubin AST ALT Alkaline Phosphatase Troponin I High Sens B-Natriuretic Peptide Total Protein Albumin Influenza Type A (PCR) Influenza Type B (PCR) RSV RNA Qual (PCR) SARS-CoV-2 RNA (RT-PCR) Assessment and Plan (1) Congestive heart failure: Status: Acute Plan 53M PMH chronic diastolic chf, moderate aortic stenosis, CKD III, DM, presented with sob acute hypoxic respiratory failrue due to acute on chronic diasotlic chf and moderate aortic stenosis continue iv lasix cardio eval wean off O2, was 75% on room air at home. chronic normocytic anemia check iron studies, LDH CKD III better than baseline, monitor DM insulin HTN aldactone, coreg, hydralazine dvt prophylaxis - lovenox full code reason for continued hospitalization:weaning o2, iv diuresis Quality Stroke Does the patient have a stroke diagnosis?: No VTE Prior VTE?: No VTE Risk Level:: Medical - moderate - high VTE Device Contraindication: N/A - Device Ordered VTE Drug Contraindication: Treatment Not Indicated
[2023-12-21 10:41] LABS: Iron 39 mcg/dL (45-160); Lactate Dehydrogenase 148 U/L (118-273); Percent Iron Saturation 15 % (15-50); Total Iron Binding Capacity 267 mcg/dL (228-428); Unsaturated Iron Binding 228 ug/dL
[2023-12-21 11:01] LABS: Ferritin 32 ng/mL (20-250)
[2023-12-21 13:38] LABS: Glucose, Whole Blood 187 mg/dL (60-115)
--- NOTE | 2023-12-21 14:57 | MHC.CM.PN ---
EMR REVIEWED, PT ADMITTED W/ACUTE HYPOXIC RESP FAILURE D/T CHF, CM MET W/PT AND PT'S AT BEDSIDE, PT REPORTS HE LIVES W/, DENIES USE OF DME/SERVICES, PT DOES HAVE ISSUES W/VISION AFTER RECENT EYE SURGERY AND RX TO DROPS. PT VERIFIES PCP IS SHARMILA CRUM AND PT REPORTS HE THOUGHT HE HAD A HCP PRIOR TO EYE SURGERY AT [facility] HOWEVER PT COMPLETED A NEW HCP NAMING HIS LYNDA [phone] HIS [facility] AND DTR KRISTEN MUNOZ [phone] HIS ALTERNATE, COPY UPLOADED TO [facility] AND PLACED IN ED CHART.
--- NOTE | 2023-12-21 15:57 | PC.NURSE ---
pt aware he needs to give a stool sample for OBSX
[2023-12-21 16:59] LABS: Glucose, Whole Blood 230 mg/dL (60-115)
--- NOTE | 2023-12-21 18:31 | PC.NURSE ---
Pt arrived to unit in bed, oriented to room, call conde system and staff. A&OX4. CAMACHO to command 5/5 sensation intact, trace edema to bilat ankles. Denies headache, dizziness or vision changes. LS with crackles to bases left greater than right denies SOB or CP, NSR on tele. On 2L oxygen via NC satting mid 90's. BS+X4 abdomen soft non-tender denies nausea/vomiting. Denies pain/discomfort. Voiding in urinal clear yellow urine. Low fall risk call conde within reach. BP 188/93 Dr Rose notified ok to wait for nighttime meds.
[2023-12-21 19:54] LABS: Glucose, Whole Blood 169 mg/dL (60-115)
[2023-12-21] MEDS: Gabapentin 300 MG CAPSULE PO (19:58)
--- NOTE | 2023-12-21 20:43 | PC.NURSE ---
Assumed care of patient at 19:00. Pt is A&Ox4. Hypertensive on initial set of vitals 190/80 as confirmed with manual. Patient denies headache, chest pain, palpitations, and other symptoms. Covering MD notified. Scheduled evening BP meds given.
[2023-12-22] VITALS (7 sets, daily range): BP systolic 143–190; BP diastolic 68–89; PULSE 77–81; RESP 16–20; TEMP 36.2–37.6; O2SAT 95–98
--- NOTE | 2023-12-22 00:32 | PC.NURSE ---
Handoff report given to oncoming RN at 23:00 on 12/20.
[2023-12-22 05:53] LABS: MANUAL DIFF FLAG NO
[2023-12-22 06:00] LABS: Basophils Absolute Auto 0.1 X10*3/uL (0.0-0.2); Eosinophils Absolute Auto 0.2 X10*3/uL (0.0-0.4); Eosinophils Percent Auto 4.5 % (0-4); Hematocrit 28.3 % (42.0-52.0); Hemoglobin 8.7 g/dl (14.0-18.0); Imm Gran Abs Auto 0.02 X10*3/uL (0.00-0.03); Imm Gran Pct Auto 0.4 % (0.0-0.4); Mean Corpuscular HGB Conc 30.7 g/dl (31.0-36.0); Mean Corpuscular Hemoglobin 28.4 pg (27.0-33.0); Mean Corpuscular Volume 92.5 fL (80.0-98.0); Mean Platelet Volume 9.3 fL (9.4-12.4); Monocytes Absolute Auto 0.6 X10*3/uL (0.1-1.2); Monocytes Percent Auto 11.7 % (2-11); Neutrophils Absolute Auto 3.1 x10*3/uL (2.0-8.3); Neutrophils Percent Auto 62.4 % (45-73); Platelet Count 181 X10*3/uL (160-400); Red Blood Count 3.06 X10*6/uL (4.60-5.80); Red Cell Distribution Width 15.1 % (11.0-16.0); White Blood Count 4.9 X10*3/uL (4.8-10.8)
[2023-12-22 06:02] LABS: Hematocrit 27.7 % (42.0-52.0); Hemoglobin 8.6 g/dl (14.0-18.0); Mean Corpuscular Volume 93.3 fL (80.0-98.0); Mean Platelet Volume 9.6 fL (9.4-12.4); Platelet Count 186 X10*3/uL (160-400); Red Blood Count 2.97 X10*6/uL (4.60-5.80); Red Cell Distribution Width 15.1 % (11.0-16.0)
[2023-12-22 06:19] LABS: Alanine Aminotransferase 9 U/L (0-40); Albumin Level 3.2 g/dL (3.5-5.0); Alkaline Phosphatase 43 U/L (39-117); Anion Gap 11 (12-20); Aspartate Amino Transferase 9 U/L (5-37); Bilirubin Total 0.4 mg/dL (0.0-1.0); Blood Urea Nitrogen 19 mg/dL (9-16); Calcium 8.8 mg/dL (8.4-10.2); Carbon Dioxide 26 mmol/L (22-29); Chloride 106 mmol/L (96-108); Creatinine Clr Calc Pharmacy 53.3; Estimated Glomerular Filt Rate 57; Glucose Fasting 155 mg/dL (60-99); Glucose Random 153 mg/dL (60-115); Magnesium 1.7 mg/dL (1.6-2.6); Sodium 139 mmol/L (135-145); Total Protein 6.5 g/dL (6.5-8.0)
--- NOTE | 2023-12-22 07:00 | CA_ITS ---
Transthoracic Echocardiogram Patient (Last, First, Middle): Dmitriy Dejesus R Gender: Male Date of : 1970 Age: 53 Procedure Date: 12/22/2023 Procedure Type: Transthoracic Echocardiogram Location: [facility] Height: 162.56 cm Weight: 68.49 kg BSA: 1.74 m2 Heart Rate: bpm BP: 174 / 73 mmHg Boiler Tube Blower: Referring MD: Omar Rose MD Symptoms: chf, as Study Quality: Fair ECG Rhythm: Sinus Conclusions: - The left ventricular systolic function is normal. The visually estimated ejection fraction is between 55-60%. - There is moderate to severe aortic valve stenosis. Findings Left Ventricle Normal left ventricular cavity size. There is mildly increased left ventricular wall thickness. The left ventricular systolic function is normal. The visually estimated ejection fraction is between 55-60%. There is no evidence of regional wall motion abnormalities. Evidence suggests grade I (mild) diastolic dysfunction. Right Ventricle Normal right ventricular cavity size and systolic function. Atria The left atrium is mildly dilated. The right atrium is normal in size. Aortic Valve There is severe calcification of the aortic valve. There is moderate to severe aortic valve stenosis. The peak aortic velocity is 3.37 m/s with a calculated peak gradient of 45 mmHg. The mean gradient is 28 mmHg. The aortic valve area is 0.96 cm2. There is no aortic valve regurgitation. Dimensionless index 0.25. Mitral Valve There is mild mitral annular calcification. There is trace mitral valve regurgitation. There is no mitral valve stenosis. Pulmonic Valve The pulmonic valve is likely normal. Tricuspid Valve There is trace tricuspid valve regurgitation. There is no evidence of pulmonary hypertension. Great Vessels The asc aorta is normal in size. Venous The inferior vena cava is normal in size and collapses greater than 50% with inspiration. Pericardium/Pleural There is a trivial pericardial effusion. Prior Study Comparison Changes noted compared to prior study dated: 12/26/2022. Progression of aortic valve stenosis. Measurements 2D Linear Measurements IVSd: 1.22 0.6-0.9/0.6-1.0 cm LVIDd: 4.07 3.9-5.3/4.2-5.9 cm LVIDd Index: 2.34 2.4-3.2/2.2-3.1 cm/m2 LVIDs: 2.53 2.0-3.6 cm LVPWd: 1.26 0.7-1.1 cm Ao Root: 3.20 2.1-3.5 cm LA Diam: 4.10 2.7-3.8/3.0-4.0 cm LAIDs Index: 2.36 1.5-2.3 cm/m2 LV Mass: 222.14 67-162/88-224 g LV Mass Index: 127.66 43-95/49-115 g/m2 LVOT Diam: 2.00 3.0+(-)1.3 cm RVOT Diam: 16.00 1.7-2.3 cm 2D Systolic Function EF 4C: 48.80 >55% EF 2C: 48.70 >55% EF BiP: 48.30 >55% Mitral Valve MV VTI: 0.35 MV Pk Ruiz: 1.28 MV Mn Ruiz: 0.74 MV Pk Grad: 7.00 MV Mn Grad: 3.00 MV Pk E: 0.90 MV PK A: 1.29 MV Decel Time: 147.00 E/A: 0.70 E'Lateral: 5.66 E'Medial: 3.92 E/E' Med: 23.00 E/E' Lat: 15.90 PHT: 43.00 MVA PHT: 5.12 MVA Continuity: 2.19 Decel Monroe: 6.14 Aortic Valve AoV Pk Ruiz: 3.37 AoV Mn Ruiz: 2.52 AoV VTI: 0.79 AoV Pk Grad: 45.00 Aov Mn Grad: 28.00 CHILO Cont.VTI: 0.96 LVOT LVOT Pk Ruiz: 0.86 LVOT Mn Ruiz: 0.53 LVOT VTI: 0.24 LVOT Pk Grad: 3.00 LVOT Mn Grad: 1.00 LVOT Diam: 2.00 LVOT Area: 3.14 Diastolic Function MV Pk E: 0.90 MV Pk A: 1.29 E/A: 0.70 E'Medial: 3.92 E/E' Med: 23.00 E' Laterial: 5.66 E/E' Lat: 15.90 Right Ventricle TAPSE (mm): 27.00 TVS' Ruiz: 14.00 Tricuspid Valve TR Pk Ruiz: 2.00 TR Pk Grad: 0.00 RVOT: 16.00 RA Press: 3.00 RVSP: 19.00 Great Vessels Aorta Ao Root-2D: 3.20 2.0-3.7 cm Ao Asc: 2.90 2.1-3.4 cm Pulmonary Valve PV Pk Ruiz: 1.66 Peak PV Grad: 11.00 Updated in Other Vendor System with Status of Final Mars Dumont MD electronically signed on 12/22/2023 11:54:04 AM with status of Final
[2023-12-22 08:10] LABS: Glucose, Whole Blood 156 mg/dL (60-115)
[2023-12-22] MEDS: Spironolactone 25 MG TABLET 200 MG PO (08:50)
[2023-12-22] MEDS: Enoxaparin Sodium 40 MG/0.4 ML SYRINGE SUBCUT (08:50)
[2023-12-22] MEDS: hydrALAZINE HCl 50 MG TABLET PO ×2 (08:50→20:13)
[2023-12-22] MEDS: amLODIPine Besylate 5 MG TABLET PO ×2 (08:50→11:24)
[2023-12-22] MEDS: Furosemide 40 MG/4 ML VIAL IVPUSH (08:50)
[2023-12-22] MEDS: carvediloL 6.25 MG TABLET 3.125 MG PO (08:51)
[2023-12-22] MEDS: prednisoLONE Acetate 1 % Oph Susp 5 ML DRPBTL 1 DROP EYE-BOTH ×4 (08:51→20:14)
[2023-12-22] MEDS: Insulin Lispro 100 UNIT/ML 3 ML VIAL SUBCUT ×3 (08:51→20:13)
[2023-12-22] MEDS: 0.9 % Sodium Chloride Flush 3 ML SYRINGE IVFLUSH ×2 (08:51→20:14)
--- NOTE | 2023-12-22 09:22 | P.CONCA_ITS ---
History of Present Illness History of Present Illness Date of Service: 12/22/23 Chief complaint: Hypoxic Respiratory Failure Narrative: This is a cardiology consultation regarding shortness of breath. Patient has a history of chronic kidney disease, hypertension, aortic stenosis, diabetes among others. Currently here for shortness of breath. He states that some his meds were changed recently as there was some issue with eyes as well as kidneys. It seems that Lasix as well as spironolactone doses were changed. Any case, over the last couple of days, he has been short of breath and that led to the hospitalization. Patient has history of aortic stenosis and hence we are consulted. Currently, he states he feels okay. Apart from exertion shortness of breath he has no clear symptoms when he is resting. No known coronary disease or cardiomyopathy. Review of Systems 2 Review of Systems: Yes all other systems are reviewed and are negative Constitutional: Constitutional: Reports as per HPI and Reports no additional constitutional complaints Eyes: Eyes: Reports as per HPI and Denies no additional eye complaints ENT: Denies system reviewed and no additional complaints, except as documented and Reports as per HPI Cardiovascular: Cardiovascular: Reports as per HPI, Reports no additional cardiovascular complaints, Denies acrocyanosis, Denies cool extremities, Denies chest pain, Denies leg edema, Denies lightheadedness, Denies palpitations and Reports dyspnea Respiratory: Respiratory: Reports as per HPI, Denies no additional respiratory complaints and Reports dyspnea Gastrointestinal: Gastrointestinal: Reports as per HPI and Denies no additional gastrointestinal complaints Genitourinary: Genitourinary: Reports no additional male genitourinary complaints and Reports as per HPI Musculoskeletal: Musculoskeletal: Reports no additional musculoskeletal complaints and Reports as per HPI Integumentary/Breasts: Skin/Breast: Reports system reviewed and no additional complaints, except as docu Neurologic: Reports system reviewed and no additional complaints, except as documented and Reports as per HPI Psychiatric: Psychiatric: Reports no additional psychiatric complaints and Reports as per HPI Endocrine: Endocrine: Reports no additional endocrine complaints, Reports as per HPI and Denies palpitations Hematologic/Lymphatic: Hematologic/Lymphatic: Reports no additional hematologic/lymphatic complaints and Reports as per HPI Allergic/Immunologic: Allergic/Immunologic: Reports no additional allergic/immunologic complaints and Reports as per HPI [facility] Past Medical History Medical History (Updated 12/22/23 @ 09:25 by Mars Dumont MD) Chronic kidney disease Cataract Psoriatic arthritis Cirrhosis of liver not due to alcohol Diabetes Family History Family History Mother CHF (congestive heart failure) Father No problems noted. Surgical History Surgical History No pertinent past surgical history Social History Social History Household Members: Sp[facility] Do you presently have visiting nurse or other home services: No Alcohol intake: current Alcohol intake frequency: holidays/special occasions only Patient Tobacco Use Status: Never used Tobacco Substance Use Type: Marijuana service: No Current occupational status: disabled Meds Allergies Allergy/AdvReac Type Severity Reaction Status Date / Time shellfish derived Allergy Severe ANAPHYLAXIS Verified 12/21/23 02:12 [SHELLFISH DERIVED] Active Medications: Current Medications Acetaminophen (Acetaminophen 325 Mg Tablet) 650 mg PO Q6H PRN PRN Reason: Pain, Mild (Pain Scale 1-3) Amlodipine Besylate (Amlodipine Besylate 5 Mg Tablet) 5 mg PO DAILY [facility]; Protocol Last Admin: 12/22/23 08:50 Dose: 5 mg Carvedilol (Carvedilol 6.25 Mg Tablet) 3.125 mg PO BID [facility]; Protocol Last Admin: 12/22/23 08:51 Dose: 3.125 mg Dextrose (Dextrose 50 % 25 Gm/50 Ml Syringe) 25 gm IVPUSH Q15M PRN; Protocol PRN Reason: per Hypoglycemia Standing Ord. Enoxaparin Sodium (Enoxaparin Sodium 40 Mg/0.4 Ml Syringe) 40 mg SUBCUT Q24H [facility] Last Admin: 12/22/23 08:50 Dose: 40 mg Gabapentin (Gabapentin 300 Mg Capsule) 300 mg PO BEDTIME [facility] Last Admin: 12/21/23 19:58 Dose: 300 mg Glucose (Glucose Gel 15 Gm Gel..Gram.) 15 gm PO Q15M PRN; Protocol PRN Reason: per Hypoglycemia Standing Ord. Hydralazine HCl (Hydralazine Hcl 50 Mg Tablet) 50 mg PO BID [facility]; Protocol Last Admin: 12/22/23 08:50 Dose: 50 mg Insulin Human Lispro (Insulin Lispro 100 Unit/Ml 3 Ml Vial) 0 unit SUBCUT QIDACHS [facility]; Protocol Last Admin: 12/22/23 08:51 Dose: 2 unit Prednisolone Acetate (Prednisolone Acetate 1 % Oph Susp 5 Ml Drpbtl) 1 drop EYE-BOTH QID [facility] Last Admin: 12/22/23 08:51 Dose: 1 drop Sodium Chloride (0.9 % Sodium Chloride Flush 3 Ml Syringe) 3 ml IVFLUSH QSHIFT [facility] Last Admin: 12/22/23 08:51 Dose: 3 ml Spironolactone (Spironolactone 25 Mg Tablet) 200 mg PO DAILY [facility]; Protocol Last Admin: 12/22/23 08:50 Dose: 200 mg Home Medications Medication Instructions Recorded Confirmed Last Taken Type furosemide 20 mg tablet 20 mg PO DAILY 12/23/22 12/21/23 Unknown History glipizide 10 mg tablet, extended 10 mg PO BIDAC 12/23/22 12/21/23 Unknown History release 24 hr metformin 500 mg tablet 500 mg PO BIDWM 12/23/22 12/21/23 Unknown History omeprazole 20 mg capsule,delayed 20 mg PO DAILY@0630 12/23/22 12/21/23 Unknown History release secukinumab 150 mg/mL subcutaneous 300 mg subcut QMONTH 12/23/22 12/21/23 Unknown History pen injector (Cosentyx Pen 300 mg/2 Pens () amlodipine 5 mg tablet 5 mg PO DAILY 12/21/23 12/21/23 Unknown History carvedilol 3.125 mg tablet 3.125 mg PO BID 12/21/23 12/21/23 Unknown History gabapentin 300 mg capsule 300 mg PO BEDTIME 12/21/23 12/21/23 Unknown History hydralazine 50 mg tablet 50 mg PO BID 12/21/23 12/21/23 Unknown History prednisolone acetate 1 % eye 1 drp ophthalmic (eye) QID 12/21/23 12/21/23 Unknown History drops,suspension spironolactone 100 mg tablet 200 mg PO DAILY 12/21/23 12/21/23 Unknown History Physical Exam 2 Vital Signs: Vital Signs: Last Vital Signs Temp 97.5 F 12/22/23 07:30 Pulse 81 12/22/23 07:30 Resp 16 12/22/23 07:30 BP 187/89 H 12/22/23 07:30 Pulse Ox 98 12/22/23 07:30 O2 Del Method Nasal Cannula 12/22/23 07:30 O2 Flow Rate 2 12/22/23 07:30 BMI result Body Mass Index 25.4 Const: General: comfortable and no acute distress O rientation/consciousness: patient oriented x3 HEENT: Other: Unremarkable Head: Yes normal to inspection Neck: Neck: Yes normal visual inspection Chest: Chest palpation & inspection: normal inspection of the chest Resp: Auscultation: clear to auscultation bilaterally Cardio: Palpation: normal PMI Heart sounds: S1 normal heart sound present, S2 normal heart sound present, no gallops, Murmur heart sound present systolic III/ and at the right sternal border and no rubs GI: Palpation (GI): Soft to palpation Back/Spine/Pelvis: Other: unremarkable Skin: General skin exam: no rashes or lesions noted Neuro: General: patient oriented x3 Extrem: General: Yes normal to inspection Psych: Mental Status: mental status grossly normal Objective Labs and Meds 12/22/23 05:33 12/22/23 05:33 Lab results: Laboratory Results - last 24 hr 12/21/23 12/21/23 12/21/23 02:50 13:31 16:55 WBC RBC Hgb Hct MCV MCH MCHC RDW Plt Count MPV Immature Gran % (Auto) Neut % (Auto) Lymph % (Auto) [place] % (Auto) Eos % (Auto) Baso % (Auto) Lymph # (Auto) [place] # (Auto) Eos # (Auto) Baso # (Auto) Abs Immat Gran (auto) Absolute Neuts (auto) Absolute Nucleated RBC Nucleated RBC % (auto) Sodium Potassium Chloride Carbon Dioxide Anion Gap BUN Creatinine Estim Creat Clear Calc Estimated GFR POC Glucose 187 H 230 H Random Glucose Fasting Glucose Calcium Magnesium Iron 39 L TIBC 267 % Saturation 15 Unsat Iron Binding 228 Ferritin 32 Total Bilirubin AST ALT Alkaline Phosphatase Lactate Dehydrogenase 148 Total Protein Albumin 12/21/23 12/22/23 12/22/23 19:46 05:33 05:33 WBC 5.0 4.9 RBC 2.97 L Hgb Hct MCV MCH MCHC RDW Plt Count MPV Immature Gran % (Auto) Neut % (Auto) Lymph % (Auto) [place] % (Auto) Eos % (Auto) Baso % (Auto) Lymph # (Auto) [place] # (Auto) Eos # (Auto) Baso # (Auto) Abs Immat Gran (auto) Absolute Neuts (auto) Absolute Nucleated RBC Nucleated RBC % (auto) Sodium Potassium Chloride Carbon Dioxide Anion Gap BUN Creatinine Estim Creat Clear Calc Estimated GFR POC Glucose 169 H Random Glucose Fasting Glucose Calcium Magnesium Iron TIBC % Saturation Unsat Iron Binding Ferritin Total Bilirubin AST ALT Alkaline Phosphatase Lactate Dehydrogenase Total Protein Albumin 12/22/23 12/22/23 12/22/23 05:33 05:33 05:33 WBC RBC 3.06 L Hgb 8.6 L 8.7 L Hct 27.7 L 28.3 L MCV 93.3 MCH MCHC RDW Plt Count MPV Immature Gran % (Auto) Neut % (Auto) Lymph % (Auto) [place] % (Auto) Eos % (Auto) Baso % (Auto) Lymph # (Auto) [place] # (Auto) Eos # (Auto) Baso # (Auto) Abs Immat Gran (auto) Absolute Neuts (auto) Absolute Nucleated RBC Nucleated RBC % (auto) Sodium Potassium Chloride Carbon Dioxide Anion Gap BUN Creatinine Estim Creat Clear Calc Estimated GFR POC Glucose Random Glucose Fasting Glucose Calcium Magnesium Iron TIBC % Saturation Unsat Iron Binding Ferritin Total Bilirubin AST ALT Alkaline Phosphatase Lactate Dehydrogenase Total Protein Albumin 12/22/23 12/22/23 12/22/23 05:33 05:33 05:33 WBC RBC Hgb Hct MCV 92.5 MCH 29.0 28.4 MCHC 31.0 30.7 L RDW 15.1 Plt Count MPV Immature Gran % (Auto) Neut % (Auto) Lymph % (Auto) [place] % (Auto) Eos % (Auto) Baso % (Auto) Lymph # (Auto) [place] # (Auto) Eos # (Auto) Baso # (Auto) Abs Immat Gran (auto) Absolute Neuts (auto) Absolute Nucleated RBC Nucleated RBC % (auto) Sodium Potassium Chloride Carbon Dioxide Anion Gap BUN Creatinine Estim Creat Clear Calc Estimated GFR POC Glucose Random Glucose Fasting Glucose Calcium Magnesium Iron TIBC % Saturation Unsat Iron Binding Ferritin Total Bilirubin AST ALT Alkaline Phosphatase Lactate Dehydrogenase Total Protein Albumin 12/22/23 12/22/23 12/22/23 05:33 05:33 05:33 WBC RBC Hgb Hct MCV MCH MCHC RDW 15.1 Plt Count 186 181 MPV 9.6 9.3 L Immature Gran % (Auto) 0.4 Neut % (Auto) 62.4 Lymph % (Auto) 20.0 [place] % (Auto) 11.7 H Eos % (Auto) 4.5 H Baso % (Auto) 1.0 Lymph # (Auto) 1.0 L [place] # (Auto) 0.6 Eos # (Auto) 0.2 Baso # (Auto) 0.1 Abs Immat Gran (auto) 0.02 Absolute Neuts (auto) 3.1 Absolute Nucleated RBC 0.000 Nucleated RBC % (auto) Sodium Potassium Chloride Carbon Dioxide Anion Gap BUN Creatinine Estim Creat Clear Calc Estimated GFR POC Glucose Random Glucose Fasting Glucose Calcium Magnesium Iron TIBC % Saturation Unsat Iron Binding Ferritin Total Bilirubin AST ALT Alkaline Phosphatase Lactate Dehydrogenase Total Protein Albumin 12/22/23 12/22/23 12/22/23 05:33 05:33 08:06 WBC RBC Hgb Hct MCV MCH MCHC RDW Plt Count MPV Immature Gran % (Auto) Neut % (Auto) Lymph % (Auto) [place] % (Auto) Eos % (Auto) Baso % (Auto) Lymph # (Auto) [place] # (Auto) Eos # (Auto) Baso # (Auto) Abs Immat Gran (auto) Absolute Neuts (auto) Absolute Nucleated RBC 0.000 Nucleated RBC % (auto) 0.0 0.0 Sodium 139 Potassium 4.0 Chloride 106 Carbon Dioxide 26 Anion Gap 11 L BUN 19 H Creatinine 1.31 Estim Creat Clear Calc 53.3 Estimated GFR 57 POC Glucose 156 H Random Glucose 153 H Fasting Glucose 155 H Calcium 8.8 Magnesium 1.7 Iron TIBC % Saturation Unsat Iron Binding Ferritin Total Bilirubin 0.4 AST 9 ALT 9 Alkaline Phosphatase 43 Lactate Dehydrogenase Total Protein 6.5 Albumin 3.2 L ECG Interpretation: EKG with sinus rhythm at 96/Min; no significant ST-T changes and otherwise unremarkable. Normal NV and corrected QT. Assessment and Plan (1) Acute on chronic diastolic (congestive) heart failure: Status: Acute (2) Anemia: Qualifiers: Anemia type: unspecified type Qualified Code(s): D64.9 - Anemia, unspecified Status: Acute (3) Chronic kidney disease: Status: Acute (4) Hypertensive urgency: Status: Acute Plan Labs show cardiac BNP of 654. We do not have a baseline. High sensitivity troponins are unremarkable. On exam, there is clearly a murmur of aortic stenosis. Echocardiogram last year showed moderate aortic stenosis. This needs to be repeated to assess for severe aortic stenosis. Otherwise, blood pressure seems quite high and that could play a role in his symptoms. We can optimize medications for the same. Discussed with hospitalist. Procedures Date of Service Date of Service: 12/22/23
--- NOTE | 2023-12-22 10:14 | HO.PM.IMPN ---
Subjective Subjective Date of Service: 12/22/23 Interval History: No significant events overnight. Patient states his breathing is improved. Saturating 94% on room air Review of Systems All 12 systems were reviewed and normal except as noted in HPI. Physical Exam Vital Signs: Vital Signs: Last Vital Signs Temp 97.5 F 12/22/23 07:30 Pulse 81 12/22/23 07:30 Resp 16 12/22/23 07:30 BP 187/89 H 12/22/23 07:30 Pulse Ox 98 12/22/23 07:30 O2 Del Method Nasal Cannula 12/22/23 07:30 O2 Flow Rate 2 12/22/23 07:30 BMI result Body Mass Index 25.4 Const: General: comfortable and no acute distress Orientation/consciousness: patient oriented x3 HEENT: Other: Unremarkable Head: Yes normal to inspection Neck: Neck: Yes normal visual inspection Chest: Chest palpation & inspection: normal inspection of the chest Resp: Auscultation: clear to auscultation bilaterally Cardio: Palpation: normal PMI Heart sounds: S1 normal heart sound present, S2 normal heart sound present, no gallops, Murmur heart sound present systolic III/ and at the right sternal border and no rubs GI: Palpation (GI): Soft to palpation Back/Spine/Pelvis: Other: unremarkable Skin: General skin exam: no rashes or lesions noted Neuro: General: patient oriented x3 Extrem: General: Yes normal to inspection Psych: Mental Status: mental status grossly normal Objective Data Active Medications Acetaminophen (Acetaminophen 325 Mg Tablet) 650 mg PO Q6H PRN PRN Reason: Pain, Mild (Pain Scale 1-3) Amlodipine Besylate (Amlodipine Besylate 10 Mg Tablet) 10 mg PO DAILY CHICHI; Protocol Carvedilol (Carvedilol 6.25 Mg Tablet) 6.25 mg PO BID CH[facility]HI; Protocol Dextrose (Dextrose 50 % 25 Gm/50 Ml Syringe) 25 gm IVPUSH Q15M PRN; Protocol PRN Reason: per Hypoglycemia Standing Ord. Enoxaparin Sodium (Enoxaparin Sodium 40 Mg/0.4 Ml Syringe) 40 mg SUBCUT Q24H [facility] Last Admin: 12/22/23 08:50 Dose: 40 mg Documented By: IRIS Gabapentin (Gabapentin 300 Mg Capsule) 300 mg PO BEDTIME [facility] Last Admin: 12/21/23 19:58 Dose: 300 mg Documented By: HEATHER Glucose (Glucose Gel 15 Gm Gel..Gram.) 15 gm PO Q15M PRN; Protocol PRN Reason: per Hypoglycemia Standing Ord. Hydralazine HCl (Hydralazine Hcl 50 Mg Tablet) 50 mg PO BID [facility]; Protocol Last Admin: 12/22/23 08:50 Dose: 50 mg Documented By: IRIS Insulin Human Lispro (Insulin Lispro 100 Unit/Ml 3 Ml Vial) 0 unit SUBCUT QIDACHS [facility]; Protocol Last Admin: 12/22/23 08:51 Dose: 2 unit Documented By: IRIS Prednisolone Acetate (Prednisolone Acetate 1 % Oph Susp 5 Ml Drpbtl) 1 drop EYE-BOTH QID [facility] Last Admin: 12/22/23 08:51 Dose: 1 drop Documented By: IRIS Sodium Chloride (0.9 % Sodium Chloride Flush 3 Ml Syringe) [facility] Last Admin: 12/22/23 08:51 Dose: 3 ml Documented By: IRIS Spironolactone (Spironolactone 25 Mg Tablet) 200 mg PO DAILY [facility]; Protocol Last Admin: 12/22/23 08:50 Dose: 200 mg Documented By: IRIS Labs 12/22/23 05:33 12/22/23 05:33 Labs: Laboratory Results - last 24 hr 12/21/23 12/21/23 12/21/23 02:50 13:31 16:55 MCV MCH MCHC RDW Plt Count MPV Immature Gran % (Auto) Neut % (Auto) Lymph % (Auto) Dougherty % (Auto) Eos % (Auto) Baso % (Auto) Lymph # (Auto) Dougherty # (Auto) Eos # (Auto) Baso # (Auto) Abs Immat Gran (auto) Absolute Neuts (auto) Absolute Nucleated RBC Nucleated RBC % (auto) Anion Gap Estim Creat Clear Calc Estimated GFR POC Glucose 187 H 230 H Random Glucose Fasting Glucose Calcium Magnesium Iron 39 L TIBC 267 % Saturation 15 Unsat Iron Binding 228 Ferritin 32 Total Bilirubin AST ALT Alkaline Phosphatase Lactate Dehydrogenase 148 Total Protein Albumin 12/21/23 12/22/23 12/22/23 19:46 05:33 05:33 MCV 93.3 92.5 MCH 29.0 MCHC RDW Plt Count MPV Immature Gran % (Auto) Neut % (Auto) Lymph % (Auto) Dougherty % (Auto) Eos % (Auto) Baso % (Auto) Lymph # (Auto) Dougherty # (Auto) Eos # (Auto) Baso # (Auto) Abs Immat Gran (auto) Absolute Neuts (auto) Absolute Nucleated RBC Nucleated RBC % (auto) Anion Gap Estim Creat Clear Calc Estimated GFR POC Glucose 169 H Random Glucose Fasting Glucose Calcium Magnesium Iron TIBC % Saturation Unsat Iron Binding Ferritin Total Bilirubin AST ALT Alkaline Phosphatase Lactate Dehydrogenase Total Protein Albumin 12/22/23 12/22/23 12/22/23 05:33 05:33 05:33 MCV MCH 28.4 MCHC 31.0 30.7 L RDW 15.1 15.1 Plt Count 186 MPV Immature Gran % (Auto) Neut % (Auto) Lymph % (Auto) Dougherty % (Auto) Eos % (Auto) Baso % (Auto) Lymph # (Auto) Dougherty # (Auto) Eos # (Auto) Baso # (Auto) Abs Immat Gran (auto) Absolute Neuts (auto) Absolute Nucleated RBC Nucleated RBC % (auto) Anion Gap Estim Creat Clear Calc Estimated GFR POC Glucose Random Glucose Fasting Glucose Calcium Magnesium Iron TIBC % Saturation Unsat Iron Binding Ferritin Total Bilirubin AST ALT Alkaline Phosphatase Lactate Dehydrogenase Total Protein Albumin 12/22/23 12/22/23 12/22/23 05:33 05:33 05:33 MCV MCH MCHC RDW Plt Count 181 MPV 9.6 9.3 L Immature Gran % (Auto) 0.4 Neut % (Auto) 62.4 Lymph % (Auto) 20.0 Dougherty % (Auto) 11.7 H Eos % (Auto) 4.5 H Baso % (Auto) 1.0 Lymph # (Auto) 1.0 L Dougherty # (Auto) 0.6 Eos # (Auto) 0.2 Baso # (Auto) 0.1 Abs Immat Gran (auto) 0.02 Absolute Neuts (auto) 3.1 Absolute Nucleated RBC 0.000 0.000 Nucleated RBC % (auto) 0.0 Anion Gap Estim Creat Clear Calc Estimated GFR POC Glucose Random Glucose Fasting Glucose Calcium Magnesium Iron TIBC % Saturation Unsat Iron Binding Ferritin Total Bilirubin AST ALT Alkaline Phosphatase Lactate Dehydrogenase Total Protein Albumin 12/22/23 12/22/23 05:33 08:06 MCV MCH MCHC RDW Plt Count MPV Immature Gran % (Auto) Neut % (Auto) Lymph % (Auto) Dougherty % (Auto) Eos % (Auto) Baso % (Auto) Lymph # (Auto) Dougherty # (Auto) Eos # (Auto) Baso # (Auto) Abs Immat Gran (auto) Absolute Neuts (auto) Absolute Nucleated RBC Nucleated RBC % (auto) 0.0 Anion Gap 11 L Estim Creat Clear Calc 53.3 Estimated GFR 57 POC Glucose 156 H Random Glucose 153 H Fasting Glucose 155 H Calcium 8.8 Magnesium 1.7 Iron TIBC % Saturation Unsat Iron Binding Ferritin Total Bilirubin 0.4 AST 9 ALT 9 Alkaline Phosphatase 43 Lactate Dehydrogenase Total Protein 6.5 Albumin 3.2 L Assessment and Plan (1) Hypertensive urgency: Status: Acute (2) Congestive heart failure: Status: Acute Plan 53M PMH chronic diastolic chf, moderate aortic stenosis, CKD III, DM, presented with sob acute hypoxic respiratory failure due to acute on chronic diasotlic chf and moderate aortic stenosis continue iv lasix cardio eval ; ordered echo weaned off O2 Hypertensive urgency Titrate BP meds, monitor chronic normocytic anemia check iron studies, LDH CKD III better than baseline, monitor DM insulin HTN aldactone, coreg, hydralazine, amlodipine dvt prophylaxis - lovenox full code reason for continued hospitalization: iv diuresis, follow up echo Quality Stroke Does the patient have a stroke diagnosis?: No VTE Prior VTE?: No VTE Risk Level:: Medical - moderate - high VTE Device Contraindication: Treatment Not Indicated VTE Drug Contraindication: N/A - Med Ordered
[2023-12-22] MEDS: Acetaminophen 325 MG TABLET 650 MG PO (11:23)
[2023-12-22 12:10] LABS: Glucose, Whole Blood 261 mg/dL (60-115)
[2023-12-22] MEDS: Calcium Carbonate 750 MG TAB.CHEW PO (13:11)
[2023-12-22 17:01] LABS: Glucose, Whole Blood 136 mg/dL (60-115)
[2023-12-22 20:04] LABS: Glucose, Whole Blood 235 mg/dL (60-115)
[2023-12-22] MEDS: carvediloL 6.25 MG TABLET PO (20:13)
[2023-12-22] MEDS: Gabapentin 300 MG CAPSULE PO (20:13)
[2023-12-23 03:22] VITALS: BP 135/65; PULSE 75; RESP 20; TEMP 37.1; O2SAT 98
[2023-12-23 06:31] LABS: Anion Gap 12 (12-20); Blood Urea Nitrogen 17 mg/dL (9-16); Calcium 9.1 mg/dL (8.4-10.2); Carbon Dioxide 28 mmol/L (22-29); Chloride 102 mmol/L (96-108); Estimated Glomerular Filt Rate 59; Glucose Random 164 mg/dL (60-115); Potassium 4.2 mmol/L (3.3-5.1); Sodium 138 mmol/L (135-145)
[2023-12-23 07:09] VITALS: BP 160/76; PULSE 79; RESP 18; TEMP 36.9; O2SAT 98
[2023-12-23 07:10] LABS: Glucose, Whole Blood 160 mg/dL (60-115)
[2023-12-23] MEDS: Spironolactone 25 MG TABLET 200 MG PO (07:59)
[2023-12-23] MEDS: hydrALAZINE HCl 50 MG TABLET PO (08:00)
[2023-12-23] MEDS: carvediloL 6.25 MG TABLET PO (08:00)
[2023-12-23] MEDS: amLODIPine Besylate 10 MG TABLET PO (08:00)
[2023-12-23] MEDS: Enoxaparin Sodium 40 MG/0.4 ML SYRINGE SUBCUT (08:01)
[2023-12-23] MEDS: 0.9 % Sodium Chloride Flush 3 ML SYRINGE IVFLUSH (08:01)
[2023-12-23] MEDS: Insulin Lispro 100 UNIT/ML 3 ML VIAL SUBCUT (08:01)
[2023-12-23] MEDS: prednisoLONE Acetate 1 % Oph Susp 5 ML DRPBTL 1 DROP EYE-BOTH (08:03)
--- NOTE | 2023-12-23 09:20 | PM.DS ---
DS: Providers Provider Date of Service: 12/23/23 Date of admission: 12/21/23 05:13 Primary care physician: Martínez Dunn MD Consults: 12/21/23 09:38 Consult to Cardiology Routine Consulting Provider: [facility] [place] Cardiovascular Services Reason for consultation: chf, aortic stenosis DS: Diagnosis Discharge Diagnosis (1) Hypertensive urgency: Status: Acute (2) Congestive heart failure: Status: Acute DS: Summary Hospital Course Hospital Course: HPI : Dmitriy Dejesus is a 53 years old man with past medical history significant for chronic kidney disease, essential hypertension, aortic stenosis, type 2 diabetes mellitus on metformin and glipizide and congestive heart failure on Lasix presents to the emergency department complaining of worsening shortness of breath that started yesterday. He denied any associated chest pain, cough, fever or chills. He mentioned his Lasix was decreased to 20 mg p.o. daily (he was taking it twice daily) and spironolactone was decreased to 200 mg p.o. daily from 300 mg p.o. daily as his renal function was deteriorating. He mentioned that he was taking acetazolamide for his eyes (he recently had eye surgery) bulky him bad side effects. He denied tobacco smoking or illicit drug use. He has been drinking alcohol recently as his mother recently but he only drank 1 beer last night. Hospital course: Patient was admitted with supplemental oxygen and initiated on IV diuresis. O2 supplementation weaned off prior to discharge and patient was maintaining normal oxygen saturation on room air. Blood pressure medications were titrated prior to discharge for hypertensive urgency/emergency. Patient is stable to be discharged with close follow-up with Cardiology. Status at Discharge Functional status at discharge: independent ambulation Overall status at discharge: patient is back to baseline Time Attestation Total time managing care of this patient today: 25 mintues. Discharge Coordination Time (in mins): 25 Quality: Safe Use of Opioids Does Pt have an Active Cancer Diagnosis on the Problem List?: No Quality: Stroke Does the patient have a stroke diagnosis?: No Physical Exam Vital Signs: Vital Signs: Last Vital Signs Temp 98.4 F 12/23/23 07:09 Pulse 79 12/23/23 07:09 Resp 18 12/23/23 07:09 BP 160/76 H 12/23/23 07:09 Pulse Ox 98 12/23/23 07:09 O2 Del Method Nasal Cannula 12/23/23 07:09 O2 Flow Rate 2 12/23/23 07:09 BMI result Body Mass Index 25.4 Const: General: comfortab le and no acute di stress Orientatio n/consciousness: p atient oriented x3 HEENT: Other: Unremarka ble Head: Yes n ormal to inspectio n Neck: Neck: Yes normal v isual inspection Chest: Chest palpation & inspection: normal inspection of the chest Resp: Auscultation: steve r to auscultation bilaterally Cardio: Palpation: normal PMI Heart sounds: S1 normal heart s ound present, S2 n ormal heart sound present, no gallop s, Murmur heart so und present systol ic III/ and at t he right sternal b order and no rubs GI: Palpation (GI): So ft to palpation Back/Spine/Pelvis: Other: unremarka ble Skin: General skin exam: no rashes or lesi ons noted Neuro: General: patient o riented x3 Extrem: General: Yes indu l to inspection Psych: Mental Status: men vera status grossly normal DS: Data Data Completed and Pending Labs on day of discharge: Laboratory Results - last 24 hr 12/22/23 12/22/23 12/22/23 12:04 16:56 19:48 Hold Purple Top Sodium Potassium Chloride Carbon Dioxide Anion Gap BUN Creatinine Estim Creat Clear Calc Estimated GFR POC Glucose 261 H 136 H 235 H Random Glucose Calcium 12/23/23 12/23/23 05:30 06:57 Hold Purple Top SEE NOTE Sodium 138 Potassium 4.2 Chloride 102 Carbon Dioxide 28 Anion Gap 12 BUN 17 H Creatinine 1.27 Estim Creat Clear Calc 55.0 Estimated GFR 59 POC Glucose 160 H Random Glucose 164 H Calcium 9.1 Imaging Chest x-ray: Radiologist's impression: ITS Impressions Chest X-Ray 12/21/23 02:42 IMPRESSION: New hazy opacification of the lung bases, likely due to small pleural effusions with superimposed atelectasis and/or consolidation. Discharge Plan Discharge Anticipated Discharge Date/Time: 12/23/23 09:22 Patient Disposition: Home, Self-Care Discharge Diagnosis: Acute hypoxemic respiratory failure due to acute on chronic diastolic congestive heart failure and moderate aortic stenosis Referrals: Martínez Dunn MD [Primary Care Provider] - 1 Week Mars Dumont MD [Physician] - 1 Week Discharge Medications: New carvedilol [Coreg] 12.5 mg tablet 12.5 mg PO Q12H Qty: 30 0RF Rx Instructions: must administer with a meal/food amlodipine 10 mg tablet 10 mg PO DAILY Qty: 30 0RF furosemide 40 mg tablet 40 mg PO DAILY Qty: 30 0RF Continued metformin 500 mg tablet 500 mg PO BIDWM glipizide 10 mg tablet extended release 24hr 10 mg PO BIDAC omeprazole 20 mg capsule,delayed release(DR/EC) 20 mg PO DAILY@0630 Cosentyx Pen (2 Pens) 150 mg/mL pen injector 300 mg subcut QMONTH aspirin 81 mg Tablet,Delayed Release (Dr/Ec) 81 mg PO DAILY Qty: 30 0RF spironolactone 100 mg tablet 200 mg PO DAILY gabapentin 300 mg capsule 300 mg PO BEDTIME hydralazine 50 mg tablet 50 mg PO BID prednisolone acetate 1 % drops,suspension 1 drp ophthalmic (eye) QID Discontinued furosemide 20 mg tablet 20 mg PO DAILY amlodipine 5 mg tablet 5 mg PO DAILY carvedilol 3.125 mg tablet 3.125 mg PO BID Discharge Orders: Discharge Order (Routine); Ordered 12/23/23 Ordered By: Hayley Magana Diet: Low salt diet Activity on Discharge: As tolerated Stand Alone Forms: Patient Portal Discharge page Other Ambulatory Orders: Basic Metabolic Panel Fasting (Routine) Timeframe: 1 Week Facility: [facility] - Location: Laboratory Ordered By: Hayley Magana Care Plan Goals: Follow-up with PCP within 1 week ; BMP within 1 week Follow-up with cardiology within 1 week Health Concerns: Congestive heart failure with preserved ejection fraction Moderate to severe aortic stenosis Plan of Treatment: Increase Lasix to p.o. 40 mg daily Increase amlodipine to 10 mg daily Increase Coreg to 12.5 mg b.i.d. Assessment: As above
--- NOTE | 2023-12-23 09:41 | MHC.CM.PN ---
Pt has been medically cleared for DC, he will go home via private transport, self care.
--- NOTE | 2023-12-23 10:13 | PM.PNCARD ---
Subjective Subjective Date of Service: 12/23/23 Interval history: He states he is feeling much better. Shortness of breath is significantly improved. Review of Systems Review of Systems Yes all other systems are reviewed and are negative Constitutional: Reports as per HPI and Reports no additional constitutional complaints Eyes: Reports as per HPI and Denies no additional eye complaints Denies system reviewed and no additional complaints, except as documented and Reports as per HPI Cardiovascular: Reports as per HPI, Reports no additional cardiovascular complaints, Denies acrocyanosis, Denies cool extremities, Denies chest pain, Denies leg edema, Denies lightheadedness, Denies palpitations and Reports dyspnea Respiratory: Reports as per HPI, Denies no additional respiratory complaints and Reports dyspnea Gastrointestinal: Reports as per HPI and Denies no additional gastrointestinal complaints Genitourinary: Reports no additional male genitourinary complaints and Reports as per HPI Musculoskeletal: Reports no additional musculoskeletal complaints and Reports as per HPI Skin/Breast: Reports system reviewed and no additional complaints, except as docu Reports system reviewed and no additional complaints, except as documented and Reports as per HPI Psychiatric: Reports no additional psychiatric complaints and Reports as per HPI Endocrine: Reports no additional endocrine complaints, Reports as per HPI and Denies palpitations Hematologic/Lymphatic: Reports no additional hematologic/lymphatic complaints and Reports as per HPI Allergic/Immunologic: Reports no additional allergic/immunologic complaints and Reports as per HPI Physical Exam Vital Signs: Last Vital Signs Temp 98.4 F 12/23/23 07:09 Pulse 79 12/23/23 07:09 Resp 18 12/23/23 07:09 BP 160/76 H 12/23/23 07:09 Pulse Ox 98 12/23/23 07:09 O2 Del Method Nasal Cannula 12/23/23 07:09 O2 Flow Rate 2 12/23/23 07:09 BMI result Body Mass Index 25.4 Const General: comfortable and no acute distress Orientation/consciousness: patient oriented x3 HEENT Other: Unremarkable Head: Yes normal to inspection Neck Neck: Yes normal visual inspection Chest Chest palpation & inspection: normal inspection of the chest Resp Auscultation: clear to auscultation bilaterally Cardio Palpation: normal PMI Heart sounds: S1 normal heart sound present, S2 normal heart sound present, no gallops, Murmur heart sound present systolic III/ and at the right sternal border and no rubs GI Palpation (GI): Soft to palpation Back/Spine/Pelvis Other: unremarkable Skin General skin exam: no rashes or lesions noted Neuro General: patient oriented x3 Extrem General: Yes normal to inspection Psych Mental Status: mental status grossly normal Objective Labs and Meds 12/22/23 05:33 12/23/23 05:30 Lab results: Laboratory Results - last 24 hr 12/22/23 12/22/23 12/22/23 12:04 16:56 19:48 Hold Purple Top Sodium Potassium Chloride Carbon Dioxide Anion Gap BUN Creatinine Estim Creat Clear Calc Estimated GFR POC Glucose 261 H 136 H 235 H Random Glucose Calcium 12/23/23 12/23/23 05:30 06:57 Hold Purple Top SEE NOTE Sodium 138 Potassium 4.2 Chloride 102 Carbon Dioxide 28 Anion Gap 12 BUN 17 H Creatinine 1.27 Estim Creat Clear Calc 55.0 Estimated GFR 59 POC Glucose 160 H Random Glucose 164 H Calcium 9.1 Progress Note: A&P Assessment and plan (1) Acute on chronic diastolic (congestive) heart failure: Status: Acute (2) Anemia: Status: Acute (3) Chronic kidney disease: Status: Acute (4) Hypertensive urgency: Status: Acute Plan Echocardiogram with LVEF of 55-60%. There is suggestion of moderate to severe aortic stenosis. Mean gradient is 28 mm Hg. Dimensionless index 0.25 with a calculated valve area of 0.96 sq cm. His blood pressures were quite high and that could have precipitated acute diastolic congestive heart failure. He also has CKD at baseline. Clinically, he seems much improved. We can further optimize blood pressure meds. Amlodipine dose increased. Coreg dose increased. On hydralazine. Diuretics. Upon discharge, we will arrange follow-up. Time Spent With Patient Time: Total time managing care of this patient today ____ minutes. Progress Note: Quality Stroke Does the patient have a stroke diagnosis?: No Procedures Date of Service Date of Service: 12/23/23
== END 2023-12-23 10:52 | disposition home or self-care (01) | DRG 194 ==
LOC: HO.ED 03:44 → HO.EDOVER 05:20 → HO.IMC 15:38
PROVIDERS: Internal Medicine; Admitting Provider Internal Medicine; Emergency Provider Emergency Medicine Emergency Medical Services; PCP Internal Medicine; Visit Provider Student in an Organized Health Care Education/Training Program
DX: I13.0 Hypertensive heart and chronic kidney disease with heart failure and stage 1 through stage 4 chronic kidney disease, or unspecified chronic kidney disease (principal); J96.01 Acute respiratory failure with hypoxia; E11.22 Type 2 diabetes mellitus with diabetic chronic kidney disease; D63.1 Anemia in chronic kidney disease; I16.0 Hypertensive urgency; K21.9 Gastro-esophageal reflux disease without esophagitis; L40.9 Psoriasis, unspecified; N18.30 Chronic kidney disease, stage 3 unspecified; I50.33 Acute on chronic diastolic (congestive) heart failure; I35.0 Nonrheumatic aortic (valve) stenosis; Z20.822 Contact with and (suspected) exposure to COVID-19; Z79.82 Long term (current) use of aspirin; Z79.84 Long term (current) use of oral hypoglycemic drugs; Z79.899 Other long term (current) drug therapy
CPT/HCPCS: 0241U; 36415; 71045; 80048; 80053; 82728; 82947; 83540; 83615; 83735; 83880; 84484; 85014; 85018; 85025; 85027; 93005; 93306; 99285; C9113; J1650; J1940; Q9957

== ENCOUNTER → 2023-12-21 02:31 | Outpatient (BNV) | payer OTHER, MEDICARE, SELFPAY | PROVIDERS: Admitting Provider Internal Medicine; Emergency Provider Emergency Medicine Emergency Medical Services; PCP Internal Medicine; Visit Provider Internal Medicine | DX: R07.9 Chest pain, unspecified (principal) | CPT/HCPCS: 93010 ==

== ENCOUNTER 2023-12-21 05:13 | Outpatient (BNV) | payer OTHER, MEDICARE, SELFPAY | END 2023-12-22 07:00 | PROVIDERS: Admitting Provider Internal Medicine; Emergency Provider Emergency Medicine Emergency Medical Services; PCP Internal Medicine; Visit Provider Internal Medicine | DX: I50.9 Heart failure, unspecified (principal) | CPT/HCPCS: 93306 ==

== ENCOUNTER → 2023-12-21 05:13 | Outpatient (BNV) | payer OTHER, MEDICARE, SELFPAY | PROVIDERS: Admitting Provider Internal Medicine; Emergency Provider Emergency Medicine Emergency Medical Services; PCP Internal Medicine; Visit Provider Internal Medicine | DX: I50.33 Acute on chronic diastolic (congestive) heart failure (principal); D64.9 Anemia, unspecified; N18.9 Chronic kidney disease, unspecified; I16.0 Hypertensive urgency | CPT/HCPCS: 99223; 99233 ==

== ENCOUNTER → 2023-12-21 05:13 | Outpatient (BNV) | payer OTHER, MEDICARE, SELFPAY | PROVIDERS: Admitting Provider Internal Medicine; Emergency Provider Emergency Medicine Emergency Medical Services; Visit Provider Internal Medicine | DX: I11.0 Hypertensive heart disease with heart failure (principal); I50.33 Acute on chronic diastolic (congestive) heart failure; I35.0 Nonrheumatic aortic (valve) stenosis; D64.9 Anemia, unspecified | CPT/HCPCS: 99223; 99232; 99238; 99499 ==

== ENCOUNTER 2023-12-25 08:11 | Outpatient (REF) | payer OTHER, MEDICARE, SELFPAY ==
[2023-12-25 12:37] LABS: Anion Gap 12 (12-20); Blood Urea Nitrogen 25 mg/dL (9-16); Calcium 9.5 mg/dL (8.4-10.2); Carbon Dioxide 28 mmol/L (22-29); Chloride 104 mmol/L (96-108); Estimated Glomerular Filt Rate 40; Glucose Fasting 158 mg/dL (60-99); Potassium 4.2 mmol/L (3.3-5.1); Sodium 140 mmol/L (135-145)
== END 2023-12-25 08:12 | disposition home or self-care (01) ==
LOC: HO.HMGCLDS 08:11
PROVIDERS: PCP Internal Medicine; Visit Provider Student in an Organized Health Care Education/Training Program
DX: I11.0 Hypertensive heart disease with heart failure (principal); I50.33 Acute on chronic diastolic (congestive) heart failure
CPT/HCPCS: 36415; 80048

== ENCOUNTER 2024-01-09 14:25 | Outpatient (AMB) | payer OTHER, MEDICARE, SELFPAY ==
[2024-01-09 14:45] VITALS: BP 140/62; PULSE 76; BMI 25.9
--- NOTE | 2024-01-09 14:45 | MHC.OFFVIS ---
Intake Vital Signs 01/09/24 14:45 Height 5 ft 4 in Weight 150 lb 12.739 oz BMI 25.9 BP 140/62 H Pulse 76 Pulse Source Pulse Oximeter Intake Visit Reasons: 2 wk f/up [facility] pt Independent Freight Agent Required: No Floor Covering Contractor: Floor Covering Contractor Present Allergies shellfish derived [SHELLFISH DERIVED] Allergy (Severe, Verified 01/09/24 14:49) ANAPHYLAXIS Medication List - Last Reconciled 01/09/24 by Reema Gordon, ENRIQUE-C amlodipine 10 mg PO DAILY aspirin 81 mg PO DAILY carvedilol (Coreg) 12.5 mg PO Q12H furosemide 40 mg PO DAILY gabapentin 300 mg PO BEDTIME glipizide ER 10 mg PO BIDAC hydralazine 50 mg PO BID metformin 500 mg PO BIDWM omeprazole 20 mg PO DAILY@0630 prednisolone acetate 1% 1 drp ophthalmic (eye) QID secukinumab (Cosentyx Pen 300 mg/2 Pens () 300 mg subcut QMONTH spironolactone 200 mg PO DAILY HPI 2 wk f/up [facility] pt HPI Details Dmitriy is a 53-year-old male with past medical history of hypertension, diabetes, chronic kidney disease, aortic stenosis, possible bicuspid aortic valve, who was recently admitted to [facility] with increased shortness of breath following a decrease in his diuretics. He was treated for Congestive heart failure and diuretics increased again. He follows with Dr. Garrison for Nephrology and was recently seen. Today he states that he was on a medication to help reduce the pressure in his eyes. After a few days he said it burnt his kidneys and it was stopped. For that reason his Lasix and Aldactone doses were reduced. Then he noticed the increasing shortness of breath requiring hospital admission. Since his hospital discharge his breathing has been better. He denies PND, orthopnea or edema. No chest discomfort at rest or with activity. No heart palpitations, lightheadedness, presyncope, syncope, falls. Taking meds as directed. is present. [facility] Medical History Hypertensive urgency Acute on chronic diastolic (congestive) heart failure Chronic kidney disease Cataract Psoriatic arthritis Cirrhosis of liver not due to alcohol Diabetes Surgical History No pertinent past surgical history Family History Mother CHF (congestive heart failure) Father No problems noted. Social History Household Members: Spouse Housing: [facility] Do you presently have visiting nurse or other home services: No Alcohol intake: current Alcohol intake frequency: holidays/special occasions only Patient Tobacco Use Status: Never used Tobacco Substance Use Type: Marijuana service: No Current occupational status: disabled Review of Systems Const Details: Mostly sedentary All systems reviewed & are unremarkable except as noted in HPI and below ENT Denies dizziness Card Denies chest pain, Denies chest pain at rest, Denies chest pain with activity, Denies rapid heart rate, Denies pedal edema, Denies edema, Denies leg edema, Denies lightheadedness, Denies palpitations, Denies dyspnea, Reports dyspnea on exertion and Denies orthopnea Resp Denies cough, Denies dyspnea and Reports dyspnea on exertion GI Denies hematochezia and Denies change in stool character Musc Denies abnormal gait, Denies limited range of motion, Denies muscle cramps, Denies muscle weakness, Denies numbness, Denies radiating pain into limb, Denies stiffness and Denies tingling Neuro Denies abnormal gait, Denies dizziness, Denies numbness and Denies tingling Endo Denies palpitations Physical Exam Vital Signs: Last Vital Signs Pulse 76 01/09/24 14:45 BP 140/62 H 01/09/24 14:45 BMI result Body Mass Index 25.9 Const General: cooperative, healthy appearing, comfortable and no acute distress Orientation/consciousness: patient oriented x3 Neck Neck: Yes normal visual inspection and Yes no JVD Resp Effort & Inspection: normal respiratory effort Auscultation: clear to auscultation bilaterally, no rales, no rhonchi and no wheezes Cardio Jugular venous distension: no JVD Rate: regular rate Rhythm: regular rhythm Heart sounds: S2 normal heart sound present, Murmur heart sound present (3/6 systolic murmur heard at right and left sternal border) and no rubs Neuro General: patient oriented x3 Extrem General: Yes normal to inspection and No no pedal edema Psych Appearance: grossly normal Mental Status: mental status grossly normal Speech and movement: Normal speech and movement present Assessment & Plan Assessment & Plan (1) Congestive heart failure: Code(s): I50.9 - Heart failure, unspecified Qualifiers: Heart failure chronicity: acute on chronic Heart failure type: diastolic Qualified Code(s): I50.33 - Acute on chronic diastolic (congestive) heart failure Plan: [facility] admission for Congestive heart failure that seems to be triggered by the reduction in his diuretics following a increase in his kidney function test after taking a certain ophthalmic medication. He was diuresed and back on his usual diuretics including Lasix 40 mg daily and Aldactone 300 mg daily. An echocardiogram done during his hospital admission showed EF 55-60%, moderate to severe aortic stenosis. It is possible that his aortic stenosis may have contributed to his Congestive heart failure episode. Today he reports his breathing has been stable. He does not appear fluid overloaded on examination. He tells me his kidney function was recently checked by his sack sewer machine and it has normalized. He does have follow-up with Nephrology in the near future. Will have him continue on current diuretics without change. Signs and symptoms of heart failure reviewed with him. Cardiology follow-up in 3 months, sooner if needed. (2) Chronic kidney disease: Code(s): N18.9 - Chronic kidney disease, unspecified Plan: Follows with Nephrology (3) Hypertension: Code(s): I10 - Essential (primary) hypertension Plan: Mild elevation today. Meds reviewed and no changes made. Will have him continue on carvedilol, amlodipine, hydralazine, Aldactone, Lasix. He does follow closely with Nephrology. (4) Aortic stenosis: Code(s): I35.0 - Nonrheumatic aortic (valve) stenosis Qualifiers: Cardiac valve disease etiology: nonrheumatic Qualified Code(s): I35.0 - Nonrheumatic aortic (valve) stenosis Plan: History of aortic stenosis, previously known to be moderate. Echocardiogram from 12/24/2022 shows EF 60%, moderate aortic stenosis, mean gradient 15 mmHg, aortic valve area 1.13 centimeter sq . Echocardiogram done 12/22/2023 showed EF 55-60%, moderate severe aortic stenosis, mean gradient 28 mmHg, aortic valve area 0.96 centimeter sq. Degree of aortic stenosis has progressed in the last year. He did have Congestive heart failure admission however it may be related to his medication changes. Signs and symptoms of severe aortic stenosis reviewed with him in detail. Instructed to notify this office if he has any new symptoms or recurrent Congestive heart failure. At that time cardiac catheterization will be done as part of initial process for valve replacement. Will plan for clinical evaluation/ office visit in 3 months. Repeat echocardiogram in 6 months with cardiology follow-up. (5) Hospital discharge follow-up: Code(s): Z09 - Encounter for follow-up examination after completed treatment for conditions other than malignant neoplasm Plan: As above Plan Time spent on chart review, documentation, interview assessment Orders: Orders CA echo transthoracic complete 07/01/24 I35.0 - Nonrheumatic aortic (valve) stenosis Coding Level of Care Code Est Pt Level 4 (08453) Diagnoses Acute on chronic diastolic congestive heart failure I50.33 Heart failure chronicity: acute on chronic Heart failure type: diastolic Chronic kidney disease N18.9 Hypertension I10 Nonrheumatic aortic valve stenosis I35.0 Cardiac valve disease etiology: nonrheumatic Hospital discharge follow-up Z09 Time Spent (min) 35
== END 2024-01-09 15:36 | disposition home or self-care (01) ==
PROVIDERS: PCP Internal Medicine; Visit Provider Nurse Practitioner Family
DX: I50.33 Acute on chronic diastolic (congestive) heart failure (principal); I12.9 Hypertensive chronic kidney disease with stage 1 through stage 4 chronic kidney disease, or unspecified chronic kidney disease; N18.9 Chronic kidney disease, unspecified; I35.0 Nonrheumatic aortic (valve) stenosis; Z09 Encounter for follow-up examination after completed treatment for conditions other than malignant neoplasm
CPT/HCPCS: 99214

== ENCOUNTER → 2024-01-09 14:25 | Outpatient (BNVA) | payer OTHER, MEDICARE, SELFPAY | PROVIDERS: PCP Internal Medicine; Visit Provider Nurse Practitioner Family ==

== ENCOUNTER 2024-01-24 15:57 | Inpatient (IN) | payer OTHER, MEDICARE, SELFPAY ==
--- NOTE | ~2024-01-24 | XR_ITS ---
EXAMINATION: XR CHEST CLINICAL INFORMATION: Shortness of breath COMPARISON: 12/21/2023 chest radiograph 01/24/2024 nuclear medicine perfusion lung scan TECHNIQUE: Frontal view of the chest was obtained. FINDINGS: Heart size upper limits of normal. No gross CHF is present. Bibasilar patchy densities are seen, slightly increased when compared to prior. A small right pleural effusion is present which also appears increased when compared to prior. XR/XR chest 1V IMPRESSION: Bibasilar patchy densities and small right pleural effusion, slightly increased when compared to prior.
--- NOTE | ~2024-01-24 | US_ITS ---
EXAMINATION: US ABDOMEN LIMITED CLINICAL INFORMATION: Ascites. Shortness of breath. COMPARISON: Renal ultrasound 02/15/2023 and 12/01/2022. CT abdomen and pelvis 11/13/2014. TECHNIQUE: Real-time imaging of the right and left upper and lower quadrants. US/US abdomen limited FINDINGS/IMPRESSION: No significant ascites is demonstrated. Pleural fluid is demonstrated on the right.
--- NOTE | ~2024-01-24 | NM_ITS ---
EXAMINATION: PULMONARY PERFUSION STUDY CLINICAL INFORMATION: Hypoxia, dyspnea. COMPARISON: Chest radiograph performed on same day at 7:41 PM. TECHNIQUE: The patient received 3.4 mCi Tc-99m MAA intravenously and a 6-view perfusion study was performed. FINDINGS: Possibly small segmental defect in segment 10 of the right lower lobe (anterior basal segment). Otherwise, mild diffuse heterogeneous uptake in the right lung in keeping with airspace opacities, bronchial wall thickening and pleural effusion on the chest radiograph. Nonsegmental perfusion defect in the medial left lower lung compatible with an enlarged cardiomediastinal silhouette on the chest radiograph. NM/NM pul perfusion IMPRESSION: Very low to low probability of pulmonary embolism. Lack of ventilatory images decreases the sensitivity of the study.
--- NOTE | ~2024-01-24 | CT_ITS ---
EXAMINATION: CT CHEST WITHOUT CONTRAST CLINICAL INFORMATION: Hypoxia COMPARISON: None available. TECHNIQUE: Multidetector volumetric CT imaging of the chest was done. Axial MIP volume rendering provided. Sagittal and coronal reformatted images were obtained. This CT examination was performed using dose optimization techniques as appropriate, variously including the following: *Automated exposure control *Adjustment of mA and/or kV according to patient size (this includes techniques or standardized protocols for targeted exams where dose is matched to indication/reason for exam; i.e. extremities or head) *Use of iterative reconstruction technique DLP: 143 mGy-cm FINDINGS: LUNGS: There is complete consolidation of right lower lobe with air bronchograms. Marked posterior left lower lobe airspace disease is also present. PLEURA: Moderate bilateral pleural effusions are present. No pneumothorax is seen. PERICARDIUM: No pericardial effusion is seen. MEDIASTINUM AND KIT: Right precarinal lymph node measuring 0.6 cm in short axis is seen, series 3 image #19. Inadequate evaluation of the mediastinal and hilar lymph nodes due to absence of IV contrast filling the surrounding blood vessels. TRACHEOBRONCHIAL TREE: Trachea and bilateral mainstem bronchi are patent. THORACIC AORTA: The thoracic aorta is normal in size with a atherosclerotic calcifications. CORONARY ARTERY CALCIFICATIONS: Mild PULMONARY ARTERIES: The main pulmonary arteries appear to be normal in size. CHEST WALL AND LOWER NECK: Marked bilateral fibroglandular gynecomastia is present. The subcutaneous and muscular chest wall are intact with no focal lesion. No abnormal mass lesion could be seen in the visualized lower neck. BONES: No fracture or dislocation. No focal bone lesion diagnostic of metastatic disease could be seen in the thorax. VISUALIZED UPPER ABDOMEN: Bilateral adrenal glands are not enlarged. Proximal calcified gallstones are partially visualized. CT/CT chest wo IV con IMPRESSION: 1. Extensive right lower lobe and marked left lower lobe airspace disease and moderate bilateral pleural effusions are seen, could be compatible with bronchopneumonia. 2. Marked bilateral fibroglandular gynecomastia. 3. Cholelithiasis. Fleischner guidelines were followed.
--- NOTE | 2024-01-24 16:05 | ED_ITS ---
HPI - General Adult General Chief complaint: Dyspnea Stated complaint: Oxygen level fluctuations sent by pcp Time Seen by Provider: 01/24/24 16:24 Source: patient, RN notes reviewed and old records reviewed Mode of arrival: ambulatory Limitations: no limitations History of Present Illness HPI narrative: 53-year-old male with past medical history significant for alcohol abuse, congestive heart failure, aortic stenosis, hypertension, type 2 diabetes, chronic kidney disease, CVA presents for evaluation of shortness of breath. Patient reports increasing shortness of breath and intermittent chest pain over the last few days. He reports he has an oxygen saturation monitor at home and ?the numbers have been dropping into the 70s. ? The patient was admitted here on 12/21/2023 for congestive heart failure and discharge few days later. He states that his legs have not been swollen, he has not had any fevers He reports minimal coughing His symptoms are not worse with lying down Patient reports even bending down to tie his shoes he becomes winded The patient follows with Dr. Rahman for Cardiology. He has not anticoagulated He was found to have an oxygen saturation of 85% on room air in triage arrival Related Data Home Medications ?Medication ?Instructions ?Recorded ?Confirmed glipizide 10 mg tablet, extended 10 mg PO BIDAC 12/23/22 01/09/24 release 24 hr metformin 500 mg tablet 500 mg PO BIDWM 12/23/22 01/09/24 omeprazole 20 mg capsule,delayed 20 mg PO DAILY@0630 12/23/22 01/09/24 release secukinumab 150 mg/mL subcutaneous 300 mg subcut QMONTH 12/23/22 01/09/24 pen injector (Cosentyx Pen 300 mg/2 Pens () gabapentin 300 mg capsule 300 mg PO BEDTIME 12/21/23 01/09/24 hydralazine 50 mg tablet 50 mg PO BID 12/21/23 01/09/24 prednisolone acetate 1 % eye 1 drp ophthalmic (eye) QID 12/21/23 01/09/24 drops,suspension spironolactone 100 mg tablet 200 mg PO DAILY 12/21/23 01/09/24 Previous Rx's ?Medication ?Instructions ?Recorded aspirin 81 mg tablet,delayed 81 mg PO DAILY #30 tabs 12/26/22 release amlodipine 10 mg tablet 10 mg PO DAILY #30 tabs 12/23/23 carvedilol 12.5 mg tablet (Coreg) 12.5 mg PO Q12H #30 tabs 12/23/23 furosemide 40 mg tablet 40 mg PO DAILY #30 tabs 12/23/23 Allergies Allergy/AdvReac Type Severity Reaction Status Date / Time shellfish derived Allergy Severe ANAPHYLAXIS Verified 01/24/24 16:07 [SHELLFISH DERIVED] Review of Systems 2 Constitutional: Constitutional: Denies body ache(s), Denies chills and Denies fever(s) Eyes: Eyes: Denies blurry vision ENT: Denies sore throat Cardiovascular: Cardiovascular: Denies chest pain, Denies pedal edema, Denies leg edema, Reports dyspnea and Reports dyspnea on exertion Respiratory: Respiratory: Reports cough, Reports dyspnea, Reports dyspnea on exertion and Denies wheezing Gastrointestinal: Gastrointestinal: Denies abdominal pain, Denies nausea and Denies vomiting Musculoskeletal: Musculoskeletal: Denies back pain Integumentary/Breasts: Skin/Breast: Denies rash Allergic/Immunologic: Allergic/Immunologic: Denies wheezing [facility] Past Medical History Medical History Hypertensive urgency Acute on chronic diastolic (congestive) heart failure Chronic kidney disease Cataract Psoriatic arthritis Cirrhosis of liver not due to alcohol Diabetes Surgical History No pertinent past surgical history Family History Family History Mother CHF (congestive heart failure) Father No problems noted. Social History Social History Household Members: Spouse Housing: Condominium Do you presently have visiting nurse or other home services: No Alcohol intake: current Alcohol intake frequency: holidays/special occasions only Patient Tobacco Use Status: Never used Tobacco Substance Use Type: Marijuana Advance Directives: Yes Advance Directives on File: Yes Advance Directives Date on File: 12/21/23 Do you have a plan to hurt others: No Plan service: No Current occupational status: disabled Physical Exam ED Vital Signs: Vital Signs - 24 hr 01/24/24 16:06 01/24/24 18:50 Temperature 98.2 F 98.1 F Pulse Rate 84 83 Respiratory Rate 20 16 Blood Pressure 159/60 H 155/67 H Pulse Oximetry 85 L 89 L Oxygen Delivery Method Room Air Nasal Cannula Oxygen Flow Rate 2.5 BMI result Body Mass Index 26.4 Const General: healthy appearing, comfortable, no acute distress, alert and awake Nutritional Appearance: well nourished Orientation/consciousness: patient oriented x3 HENMT Head: Yes normocephalic and Yes atraumatic Eyes Eyelids: Yes eyelids normal Conjunctivae: conjunctivae normal Sclerae: sclerae normal Corneas: corneas normal Pupils: Equal, round and reactive pupils present EOM: EOMs intact bilaterally Neck Neck: Yes full ROM Resp Effort & Inspection: normal respiratory effort, able to speak in complete sentences, no audible wheezes and not labored Auscultation: clear to auscultation bilaterally Cardio Rate: regular rate Rhythm: regular rhythm GI Inspection: Yes distended Palpation (GI): Soft to palpation, not firm, nontender, no guarding and not rigid Auscultation: normoactive bowel sounds Skin General skin exam: elasticity normal Neuro General: patient oriented x3 Cranial nerves: Yes Equal, round and reactive pupils present and Yes Bilaterally intact EOM present Cognition (Neuro): normal cognition Extrem Other: Moving all extremities well without any obvious deformities Course Course Course Narrative: This is an RME: Additional HPI, ROS, PE not included below will be deferred to primary provider. 53 yo m with pmhx of HTN, CHF, CKD, aortic stenosis presents with sob and hypoxia coming from cardiology. Worse with ambulation, few days duration. Plan- labs, imaging, straight to back Reevaluation(s) Reevaluation #1: Patient's labs are significant for an elevated creatinine of 1.85 which is slightly above his baseline. I ordered a nuclear medicine pulmonary perfusion study Time: 18:11 Reevaluation #2: Patient came back from the nuclear medicine study. He reports after his injection he started to feel increasing shortness of breath. His oxygen saturation was 77% on 2 L. on auscultation he has crackles. He appears to be in acute CHF at this time. This represents a change from arrival. He had received 600 cc of IV fluids given the acute on chronic kidney damage. This was stopped immediately. Will treat with Lasix, nitro paste. A one-view chest was ordered Time: 19:43 Reevaluation #3: Patient's chest x-ray shows bilateral pulmonary edema with moderate right pleural effusion Time: 19:56 Medications Administered Discontinued Medications Generic Name Dose Route Start Last Admin Trade Name Benjaminq PRN Reason Stop Dose Admin Sodium Chloride 1,000 mls @ 999 mls/hr 01/24/24 18:15 01/24/24 18:41 Ns IV 01/24/24 19:15 999 mls/hr .Q1H1M CHICHI Administration Medical Decision Making Medical Decision Making [facility] Narrative: 53-year-old male with past medical history as documented above presents for evaluation of shortness of breath. He has a history of congestive heart failure, he does not have any significant leg swelling, no crackles on exam. Denies any fevers or chills. This makes heart failure and pneumonia less likely. Plan for CTA to evaluate for PE. Differential Diagnosis Differential Diagnoses: The differential diagnosis associated with the presentation includes Hypoxia Congestive of heart failure Pneumonia PE COVID-19 Admission/Observation Consideration of admission/observation: Escalation of care including admission/observation considered Patient considered for admission due to hypoxia Lab Data [facility] Lab Attestation statement: I reviewed the patient's lab results. No leukocytosis. The patient does have anemia hemoglobin 8.6 hematocrit 26.8. This is consistent with his baseline this is last labs from 12/22/2023 were 8.7 and 28.3 respectively. Patient has chronic kidney disease, his BUN is elevated to 34 with a creatinine of 1.85. Electrolytes are within normal limits. 01/24/24 16:39 01/24/24 17:38 Labs: Lab Results 01/24/24 01/24/24 Range/Units 16:39 17:38 WBC 5.6 (4.8-10.8) X10*3/uL RBC 2.94 L (4.60-5.80) X10*6/uL Hgb 8.6 L (14.0-18.0) g/dl Hct 26.8 L (42.0-52.0) % MCV 91.2 (80.0-98.0) fL MCH 29.3 (27.0-33.0) pg MCHC 32.1 (31.0-36.0) g/dl RDW 14.6 (11.0-16.0) % Plt Count 235 D (160-400) X10*3/uL MPV 10.4 (9.4-12.4) fL Immature Gran % (Auto) 0.4 (0.0-0.4) % Neut % (Auto) 63.1 (45-73) % Lymph % (Auto) 20.1 (20-40) % [place] % (Auto) 10.3 (2-11) % Eos % (Auto) 5.0 H (0-4) % Baso % (Auto) 1.1 (0-2) % Lymph # (Auto) 1.1 L (1.2-4.9) X10*3/uL [place] # (Auto) 0.6 (0.1-1.2) X10*3/uL Eos # (Auto) 0.3 (0.0-0.4) X10*3/uL Baso # (Auto) 0.1 (0.0-0.2) X10*3/uL Abs Immat Gran (auto) 0.02 (0.00-0.03) X10*3/uL Absolute Neuts (auto) 3.6 (2.0-8.3) x10*3/uL Absolute Nucleated RBC 0.000 (0.0-0.012) X10*3/uL Nucleated RBC % (auto) 0.0 (0.0-0.2) /100WBC Smear Tech's Comments VERIFIED PT 14.0 H (11.1-13.3) SEC INR 1.2 H (0.9-1.1) Sodium 138 (135-145) mmol/L Potassium 4.4 (3.3-5.1) mmol/L Chloride 108 (96-108) mmol/L Carbon Dioxide 21 L (22-29) mmol/L Anion Gap 13 (12-20) BUN 34 H (9-16) mg/dL Creatinine 1.85 H (0.5-1.4) mg/dL Estim Creat Clear Calc 37.7 Estimated GFR 38 Random Glucose 74 (60-115) mg/dL Calcium 8.6 D (8.4-10.2) mg/dL Total Bilirubin 0.2 (0.0-1.0) mg/dL AST 9 (5-37) U/L ALT 6 (0-40) U/L Alkaline Phosphatase 48 (39-117) U/L Troponin I High Sens 2.9 D (<3.5-35.0) ng/L Total Protein 7.4 (6.5-8.0) g/dL Albumin 3.8 (3.5-5.0) g/dL Independent Interpretation I performed an independent interpretation of an: Plain X-Ray (Pulmonary vascular congestion with pleural effusion) Discharge Plan Discharge Clinical Impression: Hypoxia Patient Disposition: Still a Patient Prescriptions: No Action metformin 500 mg tablet 500 mg PO BIDWM glipizide 10 mg tablet extended release 24hr 10 mg PO BIDAC omeprazole 20 mg capsule,delayed release(DR/EC) 20 mg PO DAILY@0630 Cosentyx Pen (2 Pens) 150 mg/mL pen injector 300 mg subcut QMONTH aspirin 81 mg Tablet,Delayed Release (Dr/Ec) 81 mg PO DAILY Qty: 30 0RF spironolactone 100 mg tablet 200 mg PO DAILY gabapentin 300 mg capsule 300 mg PO BEDTIME hydralazine 50 mg tablet 50 mg PO BID prednisolone acetate 1 % drops,suspension 1 drp ophthalmic (eye) QID carvedilol [Coreg] 12.5 mg tablet 12.5 mg PO Q12H Qty: 30 0RF Rx Instructions: must administer with a meal/food amlodipine 10 mg tablet 10 mg PO DAILY Qty: 30 0RF furosemide 40 mg tablet 40 mg PO DAILY Qty: 30 0RF Print Language: Croatian
[2024-01-24 16:06] VITALS: BP 159/60; PULSE 84; RESP 20; TEMP 36.8; O2SAT 85; BMI 26.4
--- NOTE | 2024-01-24 16:06 | ECG_ITS ---
Test Reason : SOB Blood Pressure : / mmHG Vent. Rate : 083 BPM Atrial Rate : 083 BPM P-R Int : 144 ms QRS Dur : 080 ms QT Int : 384 ms P-R-T Axes : 030 003 024 degrees QTc Int : 451 ms Normal sinus rhythm Normal ECG When compared with ECG of 21-DEC-2023 02:31, No significant change was found Referred By: Brianne Harrell Electronically Signed By:ANNY TERRY MD
[2024-01-24 16:51] LABS: PLT CLUMP 1; Red Blood Count 2.94 X10*6/uL (4.60-5.80); Red Cell Distribution Width 14.6 % (11.0-16.0); SCAN SMEAR FLAG 1
[2024-01-24 16:52] LABS: Hematocrit 26.8 % (42.0-52.0); Hemoglobin 8.6 g/dl (14.0-18.0)
[2024-01-24 16:53] LABS: Basophils Absolute Auto 0.1 X10*3/uL (0.0-0.2); Basophils Percent Auto 1.1 % (0-2); Eosinophils Absolute Auto 0.3 X10*3/uL (0.0-0.4); INTERNATIONAL NORM RATIO 1.2 (0.9-1.1); Imm Gran Abs Auto 0.02 X10*3/uL (0.00-0.03); Imm Gran Pct Auto 0.4 % (0.0-0.4); Lymphocytes Absolute Auto 1.1 X10*3/uL (1.2-4.9); Lymphocytes Percent Auto 20.1 % (20-40); MANUAL DIFF FLAG SCAN; Mean Corpuscular HGB Conc 32.1 g/dl (31.0-36.0); Mean Corpuscular Hemoglobin 29.3 pg (27.0-33.0); Mean Corpuscular Volume 91.2 fL (80.0-98.0); Mean Platelet Volume 10.4 fL (9.4-12.4); Monocytes Absolute Auto 0.6 X10*3/uL (0.1-1.2); Monocytes Percent Auto 10.3 % (2-11); Neutrophils Absolute Auto 3.6 x10*3/uL (2.0-8.3); Neutrophils Percent Auto 63.1 % (45-73)
[2024-01-24 16:54] LABS: White Blood Count 5.6 X10*3/uL (4.8-10.8)
[2024-01-24 17:05] LABS: Troponin-I High Sensitivity 2.9 ng/L (<3.5-35.0)
[2024-01-24 17:15] LABS: Platelet Count 235 X10*3/uL (160-400); SLIDE REVIEW VERIFIED
[2024-01-24 17:55] LABS: Anion Gap 13 (12-20)
[2024-01-24 18:00] LABS: Alanine Aminotransferase 6 U/L (0-40); Albumin Level 3.8 g/dL (3.5-5.0); Alkaline Phosphatase 48 U/L (39-117); Aspartate Amino Transferase 9 U/L (5-37); Bilirubin Total 0.2 mg/dL (0.0-1.0); Blood Urea Nitrogen 34 mg/dL (9-16); Calcium 8.6 mg/dL (8.4-10.2); Carbon Dioxide 21 mmol/L (22-29); Chloride 108 mmol/L (96-108); Creatinine Clr Calc Pharmacy 37.7; Estimated Glomerular Filt Rate 38; Glucose Random 74 mg/dL (60-115); Potassium 4.4 mmol/L (3.3-5.1); Sodium 138 mmol/L (135-145); Total Protein 7.4 g/dL (6.5-8.0)
[2024-01-24] MEDS: 0.9 % Sodium Chloride 1,000 ML 999 ML IV (18:41)
[2024-01-24 18:50] VITALS: BP 155/67; PULSE 83; RESP 16; TEMP 36.7; O2SAT 89
[2024-01-24] MEDS: Nitroglycerin 2 % Oint 1 GM Packet 0.5 INCH TRANSDERMA (19:58)
[2024-01-24 20:00] VITALS: BP 167/73
[2024-01-24] MEDS: Furosemide 40 MG/4 ML VIAL IVPUSH (20:00)
[2024-01-24 20:14] VITALS: BP 159/73; PULSE 86; RESP 19; O2SAT 92
[2024-01-24 20:37] LABS: B Type Natriuretic Peptide 469 pg/mL (<100)
[2024-01-24 22:17] VITALS: BP 180/74; PULSE 79; RESP 17; O2SAT 94
--- NOTE | 2024-01-24 22:55 | PM.IMHP ---
History of Present Illness Date of Service: 01/24/24 Attending physician on admission: Shabana Waggoner Chief Complaint: Shortness on breath Dmitriy Dejesus is a 53 years old man with past medical history significant for CKD, essential hypertension, alcoholic liver cirrhosis, moderate-severe , type 2 diabetes mellitus on metformin and glipizide and HFrEF presents to the emergency department complaining of worsening shortness of breath associated with occasional dry cough. He denied any chest pain, fever or chills. He did not report any acute gastrointestinal or genitourinary symptoms. He has not noted increased abdominal abdominal girth He does have some minimal edema to the lower extremities. While being evaluated in the emergency department he developed worsening shortness of breath while laying down during V/Q scan performance. In the ED, he was initially found to have stable vital signs. His oxygen saturation dropped to 85% and was placed on supplemental oxygen. Blood workup showed no leukocytosis. Hemoglobin is at baseline. INR is 1.2. There are no significant electrolyte imbalances. Creatinine is 1.85 (1.77 last month). LFTs are normal. BNP is 469 (lower than prior). Troponin is negative. ED tx: NS 1 L bolus, Lasix 40 mg IV, nitro ointment 0.5 in. CXR showed bibasilar patchy densities and small right pleural effusion (slightly increased when compared to prior). V/Q scan very low to low probability of pulmonary embolism. Review of Systems Review of Systems: All 12 systems were reviewed and normal except as noted in HPI. FORMERLY [facility], [facility] Medical History Hypertensive urgency Acute on chronic diastolic (congestive) heart failure Chronic kidney disease Cataract Psoriatic arthritis Cirrhosis of liver not due to alcohol Diabetes Family History Mother CHF (congestive heart failure) Father No problems noted. Surgical History No pertinent past surgical history Social History Household Members: Spouse Housing: Condominium Do you presently have visiting nurse or other home services: No Alcohol intake: current Alcohol intake frequency: holidays/special occasions only Patient Tobacco Use Status: Never used Tobacco Smoked in Last 30 Days: No Substance Use Type: Marijuana Advance Directives: Yes Advance Directives on File: Yes Advance Directives Date on File: 12/21/23 Do you have a plan to hurt others: No Plan service: No Current occupational status: disabled Meds Allergies Allergy/AdvReac Type Severity Reaction Status Date / Time shellfish derived Allergy Severe ANAPHYLAXIS Verified 01/24/24 16:07 [SHELLFISH DERIVED] Active Medications: Current Medications Aspirin (Aspirin Enteric Coated 81 Mg Tablet.) 81 mg PO DAILY [facility] Carvedilol (Carvedilol 12.5 Mg Tablet) 12.5 mg PO Q12H [facility]; Protocol Furosemide (Furosemide 40 Mg Tablet) 40 mg PO BID [facility]; Protocol Gabapentin (Gabapentin 300 Mg Capsule) 600 mg PO TID [facility] Glucose (Glucose Gel 15 Gm Gel..Gram.) 15 gm PO Q15M PRN; Protocol PRN Reason: per Hypoglycemia Standing Ord. Heparin Sodium (Porcine) (Heparin Sodium,Porcine 5,000 Unit/Ml Vial) 5,000 unit SUBCUT Q8H [facility] Dextrose (D10) 250 mls @ 750 mls/hr IV Q15M PRN; Protocol PRN Reason: per Hypoglycemia Standing Ord. Insulin Human Lispro (Insulin Lispro 100 Unit/Ml 3 Ml Vial) 0 unit SUBCUT QIDACHS [facility]; Protocol Omeprazole (Omeprazole 20 Mg Capsule.) 20 mg PO BID@0630,1630 [facility] Prednisolone Acetate (Prednisolone Acetate 1 % Oph Susp 5 Ml Drpbtl) 1 drop EYE-BOTH TID [facility] Sodium Chloride (0.9 % Sodium Chloride Flush 3 Ml Syringe) 3 ml IVFLUSH QSHIFT [facility] Spironolactone (Spironolactone 25 Mg Tablet) 300 mg PO DAILY [facility]; Protocol Home Medications ?Medication ?Instructions ?Recorded ?Confirmed ?Last Taken ?Type glipizide 10 mg tablet, extended 10 mg PO BIDAC 12/23/22 01/24/24 Unknown History release 24 hr metformin 500 mg tablet 500 mg PO BIDWM 12/23/22 01/09/24 Unknown History omeprazole 20 mg capsule,delayed 20 mg PO DAILY@0630 12/23/22 01/09/24 Unknown History release secukinumab 150 mg/mL subcutaneous 300 mg subcut QMONTH 12/23/22 01/24/24 Unknown History pen injector (Cosentyx Pen 300 mg/2 Pens () gabapentin 300 mg capsule 600 mg PO TID 12/21/23 01/24/24 Unknown History hydralazine 50 mg tablet 50 mg PO BID 12/21/23 01/09/24 Unknown History prednisolone acetate 1 % eye 1 drp ophthalmic (eye) QID 12/21/23 01/09/24 Unknown History drops,suspension spironolactone 100 mg tablet 200 mg PO DAILY 12/21/23 01/09/24 Unknown History furosemide 40 mg tablet 40 mg PO BID 01/24/24 01/24/24 Unknown History hydralazine 50 mg tablet 50 mg PO BID 01/24/24 01/24/24 Unknown History omeprazole 20 mg capsule,delayed 20 mg PO BID 01/24/24 01/24/24 Unknown History release prednisolone acetate 1 % eye 1 drp ophthalmic (eye) TID 01/24/24 01/24/24 Unknown History drops,suspension spironolactone 100 mg tablet 300 mg PO DAILY 01/24/24 01/24/24 Unknown History Physical Exam Vital Signs and Narrative: Vital Signs: Last Vital Signs Temp 98.1 F 01/24/24 18:50 Pulse 79 01/24/24 22:17 Resp 17 01/24/24 22:17 BP 180/74 H 01/24/24 22:17 Pulse Ox 94 01/24/24 22:17 O2 Del Method Nasal Cannula 01/24/24 22:17 O2 Flow Rate 3 01/24/24 22:17 BMI result Body Mass Index 26.4 Constitutional - Awake and Alert, No apparent distress. On OxyMask. Pleasant. Uncooperative. at bedside HEENT - Pupils equally round. Normal sclerae. Heart - RRR. High-pitched holosystolic murmur. Lungs - Normal lung expansion, Normal respiratory effort, No respiratory distress, mild tachypnea. Decreased breath sound at bases. No crackles. No rhonchi. No wheezing. Abdomen- Mildly distended. Positive fluid wave. Nontenderness. Extremities - mild pitting edema to the lower extremities. Musculoskeletal - Normal inspection, normal ROM Skin - Warm/Dry Neurological - Alert & oriented x3. No focal weakness. Normal speech. Psychological - Appropriate affect Results Labs 01/24/24 16:39 01/24/24 17:38 Labs: Laboratory Results - last 24 hr 01/24/24 01/24/24 16:39 17:38 MCV 91.2 MCH 29.3 MCHC 32.1 RDW 14.6 Plt Count 235 D MPV 10.4 Immature Gran % (Auto) 0.4 Neut % (Auto) 63.1 Lymph % (Auto) 20.1 [place] % (Auto) 10.3 Eos % (Auto) 5.0 H Baso % (Auto) 1.1 Lymph # (Auto) 1.1 L [place] # (Auto) 0.6 Eos # (Auto) 0.3 Baso # (Auto) 0.1 Abs Immat Gran (auto) 0.02 Absolute Neuts (auto) 3.6 Absolute Nucleated RBC 0.000 Nucleated RBC % (auto) 0.0 Smear Tech's Comments VERIFIED PT 14.0 H INR 1.2 H Anion Gap 13 Estim Creat Clear Calc 37.7 Estimated GFR 38 Random Glucose 74 Calcium 8.6 D Total Bilirubin 0.2 AST 9 ALT 6 Alkaline Phosphatase 48 Troponin I High Sens 2.9 D B-Natriuretic Peptide 469 H Total Protein 7.4 Albumin 3.8 Imaging Radiologist's Impressions: Impressions Pulmonary Perfusion Imaging 01/24/24 07:35 IMPRESSION: Very low to low probability of pulmonary embolism. Lack of ventilatory images decreases the sensitivity of the study. Chest X-Ray 01/24/24 19:50 IMPRESSION: Bibasilar patchy densities and small right pleural effusion, slightly increased when compared to prior. Assessment and Plan (1) Fluid overload: Qualifiers: Hypervolemia type: unspecified Qualified Code(s): E87.70 - Fluid overload, unspecified Status: Acute (2) Hypoxia: Status: Acute (3) Hypertension: Qualifiers: Hypertension type: primary hypertension Qualified Code(s): I10 - Essential (primary) hypertension Status: Acute (4) Chronic kidney disease: Qualifiers: Chronic kidney disease stage: stage 3 (moderate) Chronic kidney disease stage 3 subtype: stage 3a (GFR 45-59) Qualified Code(s): N18.31 - Chronic kidney disease, stage 3a Status: Acute (5) Aortic stenosis: Qualifiers: Cardiac valve disease etiology: nonrheumatic Qualified Code(s): I35.0 - Nonrheumatic aortic (valve) stenosis Status: Acute Plan Dmitriy Dejesus is a 53 years old man with PMHx of alcoholic liver disease admitted with: Hypoxia due to fluid overload in the setting of underlying HFpEF, alcoholic liver disease and CKD. V/Q scan showing very low to low probability of PE. Admit to hospitalist service. Avoid IV fluids. Low-salt intake. Continue spironolactone and Lasix per home dose. Cardiology consult for further recommendations. Ascites. Abdominal ultrasound and possible therapeutic paracentesis if possible by IR. Type 2 diabetes mellitus. Metformin on hold due to depressed renal function. Continue glipizide. Blood glucose monitoring before meals and bedtime. Insulin sliding scale. Essential hypertension. Continue amlodipine, carvedilol and hydralazine. Chronic anemia. Getting outpatient infusions of iron. GERD. Continue PPI. CKD stage 3A. Continue to monitor renal function. Avoid nephrotoxic agents. s/p eye surgery. Continue prednisolone. Hx of stroke. Continue aspirin. DVT prophylaxis: Heparin Code status: Full Patient will need hospitalization for at least 2 midnights for fluid overload treatment supplemental oxygen, diuretics and close monitoring of vital signs. Quality Stroke Does the patient have a stroke diagnosis?: No VTE Prior VTE?: No VTE Risk Level:: Medical - moderate - high VTE Device Contraindication: Treatment Not Indicated VTE Drug Contraindication: N/A - Med Ordered
[2024-01-25] VITALS (10 sets, daily range): BP systolic 131–198; BP diastolic 63–77; PULSE 64–74; RESP 13–20; TEMP 36.4–37.1; O2SAT 93–96
[2024-01-25 05:23] LABS: MANUAL DIFF FLAG NO
[2024-01-25 05:27] LABS: Basophils Absolute Auto 0.1 X10*3/uL (0.0-0.2); Basophils Percent Auto 1.2 % (0-2); Eosinophils Absolute Auto 0.3 X10*3/uL (0.0-0.4); Eosinophils Percent Auto 5.5 % (0-4); Hemoglobin 8.2 g/dl (14.0-18.0); Imm Gran Abs Auto 0.02 X10*3/uL (0.00-0.03); Imm Gran Pct Auto 0.4 % (0.0-0.4); Lymphocytes Absolute Auto 0.9 X10*3/uL (1.2-4.9); Lymphocytes Percent Auto 17.8 % (20-40); Mean Corpuscular HGB Conc 30.4 g/dl (31.0-36.0); Mean Corpuscular Hemoglobin 28.5 pg (27.0-33.0); Mean Corpuscular Volume 93.8 fL (80.0-98.0); Monocytes Absolute Auto 0.5 X10*3/uL (0.1-1.2); Monocytes Percent Auto 10.5 % (2-11); Neutrophils Absolute Auto 3.3 x10*3/uL (2.0-8.3); Neutrophils Percent Auto 64.6 % (45-73); Platelet Count 233 X10*3/uL (160-400); Red Blood Count 2.88 X10*6/uL (4.60-5.80); Red Cell Distribution Width 14.2 % (11.0-16.0); White Blood Count 5.1 X10*3/uL (4.8-10.8)
[2024-01-25 05:43] LABS: Alanine Aminotransferase 6 U/L (0-40); Albumin Level 3.7 g/dL (3.5-5.0); Alkaline Phosphatase 45 U/L (39-117); Anion Gap 12 (12-20); Aspartate Amino Transferase 8 U/L (5-37); Bilirubin Total 0.3 mg/dL (0.0-1.0); Blood Urea Nitrogen 33 mg/dL (9-16); Calcium 8.8 mg/dL (8.4-10.2); Carbon Dioxide 21 mmol/L (22-29); Chloride 111 mmol/L (96-108); Creatinine Clr Calc Pharmacy 42.8; Estimated Glomerular Filt Rate 44; Glucose Random 87 mg/dL (60-115); Magnesium 2.1 mg/dL (1.6-2.6); Potassium 4.4 mmol/L (3.3-5.1); Sodium 140 mmol/L (135-145); Total Protein 7.2 g/dL (6.5-8.0)
[2024-01-25 07:43] LABS: Glucose, Whole Blood 81 mg/dL (60-115)
--- NOTE | 2024-01-25 09:51 | MHC.CM.PN ---
Pt self-care, lives at home with his /HCP who will transport home at D/C. HCP on file and verified. PCP: Dr. Martínez Dunn
[2024-01-25] MEDS: Spironolactone 25 MG TABLET 300 MG PO (10:28)
[2024-01-25] MEDS: hydrALAZINE HCl 50 MG TABLET PO (10:29)
[2024-01-25] MEDS: Omeprazole 20 MG CAPSULE.DR PO ×2 (10:29→17:36)
[2024-01-25] MEDS: carvediloL 12.5 MG TABLET PO ×2 (10:29→19:56)
[2024-01-25] MEDS: Aspirin Enteric Coated 81 MG TABLET.DR PO (10:29)
[2024-01-25] MEDS: Heparin Sodium,Porcine 5,000 UNIT/ML VIAL 5000 UNIT SUBCUT ×2 (10:31→17:36)
[2024-01-25] MEDS: 0.9 % Sodium Chloride Flush 3 ML SYRINGE IVFLUSH ×3 (10:31→19:59)
--- NOTE | 2024-01-25 10:31 | PHA.MEDREC ---
Pharmacy Consult ? Medication Reconciliation Pharmacy has completed the medication reconciliation. Patients had a list with them. Cosentyx is due on january 30.
[2024-01-25] MEDS: Furosemide 40 MG TABLET PO (10:53)
[2024-01-25 10:54] LABS: Glucose, Whole Blood 96 mg/dL (60-115)
[2024-01-25] MEDS: Gabapentin 300 MG CAPSULE 600 MG PO ×4 (10:54→19:56)
--- NOTE | 2024-01-25 12:33 | P.CONCA_ITS ---
History of Present Illness History of Present Illness Date of Service: 01/25/24 Requesting physician: Samantha Li Chief complaint: hypoxic respiratory failure Narrative: I was consulted to see Dmitriy in cardiology consultation today for hypoxemia. Patient is 53-year-old male recently seen in the hospital for decompensated congestive heart failure, was seen in follow up in the clinic outpatient from cardiac perspective and fluid perspective was doing well. Patient has history of hypertension, diabetes, chronic kidney disease, moderately severe aortic stenosis, cirrhosis of liver. Patient call or office yesterday saying that his oxygen saturation was very low in the 70s. Patient intermittently has been using his mother's oxygen and oxygen level improves with using oxygen. He was feeling some shortness of breath. Therefore we advised him to come to the emergency room as he said he did not have any other signs of fluid overload. Denies any weight gain, abdominal distension, leg edema, orthopnea, PND. Initially was felt that he might have CHF and ascites and he underwent abdominal ultrasound there was not much fluid to be drained. Patient has been admitted and his oxygen level is improved with oxygen supplementation. Chest x-ray finding consistent with bilateral lower lobe infiltrates. His BNP is lower than the prior hospitalization. Review of Systems 2 Constitutional: Constitutional: Reports no additional constitutional complaints Cardiovascular: Cardiovascular: Denies Abdominal Distension, Denies chest pain, Denies leg edema, Denies lightheadedness, Denies Loss of Consciousness, Denies palpitations, Reports dyspnea on exertion and Reports other (Low oxygen level) Respiratory: Respiratory: Reports dyspnea on exertion Gastrointestinal: Gastrointestinal: Reports no additional gastrointestinal complaints Genitourinary: Genitourinary: Reports no additional male genitourinary complaints Musculoskeletal: Musculoskeletal: Reports no additional musculoskeletal complaints Integumentary/Breasts: Skin/Breast: Reports system reviewed and no additional complaints, except as docu Psychiatric: Psychiatric: Reports no additional psychiatric complaints Endocrine: Endocrine: Denies palpitations PMFSH Past Medical History Medical History Hypertensive urgency Acute on chronic diastolic (congestive) heart failure Chronic kidney disease Cataract Psoriatic arthritis Cirrhosis of liver not due to alcohol Diabetes Family History Family History Mother CHF (congestive heart failure) Father No problems noted. Surgical History Surgical History No pertinent past surgical history Social History Social History Household Members: Spouse Housing: Condominium Do you presently have visiting nurse or other home services: No Alcohol intake: current Alcohol intake frequency: holidays/special occasions only Patient Tobacco Use Status: Never used Tobacco Substance Use Type: Marijuana Advance Directives Date on File: 12/21/23 service: No Current occupational status: disabled Meds Allergies Allergy/AdvReac Type Severity Reaction Status Date / Time shellfish derived Allergy Severe ANAPHYLAXIS Verified 01/24/24 16:07 [SHELLFISH DERIVED] acetazolamide AdvReac Confusion Verified 01/25/24 10:03 Active Medications: Current Medications Amlodipine Besylate (Amlodipine Besylate 10 Mg Tablet) 10 mg PO DAILY [facility]; Protocol Aspirin (Aspirin Enteric Coated 81 Mg Tablet.Dr) 81 mg PO DAILY [facility] Last Admin: 01/25/24 10:29 Dose: 81 mg Carvedilol (Carvedilol 12.5 Mg Tablet) 12.5 mg PO Q12H [facility]; Protocol Last Admin: 01/25/24 10:29 Dose: 12.5 mg Furosemide (Furosemide 40 Mg Tablet) 40 mg PO DAILY [facility]; Protocol Last Admin: 01/25/24 10:53 Dose: 40 mg Gabapentin (Gabapentin 300 Mg Capsule) 600 mg PO TID [facility] Last Admin: 01/25/24 10:54 Dose: 600 mg Glucose (Glucose Gel 15 Gm Gel..Gram.) 15 gm PO Q15M PRN; Protocol PRN Reason: per Hypoglycemia Standing Ord. Heparin Sodium (Porcine) (Heparin Sodium,Porcine 5,000 Unit/Ml Vial) 5,000 unit SUBCUT Q8H [facility] Last Admin: 01/25/24 10:31 Dose: 5,000 unit Hydralazine HCl (Hydralazine Hcl 50 Mg Tablet) 50 mg PO BID [facility]; Protocol Last Admin: 01/25/24 10:29 Dose: 50 mg Dextrose (D10) 250 mls @ 750 mls/hr IV Q15M PRN; Protocol PRN Reason: per Hypoglycemia Standing Ord. Insulin Human Lispro (Insulin Lispro 100 Unit/Ml 3 Ml Vial) 0 unit SUBCUT QIDACHS [facility]; Protocol Last Admin: 01/25/24 10:22 Dose: Not Given Omeprazole (Omeprazole 20 Mg Capsule.Dr) 20 mg PO BID@0630,1630 [facility] Last Admin: 01/25/24 10:29 Dose: 20 mg Prednisolone Acetate (Prednisolone Acetate 1 % Oph Susp 5 Ml Drpbtl) 1 drop EYE-BOTH TID [facility] Sodium Chloride (0.9 % Sodium Chloride Flush 3 Ml Syringe) 3 ml IVFLUSH QSHIFT [facility] Last Admin: 01/25/24 10:31 Dose: 3 ml Spironolactone (Spironolactone 25 Mg Tablet) 300 mg PO DAILY [facility]; Protocol Last Admin: 01/25/24 10:28 Dose: 300 mg Vitamin D (Cholecalciferol (Vitamin D3) 25 Mcg Tablet) 25 mcg PO DAILY [facility] Home Medications ?Medication ?Instructions ?Recorded ?Confirmed ?Last Taken ?Type glipizide 10 mg tablet, extended 10 mg PO BIDAC 12/23/22 01/24/24 Unknown History release 24 hr metformin 500 mg tablet 500 mg PO BIDWM 12/23/22 01/25/24 Unknown History omeprazole 20 mg capsule,delayed 20 mg PO DAILY@0630 12/23/22 01/25/24 Unknown History release secukinumab 150 mg/mL subcutaneous 300 mg subcut QMONTH 12/23/22 01/24/24 Unknown History pen injector (Cosentyx Pen 300 mg/2 Pens () gabapentin 300 mg capsule 600 mg PO TID 12/21/23 01/24/24 Unknown History furosemide 40 mg tablet 40 mg PO DAILY 01/24/24 01/25/24 Unknown History hydralazine 50 mg tablet 50 mg PO BID 01/24/24 01/24/24 Unknown History prednisolone acetate 1 % eye 1 drp ophthalmic (eye) TID 01/24/24 01/24/24 Unknown History drops,suspension spironolactone 100 mg tablet 300 mg PO DAILY 01/24/24 01/24/24 Unknown History cholecalciferol (vitamin D3) 25 25 mcg PO DAILY 01/25/24 01/25/24 Unknown History mcg (1,000 unit) tablet Physical Exam 2 Vital Signs: Vital Signs: Last Vital Signs Temp 98.4 F 01/25/24 10:18 Pulse 74 01/25/24 11:05 Resp 20 01/25/24 10:18 BP 160/70 H 01/25/24 11:05 Pulse Ox 96 01/25/24 11:05 O2 Del Method Nasal Cannula 01/25/24 10:18 O2 Flow Rate 2 01/25/24 10:18 BMI result Body Mass Index 26.4 Const: General: cooperative, healthy appearing, comfortable and no acute distress Orientation/consciousness: patient oriented x3 Neck: Neck: Yes normal visual inspection and Yes no JVD Resp: Effort & Inspection: normal respiratory effort Auscultation: clear to auscultation bilaterally, no rales, no rhonchi and no wheezes Cardio: Jugular venous distension: no JVD Rate: regular rate Rhythm: r egular rhythm Heart sounds: S2 normal heart sound present, Murmur heart sound present (3/6 systolic murmur heard at right and left sternal border) and no rubs Neuro: General: patient oriented x3 Extrem: General: Yes normal to inspection and No no pedal edema Psych: Appearance: grossly normal Mental Status: mental status grossly normal Speech and movement: Normal speech and movement present Objective Labs and Meds 01/25/24 04:12 01/25/24 04:12 Lab results: Laboratory Results - last 24 hr 01/24/24 01/24/24 01/25/24 16:39 17:38 04:12 WBC 5.6 5.1 RBC 2.94 L 2.88 L Hgb 8.6 L 8.2 L Hct 26.8 L 27.0 L MCV 91.2 93.8 MCH 29.3 28.5 MCHC 32.1 30.4 L RDW 14.6 14.2 Plt Count 235 D 233 MPV 10.4 10.0 Immature Gran % (Auto) 0.4 0.4 Neut % (Auto) 63.1 64.6 Lymph % (Auto) 20.1 17.8 L [place] % (Auto) 10.3 10.5 Eos % (Auto) 5.0 H 5.5 H Baso % (Auto) 1.1 1.2 Lymph # (Auto) 1.1 L 0.9 L [place] # (Auto) 0.6 0.5 Eos # (Auto) 0.3 0.3 Baso # (Auto) 0.1 0.1 Abs Immat Gran (auto) 0.02 0.02 Absolute Neuts (auto) 3.6 3.3 Absolute Nucleated RBC 0.000 0.000 Nucleated RBC % (auto) 0.0 0.0 Smear Tech's Comments VERIFIED PT 14.0 H INR 1.2 H Sodium 138 140 Potassium 4.4 4.4 Chloride 108 111 H Carbon Dioxide 21 L 21 L Anion Gap 13 12 BUN 34 H 33 H Creatinine 1.85 H 1.63 H Estim Creat Clear Calc 37.7 42.8 Estimated GFR 38 44 POC Glucose Random Glucose 74 87 Calcium 8.6 D 8.8 Magnesium 2.1 Total Bilirubin 0.2 0.3 AST 9 8 ALT 6 6 Alkaline Phosphatase 48 45 Troponin I High Sens 2.9 D B-Natriuretic Peptide 469 H Total Protein 7.4 7.2 Albumin 3.8 3.7 01/25/24 01/25/24 07:40 10:48 WBC RBC Hgb Hct MCV MCH MCHC RDW Plt Count MPV Immature Gran % (Auto) Neut % (Auto) Lymph % (Auto) [place] % (Auto) Eos % (Auto) Baso % (Auto) Lymph # (Auto) [place] # (Auto) Eos # (Auto) Baso # (Auto) Abs Immat Gran (auto) Absolute Neuts (auto) Absolute Nucleated RBC Nucleated RBC % (auto) Smear Tech's Comments PT INR Sodium Potassium Chloride Carbon Dioxide Anion Gap BUN Creatinine Estim Creat Clear Calc Estimated GFR POC Glucose 81 96 Random Glucose Calcium Magnesium Total Bilirubin AST ALT Alkaline Phosphatase Troponin I High Sens B-Natriuretic Peptide Total Protein Albumin Imaging Radiologist's impression: Impressions Pulmonary Perfusion Imaging 01/24/24 07:35 IMPRESSION: Very low to low probability of pulmonary embolism. Lack of ventilatory images decreases the sensitivity of the study. Chest X-Ray 01/24/24 19:50 IMPRESSION: Bibasilar patchy densities and small right pleural effusion, slightly increased when compared to prior. Assessment and Plan (1) Hypoxia: Status: Acute Patient presents with hypoxemia with hypoxemic respiratory failure without any clinical signs of fluid overload or congestive heart failure. He does have reduced air entry at the bases. Question atelectasis from recent hospitalization. Consider noncontrast CT of chest to evaluate for the same. Continue current diuretic dose. Explained to him that aortic stenosis does not necessarily cause hypoxemia unless he is in congestive heart failure. This was discussed with him. Rest of the clinical function remained stable. His blood pressure is elevated consider increasing hydralazine to 100 mg p.o. b.i.d.. Rest of the medicines to continue as before. Continue oxygen supplementation and evaluation for home oxygen therapy. Will need evaluation for aortic stenosis as outpatient. At this point time will sign of the case. Thank you for allowing me to partake in his care Procedures Date of Service Date of Service: 01/25/24
[2024-01-25 16:02] LABS: Glucose, Whole Blood 144 mg/dL (60-115)
--- NOTE | 2024-01-25 16:16 | HO.PM.IMPN ---
Subjective Subjective Date of Service: 01/25/24 Interval History: short of breath and hypoxic minimal ascites on US< paracentesis cancelled no chest pain BP high Review of Systems Review of Systems: Yes all other systems are reviewed and are negative Physical Exam Vital Signs: Vital Signs: Last Vital Signs Temp 98.3 F 01/25/24 15:34 Pulse 73 01/25/24 15:34 Resp 16 01/25/24 15:34 BP 198/77 H 01/25/24 15:34 Pulse Ox 96 01/25/24 15:34 O2 Del Method Nasal Cannula 01/25/24 15:34 O2 Flow Rate 2 01/25/24 15:34 BMI result Body Mass Index 26.4 Gen: in no acute distress HEENT: sclera anicteric, moist mucus membranes Neck: supple Lungs: diminished bilateral bases Heart: regular rate and rhythm, 3/6 systolic <> murmur at base Abd: soft, non-tender, non-distended Ext: no edema Skin: warm/well-perfused Neuro: alert and oriented x3, no focal findings Psych: appropriate affect Objective Data Active Medications Amlodipine Besylate (Amlodipine Besylate 10 Mg Tablet) 10 mg PO DAILY [facility]; Protocol Aspirin (Aspirin Enteric Coated 81 Mg Tablet.Dr) 81 mg PO DAILY [facility] Last Admin: 01/25/24 10:29 Dose: 81 mg Documented By: MALDONADO Carvedilol (Carvedilol 12.5 Mg Tablet) 12.5 mg PO Q12H [facility]; Protocol Last Admin: 01/25/24 10:29 Dose: 12.5 mg Documented By: MALDONADO Furosemide (Furosemide 40 Mg Tablet) 40 mg PO DAILY [facility]; Protocol Last Admin: 01/25/24 10:53 Dose: 40 mg Documented By: MALDONADO Gabapentin (Gabapentin 300 Mg Capsule) 600 mg PO TID [facility] Last Admin: 01/25/24 10:54 Dose: 600 mg Documented By: MALDONADO Glucose (Glucose Gel 15 Gm Gel..Gram.) 15 gm PO Q15M PRN; Protocol PRN Reason: per Hypoglycemia Standing Ord. Heparin Sodium (Porcine) (Heparin Sodium,Porcine 5,000 Unit/Ml Vial) 5,000 unit SUBCUT Q8H [facility] Last Admin: 01/25/24 10:31 Dose: 5,000 unit Documented By: MALDONADO Hydralazine HCl (Hydralazine Hcl 50 Mg Tablet) 50 mg PO BID [facility]; Protocol Last Admin: 01/25/24 10:29 Dose: 50 mg Documented By: MALDONADO Dextrose (D10) 250 mls @ 750 mls/hr IV Q15M PRN; Protocol PRN Reason: per Hypoglycemia Standing Ord. Insulin Human Lispro (Insulin Lispro 100 Unit/Ml 3 Ml Vial) 0 unit SUBCUT QIDACHS [facility]; Protocol Last Admin: 01/25/24 12:52 Dose: Not Given Documented By: ERIK Non-Admin Reason: No Insulin Coverage Omeprazole (Omeprazole 20 Mg Capsule.Dr) 20 mg PO BID@0630,1630 [facility] Last Admin: 01/25/24 10:29 Dose: 20 mg Documented By: MALDONADO Prednisolone Acetate (Prednisolone Acetate 1 % Oph Susp 5 Ml Drpbtl) 1 drop EYE-BOTH TID [facility] Sodium Chloride (0.9 % Sodium Chloride Flush 3 Ml Syringe) 3 ml IVFLUSH QSHIFT [facility] Last Admin: 01/25/24 10:31 Dose: 3 ml Documented By: MALDONADO Spironolactone (Spironolactone 25 Mg Tablet) 300 mg PO DAILY [facility]; Protocol Last Admin: 01/25/24 10:28 Dose: 300 mg Documented By: MALDONADO Vitamin D (Cholecalciferol (Vitamin D3) 25 Mcg Tablet) 25 mcg PO DAILY [facility] Labs 01/25/24 04:12 01/25/24 04:12 Labs: Laboratory Results - last 24 hr 01/24/24 01/24/24 01/25/24 16:39 17:38 04:12 MCV 91.2 93.8 MCH 29.3 28.5 MCHC 32.1 30.4 L RDW 14.6 14.2 Plt Count 235 D 233 MPV 10.4 10.0 Immature Gran % (Auto) 0.4 0.4 Neut % (Auto) 63.1 64.6 Lymph % (Auto) 20.1 17.8 L [place] % (Auto) 10.3 10.5 Eos % (Auto) 5.0 H 5.5 H Baso % (Auto) 1.1 1.2 Lymph # (Auto) 1.1 L 0.9 L [place] # (Auto) 0.6 0.5 Eos # (Auto) 0.3 0.3 Baso # (Auto) 0.1 0.1 Abs Immat Gran (auto) 0.02 0.02 Absolute Neuts (auto) 3.6 3.3 Absolute Nucleated RBC 0.000 0.000 Nucleated RBC % (auto) 0.0 0.0 Smear Tech's Comments VERIFIED PT 14.0 H INR 1.2 H Anion Gap 13 12 Estim Creat Clear Calc 37.7 42.8 Estimated GFR 38 44 POC Glucose Random Glucose 74 87 Calcium 8.6 D 8.8 Magnesium 2.1 Total Bilirubin 0.2 0.3 AST 9 8 ALT 6 6 Alkaline Phosphatase 48 45 Troponin I High Sens 2.9 D B-Natriuretic Peptide 469 H Total Protein 7.4 7.2 Albumin 3.8 3.7 01/25/24 01/25/24 01/25/24 07:40 10:48 15:55 MCV MCH MCHC RDW Plt Count MPV Immature Gran % (Auto) Neut % (Auto) Lymph % (Auto) [place] % (Auto) Eos % (Auto) Baso % (Auto) Lymph # (Auto) [place] # (Auto) Eos # (Auto) Baso # (Auto) Abs Immat Gran (auto) Absolute Neuts (auto) Absolute Nucleated RBC Nucleated RBC % (auto) Smear Tech's Comments PT INR Anion Gap Estim Creat Clear Calc Estimated GFR POC Glucose 81 96 144 H Random Glucose Calcium Magnesium Total Bilirubin AST ALT Alkaline Phosphatase Troponin I High Sens B-Natriuretic Peptide Total Protein Albumin Assessment and Plan (1) Fluid overload: Status: Acute (2) Hypoxia: Status: Acute Plan 53yo M with CKD3a, HTN, alcoholic cirrhosis, mod-sev , DM2 on MTF + GPZ, HFpEF presenting with progressive dyspnea + cough, found to be hypoxic AHRF acute-chronic HFpEF - suspect due to fluid overload. V/Q scan very low probability PE. CT chest pending. Continue IV furosemide, spironolactone. Cardiology consulted. HTN urgency - continue amlodipien + carvedilol; increase hydralazine chronic anemia - on outpt Fe infusions CKD3a - Cr at baseline, monitor with diuresis GERD - PPI hx CVA - ASA DM2 - yuly-dose lispro VTE ppx - UFH dispo - eventual home with VNA In my clinical judgment, the patient requires continued inpatient hospitalization for the following reasons: hypoxia, IV diuresis Total time managing care of this patient today: 45 minutes. Quality Stroke Does the patient have a stroke diagnosis?: No VTE Prior VTE?: No VTE Risk Level:: Medical - moderate - high VTE Device Contraindication: Treatment Not Indicated VTE Drug Contraindication: N/A - Med Ordered
[2024-01-25] MEDS: Furosemide 40 MG/4 ML VIAL IVPUSH (17:35)
[2024-01-25] MEDS: prednisoLONE Acetate 1 % Oph Susp 5 ML DRPBTL 1 DROP EYE-BOTH (17:35)
[2024-01-25] MEDS: hydrALAZINE HCl 50 MG TABLET 100 MG PO (19:57)
[2024-01-25] MEDS: Acetaminophen 325 MG TABLET 975 MG PO (20:14)
[2024-01-25 21:32] LABS: Glucose, Whole Blood 164 mg/dL (60-115)
[2024-01-26] VITALS (11 sets, daily range): BP systolic 143–183; BP diastolic 70–85; PULSE 67–86; RESP 18–20; TEMP 36.6–37.6; O2SAT 94–97
[2024-01-26] MEDS: Heparin Sodium,Porcine 5,000 UNIT/ML VIAL 5000 UNIT SUBCUT ×3 (00:51→17:13)
[2024-01-26] MEDS: Omeprazole 20 MG CAPSULE.DR PO ×2 (05:43→17:15)
[2024-01-26 06:58] LABS: Glucose, Whole Blood 170 mg/dL (60-115)
[2024-01-26 07:46] LABS: B Type Natriuretic Peptide 512 pg/mL (<100)
[2024-01-26 08:08] LABS: Anion Gap 11 (12-20); Blood Urea Nitrogen 25 mg/dL (9-16); Calcium 9.1 mg/dL (8.4-10.2); Carbon Dioxide 25 mmol/L (22-29); Chloride 107 mmol/L (96-108); Creatinine Clr Calc Pharmacy 50.2; Estimated Glomerular Filt Rate 53; Glucose Random 169 mg/dL (60-115); Magnesium 1.9 mg/dL (1.6-2.6); Potassium 4.2 mmol/L (3.3-5.1); Sodium 139 mmol/L (135-145)
[2024-01-26 08:23] LABS: Procalcitonin 0.06 ng/mL
[2024-01-26] MEDS: Furosemide 40 MG/4 ML VIAL IVPUSH ×2 (10:41→17:13)
[2024-01-26] MEDS: Cholecalciferol (Vitamin D3) 25 MCG TABLET PO (10:42)
[2024-01-26] MEDS: Aspirin Enteric Coated 81 MG TABLET.DR PO (10:42)
[2024-01-26] MEDS: hydrALAZINE HCl 50 MG TABLET 100 MG PO ×2 (10:42→22:02)
[2024-01-26] MEDS: Gabapentin 300 MG CAPSULE 600 MG PO ×3 (10:42→22:00)
[2024-01-26] MEDS: Spironolactone 25 MG TABLET 300 MG PO (10:42)
[2024-01-26] MEDS: carvediloL 12.5 MG TABLET PO ×2 (10:43→22:02)
[2024-01-26] MEDS: amLODIPine Besylate 10 MG TABLET PO (10:43)
[2024-01-26] MEDS: 0.9 % Sodium Chloride Flush 3 ML SYRINGE IVFLUSH ×2 (10:43→17:11)
[2024-01-26] MEDS: prednisoLONE Acetate 1 % Oph Susp 5 ML DRPBTL 1 DROP EYE-BOTH ×3 (10:49→22:00)
[2024-01-26 11:18] LABS: Glucose, Whole Blood 273 mg/dL (60-115)
[2024-01-26] MEDS: Insulin Lispro 100 UNIT/ML 3 ML VIAL SUBCUT ×2 (11:42→17:15)
--- NOTE | 2024-01-26 14:18 | HO.PM.IMPN ---
Subjective Subjective Date of Service: 01/26/24 Interval History: BP high dyspnea/hypoxia improving some cough Review of Systems Review of Systems: Yes all other systems are reviewed and are negative Physical Exam Vital Signs: Vital Signs: Last Vital Signs Temp 98.4 F 01/26/24 11:25 Pulse 69 01/26/24 11:25 Resp 18 01/26/24 11:25 BP 183/82 H 01/26/24 11:25 Pulse Ox 97 01/26/24 11:25 O2 Del Method Nasal Cannula 01/26/24 11:25 O2 Flow Rate 2 01/26/24 11:25 BMI result Body Mass Index 26.4 Gen: in no acute distress HEENT: sclera anicteric, moist mucus membranes Neck: supple Lungs: diminished bilateral bases Heart: regular rate and rhythm, 3/6 systolic <> murmur at base Abd: soft, non-tender, non-distended Ext: no edema Skin: warm/well-perfused Neuro: alert and oriented x3, no focal findings Psych: appropriate affect Objective Data Active Medications Amlodipine Besylate (Amlodipine Besylate 10 Mg Tablet) 10 mg PO DAILY [facility]; Protocol Last Admin: 01/26/24 10:43 Dose: 10 mg Documented By: ALEXEY Aspirin (Aspirin Enteric Coated 81 Mg Tablet.Dr) 81 mg PO DAILY [facility] Last Admin: 01/26/24 10:42 Dose: 81 mg Documented By: ALEXEY Carvedilol (Carvedilol 12.5 Mg Tablet) 12.5 mg PO Q12H [facility]; Protocol Last Admin: 01/26/24 10:43 Dose: 12.5 mg Documented By: ALEXEY Furosemide (Furosemide 40 Mg/4 Ml Vial) 40 mg IVPUSH BID@0900,1800 [facility]; Protocol Last Admin: 01/26/24 10:41 Dose: 40 mg Documented By: ALEXEY Gabapentin (Gabapentin 300 Mg Capsule) 600 mg PO TID [facility] Last Admin: 01/26/24 10:42 Dose: 600 mg Documented By: ALEXEY Glucose (Glucose Gel 15 Gm Gel..Gram.) 15 gm PO Q15M PRN; Protocol PRN Reason: per Hypoglycemia Standing Ord. Heparin Sodium (Porcine) (Heparin Sodium,Porcine 5,000 Unit/Ml Vial) 5,000 unit SUBCUT Q8H [facility] Last Admin: 01/26/24 10:41 Dose: 5,000 unit Documented By: ALEXEY Hydralazine HCl (Hydralazine Hcl 50 Mg Tablet) 100 mg PO BID [facility]; Protocol Last Admin: 01/26/24 10:42 Dose: 100 mg Documented By: ALEXEY Dextrose (D10) 250 mls @ 750 mls/hr IV Q15M PRN; Protocol PRN Reason: per Hypoglycemia Standing Ord. Insulin Human Lispro (Insulin Lispro 100 Unit/Ml 3 Ml Vial) 0 unit SUBCUT QIDACHS [facility]; Protocol Last Admin: 01/26/24 11:42 Dose: 6 unit Documented By: ALEXEY Omeprazole (Omeprazole 20 Mg Capsule.Dr) 20 mg PO BID@0630,1630 [facility] Last Admin: 01/26/24 05:43 Dose: 20 mg Documented By: MELBA Prednisolone Acetate (Prednisolone Acetate 1 % Oph Susp 5 Ml Drpbtl) 1 drop EYE-BOTH TID [facility] Last Admin: 01/26/24 10:49 Dose: 1 drop Documented By: ALEXEY Sodium Chloride (0.9 % Sodium Chloride Flush 3 Ml Syringe) 3 ml IVFLUSH QSHIFT [facility] Last Admin: 01/26/24 10:43 Dose: 3 ml Documented By: ALEXEY Spironolactone (Spironolactone 25 Mg Tablet) 300 mg PO DAILY [facility]; Protocol Last Admin: 01/26/24 10:42 Dose: 300 mg Documented By: ALEXEY Vitamin D (Cholecalciferol (Vitamin D3) 25 Mcg Tablet) 25 mcg PO DAILY [facility] Last Admin: 01/26/24 10:42 Dose: 25 mcg Documented By: ALEXEY Labs 01/25/24 04:12 01/26/24 06:35 Labs: Laboratory Results - last 24 hr 01/25/24 01/25/24 01/26/24 15:55 21:11 06:35 Anion Gap 11 L Estim Creat Clear Calc 50.2 Estimated GFR 53 POC Glucose 144 H 164 H Random Glucose 169 H Calcium 9.1 Magnesium 1.9 B-Natriuretic Peptide 512 H Procalcitonin 0.06 01/26/24 01/26/24 06:54 11:10 Anion Gap Estim Creat Clear Calc Estimated GFR POC Glucose 170 H 273 H Random Glucose Calcium Magnesium B-Natriuretic Peptide Procalcitonin Assessment and Plan (1) Fluid overload: Status: Acute (2) Hypoxia: Status: Acute Plan d3 53yo M with CKD3a, HTN, alcoholic cirrhosis, mod-sev , DM2 on MTF + GPZ, HFpEF presenting with progressive dyspnea + cough, found to be hypoxic AHRF acute-chronic HFpEF - suspect due to fluid overload which could be from HF or from cirrhosis. V/Q scan very low probability PE. CT chest pending. Continue IV furosemide, spironolactone. Cardiology consulted. HTN urgency - continue amlodipien + carvedilol; increase hydralazine chronic anemia - on outpt Fe infusions KAYLYN/CKD3a - Cr improving with diuresis, suggestive of some component of cardiorenal sydrome GERD - PPI hx CVA - ASA DM2 - yuly-dose lispro VTE ppx - UFH dispo - eventual home with VNA In my clinical judgment, the patient requires continued inpatient hospitalization for the following reasons: hypoxia, IV diuresis Total time managing care of this patient today: 35 minutes. Quality Stroke Does the patient have a stroke diagnosis?: No VTE Prior VTE?: No VTE Risk Level:: Medical - moderate - high VTE Device Contraindication: Treatment Not Indicated VTE Drug Contraindication: N/A - Med Ordered
--- NOTE | 2024-01-26 14:39 | MHC.CM.PN ---
EMR reviewed and per MD rounds, pt is not medically cleared for D/C due to management of hypoxia, and fluid overload requiring IV diuresis.
[2024-01-26 16:35] LABS: Glucose, Whole Blood 157 mg/dL (60-115)
--- NOTE | 2024-01-26 17:23 | PC.NURSE ---
patient O2 sat 96% on room air
[2024-01-26 19:57] LABS: Glucose, Whole Blood 134 mg/dL (60-115)
[2024-01-27] VITALS (8 sets, daily range): BP systolic 142–162; BP diastolic 65–75; PULSE 60–95; RESP 18–20; TEMP 36.3–37.2; O2SAT 94–96
[2024-01-27] MEDS: 0.9 % Sodium Chloride Flush 3 ML SYRINGE IVFLUSH ×3 (00:43→16:59)
[2024-01-27] MEDS: Heparin Sodium,Porcine 5,000 UNIT/ML VIAL 5000 UNIT SUBCUT ×3 (00:43→16:59)
[2024-01-27] MEDS: Omeprazole 20 MG CAPSULE.DR PO ×2 (05:51→16:59)
[2024-01-27 07:30] LABS: Glucose, Whole Blood 156 mg/dL (60-115)
[2024-01-27 07:33] LABS: Anion Gap 12 (12-20); Blood Urea Nitrogen 28 mg/dL (9-16); Calcium 9.2 mg/dL (8.4-10.2); Carbon Dioxide 24 mmol/L (22-29); Chloride 105 mmol/L (96-108); Creatinine Clr Calc Pharmacy 42.6; Estimated Glomerular Filt Rate 44; Glucose Random 163 mg/dL (60-115); Magnesium 1.7 mg/dL (1.6-2.6); Potassium 4.1 mmol/L (3.3-5.1); Sodium 137 mmol/L (135-145)
[2024-01-27 07:37] LABS: B Type Natriuretic Peptide 322 pg/mL (<100)
[2024-01-27 08:04] LABS: C Reactive Protein 1.53 mg/dL (< or = 0.50)
[2024-01-27 08:27] LABS: Procalcitonin 0.07 ng/mL
[2024-01-27] MEDS: Doxycycline Hyclate 100 MG in 0.9 % Sodium Chloride 250 ML 166.67 MG IV ×2 (08:36→21:04)
[2024-01-27] MEDS: cefTRIAXone sodium 1 GM in 0.9 % Sodium Chloride 50 ML IV (08:38)
[2024-01-27] MEDS: Spironolactone 25 MG TABLET 300 MG PO (08:47)
[2024-01-27] MEDS: Aspirin Enteric Coated 81 MG TABLET.DR PO (08:47)
[2024-01-27] MEDS: amLODIPine Besylate 10 MG TABLET PO (08:48)
[2024-01-27] MEDS: carvediloL 12.5 MG TABLET PO ×2 (08:48→21:08)
[2024-01-27] MEDS: Cholecalciferol (Vitamin D3) 25 MCG TABLET PO (08:48)
[2024-01-27] MEDS: hydrALAZINE HCl 50 MG TABLET 100 MG PO ×2 (08:48→21:03)
[2024-01-27] MEDS: Gabapentin 300 MG CAPSULE 600 MG PO ×3 (08:49→21:13)
[2024-01-27] MEDS: Insulin Lispro 100 UNIT/ML 3 ML VIAL SUBCUT ×4 (08:57→21:20)
[2024-01-27] MEDS: prednisoLONE Acetate 1 % Oph Susp 5 ML DRPBTL 1 DROP EYE-BOTH ×3 (09:19→21:14)
[2024-01-27 11:07] LABS: Glucose, Whole Blood 163 mg/dL (60-115)
--- NOTE | 2024-01-27 11:27 | P.PNIM_ITS ---
Subjective Subjective Date of Service: 01/27/24 Interval History: dyspnea/cough improved weaned off O2 Review of Systems Review of Systems: Yes all other systems are reviewed and are negative Physical Exam 2 Vital Signs: Vital Signs: Last Vital Signs Temp 98.9 F 01/27/24 08:00 Pulse 68 01/27/24 08:00 Resp 20 01/27/24 08:00 BP 142/65 H 01/27/24 08:00 Pulse Ox 94 01/27/24 08:00 O2 Del Method Room Air 01/27/24 08:00 O2 Flow Rate 1 01/26/24 16:00 BMI result Body Mass Index 26.4 Gen: in no acute distress HEENT: sclera anicteric, moist mucus membranes Neck: supple Lungs: diminished bilateral bases Heart: regular rate and rhythm, 3/6 systolic <> murmur at base Abd: soft, non-tender, non-distended Ext: no edema Skin: warm/well-perfused Neuro: alert and oriented x3, no focal findings Psych: appropriate affect Objective Data Active Medications Amlodipine Besylate (Amlodipine Besylate 10 Mg Tablet) 10 mg PO DAILY [facility]; Protocol Last Admin: 01/27/24 08:48 Dose: 10 mg Documented By: ERIK Aspirin (Aspirin Enteric Coated 81 Mg Tablet.) 81 mg PO DAILY [facility] Last Admin: 01/27/24 08:47 Dose: 81 mg Documented By: ERIK Carvedilol (Carvedilol 12.5 Mg Tablet) 12.5 mg PO Q12H [facility]; Protocol Last Admin: 01/27/24 08:48 Dose: 12.5 mg Documented By: ERIK Furosemide (Furosemide 40 Mg Tablet) 40 mg PO DAILY [facility]; Protocol Gabapentin (Gabapentin 300 Mg Capsule) 600 mg PO TID [facility] Last Admin: 01/27/24 08:49 Dose: 600 mg Documented By: ERIK Glucose (Glucose Gel 15 Gm Gel..Gram.) 15 gm PO Q15M PRN; Protocol PRN Reason: per Hypoglycemia Standing Ord. Heparin Sodium (Porcine) (Heparin Sodium,Porcine 5,000 Unit/Ml Vial) 5,000 unit SUBCUT Q8H [facility] Last Admin: 01/27/24 08:39 Dose: 5,000 unit Documented By: ERIK Hydralazine HCl (Hydralazine Hcl 50 Mg Tablet) 100 mg PO BID [facility]; Protocol Last Admin: 01/27/24 08:48 Dose: 100 mg Documented By: ERIK Dextrose (D10) 250 mls @ 750 mls/hr IV Q15M PRN; Protocol PRN Reason: per Hypoglycemia Standing Ord. Ceftriaxone Sodium 1 gm/ (Sodium Chloride) 50 mls @ 100 mls/hr IV Q24H [facility] Last Infusion: 01/27/24 10:54 Dose: Infused Documented By: ERIK Doxycycline Hyclate 100 mg/ (Sodium Chloride) 250 mls @ 166.67 mls/hr IV Q12H [facility] Last Infusion: 01/27/24 10:54 Dose: Infused Documented By: ERIK Insulin Human Lispro (Insulin Lispro 100 Unit/Ml 3 Ml Vial) 0 unit SUBCUT QIDACHS [facility]; Protocol Last Admin: 01/27/24 08:57 Dose: 2 unit Documented By: ERIK Omeprazole (Omeprazole 20 Mg Capsule.Dr) 20 mg PO BID@0630,1630 [facility] Last Admin: 01/27/24 05:51 Dose: 20 mg Documented By: HUGH Prednisolone Acetate (Prednisolone Acetate 1 % Oph Susp 5 Ml Drpbtl) 1 drop EYE-BOTH TID [facility] Last Admin: 01/27/24 09:19 Dose: 1 drop Documented By: ERIK Sodium Chloride (0.9 % Sodium Chloride Flush 3 Ml Syringe) 3 ml IVFLUSH QSHIFT [facility] Last Admin: 01/27/24 08:41 Dose: 3 ml Documented By: ERIK Spironolactone (Spironolactone 25 Mg Tablet) 300 mg PO DAILY [facility]; Protocol Last Admin: 01/27/24 08:47 Dose: 300 mg Documented By: ERIK Vitamin D (Cholecalciferol (Vitamin D3) 25 Mcg Tablet) 25 mcg PO DAILY [facility] Last Admin: 01/27/24 08:48 Dose: 25 mcg Documented By: ERIK Labs 01/25/24 04:12 01/27/24 06:53 Labs: Laboratory Results - last 24 hr 01/26/24 01/26/24 01/27/24 16:30 19:51 06:53 Anion Gap 12 Estim Creat Clear Calc 42.6 Estimated GFR 44 POC Glucose 157 H 134 H Random Glucose 163 H Calcium 9.2 Magnesium 1.7 C-Reactive Protein 1.53 H B-Natriuretic Peptide 322 H Procalcitonin 0.07 01/27/24 01/27/24 07:27 11:03 Anion Gap Estim Creat Clear Calc Estimated GFR POC Glucose 156 H 163 H Random Glucose Calcium Magnesium C-Reactive Protein B-Natriuretic Peptide Procalcitonin Impressions Abdomen Ultrasound 01/25/24 09:28 FINDINGS/IMPRESSION: No significant ascites is demonstrated. Pleural fluid is demonstrated on the right. Chest CT 01/25/24 14:39 IMPRESSION: 1. Extensive right lower lobe and marked left lower lobe airspace disease and moderate bilateral pleural effusions are seen, could be compatible with bronchopneumonia. 2. Marked bilateral fibroglandular gynecomastia. 3. Cholelithiasis. Fleischner guidelines were followed. Assessment and Plan (1) Fluid overload: Status: Acute (2) Hypoxia: Status: Acute Plan d4 53yo M with CKD3a, HTN, alcoholic cirrhosis, mod-sev , DM2 on MTF + GPZ, HFpEF presenting with progressive dyspnea + cough, found to be hypoxic pneumonia with parapneumonic effusions - check BCx, RVP, Legionella/pneumococcal UAgs, MRSA swab; start ceftriaxone + doxycycline. Repeat CT in 4-6 wk. AHRF acute-chronic HFpEF - suspect due to fluid overload which could be from HF or from cirrhosis. V/Q scan very low probability PE. Change IV to PO furosemide. Continue spironolactone. HTN urgency - continue amlodipine + carvedilol; increased hydralazine chronic anemia - on outpt Fe infusions KAYLYN/CKD3a - Cr improved with diuresis, suggestive of some component of cardiorenal sydrome GERD - PPI hx CVA - ASA DM2 - yuly-dose lispro VTE ppx - UFH dispo - eventual home with VNA In my clinical judgment, the patient requires continued inpatient hospitalization for the following reasons: IV ABX for pneumonia Total time managing care of this patient today: 35 minutes. Quality Stroke Does the patient have a stroke diagnosis?: No VTE Prior VTE?: No VTE Risk Level:: Medical - moderate - high VTE Device Contraindication: Treatment Not Indicated VTE Drug Contraindication: N/A - Med Ordered
[2024-01-27 16:01] LABS: Glucose, Whole Blood 176 mg/dL (60-115)
[2024-01-27 21:15] LABS: Glucose, Whole Blood 152 mg/dL (60-115)
[2024-01-28] VITALS (12 sets, daily range): BP systolic 126–161; BP diastolic 59–74; PULSE 64–73; RESP 18–20; TEMP 36.7–37.5; O2SAT 93–97; BMI 25.3
[2024-01-28] MEDS: 0.9 % Sodium Chloride Flush 3 ML SYRINGE IVFLUSH ×4 (00:35→22:02)
[2024-01-28] MEDS: Heparin Sodium,Porcine 5,000 UNIT/ML VIAL 5000 UNIT SUBCUT ×3 (00:36→16:41)
[2024-01-28] MEDS: Omeprazole 20 MG CAPSULE.DR PO ×2 (05:48→16:41)
[2024-01-28 07:38] LABS: Glucose, Whole Blood 143 mg/dL (60-115)
[2024-01-28] MEDS: Aspirin Enteric Coated 81 MG TABLET.DR PO (08:22)
[2024-01-28] MEDS: Furosemide 40 MG TABLET PO (08:22)
[2024-01-28] MEDS: amLODIPine Besylate 10 MG TABLET PO (08:22)
[2024-01-28] MEDS: hydrALAZINE HCl 50 MG TABLET 100 MG PO ×2 (08:22→22:05)
[2024-01-28] MEDS: carvediloL 12.5 MG TABLET PO ×2 (08:23→22:03)
[2024-01-28] MEDS: Gabapentin 300 MG CAPSULE 600 MG PO ×3 (08:23→22:03)
[2024-01-28] MEDS: Cholecalciferol (Vitamin D3) 25 MCG TABLET PO (08:23)
[2024-01-28] MEDS: Spironolactone 25 MG TABLET 300 MG PO (08:24)
[2024-01-28] MEDS: Doxycycline Hyclate 100 MG in 0.9 % Sodium Chloride 250 ML 166.67 MG IV ×2 (08:24→18:54)
[2024-01-28] MEDS: cefTRIAXone sodium 1 GM in 0.9 % Sodium Chloride 50 ML IV (08:25)
[2024-01-28] MEDS: prednisoLONE Acetate 1 % Oph Susp 5 ML DRPBTL 1 DROP EYE-BOTH ×3 (08:40→22:10)
--- NOTE | 2024-01-28 10:51 | HO.PM.IMPN ---
Subjective Subjective Date of Service: 01/28/24 Interval History: desaturated to 86% overnight; currently feels well with minimal cough and minimal dyspnea no chest pain no fever Review of Systems Review of Systems: Yes all other systems are reviewed and are negative Physical Exam Vital Signs: Vital Signs: Last Vital Signs Temp 98.9 F 01/28/24 07:52 Pulse 64 01/28/24 08:23 Resp 20 01/28/24 07:52 BP 145/65 H 01/28/24 08:24 Pulse Ox 96 01/28/24 07:52 O2 Del Method Room Air 01/28/24 07:52 O2 Flow Rate 1 01/26/24 16:00 BMI result Body Mass Index 25.3 Gen: in no acute distress HEENT: sclera anicteric, moist mucus membranes Neck: supple Lungs: diminished R side Heart: regular rate and rhythm, 3/6 systolic <> murmur at base Abd: soft, non-tender, non-distended Ext: no edema Skin: warm/well-perfused Neuro: alert and oriented x3, no focal findings Psych: appropriate affect Objective Data Active Medications Amlodipine Besylate (Amlodipine Besylate 10 Mg Tablet) 10 mg PO DAILY [facility]; Protocol Last Admin: 01/28/24 08:22 Dose: 10 mg Documented By: TIMO Aspirin (Aspirin Enteric Coated 81 Mg Tablet.) 81 mg PO DAILY [facility] Last Admin: 01/28/24 08:22 Dose: 81 mg Documented By: TIMO Carvedilol (Carvedilol 12.5 Mg Tablet) 12.5 mg PO Q12H [facility]; Protocol Last Admin: 01/28/24 08:23 Dose: 12.5 mg Documented By: TIMO Furosemide (Furosemide 40 Mg Tablet) 40 mg PO DAILY [facility]; Protocol Last Admin: 01/28/24 08:22 Dose: 40 mg Documented By: TIMO Gabapentin (Gabapentin 300 Mg Capsule) 600 mg PO TID [facility] Last Admin: 01/28/24 08:23 Dose: 600 mg Documented By: TIMO Glucose (Glucose Gel 15 Gm Gel..Gram.) 15 gm PO Q15M PRN; Protocol PRN Reason: per Hypoglycemia Standing Ord. Heparin Sodium (Porcine) (Heparin Sodium,Porcine 5,000 Unit/Ml Vial) 5,000 unit SUBCUT Q8H [facility] Last Admin: 01/28/24 08:24 Dose: 5,000 unit Documented By: TIMO Hydralazine HCl (Hydralazine Hcl 50 Mg Tablet) 100 mg PO BID [facility]; Protocol Last Admin: 01/28/24 08:22 Dose: 100 mg Documented By: TIMO Dextrose (D10) 250 mls @ 750 mls/hr IV Q15M PRN; Protocol PRN Reason: per Hypoglycemia Standing Ord. Ceftriaxone Sodium 1 gm/ (Sodium Chloride) 50 mls @ 100 mls/hr IV Q24H [facility] Last Infusion: 01/28/24 09:07 Dose: Infused Documented By: TIMO Doxycycline Hyclate 100 mg/ (Sodium Chloride) 250 mls @ 166.67 mls/hr IV Q12H [facility] Last Infusion: 01/28/24 10:00 Dose: Infused Documented By: TIMO Insulin Human Lispro (Insulin Lispro 100 Unit/Ml 3 Ml Vial) 0 unit SUBCUT QIDACHS [facility]; Protocol Last Admin: 01/28/24 07:40 Dose: Not Given Documented By: TIMO Non-Admin Reason: No Insulin Coverage Omeprazole (Omeprazole 20 Mg Capsule.Dr) 20 mg PO BID@0630,1630 [facility] Last Admin: 01/28/24 05:48 Dose: 20 mg Documented By: PARISH Prednisolone Acetate (Prednisolone Acetate 1 % Oph Susp 5 Ml Drpbtl) 1 drop EYE-BOTH TID [facility] Last Admin: 01/28/24 08:40 Dose: 1 drop Documented By: TIMO Sodium Chloride (0.9 % Sodium Chloride Flush 3 Ml Syringe) 3 ml IVFLUSH QSHIFT [facility] Last Admin: 01/28/24 08:26 Dose: 3 ml Documented By: TIMO Spironolactone (Spironolactone 25 Mg Tablet) 300 mg PO DAILY [facility]; Protocol Last Admin: 01/28/24 08:24 Dose: 300 mg Documented By: TIMO Vitamin D (Cholecalciferol (Vitamin D3) 25 Mcg Tablet) 25 mcg PO DAILY [facility] Last Admin: 01/28/24 08:23 Dose: 25 mcg Documented By: TIMO Labs 01/25/24 04:12 01/27/24 06:53 Labs: Laboratory Results - last 24 hr 01/27/24 01/27/24 01/27/24 11:03 15:59 20:34 Hold Purple Top POC Glucose 163 H 176 H 152 H 01/28/24 01/28/24 06:55 07:34 Hold Purple Top SEE NOTE POC Glucose 143 H Microbiology Microbiology Results: Microbiology 01/27/24 08:21 Blood Culture - Preliminary Blood - Venous No growth after 24 hours. 01/27/24 08:21 Blood Culture - Preliminary Blood - Venous No growth after 24 hours. Assessment and Plan (1) Fluid overload: Status: Acute (2) Hypoxia: Status: Acute Plan d5 53yo M with CKD3a, HTN, alcoholic cirrhosis, mod-sev , DM2 on MTF + GPZ, HFpEF presenting with progressive dyspnea + cough, found to be hypoxic pneumonia with parapneumonic effusions - pending: BCx, RVP, Legionella/pneumococcal UAgs, MRSA swab; ceftriaxone + doxycycline 01/26-. Repeat CT in 4 wk. AHRF acute-chronic HFpEF - suspect due to fluid overload which could be from HF or from cirrhosis. V/Q scan very low probability PE. Changed IV to PO furosemide. Continue spironolactone. HTN urgency - continue amlodipine + carvedilol; increased hydralazine. BP improved chronic anemia - on outpt Fe infusions KAYLYN/CKD3a - Cr improved with diuresis, suggestive of some component of cardiorenal sydrome GERD - PPI hx CVA - ASA DM2 - yuly-dose lispro VTE ppx - UFH dispo - eventual home with VNA likely tomorrow In my clinical judgment, the patient requires continued inpatient hospitalization for the following reasons: IV ABX for pneumonia Total time managing care of this patient today: 35 minutes. Quality Stroke Does the patient have a stroke diagnosis?: No VTE Prior VTE?: No VTE Risk Level:: Medical - moderate - high VTE Device Contraindication: Treatment Not Indicated VTE Drug Contraindication: N/A - Med Ordered
[2024-01-28 11:15] LABS: Glucose, Whole Blood 251 mg/dL (60-115)
[2024-01-28] MEDS: Insulin Lispro 100 UNIT/ML 3 ML VIAL SUBCUT ×3 (11:21→22:03)
[2024-01-28 14:46] LABS: Adenovirus PCR Not Detected (Not Detect.); Bordetella parapertussis PCR Not Detected (Not Detect.); Bordetella pertussis PCR Not Detected (Not Detect.); Chlamydia pneumoniae PCR Not Detected (Not Detect.); Coronavirus 229E PCR Not Detected (Not Detect.); Coronavirus HKU1 PCR Not Detected (Not Detect.); Coronavirus NL63 PCR Not Detected (Not Detect.); Coronavirus OC43 PCR Not Detected (Not Detect.); Human metapneumovirus PCR Not Detected (Not Detect.); Influenza A PCR Not Detected (Not Detect.); Influenza B PCR Not Detected (Not Detect.); Mycoplasma pneumoniae PCR Not Detected (Not Detect.); Parainfluenza 1 PCR Not Detected (Not Detect.); Parainfluenza 2 PCR Not Detected (Not Detect.); Parainfluenza 3 PCR Not Detected (Not Detect.); Parainfluenza 4 PCR Not Detected (Not Detect.); RSV PCR Not Detected (Not Detect.); Rhino/Enterovirus PCR Not Detected (Not Detect.)
[2024-01-28 14:53] LABS: SARS-CoV-2 PCR Not Detected (Not Detect.)
[2024-01-28 15:25] LABS: MRSA Nasal PCR NEGATIVE (Negative); SA Nasal PCR POSITIVE (Negative)
[2024-01-28 16:04] LABS: Glucose, Whole Blood 158 mg/dL (60-115)
[2024-01-28 19:55] LABS: Glucose, Whole Blood 229 mg/dL (60-115)
[2024-01-29 04:00] VITALS: BP 164/73; PULSE 68; RESP 20; TEMP 37.1; O2SAT 94
[2024-01-29] MEDS: Omeprazole 20 MG CAPSULE.DR PO (05:59)
[2024-01-29 06:00] VITALS: BMI 25.5
[2024-01-29] MEDS: Doxycycline Hyclate 100 MG in 0.9 % Sodium Chloride 250 ML 166.7 MG IV (06:34)
[2024-01-29 06:50] LABS: Hematocrit 28.4 % (42.0-52.0); Hemoglobin 8.8 g/dl (14.0-18.0); Mean Corpuscular Hemoglobin 28.8 pg (27.0-33.0); Mean Corpuscular Volume 92.8 fL (80.0-98.0); Mean Platelet Volume 10.3 fL (9.4-12.4); Platelet Count 199 X10*3/uL (160-400); Red Blood Count 3.06 X10*6/uL (4.60-5.80); Red Cell Distribution Width 14.2 % (11.0-16.0); White Blood Count 5.4 X10*3/uL (4.8-10.8)
[2024-01-29 06:59] LABS: Glucose, Whole Blood 131 mg/dL (60-115)
[2024-01-29 07:03] LABS: Anion Gap 13 (12-20); Blood Urea Nitrogen 28 mg/dL (9-16); Carbon Dioxide 20 mmol/L (22-29); Chloride 109 mmol/L (96-108); Creatinine Clr Calc Pharmacy 40.6; Estimated Glomerular Filt Rate 41; Glucose Random 139 mg/dL (60-115); Potassium 4.3 mmol/L (3.3-5.1); Sodium 138 mmol/L (135-145)
[2024-01-29 07:18] VITALS: BP 164/72; PULSE 67; RESP 18; TEMP 37.4; O2SAT 92
[2024-01-29] MEDS: cefTRIAXone sodium 1 GM in 0.9 % Sodium Chloride 50 ML IV (08:20)
[2024-01-29] MEDS: hydrALAZINE HCl 50 MG TABLET 100 MG PO (08:21)
[2024-01-29] MEDS: Gabapentin 300 MG CAPSULE 600 MG PO (08:21)
[2024-01-29] MEDS: Aspirin Enteric Coated 81 MG TABLET.DR PO (08:21)
[2024-01-29] MEDS: Furosemide 40 MG TABLET PO (08:21)
[2024-01-29] MEDS: Heparin Sodium,Porcine 5,000 UNIT/ML VIAL 5000 UNIT SUBCUT (08:21)
[2024-01-29] MEDS: Cholecalciferol (Vitamin D3) 25 MCG TABLET PO (08:22)
[2024-01-29] MEDS: 0.9 % Sodium Chloride Flush 3 ML SYRINGE IVFLUSH (08:22)
[2024-01-29] MEDS: carvediloL 12.5 MG TABLET PO (08:22)
[2024-01-29] MEDS: amLODIPine Besylate 10 MG TABLET PO (08:22)
[2024-01-29] MEDS: prednisoLONE Acetate 1 % Oph Susp 5 ML DRPBTL 1 DROP EYE-BOTH (08:39)
[2024-01-29] MEDS: Spironolactone 25 MG TABLET 300 MG PO (08:39)
[2024-01-29 09:11] LABS: HIV AB/AG Nonreactive (Nonreactive); HIV Num 1 0.04 S/CO (0.00-0.99)
[2024-01-29 11:01] LABS: Glucose, Whole Blood 258 mg/dL (60-115)
[2024-01-29 11:16] VITALS: BP 147/68; PULSE 65; RESP 18; TEMP 36.7; O2SAT 97
--- NOTE | 2024-01-29 11:34 | P.DS_ITS ---
DS: Providers Provider Date of Service: 01/29/24 Date of admission: 01/24/24 22:13 Date of discharge: 01/29/24 Primary care physician: Martínez Dunn MD Consults: 01/25/24 08:26 Consult to Cardiology Routine Consulting Provider: [facility] Reason for consultation: HFpEF, sev , cirrhosis DS: Diagnosis Discharge Diagnosis (1) Acute hypoxic respiratory failure: Status: Acute (2) Pneumonia: Status: Acute (3) Pleural effusion: Status: Acute (4) Aortic stenosis: Status: Acute (5) Chronic heart failure with preserved ejection fraction (HFpEF): Status: Acute DS: Summary Hospital Course Hospital Course: From the history and physical by the admitting hospitalist, Shabana Waggoner MD, 01/24/24: Dmitriy Dejesus is a 53 years old man with past medical history significant for CKD, essential hypertension, alcoholic liver cirrhosis, moderate-severe , type 2 diabetes mellitus on metformin and glipizide and HFrEF presents to the emergency department complaining of worsening shortness of breath associated with occasional dry cough. He denied any chest pain, fever or chills. He did not report any acute gastrointestinal or genitourinary symptoms. He has not noted increased abdominal abdominal girth He does have some minimal edema to the lower extremities. While being evaluated in the emergency department he developed worsening shortness of breath while laying down during V/Q scan performance. In the ED, he was initially found to have stable vital signs. His oxygen saturation dropped to 85% and was placed on supplemental oxygen. Blood workup showed no leukocytosis. Hemoglobin is at baseline. INR is 1.2. There are no significant electrolyte imbalances. Creatinine is 1.85 (1.77 last month). LFTs are normal. BNP is 469 (lower than prior). Troponin is negative. ED tx: NS 1 L bolus, Lasix 40 mg IV, nitro ointment 0.5 in. CXR showed bibasilar patchy densities and small right pleural effusion (slightly increased when compared to prior). V/Q scan very low to low probability of pulmonary embolism. 53yo M with CKD3a, HTN, alcoholic cirrhosis, mod-sev , DM2 on MTF + GPZ, and HFpEF presenting with progressive dyspnea + cough and found to be hypoxic. I nitially thought to be fluid-overloaded from HFpEF and was given IV furosemide. However, further workup showed pneumonia with likely parapneumonic effusions. He was treated with ceftriaxone and doxycycline and weaned off of oxygen. Blood cultures were negative. Furosemide was changed back to PO. Cardiology was consulted and recommended ongoing outpatient follow-up for his aortic stenosis; he was not felt to have come in with a CHF exacerbation. For uncontrolled HTN, hydralazine was increased; amlodipine and carvedilol were continued. He was discharged home with 5 days of cefuroxime and doxycycline. CT of the chest should be repeated in 1 month to ensure resolution. Pending at the time of discharge are Legionella and pneumococcal urine antigen tests. Time Attestation Discharge Coordination Time (in mins): 40 Quality: Safe Use of Opioids Does Pt have an Active Cancer Diagnosis on the Problem List?: No Quality: Stroke Does the patient have a stroke diagnosis?: No Physical Exam Vital Signs: Vital Signs: Last Vital Signs Temp 98.1 F 01/29/24 11:16 Pulse 65 01/29/24 11:16 Resp 18 01/29/24 11:16 BP 147/68 H 01/29/24 11:16 Pulse Ox 97 01/29/24 11:16 O2 Del Method Room Air 01/29/24 11:16 O2 Flow Rate 1 01/26/24 16:00 BMI result Body Mass Index 25.5 Gen: in no acute distress HEENT: sclera anicteric, moist mucus membranes Neck: supple Lungs: diminished R side Heart: regular rate and rhythm, 3/6 systolic <> murmur at base Abd: soft, non-tender, non-distended Ext: no edema Skin: warm/well-perfused Neuro: alert and oriented x3, no focal findings Psych: appropriate affect DS: Data Data Completed and Pending Completed studies during hospitalization [Text1]: Laboratory Results WBC 5.4 X10*3/uL (4.8-10.8) 01/29/24 06:14 RBC 3.06 X10*6/uL (4.60-5.80) L 01/29/24 06:14 Hgb 8.8 g/dl (14.0-18.0) L 01/29/24 06:14 Hct 28.4 % (42.0-52.0) L 01/29/24 06:14 MCV 92.8 fL (80.0-98.0) 01/29/24 06:14 MCH 28.8 pg (27.0-33.0) 01/29/24 06:14 MCHC 31.0 g/dl (31.0-36.0) 01/29/24 06:14 RDW 14.2 % (11.0-16.0) 01/29/24 06:14 Plt Count 199 X10*3/uL (160-400) 01/29/24 06:14 MPV 10.3 fL (9.4-12.4) 01/29/24 06:14 Immature Gran % (Auto) 0.4 % (0.0-0.4) 01/25/24 04:12 Neut % (Auto) 64.6 % (45-73) 01/25/24 04:12 Lymph % (Auto) 17.8 % (20-40) L 01/25/24 04:12 [place] % (Auto) 10.5 % (2-11) 01/25/24 04:12 Eos % (Auto) 5.5 % (0-4) H 01/25/24 04:12 Baso % (Auto) 1.2 % (0-2) 01/25/24 04:12 Lymph # (Auto) 0.9 X10*3/uL (1.2-4.9) L 01/25/24 04:12 [place] # (Auto) 0.5 X10*3/uL (0.1-1.2) 01/25/24 04:12 Eos # (Auto) 0.3 X10*3/uL (0.0-0.4) 01/25/24 04:12 Baso # (Auto) 0.1 X10*3/uL (0.0-0.2) 01/25/24 04:12 Abs Immat Gran (auto) 0.02 X10*3/uL (0.00-0.03) 01/25/24 04:12 Absolute Neuts (auto) 3.3 x10*3/uL (2.0-8.3) 01/25/24 04:12 Absolute Nucleated RBC 0.000 X10*3/uL (0.0-0.012) 01/29/24 06:14 Nucleated RBC % (auto) 0.0 /100WBC (0.0-0.2) 01/29/24 06:14 Smear Tech's Comments VERIFIED 01/24/24 16:39 Hold Purple Top SEE NOTE 01/28/24 06:55 PT 14.0 SEC (11.1-13.3) H 01/24/24 16:39 INR 1.2 (0.9-1.1) H 01/24/24 16:39 Sodium 138 mmol/L (135-145) 01/29/24 06:14 Potassium 4.3 mmol/L (3.3-5.1) 01/29/24 06:14 Chloride 109 mmol/L (96-108) H 01/29/24 06:14 Carbon Dioxide 20 mmol/L (22-29) L 01/29/24 06:14 Anion Gap 13 (12-20) 01/29/24 06:14 BUN 28 mg/dL (9-16) H 01/29/24 06:14 Creatinine 1.72 mg/dL (0.5-1.4) H 01/29/24 06:14 Estim Creat Clear Calc 40.6 01/29/24 06:14 Estimated GFR 41 01/29/24 06:14 POC Glucose 258 mg/dL (60-115) H 01/29/24 10:52 Random Glucose 139 mg/dL (60-115) H 01/29/24 06:14 Calcium 9.0 mg/dL (8.4-10.2) 01/29/24 06:14 Magnesium 1.7 mg/dL (1.6-2.6) 01/27/24 06:53 Total Bilirubin 0.3 mg/dL (0.0-1.0) 01/25/24 04:12 AST 8 U/L (5-37) 01/25/24 04:12 ALT 6 U/L (0-40) 01/25/24 04:12 Alkaline Phosphatase 45 U/L (39-117) 01/25/24 04:12 Troponin I High Sens 2.9 ng/L (<3.5-35.0) D 01/24/24 16:39 C-Reactive Protein 1.53 mg/dL (< or = 0.50) H 01/27/24 06:53 B-Natriuretic Peptide 322 pg/mL (<100) H 01/27/24 06:53 Total Protein 7.2 g/dL (6.5-8.0) 01/25/24 04:12 Albumin 3.7 g/dL (3.5-5.0) 01/25/24 04:12 Procalcitonin 0.07 ng/mL 01/27/24 06:53 Nasal Screen MRSA (PCR) NEGATIVE (Negative) 01/28/24 12:48 Nasal S. aureus Screen POSITIVE (Negative) A 01/28/24 12:48 Nasal MRSA/S.aureus Interp SEE NOTE 01/28/24 12:48 Respiratory Panel [place] See Note 01/28/24 12:48 Adenovirus (Rapid PCR) Not Detected (Not Detect.) 01/28/24 12:48 B.pert (TEM-PCR) Not Detected (Not Detect.) 01/28/24 12:48 B.parapertussis DNA PCR Not Detected (Not Detect.) 01/28/24 12:48 C. pneumoniae DNA (PCR) Not Detected (Not Detect.) 01/28/24 12:48 Coronavirus OC43 (PCR) Not Detected (Not Detect.) 01/28/24 12:48 Coronavirus HKU1 (PCR) Not Detected (Not Detect.) 01/28/24 12:48 Coronavirus 229E (PCR) Not Detected (Not Detect.) 01/28/24 12:48 Coronavirus NL63 (PCR) Not Detected (Not Detect.) 01/28/24 12:48 HIV 1&2 Ab/P24 Ag 4thGn Nonreactive (Nonreactive) 01/28/24 06:55 Human Metapneumovir PCR Not Detected (Not Detect.) 01/28/24 12:48 Influenza A (RT-PCR) Not Detected (Not Detect.) 01/28/24 12:48 Influenza B (RT-PCR) Not Detected (Not Detect.) 01/28/24 12:48 M. pneumoniae (PCR) Not Detected (Not Detect.) 01/28/24 12:48 Parainfluenza 1 (PCR) Not Detected (Not Detect.) 01/28/24 12:48 Parainfluenza 2 (PCR) Not Detected (Not Detect.) 01/28/24 12:48 Parainfluenza 3 (PCR) Not Detected (Not Detect.) 01/28/24 12:48 Parainfluenza 4 (PCR) Not Detected (Not Detect.) 01/28/24 12:48 RSV (PCR) Not Detected (Not Detect.) 01/28/24 12:48 Entero/Rhino (PCR) Not Detected (Not Detect.) 01/28/24 12:48 SARS-CoV-2 RNA (RT-PCR) Not Detected (Not Detect.) 01/28/24 12:48 Impressions Pulmonary Perfusion Imaging 01/24/24 07:35 IMPRESSION: Very low to low probability of pulmonary embolism. Lack of ventilatory images decreases the sensitivity of the study. Chest X-Ray 01/24/24 19:50 IMPRESSION: Bibasilar patchy densities and small right pleural effusion, slightly increased when compared to prior. Abdomen Ultrasound 01/25/24 09:28 FINDINGS/IMPRESSION: No significant ascites is demonstrated. Pleural fluid is demonstrated on the right. Chest CT 01/25/24 14:39 IMPRESSION: 1. Extensive right lower lobe and marked left lower lobe airspace disease and moderate bilateral pleural effusions are seen, could be compatible with bronchopneumonia. 2. Marked bilateral fibroglandular gynecomastia. 3. Cholelithiasis. Fleischner guidelines were followed. Discharge Plan Discharge Anticipated Discharge Date/Time: 01/29/24 11:27 Patient Disposition: Home, Self-Care Discharge Diagnosis: acute hypoxia due to pneumonia moderate-severe aortic stenosis chronic heart failure with preserved ejection fraction uncontrolled hypertension Referrals: Martínez Dunn MD [Primary Care Provider] - 1 Week Toni Rahman MD [Physician] - 1 Month Discharge Medications: New doxycycline monohydrate 100 mg Capsule 100 mg PO Q12H Qty: 10 0RF cefuroxime axetil 500 mg tablet 500 mg PO BID Qty: 10 0RF hydralazine 100 mg tablet 100 mg PO BID Qty: 60 0RF Rx Instructions: replaces prior dose of 50 mg bid Continued metformin 500 mg tablet 500 mg PO BIDWM glipizide 10 mg tablet extended release 24hr 10 mg PO BIDAC omeprazole 20 mg capsule,delayed release(DR/EC) 20 mg PO DAILY@0630 Cosentyx Pen (2 Pens) 150 mg/mL pen injector 300 mg subcut QMONTH Rx Instructions: due on january 30 aspirin 81 mg Tablet,Delayed Release (Dr/Ec) 81 mg PO DAILY Qty: 30 0RF furosemide 40 mg tablet 40 mg PO DAILY prednisolone acetate 1 % drops,suspension 1 drp ophthalmic (eye) TID spironolactone 100 mg tablet 300 mg PO DAILY cholecalciferol (vitamin D3) 25 mcg (1,000 unit) Tablet 25 mcg PO DAILY gabapentin 300 mg capsule 600 mg PO TID carvedilol [Coreg] 12.5 mg tablet 12.5 mg PO Q12H Qty: 30 0RF Rx Instructions: must administer with a meal/food amlodipine 10 mg tablet 10 mg PO DAILY Qty: 30 0RF Discontinued hydralazine 50 mg tablet 50 mg PO BID Discharge Orders: Discharge Order (Routine); Ordered 01/29/24 Ordered By: Samantha Li Diet: Low salt diet Activity on Discharge: As tolerated Stand Alone Forms: Patient Portal Discharge page Print Language: Nepalese Care Plan Goals: cure of pneumonia Health Concerns: acute hypoxia due to pneumonia - cefuroxime 500 mg twice daily PLUS doxycycline 100 mg twice daily for 5 days - repeat CT of the chest without contrast in 4 weeks; ask your primary care doctor for order moderate-severe aortic stenosis - follow up with Cardiology in 1 month for management chronic heart failure with preserved ejection fraction - continue furosemide 40 mg daily and antihypertensives as below uncontrolled hypertension - increase hydralazine to 100 mg twice daily; continue amlodipine 10 mg twice daily and carvedilol 12.5 mg twice daily Please follow up with your primary care doctor within 1 week. Return to the hospital if you experience recurrent or worsening symptoms. Plan of Treatment: as above Assessment: See Discharge Summary.
[2024-01-29] MEDS: Insulin Lispro 100 UNIT/ML 3 ML VIAL SUBCUT (11:36)
--- NOTE | 2024-01-29 11:43 | MHC.CM.PN ---
Patient has been medically cleared for dc to home today, self care.
[2024-01-30 21:28] LABS: Strep Pneumo Ag urine Not Detected (Not Detected)
[2024-02-01 03:39] LABS: Legionella Ag Urine Not Detected (Not Detected)
== END 2024-01-29 12:20 | disposition home or self-care (01) | DRG 139 ==
LOC: HO.ED 16:45 → HO.EDOVER 22:20 → HO.IMC 01-25 07:17
PROVIDERS: Physician Assistant; Admitting Provider Internal Medicine; Emergency Provider Emergency Medicine Emergency Medical Services; PCP Internal Medicine; Visit Provider Family Medicine
DX: J18.9 Pneumonia, unspecified organism (principal); J96.01 Acute respiratory failure with hypoxia; I13.0 Hypertensive heart and chronic kidney disease with heart failure and stage 1 through stage 4 chronic kidney disease, or unspecified chronic kidney disease; J91.8 Pleural effusion in other conditions classified elsewhere; K70.31 Alcoholic cirrhosis of liver with ascites; D63.1 Anemia in chronic kidney disease; L40.50 Arthropathic psoriasis, unspecified; I50.32 Chronic diastolic (congestive) heart failure; N17.9 Acute kidney failure, unspecified; I16.0 Hypertensive urgency; I35.0 Nonrheumatic aortic (valve) stenosis; K21.9 Gastro-esophageal reflux disease without esophagitis; Z86.73 Personal history of transient ischemic attack (TIA), and cerebral infarction without residual deficits; N18.31 Chronic kidney disease, stage 3a; Z20.822 Contact with and (suspected) exposure to COVID-19; Z79.82 Long term (current) use of aspirin; Z79.84 Long term (current) use of oral hypoglycemic drugs; Z79.620 Long term (current) use of immunosuppressive biologic; Z79.899 Other long term (current) drug therapy
CPT/HCPCS: 36415; 71045; 71250; 76705; 78580; 80048; 80053; 82947; 83735; 83880; 84145; 84484; 85025; 85027; 85610; 86140; 87040; 87389; 87449; 87633; 87640; 87641; 87899; 93005; 97162; 99285; A9540; J0696; J1644; J1940

== ENCOUNTER → 2024-01-24 16:06 | Outpatient (BNV) | payer OTHER, MEDICARE, SELFPAY | PROVIDERS: Admitting Provider Internal Medicine; Emergency Provider Emergency Medicine Emergency Medical Services; PCP Internal Medicine; Visit Provider Internal Medicine Cardiovascular Disease | DX: R06.02 Shortness of breath (principal) | CPT/HCPCS: 93010 ==

== ENCOUNTER → 2024-01-24 22:13 | Outpatient (BNV) | payer OTHER, MEDICARE, SELFPAY | PROVIDERS: Admitting Provider Internal Medicine; Emergency Provider Emergency Medicine Emergency Medical Services; PCP Internal Medicine; Visit Provider Internal Medicine | DX: J96.01 Acute respiratory failure with hypoxia (principal); J18.9 Pneumonia, unspecified organism; J90 Pleural effusion, not elsewhere classified; I35.0 Nonrheumatic aortic (valve) stenosis; I50.32 Chronic diastolic (congestive) heart failure | CPT/HCPCS: 99223; 99232; 99239 ==

== ENCOUNTER → 2024-01-24 22:13 | Outpatient (BNV) | payer OTHER, MEDICARE, SELFPAY | PROVIDERS: Admitting Provider Internal Medicine; Emergency Provider Emergency Medicine Emergency Medical Services; PCP Internal Medicine; Visit Provider Internal Medicine Cardiovascular Disease | DX: R09.02 Hypoxemia (principal) | CPT/HCPCS: 99222 ==

== ENCOUNTER 2024-02-13 06:27 | Outpatient (REF) | payer OTHER, MEDICARE, SELFPAY ==
[2024-02-13 11:19] LABS: Estimated Average Glucose 117 mg/dL; Hemoglobin A1c % 5.7 % (<6.0)
[2024-02-13 11:30] LABS: Alanine Aminotransferase 9 U/L (0-40); Albumin Level 4.2 g/dL (3.5-5.0); Alkaline Phosphatase 48 U/L (39-117); Anion Gap 16 (12-20); Aspartate Amino Transferase 13 U/L (5-37); Bilirubin Total 0.2 mg/dL (0.0-1.0); Blood Urea Nitrogen 37 mg/dL (9-16); Calcium 9.9 mg/dL (8.4-10.2); Carbon Dioxide 20 mmol/L (22-29); Chloride 109 mmol/L (96-108); Estimated Glomerular Filt Rate 42; Glucose Random 92 mg/dL (60-115); Potassium 4.7 mmol/L (3.3-5.1); Sodium 140 mmol/L (135-145)
== END 2024-02-13 06:28 | disposition home or self-care (01) ==
LOC: HO.HMGCLDS 06:27
PROVIDERS: PCP Internal Medicine; Visit Provider Internal Medicine
DX: I10 Essential (primary) hypertension (principal); E11.9 Type 2 diabetes mellitus without complications; N18.9 Chronic kidney disease, unspecified
CPT/HCPCS: 36415; 80053; 83036

== ENCOUNTER 2024-02-28 07:59 | Outpatient (REF) | payer OTHER, MEDICARE, SELFPAY ==
--- NOTE | ~2024-02-28 | XR_ITS ---
EXAMINATION: XR CHEST 2 VIEWS CLINICAL INFORMATION: Congestive heart failure. COMPARISON: CT chest dated 01/25/2024; chest radiograph dated 01/24/2024. TECHNIQUE: Frontal and lateral views of the chest were obtained. FINDINGS: The heart, great vessels, pulmonary vasculature and mediastinum are normal. No infiltrate or pneumothorax is seen. There are very small bilateral pleural effusions, with blunting of the bilateral posterior costophrenic angles. There is no acute osseous abnormality. XR/XR chest 2V IMPRESSION: 1. No focal infiltrate or congestive heart failure is seen. 2. There are very small bilateral pleural effusions.
== END 2024-02-28 08:00 | disposition home or self-care (01) ==
LOC: HO.XRAY 07:59
PROVIDERS: PCP Internal Medicine; Visit Provider Internal Medicine
DX: I50.9 Heart failure, unspecified (principal)
CPT/HCPCS: 71046

== ENCOUNTER 2024-02-29 14:51 | Outpatient (AMB) | payer OTHER, MEDICARE, SELFPAY ==
--- NOTE | 2024-02-29 15:23 | MHC.OFFVIS ---
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 Patient Accounts Clerk: Patient Accounts Clerk Present Allergies shellfish derived [SHELLFISH DERIVED] Allergy (Severe, Verified 02/29/24 15:26) ANAPHYLAXIS acetazolamide Adverse Reaction (Verified 02/29/24 15:26) Confusion Medication List - Last Reconciled 02/29/24 by Reema Gordon NP-C amlodipine 10 mg PO DAILY aspirin 81 mg PO DAILY atorvastatin 20 mg PO BEDTIME carvedilol (Coreg) 12.5 mg PO Q12H cefuroxime axetil 500 mg PO BID cholecalciferol (vitamin D3) 25 mcg PO DAILY furosemide 40 mg PO DAILY gabapentin 600 mg PO TID glipizide ER 10 mg PO BIDAC hydralazine 100 mg PO BID metformin 500 mg PO BIDWM omeprazole 20 mg PO DAILY@0630 prednisolone acetate 1% 1 drp ophthalmic (eye) TID secukinumab (Cosentyx Pen 300 mg/2 Pens () 300 mg subcut QMONTH spironolactone 300 mg PO DAILY HPI HPI s/P [facility] [place]: Details: Dmitriy is a 53-year-old male with past medical history of hypertension, diabetes, chronic kidney disease, aortic stenosis, possible bicuspid aortic valve, who was recently admitted to [facility] with increased shortness of breath following a decrease in his diuretics. He was treated for Congestive heart failure and diuretics increased again. He follows with Dr. Garrison for Nephrology. He was readmitted to [facility] with shortness of breath again. He was initially thought to have decompensated heart failure however was found to have pneumonia which was then treated appropriately with improvement. Today he states that he has been doing well since his hospital discharge. He tells me his breathing is back to normal. He has no chest discomfort at rest or with activity. He denies palpitations, lightheadedness, presyncope, syncope, falls. Taking meds as directed. is present. FOR[facility]LY [facility] Medical History Aortic stenosis Hypertension Hypertensive urgency Acute on chronic diastolic (congestive) heart failure Chronic kidney disease Cataract Psoriatic arthritis Cirrhosis of liver not due to alcohol Diabetes Surgical History No pertinent past surgical history Family History Mother CHF (congestive heart failure) Father No problems noted. Social History Household Members: Spouse Housing: [facility] Do you presently have visiting nurse or other home services: No Alcohol intake: current Alcohol intake frequency: holidays/special occasions only Comment: patient steady with ambulation,ind. Patient Tobacco Use Status: Never used Tobacco Substance Use Type: Marijuana Advance Directives Date on File: 12/21/23 service: No Current occupational status: disabled Review of Systems Const All systems reviewed & are unremarkable except as noted in HPI and below ENT Reports dizziness Card Denies chest pain, Denies chest pain at rest, Denies chest pain with activity, Denies rapid heart rate, Denies pedal edema, Denies edema, Denies leg edema, Denies lightheadedness, Denies palpitations, Denies dyspnea, Denies dyspnea on exertion and Denies orthopnea Resp Denies cough, Denies dyspnea and Denies dyspnea on exertion GI Denies hematochezia and Denies change in stool character Musc Denies abnormal gait, Denies limited range of motion, Denies muscle cramps, Denies muscle weakness, Denies numbness, Denies radiating pain into limb, Denies stiffness and Denies tingling Neuro Denies abnormal gait, Reports dizziness, Denies numbness and Denies tingling Endo Denies palpitations Physical Exam Vital Signs: Last Vital Signs Pulse 78 02/29/24 15:24 BP 140/62 H 02/29/24 15:24 BMI result Body Mass Index 25.2 Const General: cooperative, healthy appearing, comfortable and no acute distress Orientation/consciousness: patient oriented x3 Neck Neck: Yes normal visual inspection and Yes no JVD Resp Effort & Inspection: normal respiratory effort Auscultation: clear to auscultation bilaterally, no rales, no rhonchi and no wheezes Cardio Jugular venous distension: no JVD Rate: regular rate Rhythm: regular rhythm Heart sounds: S2 normal heart sound present, Murmur heart sound present (36 systolic murmur heard at right and left sternal border) and no rubs Neuro General: patient oriented x3 Extrem General: Yes normal to inspection and No no pedal edema Psych Appearance: grossly normal Mental Status: mental status grossly normal Speech and movement: Normal speech and movement present Assessment & Plan Assessment & Plan (1) Congestive heart failure: Code(s): I50.9 - Heart failure, unspecified Category: Medical Qualifiers: Heart failure chronicity: acute on chronic Heart failure type: diastolic Qualified Code(s): I50.33 - Acute on chronic diastolic (congestive) heart failure Plan: [facility] [place] admission 12/2023 for Congestive heart failure that seems to be triggered by the reduction in his diuretics following a increase in his kidney function test after taking a certain ophthalmic medication. He was diuresed and back on his usual diuretics including Lasix 40 mg daily and Aldactone 300 mg daily. An echocardiogram done during his hospital admission showed EF 55-60%, moderate to severe aortic stenosis. It is possible that his aortic stenosis may have contributed to his Congestive heart failure episode. He was readmitted to [facility] [place] on 01/24/2024 for shortness of breath. He was initially thought to have decompensated heart failure however was found to have pneumonia which was treated appropriately with improvement in his condition. Today he reports his breathing is back to normal. He does not appear fluid overloaded on exam. Labs done 02/13/2024 showed creatinine 1.69. He does follow with Nephrology. Signs and symptoms of heart failure reviewed with him. Cardiology follow-up in 5 months, sooner if needed. (2) Aortic stenosis: Code(s): I35.0 - Nonrheumatic aortic (valve) stenosis Category: Medical Qualifiers: Cardiac valve disease etiology: nonrheumatic Qualified Code(s): I35.0 - Nonrheumatic aortic (valve) stenosis Plan: History of aortic stenosis, previously known to be moderate. Echocardiogram from 12/24/2022 shows EF 60%, moderate aortic stenosis, mean gradient 15 mmHg, aortic valve area 1.13 centimeter sq . Echocardiogram done 12/22/2023 showed EF 55-60%, moderate severe aortic stenosis, mean gradient 28 mmHg, aortic valve area 0.96 centimeter sq. Degree of aortic stenosis has progressed in the last year. He did have Congestive heart failure admission however it may be related to his medication changes. Signs and symptoms of severe aortic stenosis reviewed with him in detail. Instructed to notify this office if he has any new symptoms or recurrent Congestive heart failure. At that time cardiac catheterization will be done as part of initial process for valve replacement. Repeat echocardiogram in 6 months from last . (3) Chronic kidney disease: Code(s): N18.9 - Chronic kidney disease, unspecified Category: Medical Qualifiers: Chronic kidney disease stage: stage 3 (moderate) Chronic kidney disease stage 3 subtype: stage 3a (GFR 45-59) Qualified Code(s): N18.31 - Chronic kidney disease, stage 3a Plan: Follows with Nephrology (4) Hypertension: Code(s): I10 - Essential (primary) hypertension Category: Medical Qualifiers: Hypertension type: primary hypertension Qualified Code(s): I10 - Essential (primary) hypertension Plan: Mild elevation today. Meds reviewed and no changes made. Will have him continue on carvedilol, amlodipine, hydralazine, Aldactone, Lasix. He does follow closely with Nephrology. (5) Hospital discharge follow-up: Code(s): Z09 - Encounter for follow-up examination after completed treatment for conditions other than malignant neoplasm Category: Medical Plan: As above Plan Time spent on chart review, documentation, interview assessment Orders: Orders Lipid Panel 2 Months I35.0 - Nonrheumatic aortic (valve) stenosis Liver Panel 2 Months I35.0 - Nonrheumatic aortic (valve) stenosis, I50.33 - Acute on chronic diastolic (congestive) heart failure Medications: New atorvastatin 20 mg PO BEDTIME 30 tabs 5RF Coding Level of Care Code Est Pt Level 4 (15326) Diagnoses Acute on chronic diastolic congestive heart failure I50.33 Heart failure chronicity: acute on chronic Heart failure type: diastolic Nonrheumatic aortic valve stenosis I35.0 Cardiac valve disease etiology: nonrheumatic Stage 3a chronic kidney disease N18.31 Chronic kidney disease stage: stage 3 (moderate) Chronic kidney disease stage 3 subtype: stage 3a (GFR 45-59) Primary hypertension I10 Hypertension type: primary hypertension Hospital discharge follow-up Z09 Time Spent (min) 30
[2024-02-29 15:24] VITALS: BP 140/62; PULSE 78; BMI 25.2
== END 2024-02-29 16:04 | disposition home or self-care (01) ==
PROVIDERS: PCP Internal Medicine; Visit Provider Nurse Practitioner Family
DX: I50.33 Acute on chronic diastolic (congestive) heart failure (principal); I35.0 Nonrheumatic aortic (valve) stenosis; N18.31 Chronic kidney disease, stage 3a; I10 Essential (primary) hypertension; Z09 Encounter for follow-up examination after completed treatment for conditions other than malignant neoplasm
CPT/HCPCS: 99214

== ENCOUNTER → 2024-02-29 14:51 | Outpatient (BNVA) | payer OTHER, MEDICARE, SELFPAY | PROVIDERS: PCP Internal Medicine; Visit Provider Nurse Practitioner Family ==

== ENCOUNTER 2024-03-13 03:18 | Inpatient (IN) | payer OTHER, MEDICARE, SELFPAY ==
[2024-03-13] VITALS (13 sets, daily range): BP systolic 155–189; BP diastolic 70–85; PULSE 67–87; RESP 16–18; TEMP 36.2–37.2; O2SAT 85–98; BMI 24.2; BMI 25.1
--- NOTE | 2024-03-13 | ECG_ITS ---
Test Reason : SOB Blood Pressure : / mmHG Vent. Rate : 087 BPM Atrial Rate : 087 BPM P-R Int : 190 ms QRS Dur : 086 ms QT Int : 382 ms P-R-T Axes : 055 -09 037 degrees QTc Int : 459 ms Normal sinus rhythm Possible Left atrial enlargement Borderline ECG When compared with ECG of 24-JAN-2024 16:23, No significant change was found Referred By: Generic ED Physician Electronically Signed By:NUSRAT VICENTE
--- NOTE | ~2024-03-13 | XR_ITS ---
EXAMINATION: XR CHEST CLINICAL INFORMATION: Dyspnea COMPARISON: 02/28/2024 TECHNIQUE: Frontal view of the chest was obtained. FINDINGS: Heart, mediastinum and vascularity within normal limits. Bibasilar increased markings, likely atelectasis. No effusions. Degenerative changes. XR/XR chest 1V IMPRESSION: Bibasilar atelectasis.
[2024-03-13 03:57] LABS: MANUAL DIFF FLAG NO
[2024-03-13 03:58] LABS: Basophils Absolute Auto 0.1 X10*3/uL (0.0-0.2); Basophils Percent Auto 0.9 % (0-2); Eosinophils Absolute Auto 0.3 X10*3/uL (0.0-0.4); Eosinophils Percent Auto 4.8 % (0-4); Hematocrit 29.3 % (42.0-52.0); Hemoglobin 9.4 g/dl (14.0-18.0); Imm Gran Abs Auto 0.04 X10*3/uL (0.00-0.03); Imm Gran Pct Auto 0.6 % (0.0-0.4); Lymphocytes Percent Auto 14.6 % (20-40); Mean Corpuscular HGB Conc 32.1 g/dl (31.0-36.0); Mean Corpuscular Hemoglobin 29.4 pg (27.0-33.0); Mean Corpuscular Volume 91.6 fL (80.0-98.0); Mean Platelet Volume 9.6 fL (9.4-12.4); Monocytes Absolute Auto 0.5 X10*3/uL (0.1-1.2); Monocytes Percent Auto 7.3 % (2-11); Neutrophils Absolute Auto 4.8 x10*3/uL (2.0-8.3); Neutrophils Percent Auto 71.8 % (45-73); Platelet Count 164 X10*3/uL (160-400); Red Cell Distribution Width 14.9 % (11.0-16.0); White Blood Count 6.7 X10*3/uL (4.8-10.8)
[2024-03-13 04:12] LABS: Alanine Aminotransferase 12 U/L (0-40); Albumin Level 3.9 g/dL (3.5-5.0); Alkaline Phosphatase 44 U/L (39-117); Anion Gap 14 (12-20); Aspartate Amino Transferase 14 U/L (5-37); Bilirubin Total 0.3 mg/dL (0.0-1.0); Blood Urea Nitrogen 37 mg/dL (9-16); Calcium 9.2 mg/dL (8.4-10.2); Carbon Dioxide 19 mmol/L (22-29); Chloride 104 mmol/L (96-108); Creatinine Clr Calc Pharmacy 36.6; Estimated Glomerular Filt Rate 35; Glucose Random 272 mg/dL (60-115); Potassium 4.4 mmol/L (3.3-5.1); Sodium 133 mmol/L (135-145); Total Protein 7.3 g/dL (6.5-8.0)
[2024-03-13 04:18] LABS: B Type Natriuretic Peptide 694 pg/mL (<100)
--- NOTE | 2024-03-13 04:18 | ED_ITS ---
HPI - SOB/Dyspnea General Chief Complaint: Dyspnea Stated Complaint: diff breathing Time Seen by Provider: 03/13/24 04:06 Source: patient and family Mode of arrival: ambulatory Limitations: no limitations History of Present Illness ED Provider: Dr. Grisel Rojo HPI Narrative: Patient comes to the emergency room complaining of shortness of breath starting today. Patient states that couple of hours ago, patient woke up to check his blood sugar, just from a short walk patient became short of breath. Patient states that he has an O2 monitor at home, put it on his finger, read 70-72% on room air. Patient is not oxygen dependent, denies asthma or COPD. Patient states that recently he was diagnosed with CHF. Patient also reports that his legs bilaterally have been getting swollen over last 24 hours. Patient denies any chest pain at this time. Related Data Home Medications ?Medication ?Instructions ?Recorded ?Confirmed glipizide 10 mg tablet, extended 10 mg PO BIDAC 12/23/22 02/29/24 release 24 hr metformin 500 mg tablet 500 mg PO BIDWM 12/23/22 02/29/24 omeprazole 20 mg capsule,delayed 20 mg PO DAILY@0630 12/23/22 02/29/24 release secukinumab 150 mg/mL subcutaneous 300 mg subcut QMONTH 12/23/22 02/29/24 pen injector (Cosentyx Pen 300 mg/2 Pens () gabapentin 300 mg capsule 600 mg PO TID 12/21/23 02/29/24 furosemide 40 mg tablet 40 mg PO DAILY 01/24/24 02/29/24 prednisolone acetate 1 % eye 1 drp ophthalmic (eye) TID 01/24/24 02/29/24 drops,suspension spironolactone 100 mg tablet 300 mg PO DAILY 01/24/24 02/29/24 cholecalciferol (vitamin D3) 25 25 mcg PO DAILY 01/25/24 02/29/24 mcg (1,000 unit) tablet Previous Rx's ?Medication ?Instructions ?Recorded aspirin 81 mg tablet,delayed 81 mg PO DAILY #30 tabs 12/26/22 release amlodipine 10 mg tablet 10 mg PO DAILY #30 tabs 12/23/23 carvedilol 12.5 mg tablet (Coreg) 12.5 mg PO Q12H #30 tabs 12/23/23 cefuroxime axetil 500 mg tablet 500 mg PO BID #10 tabs 01/29/24 hydralazine 100 mg tablet 100 mg PO BID #60 tabs 02/15/24 atorvastatin 20 mg tablet 20 mg PO BEDTIME #30 tabs 02/29/24 Allergies Allergy/AdvReac Type Severity Reaction Status Date / Time shellfish derived Allergy Severe ANAPHYLAXIS Verified 03/13/24 03:23 [SHELLFISH DERIVED] acetazolamide AdvReac Confusion Verified 03/13/24 03:23 Review of Systems 2 Review of Systems: Constitutional : No Weight loss, No Fever, No Chills, No Night Sweats, No Fatigue, No Malaise ENT/Mouth : No Hearing loss, No Ear Pain, No Nasal Congestion, No Sinus Pain, No Hoarseness, No sore throat, No Rhinorrhea, No Swallowing Difficulty Eyes: No Eye Pain, No Swelling, No Redness, No Foreign Body, No Discharge, No Vision Changes Cardiovascular : No Chest Pain, laying of shortness of breath with exertion, hypoxia in the 70s on room air, worsening lower extremity edema Respiratory : No Cough, No Sputum, No Wheezing, No Smoke Exposure, No Dyspnea Gastrointestinal : No Nausea, No Vomiting, No Diarrhea, No Constipation, No abdominal Pain, No Hematochezia, No Melena Genitourinary : no irregular bleeding, No Dysuria, No Urinary Frequency, No Hematuria, No Urinary Incontinence, No Urgency, No Flank Pain, No Urinary Flow Changes, No Hesitancy Musculoskeletal : No joint pain, No Myalgias, No Joint Swelling Skin : No Skin Lesions, No rash Neuro : No Weakness, No Numbness, No Paresthesias, No Loss of Consciousness, No Dizziness, No Headache Psych : No Anxiety/Panic, No Depression, No SI/HI/AH/VH, No Social Issues, Heme/Lymph: No Bruising, No Bleeding,No Lymphadenopathy Endocrine : No Polyuria, No Polydipsia, No Temperature Intolerance [facility] Past Medical History Medical History Aortic stenosis Hypertension Hypertensive urgency Acute on chronic diastolic (congestive) heart failure Chronic kidney disease Cataract Psoriatic arthritis Cirrhosis of liver not due to alcohol Diabetes Surgical History No pertinent past surgical history Family History Family History Mother CHF (congestive heart failure) Father No problems noted. Social History Social History Household Members: Spouse Housing: Condominium Do you presently have visiting nurse or other home services: No Alcohol intake: current Alcohol intake frequency: holidays/special occasions only Comment: patient steady with ambulation,ind. Patient Tobacco Use Status: Never used Tobacco Smoked in Last 30 Days: No Use of substances other than those prescribed or required for medical reasons: No Substance Use Type: Marijuana Advance Directives: Yes Advance Directives on File: Yes Advance Directives Date on File: 12/21/23 service: No Current occupational status: disabled Physical Exam 2 Vital Signs: Vital Signs: Last Vital Signs Temp 97.8 F 03/13/24 03:23 Pulse 87 03/13/24 03:23 Resp 18 03/13/24 03:23 BP 188/70 H 03/13/24 03:23 Pulse Ox 85 L 03/13/24 04:15 O2 Del Method Room Air 03/13/24 04:15 BMI result Body Mass Index 24.2 Const: Other: Appearance: Alert. Oriented X3. No acute distress. Eyes: Pupils equal, round and reactive to light. ENT: Pharynx normal. Neck: Normal inspection. Neck supple. No lymph nodes noted. No crepitus CVS: Normal heart rate and rhythm. Pulses normal. Normal S1 and S2, +4 systolic murmur in right sternal border Respiratory: No respiratory distress. Bilateral crackles No Wheezing. No rales Abdomen: Soft and nontender. No rigidity. No distention. Skin: Skin warm and dry. Normal skin color. Normal skin turgor. Extremities: +2 pitting edema bilaterally No Lacerations. No Rash Neuro: Oriented X 3. No motor deficit. No sensory deficit. Moving all extremities. No slurred speech. CN 2 through 12 grossly intact Psych: calm, cooperative, normal affect Course Course Course Narrative: -when patient arrived, patient's oxygen saturation was 88% on room air. Patient was brought back in wheelchair, transferring the patient from the wheelchair to the bed, oxygen saturation dropped to 85%. Patient was placed on couple L of oxygen, now saturating 92-95% on 2 L. -all of patient's labs and imaging pending -patient's blood pressure 188/70, oxygen saturation 95% on room air. -patient was put on 2 L of oxygen, given 80 mg of Lasix IV and nitropaste -patient is breathing comfortably with 2 L, at this time, CPAP not indicated Medical Decision Making Medical Decision Making [facility] Narrative: -my interpretation EKG: Normal sinus rhythm, heart rate 87, no ST segment depression or elevation, no T-wave inversion, QTC 459 -my interpretation: Hematology at baseline, chemistry shows a creatinine of 1.98, chronic, troponin within normal limits 8.0, BNP elevated 694. -my interpretation of chest x-ray: Small pleural effusion on the left -with exertion, patient's oxygen saturation dropped to 85% on room air. Patient not oxygen dependent. Currently 2 L of oxygen, patient is saturating 94%. -I discussed the patient with Dr. Wood, patient being admitted Differential Diagnosis Differential Diagnoses: The differential diagnosis associated with the presentation includes (CHF, ACS, flash pulmonary edema, hypertensive urgency) Admission/Observation Consideration of admission/observation: Escalation of care including admission/observation considered Consult Healthcare Provider Management of the patient was discussed with: Hospitalist Lab Data [facility] Lab Attestation statement: I reviewed the patient's lab results. 03/13/24 03:52 03/13/24 03:52 Labs: Lab Results 03/13/24 Range/Units 03:52 WBC 6.7 (4.8-10.8) X10*3/uL RBC 3.20 L (4.60-5.80) X10*6/uL Hgb 9.4 L (14.0-18.0) g/dl Hct 29.3 L (42.0-52.0) % MCV 91.6 (80.0-98.0) fL MCH 29.4 (27.0-33.0) pg MCHC 32.1 (31.0-36.0) g/dl RDW 14.9 (11.0-16.0) % Plt Count 164 (160-400) X10*3/uL MPV 9.6 (9.4-12.4) fL Immature Gran % (Auto) 0.6 H (0.0-0.4) % Neut % (Auto) 71.8 (45-73) % Lymph % (Auto) 14.6 L (20-40) % [place] % (Auto) 7.3 (2-11) % Eos % (Auto) 4.8 H (0-4) % Baso % (Auto) 0.9 (0-2) % Lymph # (Auto) 1.0 L (1.2-4.9) X10*3/uL [place] # (Auto) 0.5 (0.1-1.2) X10*3/uL Eos # (Auto) 0.3 (0.0-0.4) X10*3/uL Baso # (Auto) 0.1 (0.0-0.2) X10*3/uL Abs Immat Gran (auto) 0.04 H (0.00-0.03) X10*3/uL Absolute Neuts (auto) 4.8 (2.0-8.3) x10*3/uL Absolute Nucleated RBC 0.000 (0.0-0.012) X10*3/uL Nucleated RBC % (auto) 0.0 (0.0-0.2) /100WBC Sodium 133 L (135-145) mmol/L Potassium 4.4 (3.3-5.1) mmol/L Chloride 104 (96-108) mmol/L Carbon Dioxide 19 L (22-29) mmol/L Anion Gap 14 (12-20) BUN 37 H (9-16) mg/dL Creatinine 1.98 H (0.5-1.4) mg/dL Estim Creat Clear Calc 36.6 Estimated GFR 35 Random Glucose 272 H (60-115) mg/dL Calcium 9.2 D (8.4-10.2) mg/dL Total Bilirubin 0.3 (0.0-1.0) mg/dL AST 14 (5-37) U/L ALT 12 (0-40) U/L Alkaline Phosphatase 44 (39-117) U/L Total Protein 7.3 (6.5-8.0) g/dL Albumin 3.9 (3.5-5.0) g/dL Independent Interpretation I performed an independent interpretation of an: Plain X-Ray Independent Historian Clinical information obtained from an independent historian. History obtained from or confirmed by: Spouse Critical Care Time Critical Care Time Critical Care Time: Yes Total Critical Care Time: 75 Attestation: I have personally provided critical care time. Time includes review of lab data, radiology results, discussion with consultants, and monitoring for potential decompensation. Intervention performed as documented. Discharge Plan Discharge Clinical Impression: CHF (congestive heart failure), Hypertensive emergency Patient Disposition: Admitted As Inpatient Prescriptions: No Action hydralazine 100 mg tablet 100 mg PO BID Qty: 60 3RF Rx Instructions: replaces prior dose of 50 mg bid metformin 500 mg tablet 500 mg PO BIDWM glipizide 10 mg tablet extended release 24hr 10 mg PO BIDAC omeprazole 20 mg capsule,delayed release(DR/EC) 20 mg PO DAILY@0630 Cosentyx Pen (2 Pens) 150 mg/mL pen injector 300 mg subcut QMONTH Rx Instructions: due on january 30 aspirin 81 mg Tablet,Delayed Release (Dr/Ec) 81 mg PO DAILY Qty: 30 0RF furosemide 40 mg tablet 40 mg PO DAILY prednisolone acetate 1 % drops,suspension 1 drp ophthalmic (eye) TID spironolactone 100 mg tablet 300 mg PO DAILY cholecalciferol (vitamin D3) 25 mcg (1,000 unit) Tablet 25 mcg PO DAILY cefuroxime axetil 500 mg tablet 500 mg PO BID Qty: 10 0RF gabapentin 300 mg capsule 600 mg PO TID carvedilol [Coreg] 12.5 mg tablet 12.5 mg PO Q12H Qty: 30 0RF Rx Instructions: must administer with a meal/food amlodipine 10 mg tablet 10 mg PO DAILY Qty: 30 0RF atorvastatin 20 mg tablet 20 mg PO BEDTIME Qty: 30 5RF Print Language: Bangladeshi
[2024-03-13] MEDS: Furosemide 100 MG/10 ML VIAL 80 MG IVPUSH (04:24)
[2024-03-13] MEDS: Nitroglycerin 2 % Oint 1 GM Packet 1 INCH TRANSDERMA (04:24)
[2024-03-13 04:35] LABS: Influenza A PCR NEGATIVE (Negative); Influenza B PCR NEGATIVE (Negative); Resp Syncy Virus RNA Qual PCR NEGATIVE (Negative); SARS COV2 PCR INHOUSE NEGATIVE (Negative)
[2024-03-13] MEDS: amLODIPine Besylate 10 MG TABLET PO (05:16)
--- NOTE | 2024-03-13 05:47 | P.HPHOSP_ITS ---
History of Present Illness Date of Service: 03/13/24 Attending physician on admission: Shabana Waggoner Chief Complaint: Shortness of breaths Dmitriy Dejesus is a 53 years old man with past medical history significant for CKD, essential hypertension, alcoholic liver cirrhosis, moderate-severe , type 2 diabetes mellitus on metformin presents to the emergency department complaining of shortness of breath that started at midnight. Patient stated that he woke up last night and started to experience headache, shortness of breath and wheezing. He checked his oxygen saturation was 85% on room air. He does not use home oxygen. He did not report chest pain, dizziness, abdominal pain, increased abdominal pain or diarrhea. He does have nausea but has not been vomiting. Patient stated that he has been taking his home medication as prescribed. He drank couple alcoholic beverages yesterday in the afternoon. He denied marijuana use, illicit drug use or tobacco smoking. In the ED, he was found to have oxygen saturation 85% and currently requiring 2 liters/minute supplemental oxygen via nasal cannula. Blood workup showed no leukocytosis. Hemoglobin is at baseline. There is no thrombocytopenia. Creatinine is 1.98 (prior 1.69), corrected sodium is 135, CO2 is 19 and glucose 272. LFTs are normal. BNP is elevated at 694. ED tx: Furosemide 80 mg IV, Nitro-Bid 1 in transdermal. Review of Systems 2 Review of Systems: All 12 systems were reviewed and normal except as noted in HPI. [facility] Medical History Aortic stenosis Hypertension Hypertensive urgency Acute on chronic diastolic (congestive) heart failure Chronic kidney disease Cataract Psoriatic arthritis Cirrhosis of liver not due to alcohol Diabetes Family History Mother CHF (congestive heart failure) Father No problems noted. Surgical History No pertinent past surgical history Social History Household Members: Spouse Housing: Condominium Do you presently have visiting nurse or other home services: No Alcohol intake: current Alcohol intake frequency: holidays/special occasions only Comment: patient steady with ambulation,ind. Patient Tobacco Use Status: Never used Tobacco Smoked in Last 30 Days: No Use of substances other than those prescribed or required for medical reasons: No Substance Use Type: Marijuana Advance Directives: Yes Advance Directives on File: Yes Advance Directives Date on File: 12/21/23 service: No Current occupational status: disabled Meds Allergies Allergy/AdvReac Type Severity Reaction Status Date / Time shellfish derived Allergy Severe ANAPHYLAXIS Verified 03/13/24 03:23 [SHELLFISH DERIVED] acetazolamide AdvReac Confusion Verified 03/13/24 03:23 Active Medications: Current Medications Acetaminophen (Acetaminophen 325 Mg Tablet) 975 mg PO Q6H PRN PRN Reason: mild pain, headache or fever Furosemide (Furosemide 100 Mg/10 Ml Vial) 60 mg IVPUSH DAILY [facility]IC[facility]; Protocol Glucose (Glucose Gel 15 Gm Gel..Gram.) 15 gm PO Q15M PRN; Protocol PRN Reason: per Hypoglycemia Standing Ord. Heparin Sodium (Porcine) (Heparin Sodium,Porcine 5,000 Unit/Ml Vial) 5,000 unit SUBCUT Q8H [facility] Dextrose (D10) 250 mls @ 750 mls/hr IV Q15M PRN; Protocol PRN Reason: per Hypoglycemia Standing Ord. Insulin Human Lispro (Insulin Lispro 100 Unit/Ml 3 Ml Vial) 0 unit SUBCUT QIDACHS [facility]; Protocol Sodium Chloride (0.9 % Sodium Chloride Flush 3 Ml Syringe) 3 ml IVFLUSH QSHIFT [facility] Home Medications ?Medication ?Instructions ?Recorded ?Confirmed ?Last Taken ?Type glipizide 10 mg tablet, extended 10 mg PO BIDAC 12/23/22 02/29/24 Unknown History release 24 hr metformin 500 mg tablet 500 mg PO BIDWM 12/23/22 02/29/24 Unknown History omeprazole 20 mg capsule,delayed 20 mg PO DAILY@0630 12/23/22 02/29/24 Unknown History release secukinumab 150 mg/mL subcutaneous 300 mg subcut QMONTH 12/23/22 02/29/24 Unknown History pen injector (Cosentyx Pen 300 mg/2 Pens () gabapentin 300 mg capsule 600 mg PO TID 12/21/23 02/29/24 Unknown History furosemide 40 mg tablet 40 mg PO DAILY 01/24/24 02/29/24 Unknown History prednisolone acetate 1 % eye 1 drp ophthalmic (eye) TID 01/24/24 02/29/24 Unknown History drops,suspension spironolactone 100 mg tablet 300 mg PO DAILY 01/24/24 02/29/24 Unknown History cholecalciferol (vitamin D3) 25 25 mcg PO DAILY 01/25/24 02/29/24 Unknown History mcg (1,000 unit) tablet Physical Exam 2 Vital Signs and Narrative: Vital Signs: Last Vital Signs Temp 97.8 F 03/13/24 03:23 Pulse 83 03/13/24 05:05 Resp 18 03/13/24 05:05 BP 187/85 H 03/13/24 05:16 Pulse Ox 94 03/13/24 05:05 O2 Del Method Nasal Cannula 03/13/24 05:05 BMI result Body Mass Index 24.2 Constitutional - Awake and Alert, No apparent distress. Very pleasant and cooperative. is at bedside. HEENT - Pupils equally round. Normal sclerae. Lobes - S1S2, RRR. Holosystolic murmur. Lungs - Normal lung expansion, Normal respiratory effort, No respiratory distress. Tachypnea. Bibasilar crackles. Abdomen - NT / ND; +BS; No rebound or guarding. (+) fluid wave. Extremities - Bilateral pitting edema to lower extremities Musculoskeletal - Normal inspection, normal ROM Skin - Warm/Dry. No jaundice. Neurological - Alert & oriented x3. No focal weakness grossly noted. Normal speech. Normal behavior. Psychological - Appropriate affect Results Labs 03/13/24 03:52 03/13/24 03:52 Labs: Laboratory Results - last 24 hr 03/13/24 03:52 MCV 91.6 MCH 29.4 MCHC 32.1 RDW 14.9 Plt Count 164 MPV 9.6 Immature Gran % (Auto) 0.6 H Neut % (Auto) 71.8 Lymph % (Auto) 14.6 L [place] % (Auto) 7.3 Eos % (Auto) 4.8 H Baso % (Auto) 0.9 Lymph # (Auto) 1.0 L [place] # (Auto) 0.5 Eos # (Auto) 0.3 Baso # (Auto) 0.1 Abs Immat Gran (auto) 0.04 H Absolute Neuts (auto) 4.8 Absolute Nucleated RBC 0.000 Nucleated RBC % (auto) 0.0 Anion Gap 14 Estim Creat Clear Calc 36.6 Estimated GFR 35 Random Glucose 272 H Calcium 9.2 D Total Bilirubin 0.3 AST 14 ALT 12 Alkaline Phosphatase 44 Troponin I High Sens 8.0 D B-Natriuretic Peptide 694 H Total Protein 7.3 Albumin 3.9 Influenza Type A (PCR) NEGATIVE Influenza Type B (PCR) NEGATIVE RSV RNA Qual (PCR) NEGATIVE SARS-CoV-2 RNA (RT-PCR) NEGATIVE Imaging Radiologist's Impressions: Impressions Chest X-Ray 03/13/24 04:00 IMPRESSION: Bibasilar atelectasis. Assessment and Plan (1) Hypoxic respiratory failure: Qualifiers: Chronicity: acute Qualified Code(s): J96.01 - Acute respiratory failure with hypoxia Status: Acute (2) Uncontrolled hypertension: Status: Acute Plan Dmitriy Dejesus is a 53 y/o man admitted with: * Hypoxic respiratory failure likely fluid overload secondary to underlying CKD, alcoholic liver disease, HFpEF and aortic stenosis. Admit to hospitalist service. Telemetry. Continuous pulse oximetry. Continue treatment with furosemide and spironolactone. Low-salt diet. * Essential hypertension. Continue amlodipine, carvedilol and hydralazine. * Type 2 diabetes mellitus. Metformin on hold due to CKD. He does not take glipizide anymore. Blood glucose checks before meals at bedtime. Insulin sliding scale. Diabetic diet. * Chronic anemia. Iron infusions as an outpatient. * GERD. Continue PPI. * CKD, stage 3B. Continue to monitor renal function. Avoid nephrotoxic agents. * History of stroke. Continue aspirin. * Aortic stenosis. Follow-up as an outpatient. DVT prophylaxis: Heparin subcut Code status: Full Patient will need hospitalization for at least 2 midnights for hypoxic respiratory failure secondary to fluid overload treatment with IV fluids and close monitoring of vital signs. Quality Stroke Does the patient have a stroke diagnosis?: No VTE Prior VTE?: No VTE Risk Level:: Medical - moderate - high VTE Device Contraindication: Treatment Not Indicated VTE Drug Contraindication: N/A - Med Ordered
[2024-03-13] MEDS: ondansetron HCL 4 MG/2 ML VIAL IVPUSH (06:03)
[2024-03-13] MEDS: Heparin Sodium,Porcine 5,000 UNIT/ML VIAL 5000 UNIT SUBCUT ×3 (06:05→21:11)
[2024-03-13 06:37] LABS: Appearance Urine Clear; Color Urine Straw; Glucose Urine UA 250 mg/dL (Negative); Leukocyte Esterase Urine Negative (Negative); Nitrite Urine Negative (Negative); UMIC TRIGGER UACC YES; Urine Blood Negative (Negative); Urine Ketones Negative (Negative); Urine Protein 30 (1+) mg/dL (Neg-Trace)
[2024-03-13 06:45] LABS: Ethanol < 10 mg/dL
[2024-03-13 06:46] LABS: Bacteria Urine None Seen (None Seen); Hyaline Casts Urine 0-2 /LPF (0-2); RBC Urine 0-2 /HPF (0-2); Squamous Epithelial Cell Urine 0-2 /HPF (0-2); WBC Urine 0-5 /HPF (0-5)
[2024-03-13 06:48] LABS: Amphetamine Screen Urine Not Detected (Not Detect); Barbiturates, Urine Not Detected (Not Detect); Benzodiazepines Screen Urine Not Detected (Not Detect); Buprenorphine Scr Not Detected (Not Detect); Cannabinoid Screen Urine Not Detected (Not Detect); Cocaine Screen Urine Not Detected (Not Detect); Fentanyl, urine Not Detected (Not Detect); Methadone Screen, Urine Not Detected (Not Detect); Opiate Screen Urine Not Detected (Not Detect); Oxycodone Screen Urine Not Detected (Not Detect); Phencyclidine Screen Urine Not Detected (Not Detect)
[2024-03-13 07:20] LABS: Glucose, Whole Blood 275 mg/dL (60-115)
[2024-03-13] MEDS: Insulin Lispro 100 UNIT/ML 3 ML VIAL SUBCUT ×4 (07:25→21:11)
[2024-03-13] MEDS: 0.9 % Sodium Chloride Flush 3 ML SYRINGE IVFLUSH ×3 (07:26→21:18)
--- NOTE | 2024-03-13 07:35 | PC.NURSE ---
assumed care of pt at 0700, pt resting quietly, O2 WNL on 2L O2, denies any cp/sob at this time. remains hypertensive, other vss WNL. 20G PIV R forearm patent. CIWA 1. medicated per NOV w sliding scale insulin. at bedside. pt pending bed assignment, no new orders at this time.
--- NOTE | 2024-03-13 09:22 | PHA.MEDREC ---
Addendum entered by Naila March RPh 03/14/24 10:33: UPDATED HOME MED LIST TO REFLECT 0630 AND 1630 OMEPRAZOLE DOSING TIMES (ENTERED ONLY FOR 0630 TIME INITIALLY) Addendum entered by Eren Esparza 03/13/24 13:34: Spoke with Sindhu to confirm some dosings that were different from claims. She was able to confirm with a list she updated from home this afternoon and she was able to tell me that her is on Carvedilol 3.125mg BID and Amlodipine 5mg 1 daily. She was also able to let us know his Doctor discontinued the Glipizide 10mg BID and Acetazolamide 500 mg 1 BID. Original Note: Pharmacy Consult ? Medication Reconciliation Pharmacy has completed the medication reconciliation. Confirmed meds with list provided by patients . Patient was able to tell his last dose of the Cosentyx which was Monday03/09/2024.
[2024-03-13] MEDS: hydrALAZINE HCl 50 MG TABLET 100 MG PO ×2 (09:44→21:10)
--- NOTE | 2024-03-13 11:02 | MHC.CM.PN ---
Pt is independent, he lives with his , who is his HCP, copy is on file. He does not have home health services or DME. Family will transport home at DC. DCP is home, self care. CM to follow for DC needs.
[2024-03-13 11:07] LABS: Glucose, Whole Blood 164 mg/dL (60-115)
--- NOTE | 2024-03-13 11:10 | PM.EVENT ---
Event Note Date of Service: 03/13/24 Event Note: seen and evaluated this morning feels better overall Continue lasix wean down O2 as tolerated follow I\O follow BMP Monitor BP and get nephro if resistant Time Spent With Patient Time: Total time managing care of this patient today ____ minutes.
--- NOTE | 2024-03-13 13:33 | MHC.CLN ---
NUTRITION POTASSIUM WITHIN NORMAL LIMITS. DELETED POTASSIUM RESTRICTION. DIET=DIABETIC 2000 KCALS, CARDIAC.
--- NOTE | 2024-03-13 15:51 | HE.PHANOTE ---
[facility] double check, re confirmed with Sindhu that hydralazine has in fact been increased to 100 mg bid.
[2024-03-13 16:49] LABS: Glucose, Whole Blood 167 mg/dL (60-115)
[2024-03-13] MEDS: carvediloL 3.125 MG TABLET PO ×2 (17:06→21:09)
[2024-03-13] MEDS: amLODIPine Besylate 5 MG TABLET PO (17:06)
[2024-03-13] MEDS: Furosemide 100 MG/10 ML VIAL 40 MG IVPUSH (17:06)
[2024-03-13 20:52] LABS: Glucose, Whole Blood 237 mg/dL (60-115)
[2024-03-13] MEDS: Gabapentin 300 MG CAPSULE 600 MG PO (21:10)
[2024-03-13 23:34] LABS: Glucose, Whole Blood 105 mg/dL (60-115)
[2024-03-14] VITALS (8 sets, daily range): BP systolic 159–170; BP diastolic 70–83; PULSE 72–88; RESP 18–20; TEMP 36.9–37.1; O2SAT 95–98; BMI 23.2
[2024-03-14] MEDS: Omeprazole 20 MG CAPSULE.DR PO (05:38)
[2024-03-14] MEDS: Heparin Sodium,Porcine 5,000 UNIT/ML VIAL 5000 UNIT SUBCUT (05:39)
[2024-03-14 07:09] LABS: Glucose, Whole Blood 175 mg/dL (60-115)
[2024-03-14 07:42] LABS: MANUAL DIFF FLAG NO
[2024-03-14 07:51] LABS: Basophils Absolute Auto 0.1 X10*3/uL (0.0-0.2); Basophils Percent Auto 1.5 % (0-2); Eosinophils Absolute Auto 0.3 X10*3/uL (0.0-0.4); Eosinophils Percent Auto 5.5 % (0-4); Hematocrit 31.4 % (42.0-52.0); Hemoglobin 9.8 g/dl (14.0-18.0); Imm Gran Abs Auto 0.02 X10*3/uL (0.00-0.03); Imm Gran Pct Auto 0.4 % (0.0-0.4); Lymphocytes Absolute Auto 0.8 X10*3/uL (1.2-4.9); Lymphocytes Percent Auto 17.6 % (20-40); Mean Corpuscular HGB Conc 31.2 g/dl (31.0-36.0); Mean Corpuscular HGB Conc 31.3 g/dl (31.0-36.0); Mean Corpuscular Hemoglobin 28.9 pg (27.0-33.0); Mean Corpuscular Hemoglobin 29.3 pg (27.0-33.0); Mean Corpuscular Volume 92.5 fL (80.0-98.0); Mean Corpuscular Volume 93.7 fL (80.0-98.0); Mean Platelet Volume 10.1 fL (9.4-12.4); Mean Platelet Volume 9.8 fL (9.4-12.4); Monocytes Absolute Auto 0.5 X10*3/uL (0.1-1.2); Neutrophils Absolute Auto 2.9 x10*3/uL (2.0-8.3); Platelet Count 183 X10*3/uL (160-400); Platelet Count 190 X10*3/uL (160-400); Red Blood Count 3.35 X10*6/uL (4.60-5.80); Red Blood Count 3.46 X10*6/uL (4.60-5.80); Red Cell Distribution Width 15.2 % (11.0-16.0); White Blood Count 4.5 X10*3/uL (4.8-10.8); White Blood Count 4.9 X10*3/uL (4.8-10.8)
[2024-03-14] MEDS: Insulin Lispro 100 UNIT/ML 3 ML VIAL SUBCUT (08:07)
[2024-03-14] MEDS: amLODIPine Besylate 10 MG TABLET PO (08:08)
[2024-03-14] MEDS: Furosemide 100 MG/10 ML VIAL 40 MG IVPUSH (08:08)
[2024-03-14] MEDS: carvediloL 3.125 MG TABLET PO (08:09)
[2024-03-14] MEDS: Gabapentin 300 MG CAPSULE 600 MG PO (08:09)
[2024-03-14] MEDS: Thiamine HCL 100 MG TABLET PO (08:09)
[2024-03-14] MEDS: Losartan Potassium 25 MG TABLET PO (08:09)
[2024-03-14] MEDS: Aspirin Enteric Coated 81 MG TABLET.DR PO (08:09)
[2024-03-14] MEDS: Cholecalciferol (Vitamin D3) 25 MCG TABLET PO (08:09)
[2024-03-14] MEDS: 0.9 % Sodium Chloride Flush 3 ML SYRINGE IVFLUSH (08:10)
[2024-03-14] MEDS: hydrALAZINE HCl 50 MG TABLET 100 MG PO (08:10)
[2024-03-14 08:11] LABS: Alanine Aminotransferase 11 U/L (0-40); Albumin Level 3.6 g/dL (3.5-5.0); Alkaline Phosphatase 36 U/L (39-117); Anion Gap 13 (12-20); Aspartate Amino Transferase 16 U/L (5-37); Bilirubin Total 0.3 mg/dL (0.0-1.0); Blood Urea Nitrogen 34 mg/dL (9-16); Calcium 9.3 mg/dL (8.4-10.2); Carbon Dioxide 23 mmol/L (22-29); Chloride 106 mmol/L (96-108); Creatinine Clr Calc Pharmacy 43.4; Estimated Glomerular Filt Rate 43; Glucose Random 194 mg/dL (60-115); Potassium 4.9 mmol/L (3.3-5.1); Sodium 137 mmol/L (135-145); Total Protein 7.1 g/dL (6.5-8.0)
[2024-03-14] MEDS: prednisoLONE Acetate 1 % Oph Susp 5 ML DRPBTL 1 DROP EYE-BOTH (08:18)
[2024-03-14 08:40] LABS: B Type Natriuretic Peptide 500 pg/mL (<100)
--- NOTE | 2024-03-14 10:45 | PM.DS ---
DS: Providers Provider Date of Service: 03/14/24 Date of admission: 03/13/24 05:35 Primary care physician: Martínez Dunn MD DS: Diagnosis Discharge Diagnosis (1) Hypoxic respiratory failure: Status: Acute (2) Uncontrolled hypertension: Status: Acute (3) Fluid overload: Status: Acute (4) Hypertensive emergency: Status: Acute (5) CHF (congestive heart failure): Status: Acute DS: Summary Hospital Course Hospital Course: Admission note HPI Dmitriy Dejesus is a 53 years old man with past medical history significant for CKD, essential hypertension, alcoholic liver cirrhosis, moderate-severe , type 2 diabetes mellitus on metformin presents to the emergency department complaining of shortness of breath that started at midnight. Patient stated that he woke up last night and started to experience headache, shortness of breath and wheezing. He checked his oxygen saturation was 85% on room air. He does not use home oxygen. He did not report chest pain, dizziness, abdominal pain, increased abdominal pain or diarrhea. He does have nausea but has not been vomiting. Patient stated that he has been taking his home medication as prescribed. He drank couple alcoholic beverages yesterday in the afternoon. He denied marijuana use, illicit drug use or tobacco smoking. In the ED, he was found to have oxygen saturation 85% and currently requiring 2 liters/minute supplemental oxygen via nasal cannula. Blood workup showed no leukocytosis. Hemoglobin is at baseline. There is no thrombocytopenia. Creatinine is 1.98 (prior 1.69), corrected sodium is 135, CO2 is 19 and glucose 272. LFTs are normal. BNP is elevated at 694. ED tx: Furosemide 80 mg IV, Nitro-Bid 1 in transdermal. Hospital course He was admitted for hypoxic failure from fluid overload as a result of CHF exacerbation. treated with IV lasix with fair response as he was weaned off O2 and tolerated ambulating on room air with no reported dyspnea or drop in O2. He was also treated for elevated BP readings. he denies having high readings at home or when he follows with Drs in offices. His Amlodipine was increased to 10 mg daily. Started on Losartan 25 mg as well. advised to check BP at home and follow with PCP\cardiology with 1 week readings of BP. The patient made quicker than expected improvement as he was weaned off O2 and tolerated home O2 evaluation and kept his sat in 90s on RA. I still feel he might benefit from another overnight stay for proper diuresis and blood pressure control but he prefers to go home as he had family and needs to attend the . he will be more cautious with fluid intake and will monitor BP at home. plan to follow with dr Rahman in office to plan care for his aortic stenosis. Discharge plan Increase Amlodipine to 10 mg daily Start Losartan 25 mg daily Take 20 mg extra of Lasix for the next 5 days Watch the amount of daily fluids intake Weight yourself daily and report any increase to PCP Follow with dr Rahman as outpatient for Aortic valve stenosis management Time Attestation Discharge Coordination Time (in mins): 37 Quality: Safe Use of Opioids Does Pt have an Active Cancer Diagnosis on the Problem List?: No Quality: Stroke Does the patient have a stroke diagnosis?: No Physical Exam Vital Signs: Vital Signs: Last Vital Signs Temp 98.7 F 03/14/24 07:22 Pulse 74 03/14/24 08:09 Resp 20 03/14/24 07:22 BP 170/83 H 03/14/24 08:10 Pulse Ox 96 03/14/24 07:22 O2 Del Method Nasal Cannula 03/14/24 07:22 O2 Flow Rate 2 03/14/24 07:22 BMI result Body Mass Index 23.2 Const: Other: Constitutional : Awake, interactive, not in distress Neck : Normal inspection, Supple Cardiovascular : RRR, no JVP, no lower extremity edema Respiratory : good bilateral air entry, no crackles, wheezes or rhonchi Gastrointestinal: soft, lax, Normal bowel sounds, Non tender Skin : Warm, Dry Neurological : Alert & oriented x3, No focal deficit DS: Data Data Completed and Pending Labs on day of discharge: Laboratory Results - last 24 hr 03/13/24 03/13/24 03/13/24 10:52 16:45 20:47 WBC RBC Hgb Hct MCV MCH MCHC RDW Plt Count MPV Immature Gran % (Auto) Neut % (Auto) Lymph % (Auto) [place] % (Auto) Eos % (Auto) Baso % (Auto) Lymph # (Auto) [place] # (Auto) Eos # (Auto) Baso # (Auto) Abs Immat Gran (auto) Absolute Neuts (auto) Absolute Nucleated RBC Nucleated RBC % (auto) Sodium Potassium Chloride Carbon Dioxide Anion Gap BUN Creatinine Estim Creat Clear Calc Estimated GFR POC Glucose 164 H 167 H 237 H Random Glucose Calcium Total Bilirubin AST ALT Alkaline Phosphatase B-Natriuretic Peptide Total Protein Albumin 03/13/24 03/14/24 03/14/24 23:26 07:04 07:06 WBC 4.9 RBC Hgb Hct MCV MCH MCHC RDW Plt Count MPV Immature Gran % (Auto) Neut % (Auto) Lymph % (Auto) [place] % (Auto) Eos % (Auto) Baso % (Auto) Lymph # (Auto) [place] # (Auto) Eos # (Auto) Baso # (Auto) Abs Immat Gran (auto) Absolute Neuts (auto) Absolute Nucleated RBC Nucleated RBC % (auto) Sodium Potassium Chloride Carbon Dioxide Anion Gap BUN Creatinine Estim Creat Clear Calc Estimated GFR POC Glucose 105 175 H Random Glucose Calcium Total Bilirubin AST ALT Alkaline Phosphatase B-Natriuretic Peptide Total Protein Albumin 03/14/24 03/14/24 03/14/24 07:06 07:06 07:06 WBC 4.5 L RBC 3.35 L 3.46 L Hgb 9.8 L 10.0 L Hct 31.4 L MCV MCH MCHC RDW Plt Count MPV Immature Gran % (Auto) Neut % (Auto) Lymph % (Auto) [place] % (Auto) Eos % (Auto) Baso % (Auto) Lymph # (Auto) [place] # (Auto) Eos # (Auto) Baso # (Auto) Abs Immat Gran (auto) Absolute Neuts (auto) Absolute Nucleated RBC Nucleated RBC % (auto) Sodium Potassium Chloride Carbon Dioxide Anion Gap BUN Creatinine Estim Creat Clear Calc Estimated GFR POC Glucose Random Glucose Calcium Total Bilirubin AST ALT Alkaline Phosphatase B-Natriuretic Peptide Total Protein Albumin 03/14/24 03/14/24 03/14/24 07:06 07:06 07:06 WBC RBC Hgb Hct 32.0 L MCV 93.7 92.5 MCH 29.3 28.9 MCHC 31.2 RDW Plt Count MPV Immature Gran % (Auto) Neut % (Auto) Lymph % (Auto) [place] % (Auto) Eos % (Auto) Baso % (Auto) Lymph # (Auto) [place] # (Auto) Eos # (Auto) Baso # (Auto) Abs Immat Gran (auto) Absolute Neuts (auto) Absolute Nucleated RBC Nucleated RBC % (auto) Sodium Potassium Chloride Carbon Dioxide Anion Gap BUN Creatinine Estim Creat Clear Calc Estimated GFR POC Glucose Random Glucose Calcium Total Bilirubin AST ALT Alkaline Phosphatase B-Natriuretic Peptide Total Protein Albumin 03/14/24 03/14/24 03/14/24 07:06 07:06 07:06 WBC RBC Hgb Hct MCV MCH MCHC 31.3 RDW 15.0 15.2 Plt Count 183 190 MPV 9.8 Immature Gran % (Auto) Neut % (Auto) Lymph % (Auto) [place] % (Auto) Eos % (Auto) Baso % (Auto) Lymph # (Auto) [place] # (Auto) Eos # (Auto) Baso # (Auto) Abs Immat Gran (auto) Absolute Neuts (auto) Absolute Nucleated RBC Nucleated RBC % (auto) Sodium Potassium Chloride Carbon Dioxide Anion Gap BUN Creatinine Estim Creat Clear Calc Estimated GFR POC Glucose Random Glucose Calcium Total Bilirubin AST ALT Alkaline Phosphatase B-Natriuretic Peptide Total Protein Albumin 03/14/24 03/14/24 03/14/24 07:06 07:06 07:06 WBC RBC Hgb Hct MCV MCH MCHC RDW Plt Count MPV 10.1 Immature Gran % (Auto) 0.4 Neut % (Auto) 64.0 Lymph % (Auto) 17.6 L [place] % (Auto) 11.0 Eos % (Auto) 5.5 H Baso % (Auto) 1.5 Lymph # (Auto) 0.8 L [place] # (Auto) 0.5 Eos # (Auto) 0.3 Baso # (Auto) 0.1 Abs Immat Gran (auto) 0.02 Absolute Neuts (auto) 2.9 Absolute Nucleated RBC 0.000 0.000 Nucleated RBC % (auto) 0.0 0.0 Sodium Cancelled Potassium Chloride Carbon Dioxide Anion Gap BUN Creatinine Estim Creat Clear Calc Estimated GFR POC Glucose Random Glucose Calcium Total Bilirubin AST ALT Alkaline Phosphatase B-Natriuretic Peptide Total Protein Albumin 03/14/24 03/14/24 03/14/24 07:06 07:06 07:06 WBC RBC Hgb Hct MCV MCH MCHC RDW Plt Count MPV Immature Gran % (Auto) Neut % (Auto) Lymph % (Auto) [place] % (Auto) Eos % (Auto) Baso % (Auto) Lymph # (Auto) [place] # (Auto) Eos # (Auto) Baso # (Auto) Abs Immat Gran (auto) Absolute Neuts (auto) Absolute Nucleated RBC Nucleated RBC % (auto) Sodium 137 Potassium Cancelled 4.9 Chloride Cancelled 106 Carbon Dioxide Cancelled Anion Gap BUN Creatinine Estim Creat Clear Calc Estimated GFR POC Glucose Random Glucose Calcium Total Bilirubin AST ALT Alkaline Phosphatase B-Natriuretic Peptide Total Protein Albumin 03/14/24 03/14/24 03/14/24 07:06 07:06 07:06 WBC RBC Hgb Hct MCV MCH MCHC RDW Plt Count MPV Immature Gran % (Auto) Neut % (Auto) Lymph % (Auto) [place] % (Auto) Eos % (Auto) Baso % (Auto) Lymph # (Auto) [place] # (Auto) Eos # (Auto) Baso # (Auto) Abs Immat Gran (auto) Absolute Neuts (auto) Absolute Nucleated RBC Nucleated RBC % (auto) Sodium Potassium Chloride Carbon Dioxide 23 Anion Gap Cancelled 13 BUN Cancelled 34 H Creatinine Cancelled Estim Creat Clear Calc Estimated GFR POC Glucose Random Glucose Calcium Total Bilirubin AST ALT Alkaline Phosphatase B-Natriuretic Peptide Total Protein Albumin 03/14/24 03/14/24 03/14/24 07:06 07:06 07:06 WBC RBC Hgb Hct MCV MCH MCHC RDW Plt Count MPV Immature Gran % (Auto) Neut % (Auto) Lymph % (Auto) [place] % (Auto) Eos % (Auto) Baso % (Auto) Lymph # (Auto) [place] # (Auto) Eos # (Auto) Baso # (Auto) Abs Immat Gran (auto) Absolute Neuts (auto) Absolute Nucleated RBC Nucleated RBC % (auto) Sodium Potassium Chloride Carbon Dioxide Anion Gap BUN Creatinine 1.67 H Estim Creat Clear Calc Cancelled 43.4 Estimated GFR Cancelled 43 POC Glucose Random Glucose Cancelled Calcium Total Bilirubin AST ALT Alkaline Phosphatase B-Natriuretic Peptide Total Protein Albumin 03/14/24 03/14/24 07:06 07:06 WBC RBC Hgb Hct MCV MCH MCHC RDW Plt Count MPV Immature Gran % (Auto) Neut % (Auto) Lymph % (Auto) [place] % (Auto) Eos % (Auto) Baso % (Auto) Lymph # (Auto) [place] # (Auto) Eos # (Auto) Baso # (Auto) Abs Immat Gran (auto) Absolute Neuts (auto) Absolute Nucleated RBC Nucleated RBC % (auto) Sodium Potassium Chloride Carbon Dioxide Anion Gap BUN Creatinine Estim Creat Clear Calc Estimated GFR POC Glucose Random Glucose 194 H Calcium Cancelled 9.3 Total Bilirubin 0.3 AST 16 ALT 11 Alkaline Phosphatase 36 L B-Natriuretic Peptide 500 H Total Protein 7.1 Albumin 3.6 Imaging Chest x-ray: Radiologist's impression: ITS Impressions Chest X-Ray 03/13/24 04:00 IMPRESSION: Bibasilar atelectasis. Discharge Plan Discharge Anticipated Discharge Date/Time: 03/14/24 10:40 Patient Disposition: Home, Self-Care Discharge Diagnosis: Heart failure exacerbation Uncontrolled hypertension Referrals: Martínez Dunn MD [Primary Care Provider] - 1 Week Discharge Medications: New amlodipine 10 mg Tablet 10 mg PO DAILY Qty: 90 0RF Protocol: Hold for SBP< HOLD for SBP < : 90 furosemide 20 mg tablet 20 mg PO DAILY Qty: 5 0RF losartan 25 mg tablet 25 mg PO DAILY Qty: 90 0RF Continued metformin 500 mg tablet 500 mg PO DAILY Cosentyx Pen (2 Pens) 150 mg/mL pen injector 300 mg subcut QMONTH Rx Instructions: due on january 30 aspirin 81 mg Tablet,Delayed Release (Dr/Ec) 81 mg PO DAILY Qty: 30 0RF prednisolone acetate 1 % drops,suspension 1 drp ophthalmic (eye) DAILY Rx Instructions: both eyes spironolactone 100 mg tablet 300 mg PO DAILY cholecalciferol (vitamin D3) 25 mcg (1,000 unit) Tablet 25 mcg PO DAILY omeprazole 20 mg capsule,delayed release(DR/EC) 20 mg PO BID@0630,1630 thiamine HCl (vitamin B1) 100 mg tablet 100 mg PO DAILY carvedilol 3.125 mg tablet 3.125 mg PO BID furosemide 20 mg tablet 20 mg PO BID acetaminophen 325 mg Tablet 650 mg PO DAILY PRN (Reason: Pain) hydralazine 100 mg Tablet 100 mg PO BID gabapentin 300 mg capsule 600 mg PO TID Discontinued amlodipine 5 mg tablet 5 mg PO DAILY Discharge Orders: Discharge Order (Routine); Ordered 03/14/24 Ordered By: Rubio Aguirre Diet: Low salt diet Activity on Discharge: As tolerated Stand Alone Forms: Patient Portal Discharge page Print Language: Sinhala Care Plan Goals: Increase Amlodipine to 10 mg daily Start Losartan 25 mg daily Take 20 mg extra of Lasix for the next 5 days Watch the amount of daily fluids intake Weight yourself daily and report any increase to PCP Follow with dr Rahman as outpatient for Aortic valve stenosis management Health Concerns: Read below Plan of Treatment: Read below Assessment: Read below Discharge Date/Time: 03/14/24 12:25
--- NOTE | 2024-03-14 11:10 | MHC.CM.PN ---
Pt has been medically cleared for DC, he will go home via private transport, DCP: home, self care.
[2024-03-14] MEDS: Spironolactone 25 MG TABLET 300 MG PO (11:13)
[2024-03-14 12:16] LABS: Glucose, Whole Blood 260 mg/dL (60-115)
--- NOTE | 2024-03-14 13:09 | P.CDIM_ITS ---
PROVIDER RESPONSE TEXT: To clarify, the appropriate diagnosis supported by the clinical indicators: Acute QUERY TEXT: PHYSICIAN'S DOCUMENTATION REQUEST Date of Query: 03/14/2024 07:18 AM EDT Patient Name: Dmitriy Dejesus Admit Date: 03/13/2024 Dear Rubio Aguirre, A review of the medical record indicates additional documentation may be needed. Please review below and update the documentation accordingly. Clinical Indicators: H&P: Plan: Hypoxic respiratory failure likely fluid overload secondary to underlying CKD. Clarify which of the following accurately represents the acuity of the Hypoxic respiratory failure wi thin the Plan: Acute Acute on chronic Chronic Other (explain) Clinically unable to determine (explain) Thank you, Arlyn Milian, CCS, CDIS Use of terms such as suspected, likely, concern for, or probable (associated with a specific diagnosi s that is being evaluated, monitored, or treated as if it exists) are acceptable and can be coded in the inpatient se tting, when documented at the time of discharge. Please use your independent medical judgment in providing your response. THIS QUERY IS PART OF THE PERMANENT MEDICAL RECORD
== END 2024-03-14 12:25 | disposition home or self-care (01) | DRG 194 ==
LOC: HO.ED 04:34 → HO.EDOVER 05:46 → HO.IMC 07:47
PROVIDERS: Admitting Provider Internal Medicine; Emergency Provider Emergency Medicine; PCP Internal Medicine; Visit Provider Student in an Organized Health Care Education/Training Program
DX: I13.0 Hypertensive heart and chronic kidney disease with heart failure and stage 1 through stage 4 chronic kidney disease, or unspecified chronic kidney disease (principal); J96.01 Acute respiratory failure with hypoxia; E11.22 Type 2 diabetes mellitus with diabetic chronic kidney disease; D63.1 Anemia in chronic kidney disease; N18.32 Chronic kidney disease, stage 3b; I50.33 Acute on chronic diastolic (congestive) heart failure; I35.0 Nonrheumatic aortic (valve) stenosis; Z20.822 Contact with and (suspected) exposure to COVID-19; Z86.73 Personal history of transient ischemic attack (TIA), and cerebral infarction without residual deficits; Z79.82 Long term (current) use of aspirin; Z79.84 Long term (current) use of oral hypoglycemic drugs; Z79.899 Other long term (current) drug therapy
CPT/HCPCS: 0241U; 36415; 71045; 80048; 80053; 80307; 81001; 82947; 83880; 84484; 85025; 85027; 93005; 99285; J1644; J1940; J2405

== ENCOUNTER → 2024-03-13 03:44 | Outpatient (BNV) | payer OTHER, MEDICARE, SELFPAY | PROVIDERS: Admitting Provider Internal Medicine; Emergency Provider Emergency Medicine; PCP Internal Medicine; Visit Provider Internal Medicine | DX: R06.02 Shortness of breath (principal) | CPT/HCPCS: 93010 ==

== ENCOUNTER → 2024-03-13 05:35 | Outpatient (BNV) | payer OTHER, MEDICARE, SELFPAY | PROVIDERS: Admitting Provider Internal Medicine; Emergency Provider Emergency Medicine; PCP Internal Medicine; Visit Provider Internal Medicine | DX: J96.01 Acute respiratory failure with hypoxia (principal); I10 Essential (primary) hypertension; E87.70 Fluid overload, unspecified; I16.1 Hypertensive emergency; I50.9 Heart failure, unspecified | CPT/HCPCS: 99223; 99239; 99499 ==

== ENCOUNTER 2024-04-11 09:41 | Outpatient (AMB) | payer MEDICARE, SELFPAY ==
--- NOTE | 2024-04-11 09:50 | A.OFFVIS_ITS ---
Vital Signs 04/11/24 09:51 Height 5 ft 5 in Weight 138 lb 14.259 oz BMI 23.1 BP 126/74 Blood Pressure Location Lt brachial Position Sitting Pulse 72 Intake Visit Reasons: [facility] [place] Intake Note: Follow-up [facility] – [place] dc was in the ED 03/13 feeling better Back Joiner Required: No Allergies shellfish derived [SHELLFISH DERIVED] Allergy (Severe, Verified 03/13/24 03:23) ANAPHYLAXIS acetazolamide Adverse Reaction (Verified 03/13/24 03:23) Confusion Medication List - Last Reconciled 04/11/24 by Toni Rahman MD acetaminophen 650 mg PO DAILY PRN amlodipine 10 mg See Protocol PO DAILY aspirin 81 mg PO DAILY carvedilol 3.125 mg PO BID cholecalciferol (vitamin D3) 25 mcg PO DAILY furosemide 20 mg PO DAILY furosemide 20 mg PO BID gabapentin 600 mg PO TID hydralazine 100 mg PO BID metformin 500 mg PO DAILY omeprazole 20 mg PO BID@0630,1630 secukinumab (Cosentyx Pen 300 mg/2 Pens () 300 mg subcut QMONTH spironolactone 300 mg PO DAILY thiamine HCl (vitamin B1) 100 mg PO DAILY HPI Comments Details: Dmitriy comes for follow-up after recent hospitalization with hypoxemic respiratory failure which time was diuresed. He has had long-time issues with hypertension which finally seems to be better controlled on current regimen of drugs. He was taken of losartan therapy due to worsening renal function by Nephrology team. Has a follow-up set up with them in 3 weeks time. He also has doing well on current diuretic dose. He his weight has remained stable at around 142 lb. He denies any significant leg edema, abdominal distension, orthopnea, PND. He does have exertional shortness of breath especially when he climbs a flight of stairs. No associated chest discomfort. On level ground he is limited by claudication in his both lower extremity. He denies any exertional chest pain. Last night however he said he was sharp pain in the precordial area after eating pepperoni pizza while he was resting that lasted for about 45 minutes. He does not get chest pain when he is exerting himself. Myocardial perfusion imaging last year was within normal limits although the could represent balanced ischemia. [facility] Medical History (Updated 04/11/24 @ 10:22 by Toni Rahman MD) Hypertension Congestive heart failure CHF (congestive heart failure) Uncontrolled hypertension Aortic stenosis Hypertensive urgency Acute on chronic diastolic (congestive) heart failure Chronic kidney disease Cataract Psoriatic arthritis Cirrhosis of liver not due to alcohol Diabetes Surgical History No pertinent past surgical history Family History Mother CHF (congestive heart failure) Father No problems noted. Social History Household Members: Spouse Housing: Condominium Do you presently have visiting nurse or other home services: No Alcohol intake: current Alcohol intake frequency: holidays/special occasions only Comment: patient steady with ambulation,ind. Patient Tobacco Use Status: Never used Tobacco Substance Use Type: Marijuana Advance Directives Date on File: 12/21/23 service: No Current occupational status: disabled Review of Systems Const Denies chills, Denies fatigue, Denies fever(s), Denies frequent falls, Denies weakness, Denies weight gain and Denies weight loss ENT Denies dizziness Card Denies chest pain, Denies leg edema, Denies lightheadedness, Denies palpitations, Denies dyspnea, Denies dyspnea on exertion, Denies orthopnea and Denies other (loss of consciousness) Resp Denies cough, Denies dyspnea and Denies dyspnea on exertion GI Denies hematochezia and Denies change in stool character Musc Denies abnormal gait, Denies muscle weakness, Denies numbness, Denies radiating pain into limb and Denies tingling Neuro Denies Abnormal speech present, Denies abnormal gait, Denies dizziness, Denies frequent falls, Denies numbness, Denies tingling and Denies weakness Endo Denies fatigue and Denies palpitations Physical Exam Vital Signs: Last Vital Signs Pulse 72 04/11/24 09:51 BP 126/74 04/11/24 09:51 BMI result Body Mass Index 23.1 Const General: cooperative, comfortable, no acute distress, alert and awake Nutritional Appearance: average body habitus Limitations: no limitations Neck Neck: Yes trachea midline, Yes supple and Yes no JVD Carotids: delayed carotid upstroke Resp Effort & Inspection: normal respiratory effort Auscultation: clear to auscultation bilaterally Cardio Jugular venous distension: no JVD Palpation: normal PMI Rate: regular rate Rhythm: regular rhythm Heart sounds: S1 normal heart sound present, S2 normal heart sound present (Soft), no click, no gallops and Murmur heart sound present systolic late, decrescendo, crescendo, harsh and at the right sternal border Peripheral pulses: other (Reduced distal pulses) GI Auscultation: normal bowel sounds Neuro General: no focal motor deficits Speech: No Abnormal speech present Extrem General: Yes no clubbing, cyanosis or edema Assessment & Plan Assessment & Plan (1) Chronic heart failure with preserved ejection fraction (HFpEF): Code(s): I50.32 - Chronic diastolic (congestive) heart failure Category: Medical Plan: Patient with multiple recent hospitalization with heart failure. Currently doing well on current diuretic dose. Importance of compliance with medication was discussed including importance of blood pressure control, see below. Continue current diuretic regimen. Daily weight monitoring avoidance of salt loading and pursuing dry weight was discussed. Additional diuretics as need be. His aortic stenosis seems to be progressive and may require assessment soon, he has scheduled for an echocardiogram in June. Further treatment based on the findings and may require transcatheter aortic valve replacement. There is also high likelihood of underlying obstructive coronary artery disease which will need to be evaluated at time of evaluation for aortic stenosis. See below for further management. Overall prognosis is guarded. Continue follow with all the other specialists. Advised to maintain activity level as tolerated. (2) Aortic stenosis: Code(s): I35.0 - Nonrheumatic aortic (valve) stenosis Category: Medical Qualifiers: Cardiac valve disease etiology: nonrheumatic Qualified Code(s): I35.0 - Nonrheumatic aortic (valve) stenosis Plan: Aortic stenosis which appears to be progressive and probably severe. Possibly bicuspid aortic valve. Need to screen children for any bicuspid aortic pathology. Continue aggressive risk factor modification. Continue aggressive blood pressure control. Continue low-dose aspirin therapy. She also be on a statin therapy with target goal LDL less than 70 mg/dL. Will follow-up echocardiogram in 2 months time. Further evaluation after that. (3) Hypertension: Code(s): I10 - Essential (primary) hypertension Category: Medical Qualifiers: Hypertension type: primary hypertension Qualified Code(s): I10 - Essential (primary) hypertension Plan: Hypertension which is currently well optimized on current therapy. Importance of good blood pressure control was discussed. Importance of compliance with medication was discussed. Low-salt diet was discussed. Agree with holding losartan given his elevated creatinine. High likelihood of underlying renal artery stenosis. (4) Claudication: Code(s): I73.9 - Peripheral vascular disease, unspecified Category: Medical Plan: Symptoms of claudication suggestive of bilateral SFA/popliteal disease by Doppler exam last year. Continues to have limitations related to it. Will refer him to vascular surgery for further management. Continue aspirin therapy. Consider high-intensity statin therapy for vascular protection. Goal LDL closer to 60 mg/dL. Will follow up in the clinic in 3 months time, sooner p.r.n.. Thank you for allowing me to partake in his care. Orders: Referrals Vascular Surgery Referral I73.9 - Peripheral vascular disease, unspecified Coding Level of Care Code Est Pt Level 5 (11205) Diagnoses Chronic heart failure with preserved ejection fraction (HFpEF) I50.32 Nonrheumatic aortic valve stenosis I35.0 Cardiac valve disease etiology: nonrheumatic Primary hypertension I10 Hypertension type: primary hypertension Claudication I73.9
[2024-04-11 09:51] VITALS: BP 126/74; PULSE 72; BMI 23.1
== END 2024-04-11 10:23 | disposition home or self-care (01) ==
PROVIDERS: PCP Internal Medicine; Visit Provider Internal Medicine Cardiovascular Disease
DX: I11.0 Hypertensive heart disease with heart failure (principal); I50.32 Chronic diastolic (congestive) heart failure; Q23.0 Congenital stenosis of aortic valve; I73.9 Peripheral vascular disease, unspecified
CPT/HCPCS: 99214

== ENCOUNTER → 2024-04-11 09:41 | Outpatient (BNVA) | payer OTHER, MEDICARE, SELFPAY | PROVIDERS: PCP Internal Medicine; Visit Provider Internal Medicine Cardiovascular Disease ==

== ENCOUNTER 2024-05-31 10:21 | Outpatient (REF) | payer OTHER, MEDICARE, SELFPAY ==
[2024-05-31 13:31] LABS: MANUAL DIFF FLAG NO
[2024-05-31 13:35] LABS: Basophils Absolute Auto 0.1 X10*3/uL (0.0-0.2); Eosinophils Absolute Auto 0.2 X10*3/uL (0.0-0.4); Eosinophils Percent Auto 3.5 % (0-4); Hematocrit 30.9 % (42.0-52.0); Hemoglobin 9.8 g/dl (14.0-18.0); Imm Gran Abs Auto 0.03 X10*3/uL (0.00-0.03); Imm Gran Pct Auto 0.5 % (0.0-0.4); Lymphocytes Absolute Auto 0.8 X10*3/uL (1.2-4.9); Lymphocytes Percent Auto 13.1 % (20-40); Mean Corpuscular HGB Conc 31.7 g/dl (31.0-36.0); Mean Corpuscular Volume 94.5 fL (80.0-98.0); Mean Platelet Volume 10.7 fL (9.4-12.4); Monocytes Absolute Auto 0.6 X10*3/uL (0.1-1.2); Monocytes Percent Auto 8.8 % (2-11); Neutrophils Absolute Auto 4.6 x10*3/uL (2.0-8.3); Neutrophils Percent Auto 73.1 % (45-73); Platelet Count 197 X10*3/uL (160-400); Red Blood Count 3.27 X10*6/uL (4.60-5.80); Red Cell Distribution Width 14.9 % (11.0-16.0); White Blood Count 6.3 X10*3/uL (4.8-10.8)
[2024-05-31 14:01] LABS: Estimated Average Glucose 146 mg/dL; Hemoglobin A1c % 6.7 % (<6.0)
[2024-05-31 14:31] LABS: Alanine Aminotransferase 10 U/L (0-40); Albumin Level 4.3 g/dL (3.5-5.0); Alkaline Phosphatase 41 U/L (39-117); Anion Gap 14 (12-20); Aspartate Amino Transferase 12 U/L (5-37); Bilirubin Total 0.3 mg/dL (0.0-1.0); Blood Urea Nitrogen 56 mg/dL (9-16); Calcium 9.2 mg/dL (8.4-10.2); Carbon Dioxide 20 mmol/L (22-29); Chloride 107 mmol/L (96-108); Estimated Glomerular Filt Rate 28; Glucose Random 280 mg/dL (60-115); Potassium 5.3 mmol/L (3.3-5.1); Sodium 136 mmol/L (135-145); Total Protein 7.6 g/dL (6.5-8.0)
[2024-05-31 14:38] LABS: Alanine Aminotransferase 11 U/L (0-40); Albumin Level 4.3 g/dL (3.5-5.0); Alkaline Phosphatase 42 U/L (39-117); Aspartate Amino Transferase 16 U/L (5-37); Bilirubin Direct 0.1 mg/dL (0.0-0.5); Bilirubin Total 0.3 mg/dL (0.0-1.0); Cholesterol 119 mg/dL (<200); HDL Cholesterol 38 mg/dL (>40); LDL Cholesterol Calculated 46 mg/dL (<100); Total Protein 7.6 g/dL (6.5-8.0); Triglycerides 177 mg/dL (<150)
== END 2024-05-31 10:22 | disposition home or self-care (01) ==
LOC: HO.HMGCLDS 10:21
PROVIDERS: Nurse Practitioner Family; PCP Internal Medicine; Visit Provider Internal Medicine
DX: I35.0 Nonrheumatic aortic (valve) stenosis (principal); I50.33 Acute on chronic diastolic (congestive) heart failure; Z13.1 Encounter for screening for diabetes mellitus; E11.22 Type 2 diabetes mellitus with diabetic chronic kidney disease; I12.9 Hypertensive chronic kidney disease with stage 1 through stage 4 chronic kidney disease, or unspecified chronic kidney disease; N18.9 Chronic kidney disease, unspecified; I50.9 Heart failure, unspecified
CPT/HCPCS: 36415; 80053; 80061; 80076; 82248; 83036; 85025

== ENCOUNTER → 2024-06-19 07:46 | Outpatient (REF) | payer OTHER, MEDICARE, SELFPAY ==
--- NOTE | 2024-06-19 07:49 | CA_ITS ---
Transthoracic Echocardiogram Patient (Last, First, Middle): Dmitriy Dejesus R Gender: Male Date of : 1970 Age: 54 Procedure Date: 06/19/2024 Procedure Type: Transthoracic Echocardiogram Location: OP Height: 162.56 cm Weight: 62.6 kg BSA: 1.67 m2 Heart Rate: bpm BP: 118 / 62 mmHg Fitting Supervisor: TO Referring MD: Reema Gordon DISPATCHER [employer] Sales Consultant: Toni Rahman MD Symptoms: I35.0 - Nonrheumatic aortic (valve) stenosis Study Quality: Adequate ECG Rhythm: Sinus Conclusions: - 1. Normal LV ejection fraction of 55-60% with mild LVH with impaired relaxation filling pattern and elevated filling pressures 2. Mildly dilated left atrium 3. Severe aortic stenosis 4. No gross pericardial effusion Findings Left Ventricle Normal left ventricular size and systolic function. There is mildly increased left ventricular wall thickness. The visually estimated ejection fraction is between 55-60%. Spectral Doppler is indicative of an impaired relaxation filling pattern. Elevated filling pressures. E/E prime ratio is >15, consistent with elevated filling pressures. Measure GLS is -15.5%, mildly reduced. Right Ventricle Normal right ventricular cavity size and systolic function. Atria The left atrium is mildly dilated. There is no evidence of interatrial shunt. The right atrium is likely dilated. Aortic Valve There is moderate calcification of the aortic valve. There is moderate thickening of the aortic valve. There is severe aortic valve stenosis. The peak aortic gradient is 56 mmHg.The mean gradient is 36 mmHg. The aortic valve area is 0.77 cm2. There is no aortic valve regurgitation. Dimensionless index is 0.23 consistent with severe aortic stenosis Mitral Valve There is mild anterior and posterior mitral leaflet thickening. There is mild mitral annular calcification. There is trace mitral valve regurgitation. There is no mitral valve stenosis. Pulmonic Valve The pulmonic valve is likely normal. Tricuspid Valve Normal tricuspid valve structure. Tricuspid regurgitation envelope is inadequate for calculation of right ventricular systolic pressure. Normal right atrial pressure. Great Vessels All visible segments of the aorta are normal in size. The pulmonary artery was not well visualized. There is no dilatation of the ascending aorta measuring 3.10 cm. Small plaque is seen in the sino tubular ridge. Venous The inferior vena cava is normal in size and collapses greater than 50% with inspiration. Pericardium/Pleural There is no evidence of pericardial effusion. Prior Study Comparison Changes noted compared to prior study dated: 12/22/2023. Aortic stenosis severe Measurements 2D Linear Measurements IVSd: 1.20 0.6-0.9/0.6-1.0 cm LVIDd: 4.32 3.9-5.3/4.2-5.9 cm LVIDd Index: 2.59 2.4-3.2/2.2-3.1 cm/m2 LVIDs: 3.03 2.0-3.6 cm LVPWd: 1.22 0.7-1.1 cm LA Diam: 3.90 2.7-3.8/3.0-4.0 cm LAIDs Index: 2.34 1.5-2.3 cm/m2 LV Mass: 231.76 67-162/88-224 g LV Mass Index: 138.78 43-95/49-115 g/m2 LVOT Diam: 2.10 3.0+(-)1.3 cm 2D Systolic Function EF 4C: 61.20 >55% EF 2C: 56.90 >55% EF BiP: 59.10 >55% Mitral Valve MV VTI: 0.35 MV Pk Ruiz: 1.48 MV Mn Ruiz: 0.87 MV Pk Grad: 9.00 MV Mn Grad: 3.00 MV Pk E: 0.94 MV PK A: 1.31 MV Decel Time: 182.00 E/A: 0.70 E'Lateral: 5.87 E'Medial: 4.57 E/E' Med: 20.60 E/E' Lat: 16.10 PHT: 53.00 MVA PHT: 4.15 MVA Continuity: 2.14 Decel [place]: 5.18 Aortic Valve AoV Pk Ruiz: 3.75 AoV Mn Ruiz: 2.88 AoV VTI: 0.97 AoV Pk Grad: 56.00 Aov Mn Grad: 36.00 CHILO Cont.VTI: 0.77 LVOT LVOT Pk Ruiz: 0.90 LVOT Mn Ruiz: 0.61 LVOT VTI: 0.22 LVOT Pk Grad: 3.00 LVOT Mn Grad: 2.00 LVOT Diam: 2.10 LVOT Area: 3.46 Diastolic Function MV Pk E: 0.94 MV Pk A: 1.31 E/A: 0.70 E'Medial: 4.57 E/E' Med: 20.60 E' Laterial: 5.87 E/E' Lat: 16.10 Right Ventricle TAPSE (mm): 26.40 TVS' Ruiz: 12.90 Tricuspid Valve RA Press: 3.00 Great Vessels Aorta Sinus of Valsalva: 3.54 2.0-3.[address] [place]: 2.32 1.7-3.4 cm Ao Asc: 3.10 2.1-3.4 cm Ao Arch: 2.10 Updated in Other Vendor System with Status of Final Toni Rahman MD electronically signed on 06/20/2024 11:48:42 AM with status of Final
== END ==
LOC: HO.CARD 07:46
PROVIDERS: PCP Internal Medicine; Visit Provider Nurse Practitioner Family
DX: I35.0 Nonrheumatic aortic (valve) stenosis (principal)
CPT/HCPCS: 93306; 93356

== ENCOUNTER → 2024-06-19 07:49 | Outpatient (BNV) | payer OTHER, MEDICARE, SELFPAY | PROVIDERS: PCP Internal Medicine; Visit Provider Internal Medicine Cardiovascular Disease | DX: I35.0 Nonrheumatic aortic (valve) stenosis (principal); I35.8 Other nonrheumatic aortic valve disorders; I34.81 Nonrheumatic mitral (valve) annulus calcification; R93.1 Abnormal findings on diagnostic imaging of heart and coronary circulation | CPT/HCPCS: 93306; 93356 ==

== ENCOUNTER 2024-06-27 09:22 | Outpatient (AMB) | payer OTHER, MEDICARE, SELFPAY ==
--- NOTE | 2024-06-27 09:44 | MHC.OFFVIS ---
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 Patient states he gets foot and leg pain when walking short distances. States he has weak pulses in his right foot. Patient is diabetic. Non smoker. 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 He was actually seen by his primary care who had ordered noninvasive testing of his lower extremities. In the interim he was actually hospitalized for hypoxemic respiratory failure and he was diuresed at that time. He is currently under the care of cardiology and being evaluated for severe aortic stenosis. At the current time he is being maintained on aspirin and statin. Of note he is a diabetic and a nonsmoker. He reports that he can walk approximately a block with no significant difficulty. [facility] Medical History Hypertension Congestive heart failure CHF (congestive heart failure) Uncontrolled hypertension Aortic stenosis Hypertensive urgency Acute on chronic diastolic (congestive) heart failure Chronic kidney disease Cataract Psoriatic arthritis Cirrhosis of liver not due to alcohol Diabetes Surgical History No pertinent past surgical history Family History Mother CHF (congestive heart failure) Father No problems noted. Social History Household Members: [facility] Do you presently have visiting nurse or other home services: No Alcohol intake: current Alcohol intake frequency: holidays/special occasions only Comment: patient steady with ambulation,ind. Patient Tobacco Use Status: Never used Tobacco Substance Use Type: Marijuana Advance Directives Date on File: 12/21/23 service: No Current occupational status: disabled Review of Systems Const All systems reviewed & are unremarkable except as noted in HPI and below Reports no additional complaints ENT Reports Normal hearing present Card Denies chest pain, Denies chest pain at rest, Denies chest pain with activity and Denies pedal edema Resp Denies cough GI Denies abdominal pain Musc Denies abnormal gait, Denies muscle cramps and Denies radiating pain into limb Skin/Breast Denies skin ulcer and Denies wounds Neuro Reports Normal hearing present and Denies abnormal gait Psych Reports no additional complaints Physical Exam Const General: cooperative, healthy appearing and comfortable Orientation/consciousness: oriented to person, oriented to place and oriented to time HEENT Head: Yes normal to inspection Neck Neck: Yes normal visual inspection Carotids: no bruits Chest Chest palpation & inspection: normal inspection of the chest Resp Effort & Inspection: normal respiratory effort and able to speak in complete sentences Auscultation: clear to auscultation bilaterally, no crackles, no rales, no rhonchi and no wheezes Cardio Other: Right side signals only left side palpable DP Rate: regular rate Rhythm: regular rhythm Heart sounds: S1 normal heart sound present and S2 normal heart sound present Bruits: no carotid bruits Peripheral pulses: Peripheral pulses 2+ throughout GI Inspection: Yes normal to inspection Skin Wounds: no wounds Hair: normal Neuro General: oriented to person, oriented to place and oriented to time Cranial nerves: Yes CN's II-XII intact bilaterally and Yes Normal hearing present Cognition (Neuro): normal cognition Motor exam (neuro): 5/5 motor strength present throughout Extrem Other: venous exam: No significant superficial varicosities or spider telangiectasias, minimal edema General: No clubbing, No cyanosis and No edema Psych Appearance: grossly normal Mental Status: mental status grossly normal Speech and movement: Normal speech and movement present Results Reviewed Results Reviewed: Noninvasive testing dated 07/05/2023 demonstrates bilateral monophasic flow in the below-knee vessels. Unfortunately no ANUEL was done. Assessment & Plan Assessment & Plan (1) PAD (peripheral artery disease): Code(s): I73.9 - Peripheral vascular disease, unspecified Category: Medical Plan: In short the patient is a stable claudication. At the current time would hold off on any aggressive intervention as he is being worked up by Cardiology for his aortic stenosis. May require valve replacement. I would like that to be taken care of before I dress his lower extremities. I did discuss these findings with him and he is in agreement. I will plan for a six-month follow-up with noninvasive testing. Should there be any interval issues happy to see him back sooner. Thank you for allowing us to assist in his care. If there are any questions or concerns please do not hesitate to contact us. Please note a longitudinal relationship has been created with the patient and we have been following and surveillance this chronic condition. Orders: Orders US arterial duplex LE BI 6 Months I73.9 - Peripheral vascular disease, unspecified Coding Level of Care Code New Pt Level 4 (86789) Complex EM visit Add On G2211 Diagnoses PAD (peripheral artery disease) I73.9
== END 2024-06-27 10:24 | disposition home or self-care (01) ==
PROVIDERS: PCP Internal Medicine; Visit Provider Surgery Vascular Surgery
DX: I73.9 Peripheral vascular disease, unspecified (principal)
CPT/HCPCS: 99203

== ENCOUNTER → 2024-06-27 09:22 | Outpatient (BNVA) | payer OTHER, MEDICARE, SELFPAY | PROVIDERS: PCP Internal Medicine; Visit Provider Surgery Vascular Surgery ==

== ENCOUNTER 2024-07-04 08:56 | Outpatient (REF) | payer OTHER, MEDICARE, SELFPAY ==
[2024-07-04 09:56] LABS: MANUAL DIFF FLAG NO
[2024-07-04 09:58] LABS: Basophils Absolute Auto 0.1 X10*3/uL (0.0-0.2); Basophils Percent Auto 1.2 % (0-2); Eosinophils Absolute Auto 0.3 X10*3/uL (0.0-0.4); Eosinophils Percent Auto 4.1 % (0-4); Hematocrit 31.8 % (42.0-52.0); Hemoglobin 10.4 g/dl (14.0-18.0); Imm Gran Abs Auto 0.04 X10*3/uL (0.00-0.03); Imm Gran Pct Auto 0.6 % (0.0-0.4); Lymphocytes Absolute Auto 0.9 X10*3/uL (1.2-4.9); Mean Corpuscular HGB Conc 32.7 g/dl (31.0-36.0); Mean Corpuscular Hemoglobin 30.4 pg (27.0-33.0); Mean Platelet Volume 10.2 fL (9.4-12.4); Monocytes Absolute Auto 0.6 X10*3/uL (0.1-1.2); Monocytes Percent Auto 8.6 % (2-11); Neutrophils Absolute Auto 4.7 x10*3/uL (2.0-8.3); Neutrophils Percent Auto 71.5 % (45-73); Platelet Count 207 X10*3/uL (160-400); Red Blood Count 3.42 X10*6/uL (4.60-5.80); Red Cell Distribution Width 13.1 % (11.0-16.0); White Blood Count 6.6 X10*3/uL (4.8-10.8)
[2024-07-04 10:37] LABS: Creatinine Urine 23.04 mg/dL; Protein/Creatinine Ratio, Ur 1.69 (<0.2); Total Protein Urine Random 39 mg/dL (<12)
[2024-07-04 10:41] LABS: Parathyroid Hormone Intact 78.7 pg/mL (8.7-77.1)
[2024-07-04 10:42] LABS: Alanine Aminotransferase 15 U/L (0-40); Albumin Level 4.5 g/dL (3.5-5.0); Alkaline Phosphatase 53 U/L (39-117); Anion Gap 14 (12-20); Aspartate Amino Transferase 21 U/L (5-37); Bilirubin Total 0.2 mg/dL (0.0-1.0); Blood Urea Nitrogen 47 mg/dL (9-16); Calcium 9.7 mg/dL (8.4-10.2); Carbon Dioxide 21 mmol/L (22-29); Chloride 106 mmol/L (96-108); Estimated Glomerular Filt Rate 30; Glucose Random 250 mg/dL (60-115); Iron 50 mcg/dL (45-160); Magnesium 2.2 mg/dL (1.6-2.6); Percent Iron Saturation 20 % (15-50); Phosphorus 4.5 mg/dL (2.7-4.5); Potassium 5.1 mmol/L (3.3-5.1); Sodium 136 mmol/L (135-145); Total Iron Binding Capacity 244 mcg/dL (228-428); Unsaturated Iron Binding 194 ug/dL; Uric Acid 7.4 mg/dL (3.4-7.0)
[2024-07-04 10:58] LABS: Ferritin 102 ng/mL (20-250); Vitamin D 25-OH Total 36.8 ng/mL (>30)
== END 2024-07-04 08:57 | disposition home or self-care (01) ==
LOC: HO.HMGCLDS 08:56
PROVIDERS: PCP Internal Medicine; Referring Provider Internal Medicine Nephrology; Visit Provider Internal Medicine
DX: E11.22 Type 2 diabetes mellitus with diabetic chronic kidney disease (principal); N18.9 Chronic kidney disease, unspecified; N18.31 Chronic kidney disease, stage 3a; L40.50 Arthropathic psoriasis, unspecified; R80.9 Proteinuria, unspecified; K74.69 Other cirrhosis of liver; R60.0 Localized edema; E87.22 Chronic metabolic acidosis; I63.9 Cerebral infarction, unspecified; I35.0 Nonrheumatic aortic (valve) stenosis
CPT/HCPCS: 36415; 80053; 82306; 82570; 82728; 83540; 83735; 83970; 84100; 84156; 84550; 85025

== ENCOUNTER 2024-07-16 08:38 | Outpatient (AMB) | payer OTHER, MEDICARE, SELFPAY ==
--- NOTE | 2024-07-16 08:43 | A.OFFVIS_ITS ---
Vital Signs 07/16/24 08:44 Height 5 ft 5 in Weight 134 lb 7.712 oz BMI 22.4 BP 138/74 Blood Pressure Location Lt brachial Position Sitting Pulse 84 Intake Visit Reasons: 3 mth f/up s/p echo Intake Note: 3 month follow-up after echo c/o sob Specialty Cook Required: No Executive Office Manager: Executive Office Manager Present Accompanied by: Spouse Allergies shellfish derived [SHELLFISH DERIVED] Allergy (Severe, Verified 06/27/24 09:44) ANAPHYLAXIS acetazolamide Adverse Reaction (Verified 06/27/24 09:44) Confusion Medication List - Last Reconciled 07/16/24 by Toni Rahman MD acetaminophen 650 mg PO DAILY PRN amlodipine 10 mg See Protocol PO DAILY aspirin 81 mg PO DAILY carvedilol 3.125 mg PO BID cholecalciferol (vitamin D3) 25 mcg PO DAILY empagliflozin (Jardiance) 25 mg PO DAILY furosemide 20 mg PO DAILY furosemide 20 mg PO BID gabapentin 600 mg PO TID glipizide ER 5 mg PO BID hydralazine 100 mg PO BID 90 days metformin 500 mg PO DAILY omeprazole 20 mg PO BID@0630,1630 secukinumab (Cosentyx Pen 300 mg/2 Pens () 300 mg subcut QMONTH spironolactone 300 mg PO DAILY thiamine HCl (vitamin B1) 100 mg PO DAILY HPI Comments Details: Dmitriy comes for follow-up. Recent echocardiogram shows severe aortic stenosis with mean gradient 36 mm Hg with dimensionless index of 0.23 and valve area of 0.77 cm2. He has been getting progressively more short of breath with his walking. Denies any exertional chest pain. Still having limited claudication although it was felt that this was stable and would be addressed after his aortic stenosis. He denies any lightheadedness, syncope. No heart failure symptoms. Taking all his medications. Blood pressure generally been well controlled. [facility] Medical History Hypertension Congestive heart failure CHF (congestive heart failure) Uncontrolled hypertension Aortic stenosis Hypertensive urgency Acute on chronic diastolic (congestive) heart failure Chronic kidney disease Cataract Psoriatic arthritis Cirrhosis of liver not due to alcohol Diabetes Surgical History No pertinent past surgical history Family History Mother CHF (congestive heart failure) Father No problems noted. Social History Household Members: Spouse Housing: Condominium Do you presently have visiting nurse or other home services: No Alcohol intake: current Alcohol intake frequency: holidays/special occasions only Comment: patient steady with ambulation,ind. Patient Tobacco Use Status: Never used Tobacco Substance Use Type: Marijuana Advance Directives Date on File: 12/21/23 service: No Current occupational status: disabled Review of Systems Const Denies chills, Denies fatigue, Denies fever(s), Denies frequent falls, Denies weakness, Denies weight gain and Denies weight loss ENT Denies dizziness Card Denies chest pain, Denies leg edema, Denies lightheadedness, Denies palpitations, Denies dyspnea, Reports dyspnea on exertion, Denies orthopnea and Denies other (loss of consciousness) Resp Denies cough, Denies dyspnea and Reports dyspnea on exertion GI Denies hematochezia and Denies change in stool character Musc Denies abnormal gait, Denies muscle weakness, Denies numbness, Denies radiating pain into limb and Denies tingling Neuro Denies Abnormal speech present, Denies abnormal gait, Denies dizziness, Denies frequent falls, Denies numbness, Denies tingling and Denies weakness Endo Denies fatigue and Denies palpitations Physical Exam Vital Signs: Last Vital Signs Pulse 84 07/16/24 08:44 BP 138/74 07/16/24 08:44 BMI result Body Mass Index 22.4 Const General: cooperative, comfortable, no acute distress, alert and awake Nutritional Appearance: average body habitus Limitations: no limitations Neck Neck: Yes trachea midline, Yes supple and Yes no JVD Carotids: delayed carotid upstroke Resp Effort & Inspection: normal respiratory effort Auscultation: clear to auscultation bilaterally Cardio Jugular venous distension: no JVD Palpation: normal PMI Rate: regular rate Rhythm: regular rhythm Heart sounds: S1 normal heart sound present, S2 abnormal, no click, no gallops and Murmur heart sound present systolic late, decrescendo, crescendo, harsh and at the right sternal border Peripheral pulses: other (Reduced distal pulses) GI Auscultation: normal bowel sounds Neuro General: no focal motor deficits Speech: No Abnormal speech present Extrem General: Yes no clubbing, cyanosis or edema Assessment & Plan Assessment & Plan (1) Aortic stenosis: Code(s): I35.0 - Nonrheumatic aortic (valve) stenosis Category: Medical Qualifiers: Cardiac valve disease etiology: nonrheumatic Qualified Code(s): I35.0 - Nonrheumatic aortic (valve) stenosis Plan: Severe aortic stenosis now progressive most likely bicuspid aortic valve. Difficult to visualize on the transthoracic echocardiogram. He is getting more symptoms exertional shortness of breath. LV systolic function appears preserved. I would suggest that you will require aortic valve replacement. Given his age we discussed about surgical versus transcatheter aortic valve replacement. The decision also dependent findings of cardiac catheterization and coronary anatomy. We discussed this. Will set him up for cardiac catheterization near future. We discussed the risks, benefits, alternatives. Potential outcomes were discussed. Given his age we also discussed about mechanical versus bioprosthetic aortic valve replacement. We discussed pros and cons of each approach. He will think about it. Will discuss with surgical team as well in the future. Continue current medical therapy. He is traveling to [place] and wants to do this procedure after he comes back from [place]. Advised to seek emergency care if he has significant symptoms. (2) Chronic heart failure with preserved ejection fraction (HFpEF): Code(s): I50.32 - Chronic diastolic (congestive) heart failure Category: Medical Plan: Heart failure preserved ejection fraction, clinically euvolemic and well compensated on current diuretic dose. Advised to continue the same. Also has been helped by aggressive blood pressure control which appears to be well optimized at this point time. Continue aggressive blood pressure control. Encouraged to measure blood pressure at home maintain a log. Daily weight monitoring avoidance of salt loading was discussed additional diuretics as need be. Will follow up in the clinic after cardiac catheterization in 6 weeks time. Thank you for allowing me to partake in his care Orders: Orders Prothrombin Time INR Today I35.0 - Nonrheumatic aortic (valve) stenosis Complete Blood Count no Diff Today I35.0 - Nonrheumatic aortic (valve) stenosis Basic Metabolic Panel Today I35.0 - Nonrheumatic aortic (valve) stenosis Cardiac Cath MIRIAM Diagnostic 3 Weeks I35.0 - Nonrheumatic aortic (valve) stenosis Coding Level of Care Code Est Pt Level 4 (13207) Diagnoses Nonrheumatic aortic valve stenosis I35.0 Cardiac valve disease etiology: nonrheumatic Chronic heart failure with preserved ejection fraction (HFpEF) I50.32
[2024-07-16 08:44] VITALS: BP 138/74; PULSE 84; BMI 22.4
== END 2024-07-16 09:20 | disposition home or self-care (01) ==
PROVIDERS: PCP Internal Medicine; Visit Provider Internal Medicine Cardiovascular Disease
DX: I35.0 Nonrheumatic aortic (valve) stenosis (principal); I50.32 Chronic diastolic (congestive) heart failure
CPT/HCPCS: 99214

== ENCOUNTER → 2024-07-16 08:38 | Outpatient (BNVA) | payer OTHER, MEDICARE, SELFPAY | PROVIDERS: PCP Internal Medicine; Visit Provider Internal Medicine Cardiovascular Disease ==

== ENCOUNTER 2024-08-02 06:24 | Outpatient (REF) | payer OTHER, MEDICARE, SELFPAY ==
[2024-08-02 10:39] LABS: Hematocrit 30.9 % (42.0-52.0); Hemoglobin 9.8 g/dl (14.0-18.0); Mean Corpuscular HGB Conc 31.7 g/dl (31.0-36.0); Mean Corpuscular Volume 94.5 fL (80.0-98.0); Mean Platelet Volume 10.6 fL (9.4-12.4); Platelet Count 189 X10*3/uL (160-400); Prothrombin Time 11.4 SEC (10.9-12.4); Red Blood Count 3.27 X10*6/uL (4.60-5.80); Red Cell Distribution Width 13.4 % (11.0-16.0); White Blood Count 6.5 X10*3/uL (4.8-10.8)
[2024-08-02 11:31] LABS: Anion Gap 16 (12-20); Blood Urea Nitrogen 44 mg/dL (9-16); Calcium 9.9 mg/dL (8.4-10.2); Carbon Dioxide 21 mmol/L (22-29); Chloride 104 mmol/L (96-108); Estimated Glomerular Filt Rate 31; Glucose Random 187 mg/dL (60-115); Potassium 4.6 mmol/L (3.3-5.1); Sodium 136 mmol/L (135-145)
== END 2024-08-02 06:25 | disposition home or self-care (01) ==
LOC: HO.HMGCLDS 06:24
PROVIDERS: PCP Internal Medicine; Visit Provider Internal Medicine Cardiovascular Disease
DX: I35.0 Nonrheumatic aortic (valve) stenosis (principal)
CPT/HCPCS: 36415; 80048; 85027; 85610

== ENCOUNTER → 2024-08-08 23:59 | Outpatient (BNV) | payer OTHER, MEDICARE, SELFPAY | PROVIDERS: PCP Internal Medicine; Visit Provider Internal Medicine Cardiovascular Disease | DX: I35.0 Nonrheumatic aortic (valve) stenosis (principal) | CPT/HCPCS: 93456; 93571; 99152 ==

== ENCOUNTER 2024-08-22 15:39 | Outpatient (AMB) | payer OTHER, MEDICARE, SELFPAY ==
--- NOTE | 2024-08-22 15:46 | A.OFFVIS_ITS ---
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 Patient was then evaluated by surgical team and was felt to be high risk for surgical aortic valve replacement related to his liver disease and cirrhosis and was felt that he should undergo evaluation for transcatheter aortic valve replacement. He has upcoming visit next week for further continued evaluation for transcatheter aortic valve replacement. Continues to remain exertional short of breath and fatigue. Occasionally intermittent chest pain. No lightheadedness, syncope. Takes all his medications. Blood pressures been generally well controlled. No overt other signs of congestive heart failure. [facility], [facility] Medical History Hypertension Congestive heart failure CHF (congestive heart failure) Uncontrolled hypertension Aortic stenosis Hypertensive urgency Acute on chronic diastolic (congestive) heart failure Chronic kidney disease Cataract Psoriatic arthritis Cirrhosis of liver not due to alcohol Diabetes Surgical History No pertinent past surgical history Family History Mother CHF (congestive heart failure) Father No problems noted. Social History Household Members: Spouse Housing: Condominium Do you presently have visiting nurse or other home services: No Alcohol intake: current Alcohol intake frequency: holidays/special occasions only Comment: patient steady with ambulation,ind. Patient Tobacco Use Status: Never used Tobacco Substance Use Type: Marijuana Advance Directives Date on File: 12/21/23 service: No Current occupational status: disabled Review of Systems Const Denies chills, Denies fatigue, Denies fever(s), Denies frequent falls, Denies weakness, Denies weight gain and Denies weight loss ENT Denies dizziness Card Denies chest pain, Denies leg edema, Denies lightheadedness, Denies palpitations, Denies dyspnea, Denies dyspnea on exertion, Denies orthopnea and Denies other (loss of consciousness) Resp Denies cough, Denies dyspnea and Denies dyspnea on exertion GI Denies hematochezia and Denies change in stool character Musc Denies abnormal gait, Denies muscle weakness, Denies numbness, Denies radiating pain into limb and Denies tingling Neuro Denies Abnormal speech present, Denies abnormal gait, Denies dizziness, Denies frequent falls, Denies numbness, Denies tingling and Denies weakness Endo Denies fatigue and Denies palpitations Physical Exam Vital Signs: Last Vital Signs Pulse 74 08/22/24 15:47 BP 126/84 08/22/24 15:47 BMI result Body Mass Index 23.1 Const General: cooperative, comfortable, no acute distress, alert and awake Nutritional Appearance: average body habitus Limitations: no limitations Neck Neck: Yes trachea midline, Yes supple and Yes no JVD Carotids: delayed carotid upstroke Resp Effort & Inspection: normal respiratory effort Auscultation: clear to auscultation bilaterally Cardio Jugular venous distension: no JVD Palpation: normal PMI Rate: regular rate Rhythm: regular rhythm Heart sounds: S1 normal heart sound present, S2 abnormal, no click, no gallops and Murmur heart sound present systolic late, decrescendo, crescendo, harsh and at the right sternal border Peripheral pulses: other (Reduced distal pulses) GI Auscultation: normal bowel sounds Neuro General: no focal motor deficits Speech: No Abnormal speech present Extrem General: Yes no clubbing, cyanosis or edema Assessment & Plan Assessment & Plan (1) Aortic stenosis: Code(s): I35.0 - Nonrheumatic aortic (valve) stenosis Category: Medical Qualifiers: Cardiac valve disease etiology: nonrheumatic Qualified Code(s): I35.0 - Nonrheumatic aortic (valve) stenosis Plan: Aortic stenosis, severe with symptoms of exertional shortness of fatigue and with prior history of heart failure and having intermittent chest pressure. Requires aortic valve replacement. Given his age he was evaluated by surgery for surgical aortic valve replacement however was felt to be higher risk because of his underlying liver disease and cirrhosis with high complication rate especially bleeding. Therefore is currently undergoing transcatheter aortic valve replacement evaluation by the heart valve team. Given his age high likelihood of underlying bicuspid aortic valve. He does have multiple comorbidities including cirrhosis, heart failure, diabetes, peripheral vascular disease, frailty that does increase his risk of complications. Discussed higher risk of complications patients with bicuspid aortic valve related aortic stenosis. Discussed the process of transcatheter aortic valve replacement. He understands and agrees. Advised to avoid sudden strenuous exertion. (2) Chronic heart failure with preserved ejection fraction (HFpEF): Code(s): I50.32 - Chronic diastolic (congestive) heart failure Category: Medical Plan: Heart failure preserved ejection fraction, clinically euvolemic and well compensated. Continue current diuretic dose. Continue current Jardiance dose. Continue aggressive blood pressure control. Avoidance of alcohol use was discussed. Continue current spironolactone dose. Will follow up in the clinic in 3 months time, sooner p.r.n.. Coding Level of Care Code Est Pt Level 4 (38538) Complex EM visit Add On G2211 Diagnoses Nonrheumatic aortic valve stenosis I35.0 Cardiac valve disease etiology: nonrheumatic Chronic heart failure with preserved ejection fraction (HFpEF) I50.32
[2024-08-22 15:47] VITALS: BP 126/84; PULSE 74; BMI 23.1
== END 2024-08-22 16:20 | disposition home or self-care (01) ==
PROVIDERS: PCP Internal Medicine; Visit Provider Internal Medicine Cardiovascular Disease
DX: I35.0 Nonrheumatic aortic (valve) stenosis (principal); I50.32 Chronic diastolic (congestive) heart failure
CPT/HCPCS: 99214

== ENCOUNTER 2024-10-01 08:44 | Outpatient (REF) | payer OTHER, MEDICARE, SELFPAY ==
[2024-10-01 09:52] LABS: MANUAL DIFF FLAG NO
[2024-10-01 10:07] LABS: Basophils Absolute Auto 0.1 X10*3/uL (0.0-0.2); Basophils Percent Auto 1.4 % (0-2); Eosinophils Absolute Auto 0.4 X10*3/uL (0.0-0.4); Hematocrit 30.4 % (42.0-52.0); Hemoglobin 9.7 g/dl (14.0-18.0); Imm Gran Abs Auto 0.01 X10*3/uL (0.00-0.03); Imm Gran Pct Auto 0.2 % (0.0-0.4); Lymphocytes Absolute Auto 1.1 X10*3/uL (1.2-4.9); Lymphocytes Percent Auto 18.2 % (20-40); Mean Corpuscular HGB Conc 31.9 g/dl (31.0-36.0); Mean Corpuscular Hemoglobin 29.2 pg (27.0-33.0); Mean Corpuscular Volume 91.6 fL (80.0-98.0); Mean Platelet Volume 10.1 fL (9.4-12.4); Monocytes Absolute Auto 0.5 X10*3/uL (0.1-1.2); Monocytes Percent Auto 8.6 % (2-11); Neutrophils Absolute Auto 3.8 x10*3/uL (2.0-8.3); Neutrophils Percent Auto 65.6 % (45-73); Platelet Count 196 X10*3/uL (160-400); Red Blood Count 3.32 X10*6/uL (4.60-5.80); Red Cell Distribution Width 13.7 % (11.0-16.0); White Blood Count 5.8 X10*3/uL (4.8-10.8)
[2024-10-01 10:42] LABS: Alanine Aminotransferase 13 U/L (0-40); Albumin Level 4.3 g/dL (3.5-5.0); Alkaline Phosphatase 42 U/L (39-117); Anion Gap 12 (12-20); Aspartate Amino Transferase 16 U/L (5-37); Bilirubin Total 0.3 mg/dL (0.0-1.0); Blood Urea Nitrogen 31 mg/dL (9-16); Calcium 9.3 mg/dL (8.4-10.2); Carbon Dioxide 23 mmol/L (22-29); Chloride 110 mmol/L (96-108); Creatinine Urine 40.74 mg/dL; Estimated Glomerular Filt Rate 37; Glucose Random 206 mg/dL (60-115); Iron 39 mcg/dL (45-160); Magnesium 2.1 mg/dL (1.6-2.6); Parathyroid Hormone Intact 43.8 pg/mL (8.7-77.1); Percent Iron Saturation 15 % (15-50); Phosphorus 4.6 mg/dL (2.7-4.5); Potassium 4.3 mmol/L (3.3-5.1); Protein/Creatinine Ratio, Ur 1.69 (<0.2); Sodium 141 mmol/L (135-145); Total Iron Binding Capacity 252 mcg/dL (228-428); Total Protein 7.6 g/dL (6.5-8.0); Total Protein Urine Random 69 mg/dL (<12); Unsaturated Iron Binding 213 ug/dL
[2024-10-01 10:56] LABS: Ferritin 45 ng/mL (20-250); Vitamin D 25-OH Total 33.6 ng/mL (>30)
[2024-10-01 11:06] LABS: Uric Acid 6.9 mg/dL (3.4-7.0)
== END 2024-10-01 08:45 | disposition home or self-care (01) ==
LOC: HO.HMGCLDS 08:44
PROVIDERS: PCP Internal Medicine; Visit Provider Internal Medicine Nephrology
DX: N18.31 Chronic kidney disease, stage 3a (principal); K74.69 Other cirrhosis of liver; I35.0 Nonrheumatic aortic (valve) stenosis; D63.1 Anemia in chronic kidney disease
CPT/HCPCS: 36415; 80053; 82306; 82570; 82728; 83540; 83735; 83970; 84100; 84156; 84550; 85025

== ENCOUNTER 2024-10-30 08:28 | Outpatient (REF) | payer OTHER, MEDICARE, SELFPAY ==
--- OUTSIDE RECORDS SUMMARY | 2024-10-30 08:44 | XMS_ITS | Clinical Summary ---
Author Organization [facility] Address [address] [place] [address] Care Team Providers Care Automatic Fabric Cutter Name Role Phone Martínez Dunn Primary Care Provider [phone] Allergies Active Allergy Reactions Criticality Noted Date Comments Shellfish Derived Hives,Angioedema High 11/04/2021 Medications secukinumab (Cosentyx, 2 Syringes,) 150 mg/mL syringe Inject 300 mg under the skin. 1x per month Active furosemide (LASIX) 20 mg tablet Take 20 mg by mouth 2 times a day. Active omeprazole (PriLOSEC) 20 mg capsule Take 20 mg by mouth in the morning. Active metFORMIN (GLUCOPHAGE) 500 mg tablet Take 500 mg by mouth 2 times a day with meals. Active glipiZIDE (GLUCOTROL) 10 mg tablet Take 10 mg by mouth 2 times a day before meals. Active gabapentin (NEURONTIN) 300 mg capsule Take 600 mg by mouth 3 times a day. Active spironolactone (ALDACTONE) 100 mg tablet Take 300 mg by mouth in the morning. Active acetaminophen (TYLENOL) 500 mg tablet Take 1,000 mg by mouth every 6 hours as needed for pain. Active fluocinolone (Retisert) 0.59 mg implant To be surgically implanted as directed. 1 each 1 2 Active Additional Information Patient taking differently: When cosentyx therapy is completed per patient, Reported on 02/24/2022 Hospital, Clinic, or Other Facility Administered Medication Ordered Dose Route Frequency Start Date End Date Status fluocinolone implant 0.59 mg 0.59 mg L intravit Once 02/20/2022 Active Family History Medical History Relation Name Comments Diabetes type II Father Diabetes type II Mother Heart failure Mother Relation Name Status Comments Father Alive Mother Alive Social History Tobacco Use Types Packs/Day Years Used Date Smoking Tobacco: Never Smokeless Tobacco: Never Alcohol Use Standard Drinks/Week Comments Yes 10 (1 standard drink = 0.6 oz pu re alcohol) rare Sex and Gender Information Value Date Recorded Sex Assigned at Male 12/10/2021 12:32 PM EST Legal Sex Male 1:40 PM EST Gender Identity Male 12/10/2021 12:32 PM EST Sexual Orientation Straight 12/12/2021 6: 13 PM EDT Last Filed Vital Signs Vital Sign Reading Time Taken Comments Blood Pressure 177/82 02/24/2022 2:13 PM EDT Pulse 80 02/24/2022 2:13 PM EDT Temperature 36.5 ??C (97.7 ??F) 02/24/2022 2:13 PM ED T Respiratory Rate 16 02/24/2022 2:13 PM EDT Oxygen Saturation 98% 02/24/2022 2:13 PM EDT Inhaled Oxygen Concentration - - Weight 64.2 kg (141 lb 9.6 oz) 02/24/2022 11:21 AM EDT Height 162.6 cm (5' 4 ) 02/24/2022 11:21 AM EDT Body Mass Index 24.31 02/24/2022 11:21 AM EDT Plan of Treatment Health Maintenance Due Date Last Done Comments Cologuard 1968 Colon Cancer Screening 1968 Colonoscopy 1968 FOBT / Fit Test 1968 HIV Screening 1968 Sigmoidoscopy 1968 Hepatitis B Vaccines (1 of 3 - 19+ 3-dose series) 1987 DTaP,Tdap,and Td Vaccines (1 - Tdap) 1990 Zoster Vaccines (1 of 2) 2018 COVID-19 Vaccine (4 - 2023-2 5 season) 2024 10/15/2021, 01/11/2021, 12/14/2020 Influenza Vaccine (#1) 2024 08/16/2021 Alcohol/Substance Use Screening 10/02/2024 RSV Vaccine (60+ years old a nd patients) (1 - 1-dose 75+ series) 2043 Pneumococcal Vaccine: Pediatric (0-5 Years) and At-Risk Patients (6-64 Years) Aged Out No longer eligible based on patient's age to complete this topic Medical Devices Implanted Type Area Jewelsmith Device Identifier Shelf Expiration Date Model / Serial / Lot Lens Intraocular Ashperic Natural Single Piece Acrylic With Blue Light Filter [id number] 23.0d - [id number] - [id number] Implanted:Qty: 1 on 12/14/2021 by Omega Franco MD at [facility] Lens Right: Eye YESY 07/31/2026 SN60WF 23.0 / [id number] / Retisert Implanted:Qty: 1 on 12/14/2021 by Omega Franco MD at [facility] Right: Eye [employer]OM[employer] 03/01/2023 28223-027- 01 / [id number] / [id number] Insurance [facility] Advance Directives Documents on File Type Date Recorded Patient Research Group Director Expl anation Health Care Proxy 02/24/2022 12:02 PM 05- * Presumed Full Code (Latest Code Status on File) Date Activated Date Inactivated Comments 02/24/2022 11:45 AM 02/24/2022 4:36 PM * Presumed Full Code Date Activated Date Inactivated Comments 12/14/2021 7:20 AM 12/14/2021 12:36 PM Care Teams Automatic Fabric Cutter Relationship Specialty Start Date End Date Martínez Dunn [address] [place] [address] [place] [address] PCP - General Internal Medicine 02/24/22
--- OUTSIDE RECORDS SUMMARY | 2024-10-30 08:44 | XMS_ITS | Referral Summary ---
Author Organization [facility] Address [address] [place] [address] Care Team Providers Care Academic Support Coordinator Name Role Phone Martínez Dunn Primary Care Provider [phone] Allergies Active Allergy Reactions Criticality Noted Date [...] 0.59 mg L intravit Once 02/20/2022 Active Social History Tobacco Use Types Packs/Day Years [...] 02/24/2022 11:21 AM EDT Plan of Treatment Not on file Medical Devices Implanted Type Area Algology Teacher Device Identifier Shelf Expiration Date Model / Serial / Lot Lens Intraocular Ashperic Natural Single Piece Acrylic With Blue Light Filter [id number] 23.0d - [id number] - [id number] Implanted:Qty: 1 on 12/14/2021 by Omega Franco MD at [facility] Lens Right: Eye YESY 07/31/2026 SN60WF 23.0 / [id number] / Retisert Implanted:Qty: 1 on 12/14/2021 by Omega Franco MD at [facility] Right: Eye [employer] 03/01/2023 [id number]- 01 / [id number] / [id number] Insurance [employer] Advance Directives Documents on File Type Date Recorded Patient Grout Pump Operator Expl [facility] Health Care Proxy 02/24/2022 12:02 PM -2 * Presumed Full Code (Latest Code Status on File) Date Activated Date Inactivated Comments 02/24/2022 11:45 AM 02/24/2022 4:36 PM * Presumed Full Code Date Activated Date Inactivated Comments 12/14/2021 7:20 AM 12/14/2021 12:36 PM Care Teams Academic Support Coordinator Relationship Specialty Start Date End Date Martínez Dunn [address] [place] [address] [place] [address] PCP - General Internal Medicine 02/24/22
--- OUTSIDE RECORDS SUMMARY | 2024-10-30 08:45 | XMS_ITS | Encounter Summary ---
Author Organization [facility] Address [address] [facility] [address] [place] [address] Phone Care Team Providers Care Hedge Fund Principal Name Role Phone Martínez Dunn MD Primary Care Provider [phone] Reason for Visit * Reason Comments Retacrit Encounter Details Date Type Department Care Team (Latest Contact Info) Description 10/08/2024 9:45 AM EST Clinical Support [facility] [address] [phone] Anemia in chronic kidney disease (Primary Dx) Social History Tobacco Use Types Packs/Day Years Used Date Smoking Tobacco: Never Smokeless Tobacco: Never Alcohol Use Standard Drinks/Week Comments Yes 0 (1 standard drink = 0.6 oz pur e alcohol) 10 drinks per wk Sex and Gender Information Value Date Recorded Sex Assigned at Not on file Legal Sex Male 8:50 AM EST Gender Identity Not on file Sexual Orientation Not on file documented as of this encounter Last Filed Vital Signs Vital Sign Reading Time Taken Comments Blood Pressure 120/68 10/08/2024 10:00 AM EST Pulse - - Temperature - - Respiratory Rate - - Oxygen Saturation - - Inhaled Oxygen Concentration - - Weight - - Height - - Body Mass Index - - documented in this encounter Progress Notes * Alaina Engel - 10/08/2024 9:45 AM EST Explained the procedure to the patient, capillary blood sample not obtained. Retacrit 20,000 units administered for a hgb of 9.7 from labs of 10/01/24 . Pt tolerated the procedure well. PLAN: Pt to return in 4 weeks for follow up documented in this encounter Plan of Treatment Upcoming Encounters Date Type Department Care Team (Latest Contact Info) Description 11/06/2024 Orders Only [facility] [address] [phone] Yuri Chance MD [address] [phone] Stage 3a chronic kidney disease (HCC); Other cirrhosis of liver (HCC); Aortic valve stenosis; Anemia in chronic kidney disease 11/06/2024 8:00 AM EST Office Visit [facility] [address] [phone] Yuri Chance MD [facility] [address] [phone] 11/06/2024 9:00 AM EST Clinical Support [facility] [address] [phone] documented as of this encounter Visit Diagnoses Diagnosis Anemia in chronic kidney disease- Primary Stage 3a chronic kidney disease (HCC) Other cirrhosis of liver (HCC) Aortic valve stenosis Anemia in chronic kidney disease documented in this encounter Administered Medications Inactive Administered Medications - up to 3 most recent administrations Medication Order MAR Action Action Date Dose Rate Site Epoetin Chi-epbx solution 20,000 Units 20,000 Units, Injection, Once, On Mon01/17/24 at 1145, For 1 doseIndications:Chronic kidney disease, not otherwise specified,Anemia in chronic kidney disease Given 10/08/2024 10:05 AM EST 20,000 Units Left Arm documented in this encounter Care Teams Hedge Fund Principal Relationship Specialty Start Date End Date Martínez Dunn MD [id number] ANITHA KOEHLER PCP - General Internal Medicine 11/17/22 documented as of this encounter
--- OUTSIDE RECORDS SUMMARY | 2024-10-30 08:45 | XMS_ITS | Clinical Summary ---
Author Organization [facility] ity Address [address] [place] [address] Care Team Providers Care Web Publisher Name Role Phone Unavailable Primary Care Provider Unavailabl e Medications Medication Sig Dispensed Refills Start Date End Date Status spironolactone (ALDACTONE) 100 mg tabletIndications:Al coholic cirrhosis of liver without ascites (CMS/HCC) TAKE 3 TABLETS BY MOUTH ONCE A DAY DIRECTED 90 tablet 2 09/13/2024 Active Encounters Date Type Department Care Team Description 09/11/2024 Telephone Gastroenterology - [address] [place] [address] Jeanmarie Jefferson MD from Last 3 Months Social History Tobacco Use Types Packs/Day Years Used Date Smoking Tobacco: Never Assessed Sex and Gender Information Value Date Recorded Sex Assigned at Not on file Gender Identity Not on file Sexual Orientation Not on file Plan of Treatment Health Maintenance Due Date Last Done Comments Pneumococcal Vaccine: Pediatrics (0 to 5 Years) and At-Risk Patients (6 to 64 Years) (1 of 2 - PCV) 1974 DTaP,Tdap,and Td Vaccines (1 - Tdap) 1987 Zoster Vaccines (1 of 2) 2018 Cholesterol Screening (Lipid Panel) 09/03/2022 Colorectal Cancer Screening: Colonoscopy 09/03/2022 Depression Screening 09/03/2022 HIV Screening 09/03/2022 Hepatitis C Screening 09/03/2022 Social Influencers of Health Screening 09/03/2022 COVID-19 Vaccine ( - 2023-2 5 season) 2024 Influenza Vaccine (#1) 2024 Hepatitis B Vaccines Completed 07/01/2019, 01/28/2019, 12/28/2018 HIB Vaccines Aged Out No longer eligi ble based on patient's age to complete this topic HPV Vaccines Aged Out No longer eligi ble based on patient's age to complete this topic Hepatitis A Vaccines Aged Out No long er eligible based on patient's age to complete this topic IPV Vaccines Aged Out No longer eligi ble based on patient's age to complete this topic MMR Vaccines Aged Out No longer eligi ble based on patient's age to complete this topic Meningococcal ACWY Vaccine Aged Out N o longer eligible based on patient's age to complete this topic RSV Immunization Patients Under 20 months Aged Out No longer eligible b ased on patient's age to complete this topic Varicella Vaccines Aged Out No longer eligible based on patient's age to complete this topic
--- OUTSIDE RECORDS SUMMARY | 2024-10-30 08:45 | XMS_ITS | Clinical Summary ---
Author Organization [facility] Address [address] [address] Phone Care Team Providers Care Economic Adviser Name Role Phone Martínez Dunn MD Primary Care Provider [phone] Allergies Active Allergy Reactions Criticality Noted Date Comments Shellfish-Derived Products Hives High 3 Medications acetaminophen (TYLENOL) 500 MG tablet Take 1,000 mg by mouth every 6 (six) hours if needed Active furosemide (LASIX) 20 MG tablet Take 20 mg by mouth in the morning and 20 mg in the evening. 2 in the morning & 1 at night. Active gabapentin (NEURONTIN) 300 MG capsule Take 600 mg by mouth in the morning and 600 mg at noon and 600 mg in the evening. Active metFORMIN (GLUCOPHAGE) 500 MG tablet Take 500 mg by mouth in the morning and 500 mg in the evening. Active omeprazole (PriLOSEC) [address] capsule Take 20 mg by mouth in the morning and 20 mg in the evening. Active Secukinumab (Cosentyx) 150 MG/ML solution prefilled syringe Inject 300 mg under the skin every 30 (thirty) days Active spironolactone (ALDACTONE) 100 MG tablet Take 300 mg by mouth every morning Active carvedilol (COREG) 3.125 MG tablet Take 3.125 mg by mouth in the morning and 3.125 mg in the evening. 12/29/2022 Active amLODIPine (NORVASC) 5 MG tablet Take 10 mg by mouth 1 (one) time each day 12/29/2022 Active hydrALAZINE 50 MG tablet Take 100 mg by mouth in the morning and 100 mg in the evening. 12/29/2022 Active aspirin (ST CHAPARRO) 81 MG EC tablet Take 81 mg by mouth 1 (one) time each day Active Cholecalciferol (Vitamin D-3) 25 MCG (1000 UT) capsule Take 1,000 Units by mouth 1 (one) time each day Active glipiZIDE (GLUCOTROL XL) 5 MG 24 hr tablet Take 5 mg by mouth 1 (one) time each day Do not crush, chew, or split. Active Jardiance 25 MG tablet Take by mouth 1 (one) time each day 07/10/2024 Active Hospital, Clinic, or Other Facility Administered Medication Ordered Dose Route Frequency Start Date End Date Status iron sucrose (VENOFER) injection 200 mgIndications:Other iron deficiency anemia 200 mg IV Once 01/24/2024 Active Epoetin Chi-epbx solution 20,000 UnitsIndications:Anemia in chronic kidney disease 54629 Units IJ Once 10/08/2024 A ctive Epoetin Chi-epbx solution 20,000 UnitsIndications:Chronic kidney disease, not otherwise specified,Anemia in chronic kidney disease 59822 Units IJ Once 01/17/2024 Ended Active Problems Problem Noted Date Diagnosed Date Chronic metabolic acidosis 01/09/2024 Acute nontraumatic kidney injury, not otherwise specified 01/09/2024 Cerebrovascular accident 11/28/2023 Stage 3a chronic kidney disease 11/17/2022 Anemia in chronic kidney disease 11/17/2022 Localized edema 11/17/2022 Proteinuria, not otherwise specified 11/17/2022 Psoriatic arthritis 11/17/2022 Other cirrhosis of liver 11/17/2022 Aortic valve stenosis 11/17/2022 Resolved Problems Problem Noted Date Diagnosed Date Resolved Date Serum creatinine above reference range 11/17/2022 01/18/2023 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 [address] [place] [phone] Anemia in chronic kidney disease (Primary Dx) 10/04/2024 Documentation Only [facility] [address] [phone] Reema Jordan 10/01/2024 Orders Only [facility] [address] [address] Yuri Chance MD 09/03/2024 9:30 AM EST Clinical [facility] [address] [address] Anemia in chronic kidney disease (Primary Dx); Stage 3a chronic kidney disease (HCC) 08/06/2024 11:00 AM EST Office Visit [facility] [address] [address] Anemia in chronic kidney disease (Primary Dx); Stage 3a chronic kidney disease (HCC) 08/06/2024 10:40 AM EST Office Visit [facility] [address] [address] Yuri Chance MD Stage 3a chronic kidney disease (HCC) (Primary Dx); Other cirrhosis of liver (HCC); Aortic valve stenosis; Anemia in chronic kidney disease from Last 3 Months Family History Medical History Relation Comments Diabetes Father Diabetes Mother Heart disease Mother Relation Status Comments Father Alive Mother Alive Social History Tobacco Use Types Packs/Day Years Used Date Smoking Tobacco: Never Smokeless Tobacco: Never Tobacco Cessation:Counseling Given: Not Answered Alcohol Use Standard Drinks/Week Comments Yes 0 (1 standard drink = 0.6 oz pur e alcohol) 10 drinks per wk Sex and Gender Information Value Date Recorded Sex Assigned at Not on file Legal Sex Male 8:50 AM EST Gender Identity Not on file Sexual Orientation Not on file Last Filed Vital Signs Vital Sign Reading Time Taken Comments Blood Pressure 120/68 10/08/2024 10:00 AM EST Pulse 74 08/06/2024 10:43 AM EST Temperature - - Respiratory Rate 22 01/31/2024 9:15 AM EDT Oxygen Saturation 97% 08/06/2024 10:43 AM EST Inhaled Oxygen Concentration - - Weight 63.6 kg (140 lb 3.2 oz) 08/06/2024 10:43 AM EST Height 162.6 cm (5' 4 ) 08/06/2024 10:43 AM EST Body Mass Index 24.07 08/06/2024 10:43 AM EST Plan of Treatment Upcoming Encounters Date Type Department Care Team (Latest Contact Info) Description 11/06/2024 Orders Only [facility] [address] [phone] Yuri Chance MD [address] [phone] Stage 3a chronic kidney disease (HCC); Other cirrhosis of liver (HCC); Aortic valve stenosis; Anemia in chronic kidney disease 11/06/2024 8:00 AM EST Office Visit [facility] [address] [phone] Yuri Chance MD [address] [phone] 11/06/2024 9:00 AM EST Clinical Support [facility] [address] [address] Health Maintenance Due Date Last Done Comments Pneumococcal Vaccine: Pediat rics (0 to 5 Years) and At-Risk Patients (6 to 64 Years) (1 of 2 - PCV) 1974 Hepatitis B Vaccine (1 of 3 - 19+ 3-dose series) 05/02 Colorectal Cancer Screening: Annual FOBT 2017 Colorectal Cancer Screening: Colonoscopy 2017 Colorectal Cancer Screening: Sigmoidoscopy 2017 Influenza Vaccine (#1) 2024 Procedures Procedure Name Priority Date/Time Associated Diagnosis Comments URIC ACID Routine 10/01/2024 9:53 AM EST VITAMIN D 25 HYDROXY Routine 10/01/2024 9:53 AM EST FERRITIN Routine 10/01/2024 9:53 AM EST PTH, INTACT (HC) Routine 10/01/2024 9:53 AM EST IRON PANEL (FE, TIBC, TSAT) Routine 10/01/2024 9:53 AM EST MAGNESIUM Routine 10/01/2024 9:53 AM EST PHOSPHATE ( PHOSPHORUS) Routine 10/01/2024 9:53 AM EST COMPREHENSIVE METABOLIC PANEL Routine 10/01/2024 9:53 AM EST PROTEIN / CREATININE RATIO, URINE Routine 10/01/2024 9:50 AM EST CBC AND DIFFERENTIAL Routine 10/01/2024 9:47 AM EST EXT RESULT ENTRY Routine 10/01/2024 POCT HEMOGLOBIN Routine 09/03/2024 4:42 PM EST Anemia in chronic kidney disease Stage 3a chronic kidney disease (HCC) POCT HEMOGLOBIN Routine 08/06/2024 11:44 AM EST Anemia in chronic kidney disease Stage 3a chronic kidney disease (HCC) from Last 3 Months Results * PTH, Intact (10/01/2024 9:53 AM EST) Parathyroid Hormone, Intact 43.8 8.7 - 77.1 pg/mL See order comments 10/01/2024 9:53 AM EST 10/01/2024 9:53 AM EST us Yuri Chance MD LAB [id number] SOLICITED RESULTS Final Result ZAKIA See order comments [place] [address] * (ABNORMAL) Iron Panel (Fe, TIBC, TSAT) (10/01/2024 9:53 AM EST) Iron 39(L) 45 - 160 mcg/dL See order comments TIBC 252 228 - 428 mcg/dL See order comments Iron Saturation (TSat) 15 15 - 50 % See order comments UIBC 213 ug/dL See order comments 10/01/2024 9:53 AM EST 10/01/2024 9:53 AM EST us Yuri Chance MD LAB BLOOD ORDERABLES Final Re sult Performing Organization Address [facility] Phone Number [place] See order comments [place] [address] * Vitamin D 25 Hydroxy (10/01/2024 9:53 AM EST) Vitamin D, 25-Hydroxy 33.6 >30 ng/mL See order comments Comment: Health Based Reference Values* < 20 ??ng/mL ??Deficient 20-30 ng/mL ??Insufficient > 30 ??ng/mL ??Sufficient *Shalom MOORE. N Engl J Med. 2007;357:266-280 Care must be taken in interpreting Vitamin D results from different laboratories and methodologies. ??Published data demonstrated that results from patients undergoing hemodialysis may show a negative bias when tested with various automated 25-OH vitamin D assays when compared to LC-MS/MS. When testing samples from patients whose predominant form of Vitamin D is Vitamin D2, such as patients receiving Vitamin D2 supplementation, results that are subtherapeutic should be confirmed with another method such as LC-MS/MS. 10/01/2024 9:53 AM EST 10/01/2024 9:53 AM EST us Yuri Chance MD LAB BLOOD ORDERABLES Final Re sult Performing Organization Address [facility] Phone Number [place] See order comments [place] [address] * Uric Acid (10/01/2024 9:53 AM EST) Uric Acid 6.9 3.4 - 7.0 mg/dL See order comments 10/01/2024 9:53 AM EST 10/01/2024 9:53 AM EST us Yuri Chance MD LAB BLOOD ORDERABLES Final Re sult Performing Organization Address [facility] Phone [facility] See order comments [place] [address] * (ABNORMAL) Phosphorus (10/01/2024 9:53 AM EST) [facility] Phosphorus, Serum 4.6(H) 2.7 - 4.5 mg/dL See order comments 10/01/2024 9:53 AM EST 10/01/2024 9:53 AM EST us Yuri Chance MD LAB BLOOD ORDERABLES Final Re sult Performing Organization Address [facility] Phone Number [place] See order comments [place] [address] * Magnesium (10/01/2024 9:53 AM EST) [facility] Magnesium 2.1 1.6 - 2.6 mg/dL See order comments 10/01/2024 9:53 AM EST 10/01/2024 9:53 AM EST us Yuri Chance MD LAB BLOOD ORDERABLES Final Re sult Performing Organization Address [facility] Phone Number [place] See order comments [place] [address] * Ferritin (10/01/2024 9:53 AM EST) [facility] Ferritin 45 20 - 250 ng/mL See order comments 10/01/2024 9:53 AM EST 10/01/2024 9:53 AM EST us Yuri Chance MD LAB BLOOD ORDERABLES Final Re sult Performing Organization Address [facility] Phone Number [place] See order comments [place] [address] * (ABNORMAL) Comprehensive Metabolic Panel (10/01/2024 9:53 AM EST) [facility] Sodium 141 135 - 145 mmol/L See order comments Potassium 4.3 3.3 - 5.1 mmol/L See order comments Chloride 110(H) 96 - 108 mmol/L See order comments Bicarbonate (CO2) 23 22 - 29 mmol/L See order comments Anion Gap 12 12 - 20 See order comments BUN 31(H) 9 - 16 mg/dL See order comments Creatinine Serum 1.89(H) 0.5 - 1.4 mg/dL See order comments eGFR 37 See order comments Comment: Chronic Kidney Disease: ??Estimated GFR < 60 mL/min/1.73m2 Severe Kidney Disease: ??Estimated GFR < 15 mL/min/1.73m2 Glucose 206(H) 60 - 115 mg/dL See order comments Calcium 9.3 8.4 - 10.2 mg/dL See order comments Total Bilirubin 0.3 0.0 - 1.0 mg/dL See order comments AST (SGOT) 16 5 - 37 U/L See orde r comments ALT (SGPT) 13 0 - 40 U/L See orde r comments Total Protein 7.6 6.5 - 8.0 g/dL See order comments Albumin 4.3 3.5 - 5.0 g/dL See order comments Alkaline phosphatase 42 39 - 117 U/L See order comments 10/01/2024 9:53 AM EST 10/01/2024 9:53 AM EST Yuri Chance MD LAB BLOOD ORDERABLES Final Re sult Performing Organization Address [facility] Phone Number [place] See order comments [place] [address] * (ABNORMAL) Protein, Total, Random Urine w/Creatinine (Protein/Creat Ratio) (10/01/2024 9:50 AM EST) Creatinine, Urine 40.74 mg/dL See order comments Protein Urine Random 69(H) <12 mg/dL See order comments Protein/Creati nine Ratio, Urine 1.69(H) <0.2 See order comments Comment: The spot urine protein:creatinine ratio may increase to 0.3 during normal . 10/01/2024 9:50 AM EST 10/01/2024 9:50 AM EST us Yuri Chance MD LAB URINE ORDERABLES Final Re sult Performing Organization Address [facility] Phone Number [place] See order comments [place] [address] * (ABNORMAL) CBC and Differential (10/01/2024 9:47 AM EST) WBC 5.8 4.8 - 10.8 X10*3/uL See order comments RBC 3.32(L) 4.60 - 5.80 X10*6/uL See order comments Hgb 9.7(L) 14.0 - 18.0 g/dl See order comments Hematocrit 30.4(L) 42.0 - 52.0 % See order comments MCV 91.6 80.0 - 98.0 fL See order comments MCH 29.2 27.0 - 33.0 pg See order comments MCHC 31.9 31.0 - 36.0 g/dl See order comments RDW 13.7 11.0 - 16.0 % See order comments Platelets 196 160 - 400 X10*3/uL See order comments MPV 10.1 9.4 - 12.4 fL See order comments Neutrophils % Auto 65.6 45 - 73 % See order comments Immature Granulocytes 0.2 0.0 - 0.4 % See order comments Lymphocytes Relative 18.2(L) 20 - 40 % See order comments Monocytes 8.6 2 - 11 % See order comments Eosinophils Relative 6.0(H) 0 - 4 % See order comments Basophils Relative 1.4 0 - 2 % See order comments nRBC Count 0.0 0.0 - 0.2 /100WBC See order comments Neutrophils Absolute 3.8 2.0 - 8.3 x10*3/uL See order comments Immature Grans (Absolute) 0.01 0.00 - 0.03 X10*3/uL See order comments Lymphocytes Absolute 1.1(L) 1.2 - 4.9 X10*3/uL See order comments Monocytes Absolute 0.5 0.1 - 1.2 X10*3/uL See order comments Eosinophils Absolute 0.4 0.0 - 0.4 X10*3/uL See order comments Basophils Absolute 0.1 0.0 - 0.2 X10*3/uL See order comments NRBC Absolute 0.000 0.0 - 0.012 X10*3/uL See order comments 10/01/2024 9:47 AM EST 10/01/2024 9:47 AM EST Yuri Chance MD LAB BLOOD ORDERABLES Final Re sult [place] See order comments [place] [address] * (ABNORMAL) EXT RESULT ENTRY (10/01/2024) WBC 5.8 3.3 - 10.0 10*3/ML Red Blood Cell Count 3.32 Hemoglobin 9.7(A) 13.5 - 17.5 Hematocrit 30.4(A) 41.0 - 53.0 Platelets 196 150 - 399 10*3/UL Iron 39 UG/DL Iron Saturation (TSat) 15 % TIBC 252 ug/dL Ferritin 45.0 18.0 - 300.0 NG/ML Sodium 141 137 - 147 Potassium 4.3 3.4 - 5.5 Carbon Dioxide 23 mmol/L Glucose 206(A) 60 - 200 BUN 12 4 - 21 mg/dL Creatinine 31.00(A) 0.60 - 1.30 mg/dL Total Protein 1.89(A) 6.4 - 8.2 G/DL Calcium 9.3 8.7 - 10.7 mg/dL eGFR Non-Afr [place]ian 37 PTH 43.8 PG/ML Vitamin D, 25-OH, Total 33.6 ng/mL Protein Urine Random 69 Creatinine, Urine Random 40.74 mg/dL Urine Protein/Creatin ine Ratio 1.69 mg/g creat 10/01/2024 Result [facility] Nick Vnan MD LAB BLOOD ORDERABLES Esperanza l Result * POCT hemoglobin (09/03/2024 4:42 PM EST) Only the most recent of2 resultswithin the time period is included. Hemoglobin 9.8 Blood Capillary 09/03/2024 4 :42 PM EST Tushar Hickman MD POINT OF CARE TEST ORDERABLES Final Result from Last 3 Months Insurance [facility] [employer] MEDICARE [facility] Care Teams Economic Adviser Relationship Specialty Start Date End Date Martínez Dunn MD [address] [place] [address] DR[id number] [place] PCP - General Internal Medicine 11/17/22
--- OUTSIDE RECORDS SUMMARY | 2024-10-30 08:45 | XMS_ITS | Encounter Summary ---
Author Organization [facility] Address [address] [address] Phone Care Team Providers Care Puller Over Name Role Phone Martínez Dunn MD Primary Care Provider [phone] Encounter Details Date Type Department Care Team (Late st Contact Info) Description 10/04/2024 Documentation Only [facility] [address] [phone] Reema Jordan [address] [phone] Social History Tobacco Use Types Packs/Day Years [...] on file documented as of this encounter Plan of Treatment Upcoming Encounters Date Type Department Care Team (Latest Contact Info) Description 11/06/2024 Orders Only [facility] [address] [phone] Yuri Chance MD [address] [phone] Stage 3a chronic kidney disease (HCC); Other cirrhosis of liver (HCC); Aortic valve stenosis; Anemia in chronic kidney disease 11/06/2024 8:00 AM EST Office Visit [facility] [address] [place] [phone] [place] [address] [place] [phone] 11/06/2024 9:00 AM EST Clinical Support [facility] [address] [address] documented as of this encounter Procedures Procedure Name Priority Date/Time Associated Diagnosis Comments EXT RESULT ENTRY Routine 10/01/2024 documented in this encounter Results * (ABNORMAL) EXT RESULT ENTRY (10/01/2024) WBC [...] 9.3 8.7 - 10.7 mg/dL eGFR Non-Afr Lao 37 PTH 43.8 PG/ML Vitamin D, 25-OH, Total 33.6 ng/mL Protein Urine Random 69 Creatinine, Urine Random 40.74 mg/dL Urine Protein/Creatin ine Ratio 1.69 mg/g creat 10/01/2024 us Historical Provider LAB BLOOD ORDERABLES Esperanza l Result documented in this encounter Visit Diagnoses Not on filedocumented in this encounter Care Teams Puller Over Relationship Specialty Start Date End Date Martínez Dunn MD [id number] ANITHA KOEHLER PCP - General Internal Medicine 11/17/22 documented as of this encounter
--- OUTSIDE RECORDS SUMMARY | 2024-10-30 08:45 | XMS_ITS | Encounter Summary ---
Author Organization [facility] Address [address] [address] Phone Care Team Providers Care Induction Coordination Engineer Name Role Phone Martínez Dunn MD Primary Care Provider [phone] Encounter Details Date Type Department Care Team ( Contact Info) Description 10/01/2024 Orders Only [facility] [address] [address] Yuri Chance MD [facility] [address] [address] Social History Tobacco Use Types [...] Orders Only [facility] [address] [address] Yuri Chance MD [facility] [address] [address] Stage 3a chronic kidney disease (HCC); Other cirrhosis of liver (HCC); Aortic valve stenosis; Anemia in chronic kidney disease 11/06/2024 8:00 AM EST Office Visit [facility] [address] [address] Yuri Chance MD [address] [address] 11/06/2024 9:00 AM EST Clinical Support [facility] [address] [address] documented as of this encounter Procedures Procedure Name Priority Date/Time Associated Diagnosis Comments PTH, INTACT (HC) Routine 10/01/2024 9:53 AM EST IRON PANEL (FE, TIBC, TSAT) Routine 10/01/2024 9:53 AM EST VITAMIN D 25 HYDROXY Routine 10/01/2024 9:53 AM EST URIC ACID Routine 10/01/2024 9:53 AM EST PHOSPHATE ( PHOSPHORUS) Routine 10/01/2024 9:53 AM EST MAGNESIUM Routine 10/01/2024 9:53 AM EST FERRITIN Routine 10/01/2024 9:53 AM EST COMPREHENSIVE METABOLIC PANEL Routine 10/01/2024 9:53 AM EST PROTEIN / CREATININE RATIO, URINE Routine 10/01/2024 9:50 AM EST CBC AND DIFFERENTIAL Routine 10/01/2024 9:47 AM EST documented in this encounter Results * Uric Acid (10/01/2024 9:53 AM EST) Uric Acid 6.9 3.4 - 7.0 mg/dL See order comments 10/01/2024 9:53 AM EST 10/01/2024 9:53 AM EST us Yuri Chance MD LAB BLOOD ORDERABLES Final Re sult Performing Organization Address [facility] Phone Number [place] See order comments [place] [address] * Vitamin D 25 Hydroxy (10/01/2024 9:53 [...] ORDERABLES Final Re sult Performing Organization Address [facility] Phone Number [place] See order comments [place] [address] * Ferritin (10/01/2024 9:53 AM EST) Pathologist [facility] Ferritin 45 20 - 250 ng/mL See order comments 10/01/2024 9:53 AM EST 10/01/2024 9:53 AM EST us Yuri Chance MD LAB BLOOD ORDERABLES Final Re sult Performing Organization Address [facility] Phone Number [place] See order comments [place] [address] * PTH, Intact (10/01/2024 9:53 AM EST) Pathologist [facility] Parathyroid Hormone, Intact 43.8 8.7 - 77.1 pg/mL See order comments 10/01/2024 9:53 AM EST 10/01/2024 9:53 AM EST us Yuri Chance MD LAB [id number] SOLICITED RESULTS Final Result Performing Organization Address City/[facility]/ZIP Co de Phone Number [facility] See order comments [place] [address] * (ABNORMAL) Iron Panel (Fe, TIBC, TSAT) (10/01/2024 9:53 AM EST) [facility] Iron 39(L) 45 - 160 mcg/dL See order comments TIBC 252 228 - 428 mcg/dL See order comments Iron Saturation (TSat) 15 15 - 50 % See order comments UIBC 213 ug/dL See order comments 10/01/2024 9:53 AM EST 10/01/2024 9:53 AM EST us Yuri Chance MD LAB BLOOD ORDERABLES Final Re sult Performing Organization Address [facility] Co de Phone Number [place] See order comments [place] [address] * Magnesium (10/01/2024 9:53 AM EST) [facility] Magnesium 2.1 1.6 - 2.6 mg/dL See order comments 10/01/2024 9:53 AM EST 10/01/2024 9:53 AM EST us Yuri Chance MD LAB BLOOD ORDERABLES Final Re sult Performing Organization Address [facility] Co de Phone Number [facility] See order comments [place] [address] * (ABNORMAL) Phosphorus (10/01/2024 9:53 AM EST) [facility] Phosphorus, Serum 4.6(H) 2.7 - 4.5 mg/dL See order comments 10/01/2024 9:53 AM EST 10/01/2024 9:53 AM EST us Yuri Chance MD LAB BLOOD ORDERABLES Final Re sult Performing Organization Address City/[facility]/ZIP Co de Phone Number [facility] See order comments [place] [address] * (ABNORMAL) Comprehensive Metabolic Panel (10/01/2024 9:53 AM EST) Sodium 141 135 - 145 mmol/L See [...] ORDERABLES Final Re sult Performing Organization Address [facility]/ZIP Co de Phone Number [facility] See order comments [place] [address] * (ABNORMAL) Protein, Total, Random Urine w/Creatinine [...] MD LAB URINE ORDERABLES Final Re sult [place] See order comments [place] [address] * (ABNORMAL) CBC and Differential (10/01/2024 9:47 AM EST) Pathologist [facility] WBC 5.8 4.8 - 10.8 X10*3/uL See [...] 9:47 AM EST 10/01/2024 9:47 AM EST us Yuri Chance MD LAB BLOOD ORDERABLES Final Re sult [place] See order comments [place] [address] documented in this encounter Visit Diagnoses Not on filedocumented in this encounter Care Teams Induction Coordination Engineer Relationship Specialty Start Date End Date Martínez Dunn MD [address] [place] [address] [address] ANITHA KOEHLER PCP - General Internal Medicine 11/17/22 documented as of this encounter
[2024-10-30 10:33] LABS: MANUAL DIFF FLAG NO
[2024-10-30 10:47] LABS: Basophils Absolute Auto 0.1 X10*3/uL (0.0-0.2); Basophils Percent Auto 1.2 % (0-2); Eosinophils Absolute Auto 0.3 X10*3/uL (0.0-0.4); Eosinophils Percent Auto 5.4 % (0-4); Hematocrit 30.3 % (42.0-52.0); Hemoglobin 9.5 g/dl (14.0-18.0); Imm Gran Abs Auto 0.03 X10*3/uL (0.00-0.03); Imm Gran Pct Auto 0.5 % (0.0-0.4); Lymphocytes Percent Auto 17.1 % (20-40); Mean Corpuscular HGB Conc 31.4 g/dl (31.0-36.0); Mean Corpuscular Volume 89.4 fL (80.0-98.0); Monocytes Absolute Auto 0.5 X10*3/uL (0.1-1.2); Monocytes Percent Auto 7.8 % (2-11); Platelet Count 187 X10*3/uL (160-400); Red Blood Count 3.39 X10*6/uL (4.60-5.80); Red Cell Distribution Width 13.5 % (11.0-16.0); White Blood Count 5.9 X10*3/uL (4.8-10.8)
[2024-10-30 11:18] LABS: Alanine Aminotransferase 13 U/L (0-40); Albumin Level 4.3 g/dL (3.5-5.0); Alkaline Phosphatase 45 U/L (39-117); Anion Gap 14 (12-20); Aspartate Amino Transferase 25 U/L (5-37); Bilirubin Total 0.2 mg/dL (0.0-1.0); Blood Urea Nitrogen 44 mg/dL (9-16); Calcium 8.9 mg/dL (8.4-10.2); Carbon Dioxide 19 mmol/L (22-29); Chloride 102 mmol/L (96-108); Estimated Glomerular Filt Rate 25; Glucose Random 343 mg/dL (60-115); Iron 47 mcg/dL (45-160); Magnesium 2.3 mg/dL (1.6-2.6); Percent Iron Saturation 17 % (15-50); Phosphorus 4.5 mg/dL (2.7-4.5); Potassium 5.2 mmol/L (3.3-5.1); Sodium 130 mmol/L (135-145); Total Iron Binding Capacity 284 mcg/dL (228-428); Total Protein 8.1 g/dL (6.5-8.0); Unsaturated Iron Binding 237 ug/dL
[2024-10-30 11:19] LABS: Creatinine Urine 40.99 mg/dL; Total Protein Urine Random 41 mg/dL (<12)
[2024-10-30 11:43] LABS: Ferritin 44 ng/mL (20-250); Vitamin D 25-OH Total 37.4 ng/mL (>30)
[2024-10-30 14:16] LABS: Parathyroid Hormone Intact 64.8 pg/mL (8.7-77.1)
== END 2024-10-30 08:29 | disposition home or self-care (01) ==
LOC: HO.HMGCLDS 08:28
PROVIDERS: PCP Internal Medicine; Visit Provider Internal Medicine Nephrology
DX: N18.31 Chronic kidney disease, stage 3a (principal); K74.69 Other cirrhosis of liver; I35.0 Nonrheumatic aortic (valve) stenosis; D63.1 Anemia in chronic kidney disease
CPT/HCPCS: 36415; 80053; 82306; 82570; 82728; 83540; 83735; 83970; 84100; 84156; 84550; 85025

== ENCOUNTER 2024-12-16 07:52 | Outpatient (REF) | payer OTHER, MEDICARE, SELFPAY ==
--- NOTE | ~2024-12-16 | US_ITS ---
EXAMINATION: Noninvasive assessment of the bilateral lower extremities with ARTERIAL DUPLEX, ANKLE BRACHIAL INDICES (ABIs), and PULSE VOLUME RECORDINGS (PVRs). CLINICAL INFORMATION: Peripheral vascular disease, unspecified. TECHNIQUE: Duplex Doppler techniques with waveform analysis and measurement of velocities in the bilateral common femoral, profunda femoris, superficial femoral, popliteal and tibial arteries were performed. Additionally, ankle pulse volume recordings, ankle pressure measurements and ankle brachial indices were obtained of the lower extremity arterial system bilaterally. The study was performed only at rest. COMPARISON: None FINDINGS: DIRECT DUPLEX DOPPLER FINDINGS: RIGHT LEG: Common femoral artery: 116 cm/s, phasicity: Triphasic. Profunda femoris artery: 88 cm/s, phasicity: Biphasic. Superficial femoral artery (proximal): 71 cm/s, phasicity: Biphasic. Superficial femoral artery (mid): 110 cm/s, phasicity: Triphasic. Superficial femoral artery (distal): 123 cm/s, phasicity: Triphasic. Popliteal artery: 93 cm/s, phasicity: Monophasic. Posterior tibial artery: 131 cm/s, phasicity: Monophasic. Peroneal artery: 79 cm/s, phasicity: Monophasic. Spectral broadening. Anterior tibial artery: 101 cm/s, phasicity: Monophasic. Spectral broadening. Dorsalis pedis artery: 59 cm/s, phasicity:Monophasic. Spectral broadening. LEFT LEG: Common femoral artery: 121 cm/s, phasicity: Biphasic. Profunda femoris artery: 92 cm/s, phasicity: Monophasic. Superficial femoral artery (proximal): 94 cm/s, phasicity: Biphasic. Superficial femoral artery (mid): 100 cm/s, phasicity: Biphasic. Superficial femoral artery (distal): 100 cm/s, phasicity: Triphasic. Popliteal artery: 96 cm/s, phasicity: Triphasic. Spectral broadening. Posterior tibial artery: 104 cm/s, phasicity: Monophasic. Spectral broadening. Peroneal artery: 42 cm/s, phasicity: Monophasic. Spectral broadening. Anterior tibial artery: 35 cm/s, phasicity: Monophasic. Spectral broadening. Dorsalis pedis artery: 36 cm/s, phasicity: Monophasic. Spectral broadening. 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 Left leg: Severe inflow disease from the peroneal artery to the dorsalis pedis artery. Electronically signed by: Eric Lewis MD 12/17/2024 09:19 AM EDT
== END 2024-12-16 07:53 | disposition home or self-care (01) ==
LOC: HO.US 07:52
PROVIDERS: PCP Internal Medicine; Visit Provider Surgery Vascular Surgery
DX: I73.9 Peripheral vascular disease, unspecified (principal)
CPT/HCPCS: 93922; 93925

== ENCOUNTER → 2024-12-16 07:55 | Outpatient (BNV) | payer OTHER, MEDICARE, SELFPAY | PROVIDERS: PCP Internal Medicine; Visit Provider Radiology Diagnostic Radiology | DX: I73.9 Peripheral vascular disease, unspecified (principal) | CPT/HCPCS: 93922; 93925 ==

== ENCOUNTER 2024-12-31 10:25 | Outpatient (AMB) | payer OTHER, MEDICARE, SELFPAY ==
[2024-12-31 10:30] VITALS: BMI 23.0
--- NOTE | 2024-12-31 10:30 | A.OFFVIS_ITS ---
Vital Signs 12/31/24 10:30 Height 5 ft 5 in Weight 138 lb BMI 23.0 Intake Visit Reasons: 6m follow up s/p Arterial US 12/16/24 Intake Note: 6 mo follow up Arterial US 12/16/24 for bilateral LE pain. Right LE worse than Left LE worse with ambulation. Pt states he did have some cardiac procedures within the past few months. A mechanical valve replacement and a cardiac cath @ [facility]. Accompanied by: Self / Same As Patient Allergies shellfish derived [SHELLFISH DERIVED] Allergy (Severe, Verified 12/31/24 10:34) ANAPHYLAXIS acetazolamide Adverse Reaction (Verified 12/31/24 10:34) Confusion HPI HPI 6m follow up s/p Arterial US 12/16/24: Details: The patient is a 54-year-old male presenting for a six-month follow-up for peripheral arterial disease classification monitoring. He underwent aortic valve replacement through [facility], followed by coronary arterial stenting seven to ten days thereafter. Subsequent to his procedures, he experienced some limitations in exercise tolerance,. He reported episodes of lightheadedness earlier post- procedure, now resolved. Upon discussion with him he is able to ambulate a proximally a block and able to climb a flight of stairs. He is able to carry out his daily activities. Denies any lower extremity issues including ulcerations. Now presents for routine surveillance follow-up with ultrasound. [facility] Medical History Hypertension Congestive heart failure CHF (congestive heart failure) Uncontrolled hypertension Aortic stenosis Hypertensive urgency Acute on chronic diastolic (congestive) heart failure Chronic kidney disease Cataract Psoriatic arthritis Cirrhosis of liver not due to alcohol Diabetes Surgical History No pertinent past surgical history Family History Mother CHF (congestive heart failure) Father No problems noted. Social History Household Members: Spouse Housing: Condominium Do you presently have visiting nurse or other home services: No Alcohol intake: current Alcohol intake frequency: holidays/special occasions only Comment: patient steady with ambulation,ind. Patient Tobacco Use Status: Never used Tobacco Substance Use Type: Marijuana Advance Directives Date on File: 12/21/23 service: No Current occupational status: disabled Review of Systems Const All systems reviewed & are unremarkable except as noted in HPI and below Reports no additional complaints ENT Reports Normal hearing present Card Denies chest pain, Denies chest pain at rest, Denies chest pain with activity and Denies pedal edema Resp Denies cough GI Denies abdominal pain Musc Denies abnormal gait, Denies muscle cramps and Denies radiating pain into limb Skin/Breast Denies skin ulcer and Denies wounds Neuro Reports Normal hearing present and Denies abnormal gait Psych Reports no additional complaints Physical Exam Vital Signs: BMI result Body Mass Index 23.0 Const General: cooperative, healthy appearing and comfortable Orientation/consciousness: oriented to person, oriented to place and oriented to time HEENT Head: Yes normal to inspection Neck Neck: Yes normal visual inspection Carotids: no bruits Chest Chest palpation & inspection: normal inspection of the chest Resp Effort & Inspection: normal respiratory effort and able to speak in complete sentences Auscultation: clear to auscultation bilaterally, no crackles, no rales, no rhonchi and no wheezes Cardio Other: Bilateral DP signals Rate: regular rate Rhythm: regular rhythm Heart sounds: S1 normal heart sound present and S2 normal heart sound present Bruits: no carotid bruits Peripheral pulses: Peripheral pulses 2+ throughout GI Inspection: Yes normal to inspection Skin Wounds: no wounds Hair: normal Neuro General: oriented to person, oriented to place and oriented to time Cranial nerves: Yes CN's II-XII intact bilaterally and Yes Normal hearing present Cognition (Neuro): normal cognition Motor exam (neuro): 5/5 motor strength present throughout Extrem Other: venous exam: No significant superficial varicosities or spider telangiectasias, minimal edema General: No clubbing, No cyanosis and No edema Psych Appearance: grossly normal Mental Status: mental status grossly normal Speech and movement: Normal speech and movement present Results Reviewed Results Reviewed: Arterial ultrasound dated 12/16/2024 demonstrates bilateral below-knee disease. Goes from a multi phasic flow to monophasic flow bilaterally. Written report and images were reviewed. Unfortunately ABIs were unable to be obtained. Assessment & Plan Assessment & Plan (1) PAD (peripheral artery disease): Code(s): I73.9 - Peripheral vascular disease, unspecified Category: Medical Plan: In short patient has stable claudication. I did review the pathophysiology of peripheral vascular disease with the patient. In addition we did discuss routine conservative measures including a healthy diet and the importance of exercise and ambulation. We did discuss risk factor modification. The patient will continue to to follow-up with surveillance follow-up in approximately 6 months. Thank you for allowing us to participate in this patient's care. If there are any questions or concerns please do not hesitate to contact us. Plan Patient was informed and verbally consented to the use of an ambient scribe for clinic note documentation during this visit. Orders: Orders US arterial duplex LE BI 6 Months I73.9 - Peripheral vascular disease, unsp ecified Patient Instructions: - Continue cardiac rehabilitation as scheduled. - Gradually increase daily physical activity, focusing on manageable goals like walking distances. - Monitor blood pressure regularly and report significant changes to primary care. - Follow a heart-healthy diet and maintain weight control measures. - Return for follow-up in six months unless otherwise instructed by a healthcare provider. - Seek medical attention if experiencing new or worsening symptoms, such as chest pain or significant leg pain during minimal exertion. Coding Level of Care Code Est Pt Level 4 (16345) Complex EM visit Add On G2211 Diagnoses PAD (peripheral artery disease) I73.9
--- OUTSIDE RECORDS SUMMARY | 2024-12-31 12:18 | XMS_ITS | Clinical Summary ---
Author Organization [facility] Address [address] [place] [address] Care Team Providers Care Doper Name Role Phone Martínez Dunn Primary Care Provider [phone] Allergies Active Allergy Reactions Criticality Noted Date [...] DTaP,Tdap,and Td Vaccines (1 - Tdap) 1990 Pneumococcal Vaccine: 50+ Ye ars (1 of 1 - PCV) 2018 Zoster Vaccines (1 of 2) 2018 COVID-19 Vaccine (4 - 2023- season) 2024 10/15/2021, 01/11/2021, 12/14/2020 Influenza Vaccine (#1) 2024 08/16/2021 Alcohol/Substance Use Screening 10/02/2024 RSV Vaccine (60+ years old a nd patients) (1 - 1-dose 75+ series) 2043 Medical Devices Implanted Type Area Compensator Worker Device Identifier Shelf Expiration Date Model / Serial / Lot Lens Intraocular Ashperic Natural Single Piece Acrylic With Blue Light Filter [id number] 23.0d - [id number] - [id number] Implanted:Qty: 1 on 12/14/2021 by Omega Franco MD at [facility] Lens Right: Eye YESY 07/31/2026 SN60WF 23.0 / [id number] / Retisert Implanted:Qty: 1 on 12/14/2021 by Omega Franco MD at [facility] Right: Eye BAUSCH AND LOMB 03/01/2023 [id number]- 01 / [id number] / [id number] Insurance [facility] Advance Directives Documents on File Type Date Recorded Patient Dry Roaster Expl anation Health Care Proxy 02/24/2022 12:02 PM 05-2 * Presumed Full Code (Latest Code Status on File) Date Activated Date Inactivated Comments 02/24/2022 11:45 AM 02/24/2022 4:36 PM * Presumed Full Code Date Activated Date Inactivated Comments 12/14/2021 7:20 AM 12/14/2021 12:36 PM Care Teams Doper Relationship Specialty Start Date End Date Martínez Dunn [address] [place] [address] [place] [address] PCP - General Internal Medicine 02/24/22
--- OUTSIDE RECORDS SUMMARY | 2024-12-31 12:18 | XMS_ITS | Referral Summary ---
Author Organization [facility] Address [address] [place] [address] Care Team Providers Care Driver Supervisor Name Role Phone Martínez Dunn Primary Care Provider [phone] Allergies Active Allergy Reactions Criticality Noted Date [...] on file Medical Devices Implanted Type Area Woodwork Salvage Inspector Device Identifier Shelf Expiration Date Model / Serial / Lot Lens Intraocular Ashperic Natural Single Piece Acrylic With Blue Light Filter [id number] 23.0d - [id number] - [id number] Implanted:Qty: 1 on 12/14/2021 by Omega Franco MD at [facility] Lens Right: Eye YESY 07/31/2026 SN60WF 23.0 / [id number] / Retisert Implanted:Qty: 1 on 12/14/2021 by Omega Franco MD at [facility] Right: Eye BA[employer]CH [employer] LOMB 03/01/2023 [id number] 01 / [id number] / [id number] Insurance [employer] Advance Directives Documents on File Type Date Recorded Patient Technology Applications Consultant Expl [facility] Health Care Proxy 02/24/2022 12:02 PM -2 * Presumed Full Code (Latest Code Status on File) Date Activated Date Inactivated Comments 02/24/2022 11:45 AM 02/24/2022 4:36 PM * Presumed Full Code Date Activated Date Inactivated Comments 12/14/2021 7:20 AM 12/14/2021 12:36 PM Care Teams Driver Supervisor Relationship Specialty Start Date End Date Martínez Dunn [address] [place] [address] [place] [address] PCP - General Internal Medicine 02/24/22
--- OUTSIDE RECORDS SUMMARY | 2024-12-31 12:18 | XMS_ITS | Clinical Summary ---
Author Organization [facility] Address [address] [address] Phone Care Team Providers Care Statistical Secretary Name Role Phone Martínez Dunn MD Primary Care Provider [phone] Allergies Active Allergy Reactions Criticality Noted Date [...] solution 20,000 UnitsIndications:Anemia in chronic kidney disease 24998 Units IJ Once 10/08/2024 A ctive Active Problems Problem Noted Date Diagnosed Date [...] Encounters Date Type Department Care Team Description 11/13/2024 Orders Only [facility] [address] [phone] Yuri Chance MD Stage 3a chronic kidney disease (HCC); Psoriatic arthritis (HCC); Proteinuria, not otherwise specified; Other cirrhosis of liver (HCC); Aortic valve stenosis; Cerebrovascular accident (HCC); Acute nontraumatic kidney injury, not otherwise specified (HCC); Anemia in chronic kidney disease; Iron deficiency anemia, not otherwise specified 11/06/2024 9:00 AM EST Clinical Support [facility] [place] [address] [place] [address] Anemia in chronic kidney disease (Primary Dx) 11/06/2024 8:00 AM EST Office Visit [facility] [address] [phone] Yuri Chance MD Stage 3a chronic kidney disease (HCC) (Primary Dx); Psoriatic arthritis (HCC); Proteinuria, not otherwise specified; Other cirrhosis of liver (HCC); Aortic valve stenosis; Cerebrovascular accident (HCC); Acute nontraumatic kidney injury, not otherwise specified (HCC); Anemia in chronic kidney disease; Iron deficiency anemia, not otherwise specified 11/06/2024 Office Communication [facility] [address] [phone] Yuri Chance MD 11/06/2024 Orders Only [facility] [address] [phone] Yuri Chance MD Stage 3a chronic kidney disease (HCC); Other cirrhosis of liver (HCC); Aortic valve stenosis; Anemia in chronic kidney disease 10/30/2024 Orders Only [facility] [address] [phone] Yuri Chance MD 10/08/2024 9:45 AM EST Clinical Support [facility] [address] [phone] Anemia in chronic kidney disease (Primary Dx) 10/04/2024 Documentation Only [facility] [address] [phone] Reema Jordan from Last 3 Months Family History Medical [...] Sign Reading Time Taken Comments Blood Pressure 122/70 11/06/2024 4:45 PM EST Pulse 75 11/06/2024 8:05 AM EST Temperature - - Respiratory Rate 22 01/31/2024 9:15 AM EDT Oxygen Saturation 98% 11/06/2024 8:05 AM EST Inhaled Oxygen Concentration - - Weight 64.4 kg (142 lb) 11/06/2024 8:05 AM EST Height 162.6 cm (5' 4 ) 08/06/2024 10:43 AM EST Body Mass Index 24.37 08/06/2024 10:43 AM EST Plan of Treatment Upcoming Encounters Date Type Department Care Team (Late st Contact Info) Description 01/30/2025 9:00 AM EDT Office Visit [facility] [address] [phone] Yuri Chance MD [address] [phone] Health Maintenance Due Date Last Done Comments [...] Associated Diagnosis Comments EXT RESULT ENTRY Routine 12/04/2024 6:01 PM EST EXT RESULT ENTRY Routine 12/04/2024 EXT RESULT ENTRY Routine 11/26/2024 EXT RESULT ENTRY Routine 11/12/2024 PTH, INTACT (HC) Routine 10/30/2024 10:2 9 AM EST FERRITIN Routine 10/30/2024 10:29 AM EST Stage 3a chronic kidney disease (HCC) Other cirrhosis of liver (HCC) Aortic valve stenosis Anemia in chronic kidney disease IRON PANEL (FE, TIBC, TSAT) Routine 10/30/2024 10:29 AM EST Stage 3a chronic kidney disease (HCC) Other cirrhosis of liver (HCC) Aortic valve stenosis Anemia in chronic kidney disease CBC AND DIFFERENTIAL Routine 10/30/2024 10:29 AM EST Stage 3a chronic kidney disease (HCC) Other cirrhosis of liver (HCC) Aortic valve stenosis Anemia in chronic kidney disease VITAMIN D 25 HYDROXY Routine 10/30/2024 10:29 AM EST Stage 3a chronic kidney disease (HCC) Other cirrhosis of liver (HCC) Aortic valve stenosis Anemia in chronic kidney disease PHOSPHATE ( PHOSPHORUS) Routine 10/30/2024 10:29 AM EST Stage 3a chronic kidney disease (HCC) Other cirrhosis of liver (HCC) Aortic valve stenosis Anemia in chronic kidney disease MAGNESIUM Routine 10/30/2024 10:29 AM EST Stage 3a chronic kidney disease (HCC) Other cirrhosis of liver (HCC) Aortic valve stenosis Anemia in chronic kidney disease URIC ACID Routine 10/30/2024 10:29 AM EST Stage 3a chronic kidney disease (HCC) Other cirrhosis of liver (HCC) Aortic valve stenosis Anemia in chronic kidney disease COMPREHENSIVE METABOLIC PANEL Routine 10/30/2024 10:29 AM EST Stage 3a chronic kidney disease (HCC) Other cirrhosis of liver (HCC) Aortic valve stenosis Anemia in chronic kidney disease PROTEIN / CREATININE RATIO, URINE Routine 10/30/2024 10:12 AM EST Stage 3a chronic kidney disease (HCC) Other cirrhosis of liver (HCC) Aortic valve stenosis Anemia in chronic kidney disease from Last 3 Months Results * (ABNORMAL) EXT RESULT ENTRY (12/04/2024 6:01 PM EST) Only the most recent of4 resultswithin the time period is included. Hemoglobin 8.5(A) 13.5 - 17.5 12/04/2024 6:01 PM EST [facility] Provider MD LAB BLOOD ORDERABLES Esperanza l Result * PTH, Intact (10/30/2024 10:29 AM EST) Pathologist [facility] Parathyroid Hormone, Intact 64.8 8.7 - 77.1 pg/mL See order comments 10/30/2024 10:2 9 AM EST 10/30/2024 10:29 AM EST Yuri Chance MD LAB [id number] SOLICITED RESULTS Final Result Performing Organization Address [facility] Co de Phone Number EDUIN See order comments [place] [address] * Iron Panel (Fe, TIBC, TSAT) (10/30/2024 10:29 AM EST) Pathologist [facility] Iron 47 45 - 160 mcg/dL See order comments Comment:Slight Hemolysis.Int erpret result with caution. TIBC 284 228 - 428 mcg/dL See order comments Iron Saturation (TSat) 17 15 - 50 % See order comments UIBC 237 ug/dL See order comments Blood (Blood, Venous) 10/30/2024 10:29 AM EST 10/30/2024 10:29 AM EST Yuri Chance MD LAB BLOOD ORDERABLES Final Re sult Performing Organization Address [facility] Co de Phone Number [email or web address] See order comments [place] [address] * Vitamin D 25 Hydroxy (10/30/2024 10:29 AM EST) Vitamin D, 25-Hydroxy 37.4 >30 ng/mL See order comments Comment: Health [...] confirmed with another method such as LC-MS/MS. Blood (Blood, Venous) 10/30/2024 10:29 AM EST 10/30/2024 10:29 AM EST us Yuri Chance MD LAB BLOOD ORDERABLES Final Re sult [place] See order comments [place] [address] * (ABNORMAL) CBC and Differential (10/30/2024 10:29 AM EST) WBC 5.9 4.8 - 10.8 X10*3/uL See order comments RBC 3.39(L) 4.60 - 5.80 X10*6/uL See order comments Hgb 9.5(L) 14.0 - 18.0 g/dl See order comments Hematocrit 30.3(L) 42.0 - 52.0 % See order comments MCV 89.4 80.0 - 98.0 fL See order comments MCH 28.0 27.0 - 33.0 pg See order comments MCHC 31.4 31.0 - 36.0 g/dl See order comments RDW 13.5 11.0 - 16.0 % See order comments Platelets 187 160 - 400 X10*3/uL See order comments MPV 11.0 9.4 - 12.4 fL See order comments Neutrophils % Auto 68.0 45 - 73 % See order comments Immature Granulocytes 0.5(H) 0.0 - 0.4 % See order comments Lymphocytes Relative 17.1(L) 20 - 40 % See order comments Monocytes 7.8 2 - 11 % See order comments Eosinophils Relative 5.4(H) 0 - 4 % See order comments Basophils Relative 1.2 0 - 2 % See order comments nRBC Count 0.0 0.0 - 0.2 /100WBC See order comments Neutrophils Absolute 4.0 2.0 - 8.3 x10*3/uL See order comments Immature Grans (Absolute) 0.03 0.00 - 0.03 X10*3/uL See order comments Lymphocytes Absolute 1.0(L) 1.2 - 4.9 X10*3/uL See order comments Monocytes Absolute 0.5 0.1 - 1.2 X10*3/uL See order comments Eosinophils Absolute 0.3 0.0 - 0.4 X10*3/uL See order comments Basophils Absolute 0.1 0.0 - 0.2 X10*3/uL See order comments NRBC Absolute 0.000 0.0 - 0.012 X10*3/uL See order comments Blood (Blood, Venous) 10/30/2024 10:29 AM EST 10/30/2024 10:29 AM EST Yuri Chance MD LAB BLOOD ORDERABLES Final Re sult Performing Organization Address [facility] de Phone Number [facility] See order comments [place] [address] * Uric Acid (10/30/2024 10:29 AM EST) Uric Acid 7.0 3.4 - 7.0 mg/dL See order comments Blood (Blood, Venous) 10/30/2024 10:29 AM EST 10/30/2024 10:29 AM EST Yuri Chance MD LAB BLOOD ORDERABLES Final Re sult Performing Organization Address [facility] de Phone Number [place] See order comments [place] [address] * Phosphorus (10/30/2024 10:29 AM EST) Phosphorus, Serum 4.5 2.7 - 4.5 mg/dL See order comments Blood (Blood, Venous) 10/30/2024 10:29 AM EST 10/30/2024 10:29 AM EST us Yuri Chance MD LAB BLOOD ORDERABLES Final Re sult Performing Organization Address [facility] de Phone Number [place] See order comments [place] [address] * Magnesium (10/30/2024 10:29 AM EST) Magnesium 2.3 1.6 - 2.6 mg/dL See order comments Blood (Blood, Venous) 10/30/2024 10:29 AM EST 10/30/2024 10:29 AM EST us Yuri Chance MD LAB BLOOD ORDERABLES Final Re sult Performing Organization Address [facility] de Phone Number [place] See order comments [place] [address] * Ferritin (10/30/2024 10:29 AM EST) Ferritin 44 20 - 250 ng/mL See order comments Blood (Blood, Venous) 10/30/2024 10:29 AM EST 10/30/2024 10:29 AM EST us Yuri Chance MD LAB BLOOD ORDERABLES Final Re sult Performing Organization Address [facility] Phone Number [place] See order comments [place] [address] * (ABNORMAL) Comprehensive Metabolic Panel (10/30/2024 10:29 AM EST) Sodium 130(L) 135 - 145 mmol/L See order comments Potassium 5.2(H) 3.3 - 5.1 mmol/L See order comments Comment:Slight Hemolysis.Int erpret result with caution. Chloride 102 96 - 108 mmol/L See order comments Bicarbonate (CO2) 19(L) 22 - 29 mmol/L See order comments Anion Gap 14 12 - 20 See order comments BUN 44(H) 9 - 16 mg/dL See order comments Creatinine Serum 2.67(H) 0.5 - 1.4 mg/dL See order comments eGFR 25 See order comments Comment: Chronic Kidney Disease: ??Estimated GFR < 60 mL/min/1.73m2 Severe Kidney Disease: ??Estimated GFR < 15 mL/min/1.73m2 Glucose 343(H) 60 - 115 mg/dL See order comments Calcium 8.9 8.4 - 10.2 mg/dL See order comments Total Bilirubin 0.2 0.0 - 1.0 mg/dL See order comments AST (SGOT) 25 5 - 37 U/L See orde r comments Comment:Slight Hemolysis.Int erpret result with caution. ALT (SGPT) 13 0 - 40 U/L See orde r comments Total Protein 8.1(H) 6.5 - 8.0 g/dL See order comments Albumin 4.3 3.5 - 5.0 g/dL See order comments Alkaline phosphatase 45 39 - 117 U/L See order comments Blood (Blood, Venous) 10/30/2024 10:29 AM EST 10/30/2024 10:29 AM EST us Yuri Chance MD LAB BLOOD ORDERABLES Final Re sul Performing Organization Address [facility] de Phone Number [place]AK[place] See order comments [place] [address] * (ABNORMAL) Protein, Total, Random Urine w/Creatinine (Protein/Creat Ratio) (10/30/2024 10:12 AM EST) Creatinine, Urine 40.99 mg/dL See order comments Protein Urine Random 41(H) <12 mg/dL See order comments Protein/Creati nine Ratio, Urine 1.00(H) <0.2 See order comments Comment: The spot urine protein:creatinine ratio may increase to 0.3 during normal . Urine (Urine, Clean Catch) 10/30/2024 10:12 AM EST 10/30/2024 10:12 AM EST us Yuri Chance MD LAB URINE ORDERABLES Final Re sult Performing Organization Address [facility] Co de Phone Number [place] See order comments [place] [address] from Last 3 Months Insurance [facility] MEDICARE MEDICARE [facility] [facility] [employer] Care Teams Statistical Secretary Relationship Specialty Start Date End Date Martínez Dunn MD [address] [place] [address] [id number] [facility] [place] PCP - General Internal Medicine 11/17/22
--- OUTSIDE RECORDS SUMMARY | 2024-12-31 12:19 | XMS_ITS | Clinical Summary ---
Author Organization [facility] Address [address] [place] [address] Care Team Providers Care Top Trimmer Name Role Phone Unavailable Primary Care Provider Unavailabl e Medications spironolactone (ALDACTONE) 100 mg tabletIndicatio ns:Alcoholic cirrhosis of liver without ascites (CMS/HCC) TAKE 3 TABLETS BY MOUTH ONCE A DAY DIRECTED 270 tablet 1 11/05/2024 Active Social History Tobacco Use Types Packs/Day Years Used Date Smoking Tobacco: Never Assessed Sex and Gender Information Value Date Recorded Sex Assigned at Not on file Legal Sex Male 7:57 PM EST Gender Identity Not on file Sexual Orientation Not on file Plan of Treatment Health Maintenance Due Date Last Done Comments DTaP,Tdap,and Td Vaccines (1 - Tdap) 1987 Hepatitis A Vaccines (1 of 2 - Risk 2-dose series) 1987 Pneumococcal Vaccine: 50+ Years (1 of 2 - PCV) 1987 Pneumococcal Vaccine: Pediatrics (0 to 5 Years) and At-Risk Patients (6 to 64 Years) (1 of 2 - PCV) 1987 Zoster Vaccines (1 of 2) 2018 Cholesterol Screening (Lipid Panel) 09/03/2022 Colorectal Cancer Screening: Colonoscopy 09/03/2022 Depression Screening 09/03/2022 HIV Screening 09/03/2022 Hepatitis C Screening 09/03/2022 Social Influencers of Health Screening 09/03/2022 COVID-19 Vaccine (2023-2 5 season) 2024 Influenza Vaccine (Season Ended) 2025 Hepatitis B Vaccines Completed 07/01/2019, 01/28/2019, 12/28/2018 [...] patient's age to complete this topic Meningococcal B Vacine Aged Out No lo nger eligible based on patient's age to complete this topic RSV Immunization Patients Under 20 months Aged Out No longer eligible b ased on patient's age to complete this topic Varicella Vaccines Aged Out No longer eligible based on patient's age to complete this topic
== END 2024-12-31 10:58 | disposition home or self-care (01) ==
LOC: HO.HVS 10:26
PROVIDERS: PCP Internal Medicine; Visit Provider Surgery Vascular Surgery
DX: I73.9 Peripheral vascular disease, unspecified (principal)
CPT/HCPCS: 99214

== ENCOUNTER → 2024-12-31 10:25 | Outpatient (BNVA) | payer OTHER, MEDICARE, SELFPAY | PROVIDERS: PCP Internal Medicine; Visit Provider Surgery Vascular Surgery ==

== ENCOUNTER 2025-01-17 07:53 | Outpatient (REF) | payer OTHER, MEDICARE, SELFPAY ==
--- OUTSIDE RECORDS SUMMARY | 2025-01-17 07:56 | XMS_ITS | Referral Summary ---
Author Organization [facility] Address [address] [place] [address] Care Team Providers Care Nursing Home Aide Name Role Phone Martínez Dunn Primary Care Provider [phone] Allergies Active Allergy Reactions Criticality Noted Date [...] on file Medical Devices Implanted Type Area Barrel Tester And Drainer Device Identifier Shelf Expiration Date Model / Serial / Lot Lens Intraocular Ashperic Natural Single Piece Acrylic With Blue Light Filter [id number] 23.0d - [id number] - [id number] Implanted:Qty: 1 on 12/14/2021 by Omega Franco MD at [facility] Lens Right: Eye YESY 07/31/2026 [id number] 23.0 / [id number] / Retisert Implanted:Qty: 1 on 12/14/2021 by Omega Franco MD at [facility] Right: Eye BAUSCH AND LOMB 03/01/2023 [id number] / [id number] / [id number] Insurance HNE Advance Directives Documents on File Type Date Recorded Patient [employer] [facility] Health Care Proxy 02/24/2022 12:02 PM -2 * Presumed Full Code (Latest Code Status on File) Date Activated Date Inactivated Comments 02/24/2022 11:45 AM 02/24/2022 4:36 PM * Presumed Full Code Date Activated Date Inactivated Comments 12/14/2021 7:20 AM 12/14/2021 12:36 PM Care Teams Nursing Home Aide Relationship Specialty Start Date End Date Martínez Dunn [address] [place] [address] [place] [address] PCP - General Internal Medicine 02/24/22
--- OUTSIDE RECORDS SUMMARY | 2025-01-17 07:56 | XMS_ITS | Clinical Summary ---
Author [facility] Address [address] [place] [address] Care Team Providers Care Salt [employer]her [employer] Name Role Phone Unavailable Primary Care Provider Unavailabl e Medications spironolactone (ALDACTONE) 100 mg tabletIndicatio ns:Alcoholic cirrhosis of liver without ascites (CMS/HCC V24, CMS/HCC V28) TAKE 3 TABLETS BY MOUTH ONCE A [...] age to complete this topic Meningococcal B Vaccine Aged Out No l onger eligible based on patient's age to complete this topic RSV Immunization Patients Under 20 months Aged Out No longer eligible b ased on patient's age to complete this topic Varicella Vaccines Aged Out No longer eligible based on patient's age to complete this topic
--- OUTSIDE RECORDS SUMMARY | 2025-01-17 07:56 | XMS_ITS | Clinical Summary ---
Author Organization [facility] Address [address] [address] Phone Care Team Providers Care Social Service Director Name Role Phone Martínez Dunn MD Primary Care Provider [phone] Allergies Active Allergy Reactions Criticality Noted Date [...] solution 20,000 UnitsIndications:Anemia in chronic kidney disease 40691 Units IJ Once 10/08/2024 A ctive Epoetin Chi-epbx solution 20,000 UnitsIndications:Anemia in chronic kidney disease 83220 Units IJ Once 01/07/2025 01/07/2025 E nded Active Problems Problem Noted Date Diagnosed Date [...] Encounters Date Type Department Care Team Description 01/07/2025 9:45 AM EDT Clinical Support [facility] [address] [place] [phone] Anemia in chronic kidney disease (Primary Dx) 01/01/2025 Office Communication [facility] [address] [phone] Alaina Engel 11/13/2024 Orders Only [facility] [address] [phone] Yuri Chance MD Stage 3a chronic kidney disease (HCC); Psoriatic arthritis (HCC); Proteinuria, not otherwise specified; Other cirrhosis of liver (HCC); Aortic valve stenosis; Cerebrovascular accident (HCC); Acute nontraumatic kidney injury, not otherwise specified (HCC); Anemia in chronic kidney disease; Iron deficiency anemia, not otherwise specified 11/06/2024 9:00 AM EST Clinical Support [facility] [address] [address] Anemia in chronic kidney disease (Primary Dx) 11/06/2024 8:00 AM EST Office Visit [facility] [address] [phone] Yuri Chance MD Stage 3a chronic kidney disease (HCC) (Primary Dx); Psoriatic arthritis (HCC); Proteinuria, not otherwise specified; Other cirrhosis of liver (HCC); Aortic valve stenosis; Cerebrovascular accident (HCC); Acute nontraumatic kidney injury, not otherwise specified (HCC); Anemia in chronic kidney disease; Iron deficiency anemia, not otherwise specified 11/06/2024 Office Communication [facility] [address] [phone] Yuri Chance MD 11/06/2024 Orders Only [facility] [address] [phone] Yuri Chance MD Stage 3a chronic kidney disease (HCC); Other cirrhosis of liver (HCC); Aortic valve stenosis; Anemia in chronic kidney disease 10/30/2024 Orders Only [facility] [address] [phone] Yuri Chance MD from Last 3 Months Family History Medical [...] Sign Reading Time Taken Comments Blood Pressure 130/60 01/07/2025 3:13 PM EDT Pulse 75 11/06/2024 8:05 AM EST Temperature [...] Office Visit [facility] [address] [place] [phone] Yuri Chance MD [facility] [address] [phone] 02/03/2025 Orders Only [facility] [address] [phone] Yuri Chance MD [address] [phone] Stage 3a chronic kidney disease (HCC); Psoriatic arthritis (HCC); Proteinuria, not otherwise specified; Other cirrhosis of liver (HCC); Aortic valve stenosis; Cerebrovascular accident (HCC); Acute nontraumatic kidney injury, not otherwise specified (HCC); Anemia in chronic kidney disease Health Maintenance Due Date Last Done Comments Hepatitis B Vaccine (1 of 3 - 19+ 3-dose series) 05/02 Pneumococcal Vaccine: 50+ Years (1 of 2 - PCV) 987 Colorectal Cancer Screening: Annual FOBT 2017 Colorectal Cancer Screening: Colonoscopy 2017 Colorectal Cancer Screening: Sigmoidoscopy 2017 Influenza Vaccine (Season Ended) 2025 Procedures Procedure Name Priority Date/Time Associated Diagnosis Comments POCT HEMOGLOBIN Routine 01/07/2025 3:14 PM EDT Anemia in chronic kidney disease EXT RESULT ENTRY Routine 12/04/2024 6:01 PM [...] disease from Last 3 Months Results * POCT hemoglobin (01/07/2025 3:14 PM EDT) Hemoglobin 9.1 Blood Capillary 01/07/2025 3 :14 PM EDT Marco Duggan MD POINT OF CARE TEST OR DERABLES Final Result * (ABNORMAL) EXT RESULT ENTRY (12/04/2024 6:01 PM EST) Only the most recent of4 resultswithin the time period is included. Hemoglobin 8.5(A) 13.5 - 17.5 12/04/2024 6:01 PM EST Historical Provider LAB BLOOD ORDERABLES Esperanza l Result * PTH, Intact (10/30/2024 10:29 AM EST) Parathyroid Hormone, Intact 64.8 8.7 - 77.1 pg/mL See order comments 10/30/2024 10:2 9 AM EST 10/30/2024 10:29 AM EST us Yuri Chance MD LAB [id number] SOLICITED RESULTS Final Result Performing Organization Address [facility] Co de Phone Number ZAKIA See order comments [place] [address] * Iron Panel (Fe, TIBC, TSAT) (10/30/2024 10:29 AM EST) Iron 47 45 - 160 mcg/dL See [...] ORDERABLES Final Re sult Performing Organization Address [facility] de Phone Number ZAKIA See order comments [place] [address] * Vitamin D 25 Hydroxy (10/30/2024 10:29 [...] order comments [place] [address] * (ABNORMAL) CBC and Differential (10/30/2024 10:29 [...] 10:29 AM EST 10/30/2024 10:29 AM EST Result David Chance MD LAB BLOOD ORDERABLES Final Re sult Performing Organization Address [facility] Phone Number GOTHA See order comments [place] [address] * Uric Acid (10/30/2024 10:29 AM EST) Uric Acid 7.0 3.4 - 7.0 mg/dL See order comments Blood (Blood, Venous) 10/30/2024 10:29 AM EST 10/30/2024 10:29 AM EST Result David Chance MD LAB BLOOD ORDERABLES Final Re sult Performing Organization Address [facility] Phone Number GOTHA See order comments [place] [address] * Phosphorus (10/30/2024 10:29 AM EST) Phosphorus, Serum 4.5 2.7 - 4.5 mg/dL See order comments Blood (Blood, Venous) 10/30/2024 10:29 AM EST 10/30/2024 10:29 AM EST Result David Chance MD LAB BLOOD ORDERABLES Final Re sult Performing Organization Address [facility] Phone Number GOTHA See order comments [place] [address] * Magnesium (10/30/2024 10:29 AM EST) Magnesium 2.3 1.6 - 2.6 mg/dL See order comments Blood (Blood, Venous) 10/30/2024 10:29 AM EST 10/30/2024 10:29 AM EST Result David Chance MD LAB BLOOD ORDERABLES Final Re sult Performing Organization Address [facility] Phone Number GOTHA See order comments [place] [address] * Ferritin (10/30/2024 10:29 AM EST) Ferritin 44 20 - 250 ng/mL See order comments Blood (Blood, Venous) 10/30/2024 10:29 AM EST 10/30/2024 10:29 AM EST us Yuri Chance MD LAB BLOOD ORDERABLES Final Re sult ZAKIA See order comments [place] [address] * (ABNORMAL) Comprehensive Metabolic Panel (10/30/2024 10:29 [...] Chance MD LAB BLOOD ORDERABLES Final Re tiffanie Performing Organization Address [facility] Co de Phone Number ZAKIA See order comments [place] [address] * (ABNORMAL) Protein, Total, Random Urine w/Creatinine (Protein/Creat Ratio) (10/30/2024 10:12 AM EST) Creatinine, Urine 40.99 mg/dL See order comments Protein Urine Random 41(H) <12 mg/dL See order comments Protein/Creati nine Ratio, Urine 1.00(H) <0.2 See order comments Comment: The spot urine protein:creatinine ratio may increase to 0.3 during normal . Urine (Urine, Clean Catch) 10/30/2024 10:12 AM EST 10/30/2024 10:12 AM EST Yuri Chance MD LAB URINE ORDERABLES Final Re tiffanie Performing Organization Address [facility] Co de Phone Number ZAKIA See order comments [place] [address] from Last 3 Months Insurance [facility] Medicare Medicare [facility] Medicare Care Teams Social Service Director Relationship Specialty Start Date End Date Martínez Dunn MD [address] [place] [address] [address] [place] PCP - General Internal Medicine 11/17/22
--- OUTSIDE RECORDS SUMMARY | 2025-01-17 07:56 | XMS_ITS | Clinical Summary ---
Author Organization [facility] Address [address] [place] [address] Care Team Providers Care Hand Coke Drawer Name Role Phone Martínez Dunn Primary Care Provider [phone] Allergies Active Allergy Reactions Criticality Noted Date [...] Vaccines (1 of 2) 2018 COVID-19 Vaccine ( - season) 2024 10/15/2021, 01/11/2021, 12/14/2020 Alcohol/Substance Use Screening 10/02/2024 Influenza Vaccine (Season Ended) 2025 08/16/20 21 RSV Vaccine (60+ years old and patients) (1 - 1-dose 75+ series) 2043 Medical Devices Implanted Type Area Disk Sander Device Identifier Shelf Expiration Date Model / Serial / Lot Lens Intraocular Ashperic Natural Single Piece Acrylic With Blue Light Filter [id number] 23.0d - [id number] - [id number] Implanted:Qty: 1 on 12/14/2021 by Omega Franco MD at [facility] Lens Right: Eye YESY 07/31/2026 SN60WF 23.0 / [id number] / Retisert Implanted:Qty: 1 on 12/14/2021 by Omega Franco MD at [facility] Right: Eye [employer] LOMB 03/01/2023 [address]- 01 / [id number] / [id number] Insurance [facility] Advance Directives Documents on File Type Date Recorded Patient Application Software Engineer Expl anation Health Care Proxy 02/24/2022 12:02 PM -2 * Presumed Full Code (Latest Code Status on File) Date Activated Date Inactivated Comments 02/24/2022 11:45 AM 02/24/2022 4:36 PM * Presumed Full Code Date Activated Date Inactivated Comments 12/14/2021 7:20 AM 12/14/2021 12:36 PM Care Teams Hand Coke Drawer Relationship Specialty Start Date End Date Martínez Dunn [address] [place] [address] [place] [address] PCP - General Internal Medicine 02/24/22
[2025-01-17 10:01] LABS: MANUAL DIFF FLAG NO
[2025-01-17 10:07] LABS: Basophils Absolute Auto 0.1 X10*3/uL (0.0-0.2); Basophils Percent Auto 1.1 % (0-2); Eosinophils Absolute Auto 0.3 X10*3/uL (0.0-0.4); Eosinophils Percent Auto 4.7 % (0-4); Hematocrit 29.3 % (42.0-52.0); Hemoglobin 9.2 g/dl (14.0-18.0); Imm Gran Abs Auto 0.02 X10*3/uL (0.00-0.03); Imm Gran Pct Auto 0.4 % (0.0-0.4); Lymphocytes Absolute Auto 0.9 X10*3/uL (1.2-4.9); Mean Corpuscular HGB Conc 31.4 g/dl (31.0-36.0); Mean Corpuscular Hemoglobin 28.3 pg (27.0-33.0); Mean Corpuscular Volume 90.2 fL (80.0-98.0); Mean Platelet Volume 10.4 fL (9.4-12.4); Monocytes Absolute Auto 0.5 X10*3/uL (0.1-1.2); Monocytes Percent Auto 10.2 % (2-11); Neutrophils Absolute Auto 3.6 x10*3/uL (2.0-8.3); Neutrophils Percent Auto 67.6 % (45-73); Platelet Count 152 X10*3/uL (160-400); Red Blood Count 3.25 X10*6/uL (4.60-5.80); Red Cell Distribution Width 15.9 % (11.0-16.0); White Blood Count 5.3 X10*3/uL (4.8-10.8)
[2025-01-17 10:41] LABS: Creatinine Urine 44.13 mg/dL; Protein/Creatinine Ratio, Ur 1.54 (<0.2); Total Protein Urine Random 68 mg/dL (<12)
[2025-01-17 10:43] LABS: Alanine Aminotransferase 14 U/L (0-40); Albumin Level 4.4 g/dL (3.5-5.0); Anion Gap 14 (12-20); Aspartate Amino Transferase 18 U/L (5-37); Bilirubin Total 0.3 mg/dL (0.0-1.0); Blood Urea Nitrogen 40 mg/dL (9-16); Calcium 9.5 mg/dL (8.4-10.2); Carbon Dioxide 23 mmol/L (22-29); Chloride 105 mmol/L (96-108); Estimated Glomerular Filt Rate 35; Glucose Random 240 mg/dL (60-115); Iron 45 mcg/dL (45-160); Magnesium 2.2 mg/dL (1.6-2.6); Percent Iron Saturation 16 % (15-50); Phosphorus 4.2 mg/dL (2.7-4.5); Potassium 4.7 mmol/L (3.3-5.1); Sodium 137 mmol/L (135-145); Total Iron Binding Capacity 279 mcg/dL (228-428); Total Protein 7.8 g/dL (6.5-8.0); Unsaturated Iron Binding 234 ug/dL; Uric Acid 8.1 mg/dL (3.4-7.0)
[2025-01-17 10:48] LABS: Parathyroid Hormone Intact 79.6 pg/mL (8.7-77.1)
[2025-01-17 10:52] LABS: Ferritin 20 ng/mL (20-250); Vitamin D 25-OH Total 36.7 ng/mL (>30)
[2025-01-17 19:44] LABS: Alkaline Phosphatase 47 U/L (39-117)
== END 2025-01-17 07:54 | disposition home or self-care (01) ==
LOC: HO.HMGCLDS 07:53
PROVIDERS: Visit Provider Internal Medicine Nephrology
DX: N18.31 Chronic kidney disease, stage 3a (principal); R80.9 Proteinuria, unspecified; L40.50 Arthropathic psoriasis, unspecified; K74.69 Other cirrhosis of liver; I63.9 Cerebral infarction, unspecified; N17.9 Acute kidney failure, unspecified; D63.1 Anemia in chronic kidney disease
CPT/HCPCS: 36415; 80053; 82306; 82570; 82728; 83540; 83735; 83970; 84100; 84156; 84550; 85025

== ENCOUNTER 2025-01-27 10:11 | Outpatient (AMB) | payer OTHER, MEDICARE, SELFPAY ==
[2025-01-27 10:22] VITALS: BP 118/60; PULSE 83; TEMP 36.3; O2SAT 98; BMI 23.3
--- NOTE | 2025-01-27 10:22 | A.OFFPC_ITS ---
Vital Signs 01/27/25 10:22 Height 5 ft 5 in Weight 140 lb BMI 23.3 BP 118/60 Blood Pressure Location Lt brachial Position Sitting Pulse 83 Pulse Source Pulse Oximeter Temp 97.4 F Temp Source Axillary Pulse Oximetry (%) 98 Oxygen Delivery Method Room Air Intake Visit Reasons: Routine Polysom Tech Required: No Accompanied by: Self / Same As Patient Allergies shellfish derived [SHELLFISH DERIVED] Allergy (Severe, Verified 01/27/25 10:58) ANAPHYLAXIS acetazolamide Adverse Reaction (Verified 01/27/25 10:58) Confusion Medication List - Last Reconciled 01/27/25 by Bright De Souza MD acetaminophen 650 mg PO DAILY PRN amlodipine 10 mg See Protocol PO DAILY aspirin 81 mg PO DAILY atorvastatin 20 mg PO BEDTIME carvedilol 3.125 mg PO BID cholecalciferol (vitamin D3) 25 mcg PO DAILY furosemide 20 mg PO BID gabapentin 600 mg PO TID glipizide 5 mg PO DAILY hydralazine 100 mg PO BID 90 days isosorbide mononitrate ER 30 mg PO DAILY Jardiance (empagliflozin) 25 mg PO DAILY NS metformin 500 mg PO BID omeprazole 20 mg PO BID@0630,1630 polyethylene glycol 400 0.25% (Blink Gel Tears) drps ophthalmic (eye) secukinumab (Cosentyx Pen 300 mg/2 pens () 300 mg subcut QMONTH spironolactone 300 mg PO DAILY ticagrelor (Brilinta) 90 mg PO BID Tobacco use date assessed: 01/27/25 Dental Screening Dental Screen Date: 01/27/25 Did you have a dental visit in the last 12 months?: Yes Did you have a dental problem in the last 6 months where you did not have access to dental care?: No HPI Routine HPI Details 54-year-old male presents to the office to discuss his chronic medical conditions. Patient is moving his primary care elsewhere. He has made an appointment with the [facility]. This appointment was made during the transition. Patient is in stable health and has a long history of chronic medical conditions. He had a TAVR procedure done and subsequently he has been feeling much better. Compliant with all medications. [facility] Medical History Hypertension Congestive heart failure CHF (congestive heart failure) Uncontrolled hypertension Aortic stenosis Hypertensive urgency Acute on chronic diastolic (congestive) heart failure Chronic kidney disease Cataract Psoriatic arthritis Cirrhosis of liver not due to alcohol Diabetes Surgical History No pertinent past surgical history Family History Mother CHF (congestive heart failure) Father No problems noted. Social History Household Members: Spouse Housing: Condominium Do you presently have visiting nurse or other home services: No Alcohol intake: current Alcohol intake frequency: holidays/special occasions only Comment: patient steady with ambulation,ind. Patient Tobacco Use Status: Never used Tobacco Substance Use Type: Marijuana Advance Directives Date on File: 12/21/23 service: No Current occupational status: disabled Cognitive needs: No Hearing needs: No Vision needs: Yes (rx glasses) Questionnaire PHQ-9 Over the last 2 weeks, how often have you been bothered by any of the following problems? 1. Little interest or pleasure in doing things: not at all 2. Feeling down, depressed, or hopeless: not at all 3. Trouble falling or staying asleep, or sleeping too much: not at all 4. Feeling tired or having little energy: not at all 5. Poor appetite or overeating: not at all 6. Feeling bad about yourself - or that you are a failure or have let yourself or your family down: not at all 7. Trouble concentrating on things, such as reading the newspaper or watching television: not at all 8. Moving or speaking so slowly that other people could have noticed. Or the opposite - being so fidgety or restless that you have been moving around a lot more than usual: not at all 9. Thoughts that you would be better off or of hurting yourself in some way: not at all Total score: 0 Depression Screening Interpretation: Negative Depression Screening Done: Yes Source: Developed by Drs. Rayo Castaneda, Carline Fitzgerald, Yo Lau and colleagues, with an educational carroll from [employer]. Thrive Questionnaire Date Thrive assessed: 01/27/25 I am a: Patient Within the past 12 months, did the food you bought not last and you didn't have the money to get more?: Never true Within the past 12 months, did you worry whether your food would run out before you got money to buy more?: Never true Do you have trouble paying for medicines?: No Do you have trouble getting transportation to medical appointments?: No Do you have trouble paying your heating and electricity bill?: No Do you have trouble taking care of your child, family member or friend?: No Do you have trouble with day-to-day activities such as bathing, preparing meals, shopping, managing finances, etc.?: No Are you currently unemployed and looking for a job?: No Are you interested in more education?: No Currently or been in a relationship where the following occur: No concerns reported THRIVE Score: 0 AUDIT C Alcohol Use Questionnaire (AUDIT-C) 1. How often do you have a drink containing alcohol?: Monthly or less 2. How many drinks containing alcohol do you have on a typical day when you are drinking?: 1 or 2 3. How often do you have six or more drinks on one occasion?: Less than monthly Total Score: 2 LANCE-7 AMB Questionnaire LANCE-7 Date LANCE - 7 assessed: 01/27/25 Feeling nervous, anxious, or on edge: 0 = Not at all Not being able to stop or control worryin = Not at all Worrying too much about different things: 0 = Not at all Trouble relaxin = Not at all Being so restless that it is hard to sit still: 0 = Not at all Becoming easily annoyed or irritable: 0 = Not at all Feeling afraid as if something awful might happen: 0 = Not at all Total LANCE-7 score (0-4 normal; 5-9 mild; 10-14 moderate; 15-21 severe): 0 Source: Developed by Drs. Rayo Castaneda, Carline Fitzgerald, Yo Lau and colleagues, with an educational carroll from [employer]. Physical exam (Primary Care) Vital Signs: Last Vital Signs Temp 97.4 F 01/27/25 10:22 Pulse 83 01/27/25 10:22 BP 118/60 01/27/25 10:22 Pulse Ox 98 01/27/25 10:22 Oxygen Delivery Method Room Air 01/27/25 10:22 Care Plan Goal for BP management: Blood pressure is in range. BMI result Body Mass Index 23.3 Tobacco/Smoking Status: Tobacco use Status Tobacco use date assessed 01/27/25 01/27/25 10:24 Patient Tobacco Use Status Never used Tobacco 01/27/25 10:24 PHQ-9: PHQ-9 Score PHQ-9: Total score 0 01/27/25 10:48 Depression Screening Interpretation: Negative Thrive Assessment: Date of Thrive Assessment Date Thrive assessed 01/27/25 01/27/25 10:24 Currently or been in a relationship where the following occur: No concerns reported Advance Care Planning discussion: Exists, not on file Date of discussion: 01/27/25 Who was present: Patient Forms completed: Health Care Proxy and MOLST Time spent: 1-15 minutes, not on file Actual minutes spent: 5 Const General: cooperative and healthy appearing Nutritional Appearance: well nourished Orientation/consciousness: patient oriented x3 Limitations: no limitations HENMT Head: Yes normal to inspection Eyes General: appearance normal, both eyes and all related structures Neck Neck: Yes normal visual inspection Chest Chest palpation & inspection: normal palpation of entire chest wall Resp Effort & Inspection: normal respiratory effort Cardio Palpation: normal PMI Rate: regular rate Rhythm: regular rhythm Heart sounds: S1 normal heart sound present, S2 normal heart sound present and Murmur heart sound present (Best heard in the aortic area) systolic Neuro General: patient oriented x3 Coding Level of Care Code New Pt Level 4 (85079) Complex EM visit Add On G2211 Diagnoses Nonrheumatic aortic valve stenosis I35.0 Cardiac valve disease etiology: nonrheumatic Additional Codes Vital Signs *Quality* - Advance Care Planning discussion: Exists, not on file ([id number]) Vital Signs *Quality* - Time spent: 1-15 minutes, not on file ([id number]) Assessment & Plan Assessment & Plan (1) Aortic stenosis: Code(s): I35.0 - Nonrheumatic aortic (valve) stenosis Category: Medical Qualifiers: Cardiac valve disease etiology: nonrheumatic Qualified Code(s): I35.0 - Nonrheumatic aortic (valve) stenosis Plan: Patient is doing well after the TAVR procedure. He is going to follow-up for primary care at [facility]. We will continue to see the route sales manager at [place]. Patient also has a folder machine operator at [facility]. His labs were reviewed and all his current medications have been filled for the next 3 months.
--- OUTSIDE RECORDS SUMMARY | 2025-01-27 11:50 | XMS_ITS | Clinical Summary ---
[facility] Address [address] [place] [address] Care Team Providers Care Yarn Examiner Name Role Phone Unavailable Primary Care Provider [...]
--- OUTSIDE RECORDS SUMMARY | 2025-01-27 11:50 | XMS_ITS | Referral Summary ---
Author Organization [facility] Address [address] [place] [address] Care Team Providers Care Auto Roller Name Role Phone Martínez Dunn Primary Care Provider [phone] Allergies Active Allergy Reactions Criticality Noted Date [...] on file Medical Devices Implanted Type Area Filing Clerk Device Identifier Shelf Expiration Date Model / Serial / Lot Lens Intraocular Ashperic Natural Single Piece Acrylic With Blue Light Filter [id number] 23.0d - [id number] - [id number] Implanted:Qty: 1 on 12/14/2021 by Omega Franco MD at [facility] Lens Right: Eye YESY 07/31/2026 SN60WF 23.0 / [id number] / Retisert Implanted:Qty: 1 on 12/14/2021 by Omega Franco MD at [facility] Right: Eye [employer]OM[employer] 03/01/2023 [address]- 01 / [id number] / [id number] Insurance [facility] Advance Directives Documents on File Type Date Recorded Patient Marketing Account Executive Expl [facility] Health Care Proxy 02/24/2022 12:02 PM -2 * Presumed Full Code (Latest Code Status on File) Date Activated Date Inactivated Comments 02/24/2022 11:45 AM 02/24/2022 4:36 PM * Presumed Full Code Date Activated Date Inactivated Comments 12/14/2021 7:20 AM 12/14/2021 12:36 PM Care Teams Auto Roller Relationship Specialty Start Date End Date Martínez Dunn [address] [place] [address] [place] [address] PCP - General Internal Medicine 02/24/22
--- OUTSIDE RECORDS SUMMARY | 2025-01-27 11:50 | XMS_ITS | Clinical Summary ---
Author Organization [facility] Address [address] [place] [address] Care Team Providers Care Ballpoint Pens Assembler Name Role Phone Martínez Dunn Primary Care Provider [phone] Allergies Active Allergy Reactions Criticality Noted Date [...] series) 2043 Medical Devices Implanted Type Area Spinning Lathe Operator Automatic Device Identifier Shelf Expiration Date Model / Serial / Lot Lens Intraocular Ashperic Natural Single Piece Acrylic With Blue Light Filter [id number] 23.0d - [id number] - [id number] Implanted:Qty: 1 on 12/14/2021 by Omega Franco MD at [facility] Lens Right: Eye YESY 07/31/2026 SN60WF 23.0 / [id number] / Retisert Implanted:Qty: 1 on 12/14/2021 by Omega Franco MD at [facility] Right: Eye [employer]OM[employer] 03/01/2023 34891-929- 01 / [id number] / [id number] Insurance [facility] Advance Directives Documents on File Type Date Recorded Patient Supervisor Doping Expl anation Health Care Proxy 02/24/2022 12:02 PM -2 * Presumed Full Code (Latest Code Status on File) Date Activated Date Inactivated Comments 02/24/2022 11:45 AM 02/24/2022 4:36 PM * Presumed Full Code Date Activated Date Inactivated Comments 12/14/2021 7:20 AM 12/14/2021 12:36 PM Care Teams Ballpoint Pens Assembler Relationship Specialty Start Date End Date Martínez Dunn [address] [place] [address] [place] [address] PCP - General Internal Medicine 02/24/22
--- OUTSIDE RECORDS SUMMARY | 2025-01-27 11:50 | XMS_ITS | Clinical Summary ---
Author Organization [facility]. Address [address] [phone] Phone Care Team Providers Care Cultural Historian Name Role Phone Martínez Dunn MD Primary Care Provider [phone] Allergies Active Allergy Reactions Criticality Noted Date [...] solution 20,000 UnitsIndications:Anemia in chronic kidney disease 91862 Units IJ Once 10/08/2024 A ctive Epoetin Chi-epbx solution 20,000 UnitsIndications:Anemia in chronic kidney disease 23623 Units IJ Once 01/07/2025 01/07/2025 E nded [...] Encounters Date Type Department Care Team Description 01/17/2025 Orders Only [facility] [address] [phone] Yuri Chance MD 01/07/2025 9:45 AM EDT Clinical Support [facility] [address] [phone] Anemia in chronic kidney disease (Primary Dx) 01/01/2025 Office Communication [facility] [address] [phone] Alaina Engel 11/13/2024 Orders Only [facility] [address] [phone] Yuri Chance MD Stage 3a chronic kidney disease (HCC); Psoriatic arthritis (HCC); Proteinuria, not otherwise specified; Other cirrhosis of liver (HCC); Aortic valve stenosis; Cerebrovascular accident (HCC); Acute nontraumatic kidney injury, not otherwise specified (HCC); Anemia in chronic kidney disease; Iron deficiency anemia, not otherwise specified 11/06/2024 9:00 AM EST Clinical Support [facility] [address] [phone] Anemia in chronic kidney disease (Primary Dx) 11/06/2024 8:00 AM EST Office Visit [facility] [address] [phone] Yuri Chance MD Stage 3a chronic kidney disease (HCC) (Primary Dx); Psoriatic arthritis (HCC); Proteinuria, not otherwise specified; Other cirrhosis of liver (HCC); Aortic valve stenosis; Cerebrovascular accident (HCC); Acute nontraumatic kidney injury, not otherwise specified (HCC); Anemia in chronic kidney disease; Iron deficiency anemia, not otherwise specified 11/06/2024 Office Communication [facility] [address] [phone] Yuri Chance MD 11/06/2024 Orders Only [facility] [address] [phone] Yuri Chance MD Stage 3a chronic kidney disease (HCC); Other cirrhosis of liver (HCC); Aortic valve stenosis; Anemia in chronic kidney disease 10/30/2024 Orders Only [facility] [address] [phone] Yuri Chance MD from Last 3 Months [...] [facility] [address] [place] [phone] Yuri Chance MD [address] [phone] 02/03/2025 Orders Only [facility] [address] [place] [phone] Yuri Chance MD [address] [phone] Stage 3a chronic kidney disease (HCC); Psoriatic [...] Associated Diagnosis Comments PTH, INTACT (HC) Routine 01/17/2025 9:56 AM EDT FERRITIN Routine 01/17/2025 9:56 AM EDT Stage 3a chronic kidney disease (HCC) Psoriatic arthritis (HCC) Proteinuria, not otherwise specified Other cirrhosis of liver (HCC) Aortic valve stenosis Cerebrovascular accident (HCC) Acute nontraumatic kidney injury, not otherwise specified (HCC) Anemia in chronic kidney disease IRON PANEL (FE, TIBC, TSAT) Routine 01/17/2025 9:56 AM EDT Stage 3a chronic kidney disease (HCC) Psoriatic arthritis (HCC) Proteinuria, not otherwise specified Other cirrhosis of liver (HCC) Aortic valve stenosis Cerebrovascular accident (HCC) Acute nontraumatic kidney injury, not otherwise specified (HCC) Anemia in chronic kidney disease CBC AND DIFFERENTIAL Routine 01/17/2025 9:56 AM EDT Stage 3a chronic kidney disease (HCC) Psoriatic arthritis (HCC) Proteinuria, not otherwise specified Other cirrhosis of liver (HCC) Aortic valve stenosis Cerebrovascular accident (HCC) Acute nontraumatic kidney injury, not otherwise specified (HCC) Anemia in chronic kidney disease VITAMIN D 25 HYDROXY Routine 01/17/2025 9:56 AM EDT Stage 3a chronic kidney disease (HCC) Psoriatic arthritis (HCC) Proteinuria, not otherwise specified Other cirrhosis of liver (HCC) Aortic valve stenosis Cerebrovascular accident (HCC) Acute nontraumatic kidney injury, not otherwise specified (HCC) Anemia in chronic kidney disease PHOSPHATE ( PHOSPHORUS) Routine 01/17/2025 9:56 AM EDT Stage 3a chronic kidney disease (HCC) Psoriatic arthritis (HCC) Proteinuria, not otherwise specified Other cirrhosis of liver (HCC) Aortic valve stenosis Cerebrovascular accident (HCC) Acute nontraumatic kidney injury, not otherwise specified (HCC) Anemia in chronic kidney disease MAGNESIUM Routine 01/17/2025 9:56 AM EDT Stage 3a chronic kidney disease (HCC) Psoriatic arthritis (HCC) Proteinuria, not otherwise specified Other cirrhosis of liver (HCC) Aortic valve stenosis Cerebrovascular accident (HCC) Acute nontraumatic kidney injury, not otherwise specified (HCC) Anemia in chronic kidney disease URIC ACID Routine 01/17/2025 9:56 AM EDT Stage 3a chronic kidney disease (HCC) Psoriatic arthritis (HCC) Proteinuria, not otherwise specified Other cirrhosis of liver (HCC) Aortic valve stenosis Cerebrovascular accident (HCC) Acute nontraumatic kidney injury, not otherwise specified (HCC) Anemia in chronic kidney disease COMPREHENSIVE METABOLIC PANEL Routine 01/17/2025 9:56 AM EDT Stage 3a chronic kidney disease (HCC) Psoriatic arthritis (HCC) Proteinuria, not otherwise specified Other cirrhosis of liver (HCC) Aortic valve stenosis Cerebrovascular accident (HCC) Acute nontraumatic kidney injury, not otherwise specified (HCC) Anemia in chronic kidney disease PROTEIN / CREATININE RATIO, URINE Routine 01/17/2025 9:49 AM EDT Stage 3a chronic kidney disease (HCC) Psoriatic arthritis (HCC) Proteinuria, not otherwise specified Other cirrhosis of liver (HCC) Aortic valve stenosis Cerebrovascular accident (HCC) Acute nontraumatic kidney injury, not otherwise specified (HCC) Anemia in chronic kidney disease POCT HEMOGLOBIN Routine 01/07/2025 3:14 PM EDT [...] from Last 3 Months Results * (ABNORMAL) PTH, Intact (01/17/2025 9:56 AM EDT) Only the most recent of2 resultswithin the time period is included. Pathologist [facility] [place] Parathyroid Hormone, Intact 79.6(H) 8.7 - 77.1 pg/mL See order comments 01/17/2025 9:56 AM EDT 01/17/2025 9:56 AM EDT us Yuri Chance MD LAB [id number] SOLICITED RESULTS Final Result Performing Organization Address City/[facility]/ZIP Co de Phone Number [facility] See order comments [place] [address] * Iron Panel (Fe, TIBC, TSAT) (01/17/2025 9:56 AM EDT) Only the most recent of2 resultswithin the time period is included. Pathologist [facility] [place] Iron 45 45 - 160 mcg/dL See order comments TIBC 279 228 - 428 mcg/dL See order comments Iron Saturation (TSat) 16 15 - 50 % See order comments UIBC 234 ug/dL See order comments Blood (Blood, Venous) 01/17/2025 9:56 AM EDT 01/17/2025 9:56 AM EDT us Yuri Chance MD LAB BLOOD ORDERABLES Final Re sult Performing Organization Address [facility] Co de Phone Number [facility] See order comments [place] [address] * Vitamin D 25 Hydroxy (01/17/2025 9:56 AM EDT) Only the most recent of2 resultswithin the time period is included. Pathologist [facility] [place] Vitamin D, 25-Hydroxy 36.7 >30 ng/mL See order comments Comment: Health Based Reference Values* < 20 ??ng/mL ??Deficient 20-30 ng/mL ??Insufficient > 30 ??ng/mL ??Sufficient *Shalom MOORE. N Engl J Med. 2007;357:266-280 There is no well-established upper level of normal vitamin D levels. Some laboratories use 50 ng/mL as an upper limit of normal. However, toxicity is patient-dependent and may occur at any level. Careful correlation with the patient's presentation is necessary and, if there is concern for vitamin D toxicity, treatment should be considered irrespective of the serum level. Care must be taken in interpreting Vitamin [...] method such as LC-MS/MS. Blood (Blood, Venous) 01/17/2025 9:56 AM EDT 01/17/2025 9:56 AM EDT us Yuri Chance MD LAB BLOOD ORDERABLES Final Re sult [place] See order comments [place] [address] * (ABNORMAL) CBC and Differential (01/17/2025 9:56 AM EDT) Only the most recent of2 resultswithin the time period is included. WBC 5.3 4.8 - 10.8 X10*3/uL See order comments RBC 3.25(L) 4.60 - 5.80 X10*6/uL See order comments Hgb 9.2(L) 14.0 - 18.0 g/dl See order comments Hematocrit 29.3(L) 42.0 - 52.0 % See order comments MCV 90.2 80.0 - 98.0 fL See order comments MCH 28.3 27.0 - 33.0 pg See order comments MCHC 31.4 31.0 - 36.0 g/dl See order comments RDW 15.9 11.0 - 16.0 % See order comments Platelets 152(L) 160 - 400 X10*3/uL See order comments MPV 10.4 9.4 - 12.4 fL See order comments Neutrophils % Auto 67.6 45 - 73 % See order comments Immature Granulocytes 0.4 0.0 - 0.4 % See order comments Lymphocytes Relative 16.0(L) 20 - 40 % See order comments Monocytes 10.2 2 - 11 % See order comments Eosinophils Relative 4.7(H) 0 - 4 % See order comments Basophils Relative 1.1 0 - 2 % See order comments nRBC Count 0.0 0.0 - 0.2 /100WBC See order comments Neutrophils Absolute 3.6 2.0 - 8.3 x10*3/uL See order comments Immature Grans (Absolute) 0.02 0.00 - 0.03 X10*3/uL See order comments Lymphocytes Absolute 0.9(L) 1.2 - 4.9 X10*3/uL See order comments Monocytes Absolute 0.5 0.1 - 1.2 X10*3/uL See order comments Eosinophils Absolute 0.3 0.0 - 0.4 X10*3/uL See order comments Basophils Absolute 0.1 0.0 - 0.2 X10*3/uL See order comments NRBC Absolute 0.000 0.0 - 0.012 X10*3/uL See order comments Blood (Blood, Venous) 01/17/2025 9:56 AM EDT 01/17/2025 9:56 AM EDT us Yuri Chance MD LAB BLOOD ORDERABLES Final Re sul Performing Organization Address [facility] Co de Phone Number [facility] See order comments [place] [address] * (ABNORMAL) Uric Acid (01/17/2025 9:56 AM EDT) Only the most recent of2 resultswithin the time period is included. Uric Acid 8.1(H) 3.4 - 7.0 mg/dL See order comments Blood (Blood, Venous) 01/17/2025 9:56 AM EDT 01/17/2025 9:56 AM EDT us Yuri Chance MD LAB BLOOD ORDERABLES Final Re sult Performing Organization Address [facility] Co de Phone Number [facility] See order comments [place] [address] * Phosphorus (01/17/2025 9:56 AM EDT) Only the most recent of2 resultswithin the time period is included. Phosphorus, Serum 4.2 2.7 - 4.5 mg/dL See order comments Blood (Blood, Venous) 01/17/2025 9:56 AM EDT 01/17/2025 9:56 AM EDT us Yuri Chance MD LAB BLOOD ORDERABLES Final Re sult Performing Organization Address [facility] de Phone Number [facility] See order comments [place] [address] * Magnesium (01/17/2025 9:56 AM EDT) Only the most recent of2 resultswithin the time period is included. Pathologist [facility] [place] Magnesium 2.2 1.6 - 2.6 mg/dL See order comments Blood (Blood, Venous) 01/17/2025 9:56 AM EDT 01/17/2025 9:56 AM EDT us Yuri Chance MD LAB BLOOD ORDERABLES Final Re sult Performing Organization Address [facility] Phone Number [facility] See order comments [place] [address] * Ferritin (01/17/2025 9:56 AM EDT) Only the most recent of2 resultswithin the time period is included. Pathologist [facility] [place] Ferritin 20 20 - 250 ng/mL See order comments Blood (Blood, Venous) 01/17/2025 9:56 AM EDT 01/17/2025 9:56 AM EDT us Yuri Chance MD LAB BLOOD ORDERABLES Final Re sult Performing Organization Address [facility] Phone Number [facility] See order comments [place] [address] * (ABNORMAL) Comprehensive Metabolic Panel (01/17/2025 9:56 AM EDT) Only the most recent of2 resultswithin the time period is included. Sodium 137 135 - 145 mmol/L See order comments Potassium 4.7 3.3 - 5.1 mmol/L See order comments Chloride 105 96 - 108 mmol/L See order comments Bicarbonate (CO2) 23 22 - 29 mmol/L See order comments Anion Gap 14 12 - 20 See order comments BUN 40(H) 9 - 16 mg/dL See order comments Creatinine Serum 1.97(H) 0.5 - 1.4 mg/dL See order comments eGFR 35 See order comments Comment: Chronic Kidney Disease: ??Estimated GFR < 60 mL/min/1.73m2 Severe Kidney Disease: ??Estimated GFR < 15 mL/min/1.73m2 Glucose 240(H) 60 - 115 mg/dL See order comments Calcium 9.5 8.4 - 10.2 mg/dL See order comments Total Bilirubin 0.3 0.0 - 1.0 mg/dL See order comments AST (SGOT) 18 5 - 37 U/L See orde r comments ALT (SGPT) 14 0 - 40 U/L See orde r comments Total Protein 7.8 6.5 - 8.0 g/dL See order comments Albumin 4.4 3.5 - 5.0 g/dL See order comments Alkaline phosphatase 47 39 - 117 U/L See order comments Blood (Blood, Venous) 01/17/2025 9:56 AM EDT 01/17/2025 9:56 AM EDT us Yuri Chance MD LAB BLOOD ORDERABLES Final Re sult [place] See order comments [place] [address] * (ABNORMAL) Protein, Total, Random Urine w/Creatinine (Protein/Creat Ratio) (01/17/2025 9:49 AM EDT) Only the most recent of2 resultswithin the time period is included. Creatinine, Urine 44.13 mg/dL See order comments Protein Urine Random 68(H) <12 mg/dL See order comments Protein/Creati nine Ratio, Urine 1.54(H) <0.2 See order comments Comment: The spot urine protein:creatinine ratio may increase to 0.3 during normal . Urine (Urine, Clean Catch) 01/17/2025 9:49 AM EDT 01/17/2025 9:49 AM EDT us Yuri Chance MD LAB URINE ORDERABLES Final Re sult [place] See order comments [place] [address] * POCT hemoglobin (01/07/2025 3:14 PM EDT) Hemoglobin 9.1 Blood Capillary 01/07/2025 3 :14 PM EDT us Marco Duggan MD POINT OF CARE TEST OR DERABLES Final Result * (ABNORMAL) EXT RESULT ENTRY (12/04/2024 6:01 PM EST) Only the most recent of4 resultswithin the time period is included. Hemoglobin 8.5(A) 13.5 - 17.5 12/04/2024 6:01 PM EST us Historical Provider LAB BLOOD ORDERABLES Esperanza l Result from Last 3 Months Insurance [facility] Medicare Medicare [facility] Administrative Systems [facility] Medicare Care Teams Cultural Historian Relationship Specialty Start Date End Date Martínez Dunn MD [address] [place] [address] [id number] [place] PCP - General Internal Medicine 11/17/22
== END 2025-01-27 10:58 | disposition home or self-care (01) ==
LOC: HO.HMCHD 10:11
PROVIDERS: PCP Internal Medicine; Visit Provider Internal Medicine
DX: I35.0 Nonrheumatic aortic (valve) stenosis (principal); Z00.00 Encounter for general adult medical examination without abnormal findings

== ENCOUNTER → 2025-01-27 10:11 | Outpatient (BNVA) | payer OTHER, MEDICARE, SELFPAY | PROVIDERS: PCP Internal Medicine; Visit Provider Internal Medicine | DX: Z13.89 Encounter for screening for other disorder (principal) ==

== ENCOUNTER 2025-01-29 14:15 | Outpatient (AMB) | payer OTHER, MEDICARE, SELFPAY ==
--- NOTE | 2025-01-29 14:24 | MHC.OFFVIS ---
Vital Signs 01/29/25 14:25 Height 5 ft 5 in Weight 141 lb 1.533 oz BMI 23.5 BP 130/80 Blood Pressure Location Lt brachial Position Sitting Pulse 77 Intake Visit Reasons: post TAVR and echo Intake Note: Follow-up post TAVR and echo feeling ok Bilingual Operator Required: No Pony Ride Operator: Pony Ride Operator Present Accompanied by: Spouse Allergies shellfish derived [SHELLFISH DERIVED] Allergy (Severe, Verified 01/27/25 10:58) ANAPHYLAXIS acetazolamide Adverse Reaction (Verified 01/27/25 10:58) Confusion Medication List - Last Reconciled 01/29/25 by Toni Rahman MD acetaminophen 650 mg PO DAILY PRN amlodipine 10 mg See Protocol PO DAILY atorvastatin 20 mg PO BEDTIME carvedilol 3.125 mg PO BID cholecalciferol (vitamin D3) 25 mcg PO DAILY gabapentin 600 mg PO TID glipizide 5 mg PO DAILY hydralazine 100 mg PO BID 90 days isosorbide mononitrate ER 30 mg PO DAILY Jardiance (empagliflozin) 25 mg PO DAILY NS metformin 500 mg PO BID omeprazole 20 mg PO BID@0630,1630 polyethylene glycol 400 0.25% (Blink Gel Tears) drps ophthalmic (eye) secukinumab (Cosentyx Pen 300 mg/2 pens () 300 mg subcut QMONTH spironolactone 300 mg PO DAILY ticagrelor (Brilinta) 90 mg PO BID HPI Comments Details: Dmitriy comes for follow-up after transcatheter aortic valve replacement with a 26 mm bioprosthetic valve. However he also 2 weeks later underwent cardiac catheterization and underwent PCI of the proximal LAD with drug-eluting stent after IFR confirmation. Has since this has been participate in cardiac rehab in his symptoms exertional shortness of breath have significantly improved. He also had weird symptoms of dizziness and he says since stenting the symptoms have improved. However shortness of breath is significantly improved and said he can walk now long distances as more bothered by hip pain related to arthritis. He is also currently participating in phase 2 cardiac rehabilitation and has musculoskeletal symptoms related to it. Denies any lightheadedness, syncope. No orthopnea, PND, leg edema. He was Lasix has been discontinued as of now. He takes all his other medications including Jardiance and blood pressure control. He is currently on dual antiplatelet therapy without any bleeding issues. 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 Social History Household Members: Spouse Housing: Condominium Do you presently have visiting nurse or other home services: No Alcohol intake: current Alcohol intake frequency: holidays/special occasions only Comment: patient steady with ambulation,ind. Patient Tobacco Use Status: Never used Tobacco Substance Use Type: Marijuana Advance Directives Date on File: 12/21/23 service: No Current occupational status: disabled Cognitive needs: No Hearing needs: No Vision needs: Yes (rx glasses) Review of Systems Const Denies chills, Denies fatigue, Denies fever(s), Denies frequent falls, Denies weakness, Denies weight gain and Denies weight loss ENT Denies dizziness Card Denies chest pain, Denies leg edema, Denies lightheadedness, Denies palpitations, Denies dyspnea, Denies dyspnea on exertion, Denies orthopnea and Denies other (loss of consciousness) Resp Denies cough, Denies dyspnea and Denies dyspnea on exertion GI Denies hematochezia and Denies change in stool character Musc Denies abnormal gait, Denies muscle weakness, Denies numbness, Denies radiating pain into limb and Denies tingling Neuro Denies Abnormal speech present, Denies abnormal gait, Denies dizziness, Denies frequent falls, Denies numbness, Denies tingling and Denies weakness Endo Denies fatigue and Denies palpitations Physical Exam Vital Signs: Last Vital Signs Pulse 77 01/29/25 14:25 BP 130/80 01/29/25 14:25 BMI result Body Mass Index 23.5 Const General: cooperative, comfortable, no acute distress, alert and awake Nutritional Appearance: average body habitus Limitations: no limitations Neck Neck: Yes trachea midline, Yes supple and Yes no JVD Carotids: delayed carotid upstroke Resp Effort & Inspection: normal respiratory effort Auscultation: clear to auscultation bilaterally Cardio Jugular venous distension: no JVD Palpation: normal PMI Rate: regular rate Rhythm: regular rhythm Heart sounds: S1 normal heart sound present, S2 normal heart sound present, no click, no gallops and no murmurs Peripheral pulses: other (Reduced distal pulses) GI Auscultation: normal bowel sounds Neuro General: no focal motor deficits Speech: No Abnormal speech present Extrem General: Yes no clubbing, cyanosis or edema Assessment & Plan Assessment & Plan (1) S/P TAVR (transcatheter aortic valve replacement): Comment: 26 mm Chris, November 2024 Code(s): Z95.2 - Presence of prosthetic heart valve Category: Surgical Plan: Status post transcatheter aortic valve replacement for severe aortic stenosis, not a surgical candidate. This was done without any significant complication. He was doing extremely well with that. His symptoms have significantly improved especially exertional shortness of breath. At this point time would continue aggressive medical therapy. SBE prophylaxis as per ACC/aha guidelines. Continue lifelong aspirin therapy beyond that. (2) Stented coronary artery: Comment: Drug-eluting stent to LAD, November 2024 Code(s): Z95.5 - Presence of coronary angioplasty implant and graft Category: Surgical Plan: Stented coronary artery for atypical symptoms. However says that his symptoms have significantly improved since stenting of the LAD. He feels a lot better now. At this point time continue dual antiplatelet therapy for total of 1 year till November of 2025. Continue aggressive blood pressure control. This is currently well optimized. Does have some orthostatic symptoms and discussed management with adequate hydration. Continue aggressive diabetes management goal hemoglobin A1c less than 7%. Continue high-intensity statin therapy with goal LDL less than 60 mg/dL. Continue with phase 2 cardiac rehabilitation. Importance of regular physical activity was discussed. (3) Chronic heart failure with preserved ejection fraction (HFpEF): Code(s): I50.32 - Chronic diastolic (congestive) heart failure Category: Medical Plan: Heart failure preserved ejection fraction, clinically euvolemic and well compensated. Continue current Jardiance therapy and spironolactone therapy. Currently off loop diuretic which is appropriate. Clinically appears to be euvolemic well compensated. Less likely to developed heart failure syndrome given that he was transcatheter mitral valve replacement. Continue aggressive blood pressure control as below. Daily weight monitoring avoidance salt loading was discussed. Continue to exercise as recommended. (4) Hypertension: Code(s): I10 - Essential (primary) hypertension Category: Medical Qualifiers: Hypertension type: primary hypertension Qualified Code(s): I10 - Essential (primary) hypertension Plan: Hypertension which is currently well optimized advised to monitor blood pressure and maintain a log. Goal blood pressure less than 130/84 although this might. Difficult goal. Does have some orthostatic symptoms probably related to diffuse and significant vascular disease. Advised to maintain adequate hydration. At this point time there was no role for isosorbide therapy. This will be discontinued. Continue other medications including spironolactone, hydralazine, carvedilol, amlodipine for his blood pressure control. Will follow up in the clinic in 4 months time, sooner p.r.n.. Thank you for allowing me to partake in his care Orders: Orders CA echo transthoracic complete 10 Months Z95.2 - Presence of prosthetic heart valve Coding Level of Care Code Est Pt Level 4 (18147) Complex EM visit Add On G2211 Diagnoses S/P TAVR (transcatheter aortic valve replacement) Z95.2 Stented coronary artery Z95.5 Chronic heart failure with preserved ejection fraction (HFpEF) I50.32 Primary hypertension I10 Hypertension type: primary hypertension
[2025-01-29 14:25] VITALS: BP 130/80; PULSE 77; BMI 23.5
--- OUTSIDE RECORDS SUMMARY | 2025-01-29 15:38 | XMS_ITS | Referral Summary ---
Author Organization [facility] Address [address] [place] [address] Care Team Providers Care An Employee Sponsor Or Advocate And Name Role Phone Martínez Dunn Primary Care Provider [phone] Allergies Active Allergy Reactions Criticality Noted Date [...] on file Medical Devices Implanted Type Area Wire Brusher Device Identifier Shelf Expiration Date Model / Serial / Lot Lens Intraocular Ashperic Natural Single Piece Acrylic With Blue Light Filter 6.5eow73ji 23.0d - [id number] - [id number] Implanted:Qty: 1 on 12/14/2021 by Omega Franco MD at [facility] Lens Right: Eye YESY 07/31/2026 SN60WF 23.0 / [id number] / Retisert Implanted:Qty: 1 on 12/14/2021 by Omega Franco MD at [facility] Right: Eye BAUSCH AND LOMB 03/01/2023 51575-815- 01 / [id number] / [id number] Insurance [employer] Advance Directives Documents on File Type Date Recorded Patient High Voltage Electrician Expl [facility] Proxy 02/24/2022 12:02 PM -2 * Presumed Full Code (Latest Code Status on File) Date Activated Date Inactivated Comments 02/24/2022 11:45 AM 02/24/2022 4:36 PM * Presumed Full Code Date Activated Date Inactivated Comments 12/14/2021 7:20 AM 12/14/2021 12:36 PM Care Teams An Employee Sponsor Or Advocate And Relationship Specialty Start Date End Date Martínez Dunn [address] [place] [address] [place] [address] PCP - General Internal Medicine 02/24/22
--- OUTSIDE RECORDS SUMMARY | 2025-01-29 15:38 | XMS_ITS | Clinical Summary ---
Author Organization [facility] Address [address] [place] [address] Care Team Providers Care Drop Forge Hand Name Role Phone Unavailable Primary Care Provider [...]
--- OUTSIDE RECORDS SUMMARY | 2025-01-29 15:38 | XMS_ITS | Clinical Summary ---
Author Organization [facility] Address [address] [place] [address] Care Team Providers Care Stucco Plasterer Name Role Phone Martínez Dunn Primary Care Provider [phone] Allergies Active Allergy Reactions Criticality Noted Date [...] series) 2043 Medical Devices Implanted Type Area Housemaid Device Identifier Shelf Expiration Date Model / Serial / Lot Lens Intraocular Ashperic Natural Single Piece Acrylic With Blue Light Filter 6.4xns56yr 23.0d - [id number] - [id number] Implanted:Qty: 1 on 12/14/2021 by Omega Franco MD at [facility] Lens Right: Eye YESY 07/31/2026 SN60WF 23.0 / [id number] / Retisert Implanted:Qty: 1 on 12/14/2021 by Omega Franco MD at [facility] Right: Eye BAUSCH AND LOMB 03/01/2023 [id number] 01 / [id number] / [id number] Insurance [facility] Advance Directives Documents on File Type Date Recorded Patient Watch Train Assembler Expl anation Health Care Proxy 02/24/2022 12:02 PM -2 * Presumed Full Code (Latest Code Status on File) Date Activated Date Inactivated Comments 02/24/2022 11:45 AM 02/24/2022 4:36 PM * Presumed Full Code Date Activated Date Inactivated Comments 12/14/2021 7:20 AM 12/14/2021 12:36 PM Care Teams Stucco Plasterer Relationship Specialty Start Date End Date Martínez Dunn [address] [place] [address] [place] [address] PCP - General Internal Medicine 02/24/22
--- OUTSIDE RECORDS SUMMARY | 2025-01-29 15:38 | XMS_ITS | Clinical Summary ---
Author Organization [facility] Address [address] [address] Phone Care Team Providers Care Occupational Therapy Technician Name Role Phone Martínez Dunn MD Primary Care Provider [phone] Allergies Active Allergy Reactions Criticality Noted Date [...] solution 20,000 UnitsIndications:Anemia in chronic kidney disease 97386 Units IJ Once 10/08/2024 A ctive Epoetin Chi-epbx solution 20,000 UnitsIndications:Anemia in chronic kidney disease 16769 Units IJ Once 01/07/2025 01/07/2025 E nded [...] Orders Only [facility] [address] [address] Yuri Chance MD 01/07/2025 9:45 AM EDT Clinical Support [facility] [address] [address] Anemia in chronic kidney disease (Primary Dx) 01/01/2025 Office Communication [facility] [address] [id number] Alaina Engel 11/13/2024 Orders Only [facility] [address] [address] Yuri Chance MD Stage 3a chronic kidney disease (HCC); Psoriatic arthritis (HCC); Proteinuria, not otherwise specified; Other cirrhosis of liver (HCC); Aortic valve stenosis; Cerebrovascular accident (HCC); Acute nontraumatic kidney injury, not otherwise specified (HCC); Anemia in chronic kidney disease; Iron deficiency anemia, not otherwise specified 11/06/2024 9:00 AM EST Clinical Support [facility] [address] [address] Anemia in chronic kidney disease (Primary Dx) 11/06/2024 8:00 AM EST Office Visit [facility] [address] [address] Yuri Chance MD Stage 3a chronic kidney disease (HCC) (Primary Dx); Psoriatic arthritis (HCC); Proteinuria, not otherwise specified; Other cirrhosis of liver (HCC); Aortic valve stenosis; Cerebrovascular accident (HCC); Acute nontraumatic kidney injury, not otherwise specified (HCC); Anemia in chronic kidney disease; Iron deficiency anemia, not otherwise specified 11/06/2024 Office Communication [facility] [address] [address] Yuri Chance MD 11/06/2024 Orders Only [facility] [address] [address] Yuri Chance MD Stage 3a [...] Office Visit [facility] [address] [place] [phone] Yuri Chance MD [facility] [address] [address] 02/03/2025 Orders Only [facility] [address] [address] Yuri Chance MD [address] [address] Stage 3a chronic kidney disease (HCC); Psoriatic [...] Routine 11/26/2024 EXT RESULT ENTRY Routine 11/12/2024 from Last 3 Months Results * (ABNORMAL) PTH, Intact (01/17/2025 9:56 AM EDT) Parathyroid Hormone, Intact 79.6(H) 8.7 - 77.1 pg/mL See order comments 01/17/2025 9:56 AM EDT 01/17/2025 9:56 AM EDT us Yuri Chance MD LAB [id number] SOLICITED RESULTS Final Result Performing Organization Address [facility] Co de Phone Number ZAKIA See order comments [place] [address] * Iron Panel (Fe, TIBC, TSAT) (01/17/2025 9:56 AM EDT) Pathologist [facility] Iron 45 45 - 160 mcg/dL See order comments TIBC 279 228 - 428 mcg/dL See order comments Iron Saturation (TSat) 16 15 - 50 % See order comments UIBC 234 ug/dL See order comments Blood (Blood, Venous) 01/17/2025 9:56 AM EDT 01/17/2025 9:56 AM EDT us Yuri Chance MD LAB BLOOD ORDERABLES Final Re sult Performing Organization Address [facility] de Phone Number ZAKIA See order comments [place] [address] * Vitamin D 25 Hydroxy (01/17/2025 9:56 AM EDT) Vitamin D, 25-Hydroxy 36.7 >30 ng/mL See [...] order comments [place] [address] * (ABNORMAL) CBC and Differential (01/17/2025 9:56 AM EDT) WBC 5.3 4.8 - 10.8 X10*3/uL See [...] ORDERABLES Final Re sult Performing Organization Address [facility] de Phone Number BENOIT See order comments [place] [address] * (ABNORMAL) Uric Acid (01/17/2025 9:56 AM EDT) Uric Acid 8.1(H) 3.4 - 7.0 mg/dL See order comments Blood (Blood, Venous) 01/17/2025 9:56 AM EDT 01/17/2025 9:56 AM EDT us Yuri Chance MD LAB BLOOD ORDERABLES Final Re sult Performing Organization Address [facility] Co de Phone Number BENOIT See order comments [place] [address] * Phosphorus (01/17/2025 9:56 AM EDT) Phosphorus, Serum 4.2 2.7 - 4.5 mg/dL See order comments Blood (Blood, Venous) 01/17/2025 9:56 AM EDT 01/17/2025 9:56 AM EDT us Yuri Chance MD LAB BLOOD ORDERABLES Final Re sult Performing Organization Address [facility]/ZIP Co de Phone Number [facility] See order comments [place] [address] * Magnesium (01/17/2025 9:56 AM EDT) Magnesium 2.2 1.6 - 2.6 mg/dL See order comments Blood (Blood, Venous) 01/17/2025 9:56 AM EDT 01/17/2025 9:56 AM EDT us Yuri Chance MD LAB BLOOD ORDERABLES Final Re sult Performing Organization Address [facility] de Phone Number [place] See order comments [place] [address] * Ferritin (01/17/2025 9:56 AM EDT) Ferritin 20 20 - 250 ng/mL See order comments Blood (Blood, Venous) 01/17/2025 9:56 AM EDT 01/17/2025 9:56 AM EDT us Yuri Chance MD LAB BLOOD ORDERABLES Final Re sult Performing Organization Address [facility] de Phone Number HOLJAYDA See order comments [place] [address] * (ABNORMAL) Comprehensive Metabolic Panel (01/17/2025 9:56 AM EDT) Sodium 137 135 - 145 mmol/L See [...] ORDERABLES Final Re sult Performing Organization Address [facility] Co de Phone Number [place] See order comments [place] [address] * (ABNORMAL) Protein, Total, Random Urine w/Creatinine (Protein/Creat Ratio) (01/17/2025 9:49 AM EDT) Creatinine, Urine 44.13 mg/dL See order comments Protein Urine Random 68(H) <12 mg/dL See order comments Protein/Creati nine Ratio, Urine 1.54(H) <0.2 See order comments Comment: The spot urine protein:creatinine ratio may increase to 0.3 during normal . Urine (Urine, Clean Catch) 01/17/2025 9:49 AM EDT 01/17/2025 9:49 AM EDT Yuri Chance MD LAB URINE ORDERABLES Final Re sult Performing Organization Address [facility] Co de Phone Number [place] See order comments [place] [address] * POCT hemoglobin (01/07/2025 3:14 PM EDT) [...] l Result from Last 3 Months Insurance [facility] Medicare Medicare Benefit Administrative Systems [facility] Medicare Care Teams Occupational Therapy Technician Relationship Specialty Start Date End Date Martínez Dunn MD [address] [place] [address] [address] [place], [place] PCP - General Internal Medicine 11/17/22
== END 2025-01-29 15:05 | disposition home or self-care (01) ==
PROVIDERS: PCP Internal Medicine; Visit Provider Internal Medicine Cardiovascular Disease
DX: Z95.2 Presence of prosthetic heart valve (principal); Z95.5 Presence of coronary angioplasty implant and graft; I50.32 Chronic diastolic (congestive) heart failure; I10 Essential (primary) hypertension
CPT/HCPCS: 99214

== ENCOUNTER 2025-02-21 07:41 | Outpatient (REF) | payer OTHER, MEDICARE, SELFPAY ==
--- OUTSIDE RECORDS SUMMARY | 2025-02-21 07:44 | XMS_ITS | Clinical Summary ---
Author Organization [facility] Address [address] [place] [address] Care Team Providers Care Injection Mold Tooling Technician Name Role Phone Martínez Dunn Primary Care Provider [phone] Allergies Active Allergy Reactions Criticality Noted Date [...] 08/16/20 21 RSV Vaccine (60+ years old a nd patients) (1 - 1-dose 75+ series) 2043 Medical Devices Implanted Type Area Practice Specialist Device Identifier Shelf Expiration Date Model / Serial / Lot Lens Intraocular Ashperic Natural Single Piece Acrylic With Blue Light Filter 6.1ifg22rd 23.0d - [id number] - [id number] Implanted:Qty: 1 on 12/14/2021 by Omega Franco MD at [facility] Lens Right: Eye YESY 07/31/2026 SN60WF 23.0 / [id number] / Retisert Implanted:Qty: 1 on 12/14/2021 by Omega Franco MD at [facility] Right: Eye BAUSCH AND LOMB 03/01/2023 [id number]- 01 / [id number] / [id number] Insurance [facility] Advance Directives Documents on File Type Date Recorded Patient Service Center Appraiser Expl anation Health Care Proxy 02/24/2022 12:02 PM 05-2 * Presumed Full Code (Latest Code Status on File) Date Activated Date Inactivated Comments 02/24/2022 11:45 AM 02/24/2022 4:36 PM * Presumed Full Code Date Activated Date Inactivated Comments 12/14/2021 7:20 AM 12/14/2021 12:36 PM Care Teams Injection Mold Tooling Technician Relationship Specialty Start Date End Date Martínez Dunn [address] [place] [address] [place] [address] PCP - General Internal Medicine 02/24/22
[2025-02-21 10:15] LABS: Estimated Average Glucose 128 mg/dL; Hemoglobin A1C 98.1029 umol/L; Hemoglobin A1c % 6.1 % (<6.0); Total Hemoglobin (HGBA1C) 2252.8765 umol/L
[2025-02-21 10:24] LABS: Anion Gap 13 (12-20); Blood Urea Nitrogen 28 mg/dL (9-16); Calcium 9.3 mg/dL (8.4-10.2); Carbon Dioxide 20 mmol/L (22-29); Chloride 112 mmol/L (96-108); Cholesterol 103 mg/dL (<200); Estimated Glomerular Filt Rate 42; Glucose Random 177 mg/dL (60-115); HDL Cholesterol 31 mg/dL (>40); LDL Cholesterol Calculated 44 mg/dL (<100); Potassium 4.3 mmol/L (3.3-5.1); Sodium 141 mmol/L (135-145); Triglycerides 143 mg/dL (<150)
== END 2025-02-21 07:42 | disposition home or self-care (01) ==
LOC: HO.HMGCLDS 07:41
PROVIDERS: Visit Provider Internal Medicine Cardiovascular Disease
DX: I10 Essential (primary) hypertension (principal); E11.9 Type 2 diabetes mellitus without complications; Z95.2 Presence of prosthetic heart valve; Z95.5 Presence of coronary angioplasty implant and graft
CPT/HCPCS: 36415; 80048; 80061; 83036

== ENCOUNTER 2025-04-03 07:09 | Outpatient (REF) | payer OTHER, MEDICARE, SELFPAY ==
--- OUTSIDE RECORDS SUMMARY | 2025-04-03 07:12 | XMS_ITS | Clinical Summary ---
Author [facility] Address [address] [place] [address] Care Team Providers Care Crucible Packer Name Role Phone Unavailable Primary Care Provider Unavailabl e Medications spironolactone (ALDACTONE) 100 mg tabletIndication s:Alcoholic cirrhosis of liver without ascites (CMS/HCC V24, CMS/HCC V28) TAKE 3 TABLETS BY MOUTH ONCE A DAY DIRECTED 270 tablet 1 5 Active omeprazole (PriLOSEC) [address] capsuleIndicatio ns:Gastroesophag eal reflux disease without esophagitis TAKE 1 CAPSULE BY MOUTH TWICE A DAY 180 capsule 1 5 Active Social History Tobacco Use Types Packs/Day [...] 2023-2 5 season) 2024 Influenza Vaccine (#1) 2025 Hepatitis B Vaccines Completed 07/01/2019, 01/28/2019, [...]
--- OUTSIDE RECORDS SUMMARY | 2025-04-03 07:12 | XMS_ITS | Clinical Summary ---
Author Organization [facility] Address [address] [address] Phone Care Team Providers Care Kiln Cleaner Name Role Phone Yamila Anguiano Primary Care Provider [phone] Allergies Active Allergy Reactions Criticality Noted Date Comments Shellfish-Derived Products Hives High 3 Medications acetaminophen (TYLENOL) 500 MG tablet Take 1,000 mg by mouth every 6 (six) hours if needed Active gabapentin (NEURONTIN) 300 MG capsule Take [...] morning and 3.125 mg in the evening. 3 Active amLODIPine (NORVASC) 5 MG tablet Take 10 mg by mouth 1 (one) time each day 3 Active hydrALAZINE 50 MG tablet Take 100 mg by mouth in the morning and 100 mg in the evening. 3 Active aspirin (ST CHAPARRO) 81 MG EC tablet Take 81 mg by mouth 1 (one) time each day Active Cholecalciferol (Vitamin D-3) 25 MCG (1000 UT) capsule Take 1,000 Units by mouth 1 (one) time each day Active glipiZIDE (GLUCOTROL XL) 5 MG 24 hr tablet Take 5 mg by mouth 1 (one) time each day Do not crush, chew, or split. Active atorvastatin (LIPITOR) 40 MG tablet Take 40 mg by mouth 5 Active isosorbide mononitrate (IMDUR) 30 MG 24 hr tablet Take 30 mg by mouth 5 Active Jardiance 25 MG tablet Take 25 mg by mouth 1 (one) time each day 90 tablet 3 5 03/06/20 26 Active Jardiance 25 MG tablet Take by mouth 1 (one) time each day 4 03/06/20 25 Discontinue d(Reorder (does not appear on AVS)) ticagrelor (BRILINTA) 90 MG tablet Take 90 mg by mouth 5 03/04/20 25 Hospital, Clinic, or Other Facility Administered Medication Ordered Dose Route Frequency Start Date End Date Status iron sucrose (VENOFER) injection 200 mgIndications:Other iron deficiency anemia 200 mg IV Once 01/24/2024 Active Epoetin Chi-epbx solution 20,000 UnitsIndications:Anemia in chronic kidney disease 88416 Units IJ Once 10/08/2024 A ctive Epoetin Chi-epbx solution 30,000 UnitsIndications:Anemia in chronic kidney disease,Stage 3a chronic kidney disease (HCC) 25184 Units IJ Once 03/12/2025 03/12/2025 End ed Active Problems Problem Noted Date Diagnosed Date [...] Encounters Date Type Department Care Team Description 03/12/2025 10:30 AM EDT Clinical Support [facility] [address] [phone] Anemia in chronic kidney disease (Primary Dx); Stage 3a chronic kidney disease (HCC) 03/12/2025 Office Communication [facility] [address] [phone] Alaina Engel 03/06/2025 Refill [facility] [address] [phone] Re Mchugh MA 02/26/2025 10:15 AM EDT Clinical Support [facility] [address] [phone] Anemia in chronic kidney disease (Primary Dx); Stage 3a chronic kidney disease (HCC) 02/12/2025 10:00 AM EDT Clinical Support [facility] [address] [phone] Anemia in chronic kidney disease (Primary Dx) 02/06/2025 Orders Only [facility] [address] [phone] Yuri Chance MD Stage 3a chronic kidney disease (HCC); Proteinuria, not otherwise specified; Psoriatic arthritis (HCC); Other cirrhosis of liver (HCC); Localized edema; Chronic metabolic acidosis; Cerebrovascular accident (HCC); Aortic valve stenosis; Anemia in chronic kidney disease; Acute nontraumatic kidney injury, not otherwise specified (HCC) 02/03/2025 Orders Only [facility] [address] [phone] Yuri Chance MD Stage 3a chronic kidney disease (HCC); Psoriatic arthritis (HCC); Proteinuria, not otherwise specified; Other cirrhosis of liver (HCC); Aortic valve stenosis; Cerebrovascular accident (HCC); Acute nontraumatic kidney injury, not otherwise specified (HCC); Anemia in chronic kidney disease 01/30/2025 1:30 PM EDT Clinical Support [facility] [address] [phone] Anemia in chronic kidney disease (Primary Dx) 01/30/2025 9:00 AM EDT Office Visit [facility] [address] [phone] Yuri Chance MD Stage 3a chronic kidney disease (HCC) (Primary Dx); Proteinuria, not otherwise specified; Psoriatic arthritis (HCC); Other cirrhosis of liver (HCC); Localized edema; Chronic metabolic acidosis; Cerebrovascular accident (HCC); Aortic valve stenosis; Anemia in chronic kidney disease; Acute nontraumatic kidney injury, not otherwise specified (HCC) 01/30/2025 Office Communication [facility] [address] [phone] Yuri Chance MD 01/30/2025 Documentation Only [facility] [address] [phone] Yuri Chance MD 01/17/2025 Orders Only [facility] [address] [phone] Yuri Chance MD 01/07/2025 9:45 AM EDT Clinical Support [facility] [address] [phone] Anemia in chronic kidney disease (Primary Dx) from Last 3 Months Family History Medical [...] Sign Reading Time Taken Comments Blood Pressure 140/66 03/12/2025 10:53 AM EDT Pulse 75 01/30/2025 9:00 AM EDT Temperature - - Respiratory Rate 22 01/31/2024 9:15 AM EDT Oxygen Saturation 97% 01/30/2025 9:00 AM EDT Inhaled Oxygen Concentration - - Weight 64.8 kg (142 lb 12.8 oz) 01/30/2025 9:00 AM EDT Height 162.6 cm (5' 4 ) 08/06/2024 10:4 3 AM EST Body Mass Index 24.51 08/06/2024 10:43 AM EST Plan of Treatment Upcoming Encounters Date Type Department Care Team (Late st Contact Info) Description 2025 Orders Only [facility] [address] [place] [phone] Yuri Chance MD [address] [phone] Stage 3a chronic kidney disease (HCC); Proteinuria, not otherwise specified; Psoriatic arthritis (HCC); Other cirrhosis of liver (HCC); Localized edema; Chronic metabolic acidosis; Cerebrovascular accident (HCC); Aortic valve stenosis; Anemia in chronic kidney disease; Acute nontraumatic kidney injury, not otherwise specified (HCC) 06/03/2025 8:20 AM EDT Office Visit [facility] [address] [address] Yuri Chance MD [address] [phone] Health Maintenance Due Date Last Done Comments Hepatitis B Vaccine (1 of 3 - 19+ 3-dose series) 05/02 Pneumococcal Vaccine: 50+ Years (1 of 2 - PCV) 987 Colorectal Cancer Screening: Annual FOBT 2017 Colorectal Cancer Screening: Colonoscopy 2017 Colorectal Cancer Screening: Sigmoidoscopy 2017 Influenza Vaccine (#1) 2025 Procedures Procedure Name Priority Date/Time Associated Diagnosis Comments POCT HEMOGLOBIN Routine 03/12/2025 10:50 AM EDT Anemia in chronic kidney disease Stage 3a chronic kidney disease (HCC) POCT HEMOGLOBIN Routine 02/26/2025 10:30 AM EDT Anemia in chronic kidney disease Stage 3a chronic kidney disease (HCC) POCT HEMOGLOBIN Routine 02/12/2025 10:20 AM EDT Anemia in chronic kidney disease PTH, INTACT (HC) Routine 01/17/2025 9:56 AM [...] PM EDT Anemia in chronic kidney disease from Last 3 Months Results * POCT hemoglobin (03/12/2025 10:50 AM EDT) Only the most recent of4 resultswithin the time period is included. Hemoglobin 8.8 Blood Capillary 03/12/2025 1 0:50 AM EDT Allan Leon MD POINT OF CARE TEST ORDERABLES Fi nal Result * (ABNORMAL) PTH, Intact (01/17/2025 9:56 AM EDT) Pathologist [facility] Parathyroid Hormone, Intact 79.6(H) 8.7 - 77.1 pg/mL See order comments 01/17/2025 9:56 AM EDT 01/17/2025 9:56 AM EDT Yuri Chance MD LAB [id number] SOLICITED RESULTS Final Result Performing Organization Address City/[facility]/ZIP Co de Phone Number [place] See order comments [place] [address] * Iron Panel (Fe, TIBC, TSAT) (01/17/2025 9:56 AM EDT) [facility] Iron 45 45 - 160 mcg/dL See order comments TIBC 279 228 - 428 mcg/dL See order comments Iron Saturation (TSat) 16 15 - 50 % See order comments UIBC 234 ug/dL See order comments Blood specimen (specimen) Venous blood / Unknown 01/17/2025 9:56 AM EDT 01/17/2025 9:56 AM EDT Yuri Chance MD LAB BLOOD ORDERABLES Final Re sult Performing Organization Address [facility] Co de Phone Number ZAKIA See order comments [place] [address] * Vitamin D 25 Hydroxy (01/17/2025 9:56 AM EDT) Pathologist [facility] Vitamin D, 25-Hydroxy 36.7 >30 ng/mL See order comments Comment: Health Based Reference Values* < 20 ng/mL Deficient 20-30 ng/mL Insufficient > 30 ng/mL Sufficient *Shalom MOORE. N Engl J Med. 2007;357:266-280 [...] D results from different laboratories and methodologies. Published data demonstrated that results from patients undergoing hemodialysis may show a negative bias when tested with various automated 25-OH vitamin D assays when compared to LC-MS/MS. When testing samples from patients whose predominant form of Vitamin D is Vitamin D2, such as patients receiving Vitamin D2 supplementation, results that are subtherapeutic should be confirmed with another method such as LC-MS/MS. Blood specimen (specimen) Venous blood / Unknown 01/17/2025 9:56 AM EDT 01/17/2025 9:56 AM EDT us Yuri Chance MD LAB BLOOD ORDERABLES Final Re sult [place] See order comments [place] [address] * (ABNORMAL) CBC and Differential (01/17/2025 9:56 [...] - 0.012 X10*3/uL See order comments Blood specimen (specimen) Venous blood / Unknown 01/17/2025 9:56 AM EDT 01/17/2025 9:56 AM EDT us Yuri Chance MD LAB BLOOD ORDERABLES Final Re sult Performing Organization Address [facility] Co de Phone Number [place] See order comments [place] [address] * (ABNORMAL) Uric Acid (01/17/2025 9:56 AM EDT) Uric Acid 8.1(H) 3.4 - 7.0 mg/dL See order comments Blood specimen (specimen) Venous blood / Unknown 01/17/2025 9:56 AM EDT 01/17/2025 9:56 AM EDT us Yuri Chance MD LAB BLOOD ORDERABLES Final Re sult [place] See order comments [place] [address] * Phosphorus (01/17/2025 9:56 AM EDT) Phosphorus, Serum 4.2 2.7 - 4.5 mg/dL See order comments Blood specimen (specimen) Venous blood / Unknown 01/17/2025 9:56 AM EDT 01/17/2025 9:56 AM EDT Result David Chance MD LAB BLOOD ORDERABLES Final Re sult Performing Organization Address [facility] Phone Number [place] See order comments [place] [address] * Magnesium (01/17/2025 9:56 AM EDT) Magnesium 2.2 1.6 - 2.6 mg/dL See order comments Blood specimen (specimen) Venous blood / Unknown 01/17/2025 9:56 AM EDT 01/17/2025 9:56 AM EDT us Yuri Chance MD LAB BLOOD ORDERABLES Final Re sult Performing Organization Address [facility] Phone Number [place] See order comments [place] [address] * Ferritin (01/17/2025 9:56 AM EDT) Ferritin 20 20 - 250 ng/mL See order comments Blood specimen (specimen) Venous blood / Unknown 01/17/2025 9:56 AM EDT 01/17/2025 9:56 AM EDT Result David Chance MD LAB BLOOD ORDERABLES Final Re sult Performing Organization Address [facility] Phone Number [place] See order comments [place] [address] * (ABNORMAL) Comprehensive Metabolic Panel (01/17/2025 9:56 [...] - 1.4 mg/dL See order comments eGFR (Calc) 35 See orde r comments Comment: Chronic Kidney Disease: Estimated GFR < 60 mL/min/1.73m2 Severe Kidney Disease: Estimated GFR < 15 mL/min/1.73m2 Glucose 240(H) 60 [...] - 117 U/L See order comments Blood specimen (specimen) Venous blood / Unknown 01/17/2025 9:56 AM EDT 01/17/2025 9:56 AM EDT Yuri Chance MD LAB BLOOD ORDERABLES Final Re sult Performing Organization Address [facility] de Phone Number [place] See order comments [place] [address] * (ABNORMAL) Protein, Total, Random Urine w/Creatinine (Protein/Creat Ratio) (01/17/2025 9:49 AM EDT) Creatinine, Urine 44.13 mg/dL See order comments Protein Urine Random 68(H) <12 mg/dL See order comments Protein/Creati nine Ratio, Urine 1.54(H) <0.2 See order comments Comment: The spot urine protein:creatinine ratio may increase to 0.3 during normal . Urine specimen (specimen) Urine specimen obtained by clean catch procedure / Unknown 01/17/2025 9:49 AM EDT 01/17/2025 9:49 AM EDT us Yuri Chance MD LAB URINE ORDERABLES Final Re sult Performing Organization Address [facility] Co de Phone Number [place] See order comments [place] [address] from Last [address] [facility] Medicare Medicare [employer] [facility] Medicare Care Teams Kiln Cleaner Relationship Specialty Start Date End Date Yamila Anguiano [address] [place] [id number] PCP - General 01/30/25
--- OUTSIDE RECORDS SUMMARY | 2025-04-03 07:12 | XMS_ITS | Clinical Summary ---
Author Organization [facility] Address [address] [place] [address] Care Team Providers Care Radio Frequency Technician Name Role Phone Martínez Dunn Primary Care Provider [phone] Allergies Active Allergy Reactions Criticality Noted Date [...] 80 02/24/2022 2:13 PM EDT Temperature 36.5 C (97.7 F) 02/24/2022 2:13 PM EDT Respiratory Rate 16 02/24/2022 2:13 PM EDT [...] 10/15/2021, 01/11/2021, 12/14/2020 Alcohol/Substance Use Screening 10/02/2024 Depression Screening and Follow-Up 10/02/2024 Social Drivers of Health Naila ual Screening 10/02/2024 Influenza Vaccine (#1) 2025 08/16/2021 RSV Vaccine (60+ years old a nd patients) (1 - 1-dose 75+ series) 2043 Medical Devices Implanted Type Area Bilingual Speech Therapist Device Identifier Shelf Expiration Date Model / Serial / Lot Lens Intraocular Ashperic Natural Single Piece Acrylic With Blue Light Filter [id number] 23.0d - [id number] - [id number] Implanted:Qty: 1 on 12/14/2021 by Omega Franco MD at [facility] Lens Right: Eye YESY 07/31/2026 SN60WF 23.0 / [id number] / Retisert Implanted:Qty: 1 on 12/14/2021 by Omega Franco MD at [facility] Right: Eye BAUSCH AND LOMB 03/01/2023 [id number] / [id number] / [id number] Insurance [facility] Advance Directives Documents on File Type Date Recorded Patient Drafter (Cad) Electrical Expl anation Health Care Proxy 02/24/2022 12:02 PM 05-2 * Presumed Full Code (Latest Code Status on File) Date Activated Date Inactivated Comments 02/24/2022 11:45 AM 02/24/2022 4:36 PM * Presumed Full Code Date Activated Date Inactivated Comments 12/14/2021 7:20 AM 12/14/2021 12:36 PM Care Teams Radio Frequency Technician Relationship Specialty Start Date End Date Martínez Dunn [address] [place] [address] [place] [address] PCP - General Internal Medicine 02/24/22
[2025-04-03 10:06] LABS: MANUAL DIFF FLAG NO
[2025-04-03 10:16] LABS: Hematocrit 33.0 % (42.0-52.0); Hemoglobin 10.3 g/dl (14.0-18.0); Imm Gran Abs Auto 0.03 X10*3/uL (0.00-0.03); Imm Gran Pct Auto 0.5 % (0.0-0.4); Lymphocytes Absolute Auto 0.8 X10*3/uL (1.2-4.9); Mean Corpuscular HGB Conc 31.2 g/dl (31.0-36.0); Mean Corpuscular Hemoglobin 29.7 pg (27.0-33.0); Mean Corpuscular Volume 95.1 fL (80.0-98.0); NRBC Abs Auto 0.000 X10*3/uL (0.0-0.012); NRBC Pct Auto 0.0 /100WBC (0.0-0.2); Platelet Count 181 X10*3/uL (160-400); Red Blood Count 3.47 X10*6/uL (4.60-5.80); White Blood Count 5.5 X10*3/uL (4.8-10.8)
[2025-04-03 10:32] LABS: Alanine Aminotransferase 13 U/L (0-40); Albumin Level 4.4 g/dL (3.5-5.0); Alkaline Phosphatase 50 U/L (39-117); Anion Gap 13 (12-20); Aspartate Amino Transferase 19 U/L (5-37); Blood Urea Nitrogen 33 mg/dL (9-16); Calcium 8.9 mg/dL (8.4-10.2); Carbon Dioxide 20 mmol/L (22-29); Chloride 111 mmol/L (96-108); Estimated Glomerular Filt Rate 39; Iron 69 mcg/dL (45-160); Magnesium 2.4 mg/dL (1.6-2.6); Percent Iron Saturation 32 % (15-50); Potassium 4.7 mmol/L (3.3-5.1); Sodium 139 mmol/L (135-145); Total Iron Binding Capacity 214 mcg/dL (228-428); Total Protein 7.2 g/dL (6.5-8.0); Unsaturated Iron Binding 145 ug/dL; Uric Acid 6.6 mg/dL (3.4-7.0)
[2025-04-03 10:51] LABS: Ferritin 183 ng/mL (20-250)
[2025-04-03 11:00] LABS: Parathyroid Hormone Intact 65.8 pg/mL (8.7-77.1)
== END 2025-04-03 07:10 | disposition home or self-care (01) ==
LOC: HO.HMGCLDS 07:09
PROVIDERS: PCP Internal Medicine; Visit Provider Internal Medicine Nephrology
DX: N18.31 Chronic kidney disease, stage 3a (principal); R80.9 Proteinuria, unspecified; L40.50 Arthropathic psoriasis, unspecified; R60.0 Localized edema; E87.22 Chronic metabolic acidosis; I63.9 Cerebral infarction, unspecified; I35.0 Nonrheumatic aortic (valve) stenosis; D63.1 Anemia in chronic kidney disease; N17.9 Acute kidney failure, unspecified
CPT/HCPCS: 36415; 80053; 82306; 82728; 83540; 83735; 83970; 84100; 84550; 85025

== ENCOUNTER 2025-06-12 08:28 | Outpatient (AMB) | payer OTHER, MEDICARE, SELFPAY ==
[2025-06-12 08:30] VITALS: BP 130/60; PULSE 72; BMI 22.9
--- NOTE | 2025-06-12 08:30 | A.OFFVIS_ITS ---
Vital Signs 06/12/25 08:30 Height 5 ft 5 in Weight 137 lb 9.095 oz BMI 22.9 BP 130/60 Blood Pressure Location Lt brachial Position Sitting Pulse 72 Pulse Source Monitor Intake Visit Reasons: 4 mth f/up NS r/s 05-27-25 Accompanied by: Self / Same As Patient Allergies shellfish derived (SHELLFISH DERIVED) Allergy (Severe, Verified 01/27/25 10:58) ANAPHYLAXIS acetazolamide Adverse Reaction (Verified 01/27/25 10:58) Confusion Medication List - Last Reconciled 06/12/25 by Reema Gordon, PHARMACY TECHNICIAN INFUSION-C acetaminophen 650 mg PO DAILY PRN amlodipine 10 mg See Protocol PO DAILY amoxicillin 2,000 mg (4 x 500 mg) PO ONCE PRN aspirin 81 mg PO DAILY atorvastatin 40 mg PO BEDTIME carvedilol 3.125 mg PO BID cholecalciferol (vitamin D3) 25 mcg PO DAILY gabapentin 600 mg PO TID glipizide 5 mg PO DAILY hydralazine 100 mg PO BID 90 days Jardiance (empagliflozin) 25 mg PO DAILY NS metformin 500 mg PO BID omeprazole 20 mg PO BID@0630,1630 polyethylene glycol 400 0.25% (Blink Gel Tears) drps ophthalmic (eye) secukinumab (Cosentyx Pen 300 mg/2 pens () 300 mg subcut QMONTH spironolactone 300 mg PO DAILY ticagrelor (Brilinta) 90 mg PO BID HPI HPI 4 mth f/up NS r/s 05-27-25: Details: Dmitriy is a 55-year-old male past medical history of hypertension, chronic kidney disease, diastolic heart failure, severe aortic stenosis status post TAVR 11/19/2024, CAD with proximal LAD stent 11/29/2024 who presents for follow-up. Today he reports he has been feeling very well with no concerning symptoms. He continues to attend cardiac rehab and tells me he has 16 visits left. He has no chest discomfort at rest or with activity. He denies shortness of breath, PND, orthopnea or edema. He has no heart palpitations, lightheadedness, presyncope, syncope. He is taking all medications as directed and reports good activity tolerance. He did take his antibiotic prior to dental work. 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 Social History Household Members: Spouse Housing: Condominium Do you presently have visiting nurse or other home services: No Alcohol intake: current Alcohol intake frequency: holidays/special occasions only Comment: patient steady with ambulation,ind. Patient Tobacco Use Status: Never used Tobacco Substance Use Type: Marijuana Advance Directives Date on File: 12/21/23 service: No Current occupational status: disabled Cognitive needs: No Hearing needs: No Vision needs: Yes (rx glasses) Review of Systems Const All systems reviewed & are unremarkable except as noted in HPI and below Denies daytime sleepiness, Denies difficulty sleeping, Denies snoring, Denies stops breathing during sleep and Denies weakness Card Denies chest pain, Denies rapid heart rate, Denies irregular heart rhythm, Denies claudication, Denies leg edema, Denies lightheadedness, Denies palpitations, Denies dyspnea, Denies dyspnea on exertion, Denies orthopnea, Denies paroxysmal nocturnal dyspnea and Denies slow heart rate Resp Denies cough, Denies dyspnea, Denies dyspnea on exertion and Denies snoring GI Reports no additional complaints, Denies hematochezia, Denies change in stool character and Denies dyspepsia Musc Denies abnormal gait, Denies muscle weakness and Denies numbness Neuro Denies abnormal gait, Denies numbness and Denies weakness Endo Denies palpitations Physical Exam Vital Signs: Last Vital Signs Pulse 72 06/12/25 08:30 BP 130/60 06/12/25 08:30 BMI result Body Mass Index 22.9 Const General: cooperative, healthy appearing, comfortable and no acute distress Orientation/consciousness: patient oriented x3 Neck Neck: Yes normal visual inspection Resp Effort & Inspection: normal respiratory effort Auscultation: clear to auscultation bilaterally, no crackles, no rales, no rhonchi and no wheezes Cardio Rate: regular rate Rhythm: regular rhythm Heart sounds: S2 normal heart sound present, no gallops, Murmur heart sound present (2/6 systolic murmur noted right sternal border) and no rubs Neuro General: patient oriented x3 Extrem General: Yes normal to inspection, No no pedal edema and No calf tenderness Psych Appearance: grossly normal Mental Status: mental status grossly normal Speech and movement: Normal speech and movement present Office Procedures EKG Details: Today, read by me, normal sinus rhythm, right axis, T-wave abnormality lead 3 and AVF, rate 72, QTC 438 milliseconds [id number], Complete Assessment & Plan Assessment & Plan (1) Aortic stenosis: Code(s): I35.0 - Nonrheumatic aortic (valve) stenosis Category: Medical Qualifiers: Cardiac valve disease etiology: nonrheumatic Qualified Code(s): I35.0 - Nonrheumatic aortic (valve) stenosis Plan: History of aortic stenosis which became severe. He underwent trans catheter aortic valve replacement on 11/19/2024. [facility] echo done 01/01/2025 shows aortic valve with mean gradient 10 mmHg. He is currently asymptomatic and attends cardiac rehab. He will be having repeat echocardiogram in November. Cardiology follow-up after. The need for Endocarditis prophylaxis reviewed. (2) S/P TAVR (transcatheter aortic valve replacement): Comment: 26 mm Perez, November 2024 Code(s): Z95.2 - Presence of prosthetic heart valve Category: Surgical Plan: As above (3) Coronary artery disease: Comment: Cardiac catheterization 08/08/2024 showing proximal LAD 60% stenosis, left main, left circumflex and RCA normal. He did have repeat catheterization with PCI to the LAD, 11/29/2024 Code(s): I25.10 - Atherosclerotic heart disease of [place] coronary artery without angina pectoris Category: Medical Plan: History of CAD with LAD stent. No anginal symptoms. Continue dual antiplatelet therapy until 1 year post stent. Continue atorvastatin with ideal LDL goal less than 70. Signs and symptoms of angina reviewed with him. (4) Stented coronary artery: Comment: Drug-eluting stent to LAD, November 2024 Code(s): Z95.5 - Presence of coronary angioplasty implant and graft Category: Surgical Plan: As above. Will obtain most recent catheterization report for our records. (5) Chronic heart failure with preserved ejection fraction (HFpEF): Code(s): I50.32 - Chronic diastolic (congestive) heart failure Category: Medical Plan: Last echo shows EF 62%. No clinical signs of heart failure on examination. No med changes made. Signs and symptoms of heart failure reviewed with him. (6) Hypertension: Code(s): I10 - Essential (primary) hypertension Category: Medical Qualifiers: Hypertension type: primary hypertension Qualified Code(s): I10 - Essential (primary) hypertension Plan: Blood pressure goal less than 130/80. Well controlled at this time. No med changes made. (7) PAD (peripheral artery disease): Code(s): I73.9 - Peripheral vascular disease, unspecified Category: Medical Plan: Reports bilateral leg claudication with PVD and planned for future intervention. Following with vascular, unclear of providers name. Plan During the visit, we discussed the patient's progress post-aortic valve replace ment and the upcoming stent placement for peripheral artery disease. The patient was advised to continue cardiac rehabilitation and maintain regular follow-up appointments to monitor cardiac health. We also reviewed the importance of dental prophylaxis with antibiotics due to his cardiac history. Patient Instructions: - Continue attending cardiac rehabilitation sessions. - Follow up with echo and scheduled appointment to monitor heart health. - Take antibiotics before dental procedures as advised. Patient was informed and verbally consented to the use of an ambient scribe for clinic note documentation during this visit. Visit time spent on chart review, interview, assessment, orders, documentation. Coding Level of Care Code Est Pt Level 4 (70457) Complex EM visit Add On G2211 Diagnoses Nonrheumatic aortic valve stenosis I35.0 Cardiac valve disease etiology: nonrheumatic S/P TAVR (transcatheter aortic valve replacement) Z95.2 Coronary artery disease I25.10 Stented coronary artery Z95.5 Chronic heart failure with preserved ejection fraction (HFpEF) I50.32 Primary hypertension I10 Hypertension type: primary hypertension PAD (peripheral artery disease) I73.9 CPT Codes EKG - CPT: [id number], Complete ([id number]) Time Spent (min) 32
--- OUTSIDE RECORDS SUMMARY | 2025-06-12 09:30 | XMS_ITS | Clinical Summary ---
Author Organization [facility] Address [address] [address] Phone Care Team Providers Care Steel Checker Name Role Phone Yamila Anguiano Primary Care Provider [phone] Allergies Active Allergy Reactions Criticality Noted Date [...] MG tablet Take 40 mg by mouth 12/04/2024 Active isosorbide mononitrate (IMDUR) 30 MG 24 hr tablet Take 30 mg by mouth 12/04/2024 Active Jardiance 25 MG tablet Take 25 mg by mouth 1 (one) time each day 90 tablet 3 03/06/2025 03/06/20 Active ticagrelor (BRILINTA) 90 MG tablet 06/01/2025 Active FLUoxetine (PROzac) 20 MG tablet Take 20 mg by mouth 1 (one) time each day 05/13/2025 Active Hospital, Clinic, or Other Facility Administered Medication Ordered Dose Route Frequency Start Date End Date Status iron sucrose (VENOFER) injection 200 mgIndications:Other iron deficiency anemia 200 mg IV Once 01/24/2024 Active Epoetin Chi-epbx solution 20,000 UnitsIndications:Anemia in chronic kidney disease 43594 Units IJ Once 10/08/2024 A ctive Epoetin Chi-epbx solution 30,000 UnitsIndications:Anemia in chronic kidney disease 90603 Units IJ Once 05/28/2025 05/28/2025 E nded Active Problems Problem Noted Date Diagnosed Date Chronic systolic heart failure 04/14/2025 Chronic metabolic acidosis 01/09/2024 Acute nontraumatic kidney [...] Encounters Date Type Department Care Team Description 06/04/2025 Office Communication [facility] [address] [phone] Yuri Chance MD 06/03/2025 8:20 AM EDT Office Visit [facility] [address] [phone] Yuri Chance MD Stage 3a chronic kidney disease (HCC) (Primary Dx); Psoriatic arthritis (HCC); Proteinuria, not otherwise specified; Other cirrhosis of liver (HCC); Localized edema; Chronic metabolic acidosis; Cerebrovascular accident (HCC); Aortic valve stenosis; Anemia in chronic kidney disease; Acute nontraumatic kidney injury, not otherwise specified (HCC) 05/28/2025 10:45 AM EDT Clinical Support [facility] [address] [phone] Anemia in chronic kidney disease (Primary Dx) 05/27/2025 Orders Only [facility] [address] [phone] Yuri Chance MD 05/26/2025 Orders Only [facility] [address] [address] Yuri Chance MD 2025 Orders Only [facility] [address] [phone] Yuri Chance MD Stage 3a chronic kidney disease (HCC); Proteinuria, not otherwise specified; Psoriatic arthritis (HCC); Other cirrhosis of liver (HCC); Localized edema; Chronic metabolic acidosis; Cerebrovascular accident (HCC); Aortic valve stenosis; Anemia in chronic kidney disease; Acute nontraumatic kidney injury, not otherwise specified (HCC) 04/30/2025 10:30 AM EDT Clinical Support [facility] [address] [address] Anemia in chronic kidney disease (Primary Dx) 04/08/2025 Office Communication [facility] [address] [phone] Yuri Chance MD 04/03/2025 Orders Only [facility] [address] [phone] Yuri Chance MD 03/12/2025 10:30 AM EDT Clinical Support [facility] [address] [phone] Anemia in chronic kidney disease (Primary Dx); Stage 3a chronic kidney disease (HCC) 03/12/2025 Office Communication [facility] [address] [phone] Alaina Engel from Last 3 Months Family History Medical [...] Sign Reading Time Taken Comments Blood Pressure 152/68 06/03/2025 8:25 AM EDT Pulse 69 06/03/2025 8:25 AM EDT Temperature - - Respiratory Rate 22 01/31/2024 9:15 AM EDT Oxygen Saturation 98% 06/03/2025 8:25 AM EDT Inhaled Oxygen Concentration - - Weight 59.9 kg (132 lb) 06/03/2025 8:25 AM EDT Height 162.6 cm (5' 4 ) 08/06/2024 10:43 AM EST Body Mass Index 22.66 08/06/2024 10:43 AM EST Plan of Treatment Upcoming Encounters Date Type Department Care Team (Late st Contact Info) Description 06/25/2025 10:30 AM EDT Clinical Support [facility] [address] [place] [phone] 09/03/2025 8:20 AM EST Office Visit [facility] [address] [address] Yuri Chance MD [address] [phone] Health Maintenance Due Date Last Done Comments Hepatitis B Vaccine (1 of 3 - 19+ 3-dose series) 05/02 Pneumococcal Vaccine: 50+ Years (1 of 2 - PCV) 987 Colorectal Cancer Screening: Annual FOBT 2017 Colorectal Cancer Screening: Colonoscopy 2017 Colorectal Cancer Screening: Sigmoidoscopy 2017 Diabetes: Hemoglobin A1C 04/29/2025 Diabetes: Ophthalmology Exam 04/29/2025 Diabetes: Pedal Pulse Checked 04/29/2025 Diabetes: Sensory Foot Exam 04/29/2025 Diabetes: Visual Foot Exam 04/29/2025 Influenza Vaccine (#1) 2025 Procedures Procedure Name Priority Date/Time Associated Diagnosis Comments PROTEIN / CREATININE RATIO, URINE Routine 05/27/2025 7:00 AM EDT PTH, INTACT Routine 05/26/2025 1:30 PM EDT FERRITIN Routine 05/26/2025 1:30 PM EDT MAGNESIUM Routine 05/26/2025 1:30 PM EDT PHOSPHATE ( PHOSPHORUS) Routine 05/26/2025 1:30 PM EDT URIC ACID Routine 05/26/2025 1:30 PM EDT VITAMIN D 25 HYDROXY Routine 05/26/2025 1:30 PM EDT PROTEIN / CREATININE RATIO, URINE Routine 05/26/2025 1:30 PM EDT IRON PANEL (FE, TIBC, TSAT) Routine 05/26/2025 1:30 PM EDT COMPREHENSIVE METABOLIC PANEL Routine 05/26/2025 1:30 PM EDT CBC AND DIFFERENTIAL Routine 05/26/2025 1:30 PM EDT POCT HEMOGLOBIN Routine 04/30/2025 2:47 PM EDT Anemia in chronic kidney disease PTH, INTACT (HC) Routine 04/03/2025 9:59 AM EDT FERRITIN Routine 04/03/2025 9:59 AM EDT Stage 3a chronic kidney disease (HCC) Proteinuria, not otherwise specified Psoriatic arthritis (HCC) Other cirrhosis of liver (HCC) Localized edema Chronic metabolic acidosis Cerebrovascular accident (HCC) Aortic valve stenosis Anemia in chronic kidney disease Acute nontraumatic kidney injury, not otherwise specified (HCC) IRON PANEL (FE, TIBC, TSAT) Routine 04/03/2025 9:59 AM EDT Stage 3a chronic kidney disease (HCC) Proteinuria, not otherwise specified Psoriatic arthritis (HCC) Other cirrhosis of liver (HCC) Localized edema Chronic metabolic acidosis Cerebrovascular accident (HCC) Aortic valve stenosis Anemia in chronic kidney disease Acute nontraumatic kidney injury, not otherwise specified (HCC) CBC AND DIFFERENTIAL Routine 04/03/2025 9:59 AM EDT Stage 3a chronic kidney disease (HCC) Proteinuria, not otherwise specified Psoriatic arthritis (HCC) Other cirrhosis of liver (HCC) Localized edema Chronic metabolic acidosis Cerebrovascular accident (HCC) Aortic valve stenosis Anemia in chronic kidney disease Acute nontraumatic kidney injury, not otherwise specified (HCC) VITAMIN D 25 HYDROXY Routine 04/03/2025 9:59 AM EDT Stage 3a chronic kidney disease (HCC) Proteinuria, not otherwise specified Psoriatic arthritis (HCC) Other cirrhosis of liver (HCC) Localized edema Chronic metabolic acidosis Cerebrovascular accident (HCC) Aortic valve stenosis Anemia in chronic kidney disease Acute nontraumatic kidney injury, not otherwise specified (HCC) PHOSPHATE ( PHOSPHORUS) Routine 04/03/2025 9:59 AM EDT Stage 3a chronic kidney disease (HCC) Proteinuria, not otherwise specified Psoriatic arthritis (HCC) Other cirrhosis of liver (HCC) Localized edema Chronic metabolic acidosis Cerebrovascular accident (HCC) Aortic valve stenosis Anemia in chronic kidney disease Acute nontraumatic kidney injury, not otherwise specified (HCC) MAGNESIUM Routine 04/03/2025 9:59 AM EDT Stage 3a chronic kidney disease (HCC) Proteinuria, not otherwise specified Psoriatic arthritis (HCC) Other cirrhosis of liver (HCC) Localized edema Chronic metabolic acidosis Cerebrovascular accident (HCC) Aortic valve stenosis Anemia in chronic kidney disease Acute nontraumatic kidney injury, not otherwise specified (HCC) URIC ACID Routine 04/03/2025 9:59 AM EDT Stage 3a chronic kidney disease (HCC) Proteinuria, not otherwise specified Psoriatic arthritis (HCC) Other cirrhosis of liver (HCC) Localized edema Chronic metabolic acidosis Cerebrovascular accident (HCC) Aortic valve stenosis Anemia in chronic kidney disease Acute nontraumatic kidney injury, not otherwise specified (HCC) COMPREHENSIVE METABOLIC PANEL Routine 04/03/2025 9:59 AM EDT Stage 3a chronic kidney disease (HCC) Proteinuria, not otherwise specified Psoriatic arthritis (HCC) Other cirrhosis of liver (HCC) Localized edema Chronic metabolic acidosis Cerebrovascular accident (HCC) Aortic valve stenosis Anemia in chronic kidney disease Acute nontraumatic kidney injury, not otherwise specified (HCC) POCT HEMOGLOBIN Routine 03/12/2025 10:50 AM EDT Anemia in chronic kidney disease Stage 3a chronic kidney disease (HCC) from Last 3 Months Results * (ABNORMAL) Protein, Total, Random Urine w/Creatinine (Protein/Creat Ratio) (05/27/2025 7:00 AM EDT) Creatinine, Ur 52.6 Not Estab. mg/dL [facility] Protein, Ur 113.2 Not Estab. mg/dL [facility] Urine Protein/Creati nine Ratio 2,152(H) 0 - 200 mg/g creat [facility] 05/27/2025 7:00 AM EDT 05/27/2025 Yuri Chance MD LAB URINE ORDERABLES Final Re sult Performing Organization Address [facility] Co de Phone Number [facility] [address] [place] [address] * Iron Panel (Fe, TIBC, TSAT) (05/26/2025 1:30 PM EDT) Only the most recent of2 resultswithin the time period is included. TIBC 285 250 - 450 ug/dL [facility] UIBC 216 111 - 343 ug/dL [facility] Iron 69 38 - 169 ug/dL [facility] Iron Saturation (TSat) 24 15 - 55 % [facility] 05/26/2025 1:30 PM EDT 05/26/2025 Yuri Chance MD LAB BLOOD ORDERABLES Final Re sult Performing Organization Address [facility] Co de Phone Number [facility] [address] [place] [address] * Vitamin D 25 Hydroxy (05/26/2025 1:30 PM EDT) Only the most recent of2 resultswithin the time period is included. Vitamin D, 25-OH, Total 31.3 30.0 - 100.0 ng/mL [facility] Comment: Vitamin D deficiency has been defined by the [employer] of Medicine and an Endocrine Society practice guideline as a level of serum 25-OH vitamin D less than 20 ng/mL (1,2). The Endocrine Society went on to further define vitamin D insufficiency as a level between 21 and 29 ng/mL (2). 1. IOM ([place] of Medicine). 2010. Dietary reference intakes for calcium and D. [place]: The National Academies Press. 2. Shalom MF, Avery NC, Sarbjit SHEPHERD, et al. Evaluation, treatment, and prevention of vitamin D deficiency: an Endocrine Society clinical practice guideline. JCEM. 2010; 96(7):1911-30. 05/26/2025 1:30 PM EDT 05/26/2025 us Yuri Chance MD LAB BLOOD ORDERABLES Final Re sult [facility] [address] [place] [address] * (ABNORMAL) CBC and Differential (05/26/2025 1:30 PM EDT) Only the most recent of2 resultswithin the time period is included. WBC 7.1 3.4 - 10.8 x10E3/uL [facility] RBC 3.28(L) 4.14 - 5.80 x10E6/uL [facility] Hemoglobin 9.9(L) 13.0 - 17.7 g/dL [facility] Hematocrit 30.3(L) 37.5 - 51.0 % [facility] MCV 92 79 - 97 fL [facility] MCH 30.2 26.6 - 33.0 pg [facility] MCHC 32.7 31.5 - 35.7 g/dL [facility] RDW 15.2 11.6 - 15.4 % [facility] Platelets 236 150 - 450 x10E3/uL [facility] Neutrophils Relative 75 Not Estab. % [facility] Lymphocytes Relative 12 Not Estab. % [facility] Monocytes 8 Not Estab. % [facility] Eosinophils Relative 3 Not Estab. % [facility] Basophils Relative 1 Not Estab. % [facility] Neutrophils Absolute 5.4 1.4 - 7.0 x10E3/uL [facility] Lymphocytes Absolute 0.8 0.7 - 3.1 x10E3/uL [facility] Monocytes Absolute 0.6 0.1 - 0.9 x10E3/uL [facility] Eosinophils Absolute 0.2 0.0 - 0.4 x10E3/uL [facility] Basophils Absolute 0.1 0.0 - 0.2 x10E3/uL [facility] Immature Granulocytes 0 Not Estab. % [facility] Immature Grans (Absolute) 0.0 0.0 - 0.1 x10E3/uL [facility] 05/26/2025 1:30 PM EDT 05/26/2025 Yuri Chance MD LAB BLOOD ORDERABLES Final Re sult Performing Organization Address City/[facility]/ZIP Co de Phone Number [facility] [address] [place] [address] * Uric Acid (05/26/2025 1:30 PM EDT) Only the most recent of2 resultswithin the time period is included. Uric Acid 6.5 3.8 - 8.4 mg/dL [facility] Comment:Therapeutic target f or gout patients: <6.0 05/26/2025 1:30 PM EDT 05/26/2025 Yuri Chance MD LAB BLOOD ORDERABLES Final Re sult [facility] [address] [place] [address] * Phosphorus (05/26/2025 1:30 PM EDT) Only the most recent of2 resultswithin the time period is included. Phosphorus 4.0 2.8 - 4.1 mg/dL [facility] 05/26/2025 1:30 PM EDT 05/26/2025 Yuri Chance MD LAB BLOOD ORDERABLES Final Re sult Performing Organization Address [facility] de Phone Number [facility] [address] [place] [address] * PTH, Intact (05/26/2025 1:30 PM EDT) PTH 24 15 - 65 pg/mL [facility] 05/26/2025 1:30 PM EDT 05/26/2025 Yuri Chance MD LAB BLOOD ORDERABLES Final Re sult Performing Organization Address [facility] Co de Phone Number [facility] [address] [place] [address] * Magnesium (05/26/2025 1:30 PM EDT) Only the most recent of2 resultswithin the time period is included. Magnesium 2.1 1.6 - 2.3 mg/dL [facility] 05/26/2025 1:30 PM EDT 05/26/2025 us Yuri Chance MD LAB BLOOD ORDERABLES Final Re sult Performing Organization Address City/[facility]/ZIP Co de Phone Number [facility] [address] [place] [address] * Ferritin (05/26/2025 1:30 PM EDT) Only the most recent of2 resultswithin the time period is included. Ferritin 136 30 - 400 ng/mL [facility] 05/26/2025 1:30 PM EDT 05/26/2025 us Yuri Chance MD LAB BLOOD ORDERABLES Final Re sult [facility] [address] [place] [address] * (ABNORMAL) Comprehensive Metabolic Panel (05/26/2025 1:30 PM EDT) Only the most recent of2 resultswithin the time period is included. Glucose 122(H) 70 - 99 mg/dL [facility] BUN 32(H) 6 - 24 mg/dL [facility] Creatinine 2.12(H) 0.76 - 1.27 mg/dL [facility] eGFR CKD-EPI CR 2020 36(L) >59 mL/min/1.7 3 [facility] BUN/Creatinine Ratio 15 9 - 20 [facility] Sodium 132(L) 134 - 144 mmol/L [facility] Potassium 5.0 3.5 - 5.2 mmol/L [facility] Chloride 100 96 - 106 mmol/L [facility] Calcium 9.2 8.7 - 10.2 mg/dL [facility] Total Protein 7.3 6.0 - 8.5 g/dL [facility] Albumin 4.7 3.8 - 4.9 g/dL [facility] Globulin 2.6 1.5 - 4.5 g/dL [facility] Total Bilirubin <0.2 0.0 - 1.2 mg/dL [facility] Alkaline Phosphatase 46 44 - 121 IU/L [facility] AST (SGOT) 17 0 - 40 IU/L [facility] ALT (SGPT) 13 0 - 44 IU/L [facility] Bicarbonate (CO2) 15(L) 20 - 29 mmol/L [facility] 05/26/2025 1:30 PM EDT 05/26/2025 Yuri Chance MD LAB BLOOD ORDERABLES Final Re sult [facility] [address] [place] [phone] * POCT hemoglobin (04/30/2025 2:47 PM EDT) Only the most recent of2 resultswithin the time period is included. Pathologist [facility] Hemoglobin 10.1 Blood Capillary 04/30/2025 2 :47 PM EDT Tushar Hickman MD POINT OF CARE TEST ORDERABLES Final Result * PTH, Intact (04/03/2025 9:59 AM EDT) Parathyroid Hormone, Intact 65.8 8.7 - 77.1 pg/mL See order comments 04/03/2025 9:59 AM EDT 04/03/2025 9:59 AM EDT us Yuri Chance MD LAB [id number] SOLICITED RESULTS Final Result ZAKIA See order [place] [address] from Last 3 Months Insurance [facility] Member Subscriber Plan / Payer (Ef fective 2022-Present) Name:Dmitriy Dejesus Relation to Subscriber:Self Name:Dmitriy Dejesus Payer ID:Not on file Type:Not on file Address: [address] [id number] Medicare Medicare [employer] [facility] Member Subscriber Plan / Payer (Ef fective 2022-Present) Name:GonzalesYanely hendersonian Relation to Subscriber:Self Name:Dmitriy Dejesus Payer ID:Not on file Type:Not on file Address: [address] [phone] Medicare Care Teams Steel Checker Relationship Specialty Start Date End Date Yamila Anguiano [address] [place] [id number] PCP - General 01/30/25
--- OUTSIDE RECORDS SUMMARY | 2025-06-12 09:30 | XMS_ITS | Clinical Summary ---
Author Organization [facility] Address [address] [place] [address] Care Team Providers Care Medical Practitioners Name Role Phone Martínez Dunn Primary Care Provider [phone] Allergies Active Allergy Reactions Criticality Noted Date [...] 2018 Zoster Vaccines (1 of 2) 2018 Alcohol/Substance Use Screening 10/02/2024 Depression Screening and Follow-Up 10/02/2024 Social Drivers of Health Naila ual Screening 10/02/2024 COVID-19 Vaccine ( - season) 2025 10/15/2021, 01/11/2021, 12/14/2020 Influenza Vaccine (#1) 2025 08/16/2021 RSV Vaccine (60+ years old a nd patients) (1 - 1-dose 75+ series) 2043 Medical Devices Implanted Type Area Separating Machine Operator Device Identifier Shelf Expiration Date Model / Serial / Lot Lens Intraocular Ashperic Natural Single Piece Acrylic With Blue Light Filter [id number] 23.0d - [id number] - [id number] Implanted:Qty: 1 on 12/14/2021 by Omega Franco MD at [facility] Lens Right: Eye YESY 07/31/2026 [id number] 23.0 / [id number] / Retisert Implanted:Qty: 1 on 12/14/2021 by Omega Franco MD at [facility] Right: Eye [employer]CH [employer] LOMB 03/01/2023 [id number] / [id number] / [id number] Insurance [facility] Advance Directives Documents on File Type Date Recorded Patient Cad Detailer Expl anation Health Care Proxy 02/24/2022 12:02 PM 05-2 * Presumed Full Code (Latest Code Status on File) Date Activated Date Inactivated Comments 02/24/2022 11:45 AM 02/24/2022 4:36 PM * Presumed Full Code Date Activated Date Inactivated Comments 12/14/2021 7:20 AM 12/14/2021 12:36 PM Care Teams Medical Practitioners Relationship Specialty Start Date End Date Martínez Dunn [address] [place] [address] [place] [address] PCP - General Internal Medicine 02/24/22
--- OUTSIDE RECORDS SUMMARY | 2025-06-12 09:30 | XMS_ITS | Encounter Summary ---
Author Organization [facility] Address [address] [place] [phone] Care Team Providers Care Program Director Scouting Name Role Phone Yamila Anguiano Primary Care Provider [phone] Reason for Visit * Reason Onset Date Comments Med Refill 06/10/2025 Encounter Details Date Type Department Care Team (Late st Contact Info) Description 06/10/2025 Telephone Gastroenterology - [address] [place] [phone] Jeanmarie Jefferson MD [address] [place] [phone] Social History Tobacco Use Types Packs/Day Years Used Date Smoking Tobacco: Never Assessed Sex and Gender Information Value Date Recorded Sex Assigned at Not on file Legal Sex Male 7:57 PM EST Gender Identity Not on file Sexual Orientation Not on file documented as of this encounter Progress Notes * Cindy Hutton MA - 06/10/2025 11:24 AM EDT Order pended * Nelly Vogel - 06/10/2025 10:59 AM EDT SHUBHAM : 04/01/24 NOV : 10/28/25 documented in this encounter Plan of Treatment Upcoming Encounters Date Type Department Care Team (Late st Contact Info) Description 10/28/2025 9:20 AM EST Office Visit Gastroenterology - [place] [address] [place] [address] Lisette Doty, ENRIQUE 175 [facility] [address] [place] [address] documented as of this encounter Visit Diagnoses Diagnosis Alcoholic cirrhosis of liver without ascites (CMS/HCC V24, CMS/HCC V28) documented in this encounter Care Teams Program Director Scouting Relationship Specialty Start Date End Date Yamila Anguiano PA [address] [place] [address] PCP - General Physician Prenatal Teacher 06/10/25 documented as of this encounter
--- OUTSIDE RECORDS SUMMARY | 2025-06-12 09:30 | XMS_ITS | Clinical Summary ---
Author Organization [facility] [address] [facility] Address [address] [place] [address] Phone Care Team Providers Care Bottle Assembler Name Role Phone Yamila Anguiano Primary Care Provider [phone] Medications spironolactone (ALDACTONE) 100 mg tabletIndication s:Alcoholic cirrhosis of liver without ascites (CMS/HCC V24, CMS/HCC V28) TAKE 3 TABLETS BY MOUTH ONCE A DAY DIRECTED 270 tablet 1 5 Active omeprazole (PriLOSEC) [address] Hernandez ns:Gastroesophag eal reflux disease without esophagitis TAKE 1 CAPSULE BY MOUTH TWICE A DAY 180 capsule 1 5 Active Encounters Date Type Department Care Team Description 06/10/2025 Telephone Gastroenterology - [address] [place] [address] [address] [place] [address] Jeanmarie Jefferson MD from Last 3 Months Social History Tobacco Use Types Packs/Day Years Used Date Smoking Tobacco: Never Assessed Sex and Gender Information Value Date Recorded Sex Assigned at Not on file Legal Sex Male 7:57 PM EST Gender Identity Not on file Sexual Orientation Not on file Plan of Treatment Upcoming Encounters Date Type Department Care Team (Late st Contact Info) Description 10/28/2025 9:20 AM EST Office Visit Gastroenterology - [place] [facility] 175 [facility] [address] [place] [address] Lisette Doty NP 175 [facility] [address] [place] [address] Health Maintenance Due Date Last Done Comments DTaP,Tdap,and Td Vaccines (1 - Tdap) 1987 Hepatitis A Vaccines (1 of 2 - Risk 2-dose series) 1987 Pneumococcal Vaccine: 50+ Years (1 of 2 - PCV) 1987 Zoster Vaccines (1 of 2) 2018 Cholesterol Screening (Lipid Panel) 09/03/2022 Colorectal Cancer Screening: Colonoscopy 09/03/2022 HIV Screening 09/03/2022 Hepatitis C Screening 09/03/2022 Medicare Annual Wellness Visit 09/03/2022 Social Influencers of Health Screening 09/03/2022 Depression Screening 10/02/2024 COVID-19 Vaccine ( - season) 2025 Influenza Vaccine (#1) 2025 Hypertension/CHF/CAD Annual BMP Blood Test 05/26/2026 05/26/2025, 05/26/2025, 04/03/2025, Additional history exists Hepatitis B Vaccines Completed 07/01/2019, 01/28/2019, 12/28/2018 [...] 20 months Aged Out No longer eligible based on patient's age to complete this topic Varicella Vaccines Aged Out No longer eligible based on patient's age to complete this topic Insurance [employer] [place] MEDICARE [employer]VANTAGE Care Teams Bottle Assembler Relationship Specialty Start Date End Date Yamila Anguiano PA [address] [place] [address] PCP - General Physician Entry Clerk 06/10/25
== END 2025-06-12 09:13 | disposition home or self-care (01) ==
PROVIDERS: PCP Physician Assistant; Visit Provider Nurse Practitioner Family
DX: I35.0 Nonrheumatic aortic (valve) stenosis (principal); Z95.2 Presence of prosthetic heart valve; I25.10 Atherosclerotic heart disease of native coronary artery without angina pectoris; Z95.5 Presence of coronary angioplasty implant and graft; I50.32 Chronic diastolic (congestive) heart failure; I10 Essential (primary) hypertension; I73.9 Peripheral vascular disease, unspecified
CPT/HCPCS: 93010; 99214; G2211

== ENCOUNTER → 2025-06-12 08:28 | Outpatient (BNVA) | payer OTHER, MEDICARE, SELFPAY | PROVIDERS: PCP Internal Medicine; Visit Provider Nurse Practitioner Family | DX: I35.0 Nonrheumatic aortic (valve) stenosis (principal); I25.10 Atherosclerotic heart disease of native coronary artery without angina pectoris; I11.0 Hypertensive heart disease with heart failure; I50.32 Chronic diastolic (congestive) heart failure; I73.9 Peripheral vascular disease, unspecified; Z95.5 Presence of coronary angioplasty implant and graft; Z95.2 Presence of prosthetic heart valve | CPT/HCPCS: 93005 ==

== ENCOUNTER 2025-06-25 08:30 | Outpatient (RCR) | payer OTHER, MEDICARE, SELFPAY ==
[2025-02-17 09:52] LABS: Glucose, Whole Blood 114 mg/dL (60-115)
[2025-02-19 09:49] LABS: Glucose, Whole Blood 137 mg/dL (60-115)
== END 2025-06-27 06:21 | disposition home or self-care (01) ==
LOC: HO.CR 08:30
PROVIDERS: PCP Internal Medicine; Visit Provider Internal Medicine Cardiovascular Disease
DX: Z95.3 Presence of xenogenic heart valve (principal); I35.0 Nonrheumatic aortic (valve) stenosis; I11.0 Hypertensive heart disease with heart failure; I50.32 Chronic diastolic (congestive) heart failure
CPT/HCPCS: 82947; 93798

== ENCOUNTER 2025-07-10 08:57 | Outpatient (REF) | payer OTHER, MEDICARE, SELFPAY ==
--- NOTE | ~2025-07-10 | US_ITS ---
EXAMINATION: US NONINVASIVE ASSESSMENT OF THE bilateral LOWER EXTREMITY WITH ARTERIAL DUPLEX AND ANKLE BRACHIAL INDICES (ABIS) CLINICAL INFORMATION: Peripheral vascular disease, unspecified COMPARISON: Previous vascular ultrasound November 2024 TECHNIQUE: Duplex Doppler techniques with waveform analysis and measurement of velocities in the common femoral, profunda femoris, superficial femoral, popliteal and tibial arteries were performed. In addition, ankle pulse volume recordings, ankle pressure measurements and ankle brachial indices were obtained of the bilateral lower extremity arterial system. The study was performed only at rest. FINDINGS: NONINVASIVE ASSESSMENT OF THE ARTERIES OF BILATERAL LOWER EXTREMITIES WITH ABIs: RIGHT LEG: Ankle-brachial index: Could not be determined / noncompressible. Ankle PVR: Normal LEFT LEG: Ankle-brachial index: Could not be determined / noncompressible. Left ankle PVR: Normal ANUEL Reference: 0.9 - 1.4 = normal - no significant arterial disease 0.7 - 0.89 = mild peripheral arterial disease 0.51 - 0.69 = moderate peripheral arterial disease 0.50 = severe peripheral arterial disease Diffuse vessel wall calcification. RIGHT LOWER EXTREMITY DUPLEX ULTRASOUND: Common femoral artery: 142 cm/s. Diastolic flow reversal: Biphasic Profunda femoris artery: 98 cm/s. Diastolic flow reversal: Biphasic Superficial femoral artery (proximal): 96 cm/s. Diastolic flow reversal: Triphasic Superficial femoral artery (mid): 139 cm/s. Diastolic flow reversal: Triphasic Superficial femoral artery (distal): 118 cm/s. Diastolic flow reversal: Triphasic Popliteal artery: 97 cm/s Diastolic flow reversal: Triphasic Posterior tibial artery: 73 cm/s Diastolic flow reversal: Monophasic LEFT LOWER EXTREMITY DUPLEX ULTRASOUND: Common femoral artery: 110 cm/s. Diastolic flow reversal: Biphasic Profunda femoris artery: 92 cm/s. Diastolic flow reversal: Biphasic Superficial femoral artery (proximal): 79 cm/s. Diastolic flow reversal: Triphasic Superficial femoral artery (mid): 80 cm/s. Diastolic flow reversal: Triphasic Superficial femoral artery (distal): 101 cm/s. Diastolic flow reversal: Triphasic Popliteal artery: 104 cm/s Diastolic flow reversal: Triphasic Posterior tibial artery: 94 cm/s Diastolic flow reversal: Monophasic US/US arterial duplex BI w/ ANUEL IMPRESSION: Diffuse vessel wall calcification. ABIs could not be determined due to noncompressible vessels. Right: Mild atherosclerotic disease. Monophasic flow in the right posterior tibial artery. Left: Mild atherosclerotic disease. Monophasic flow in the left posterior tibial artery. Electronically signed by: Anne Hartman MD 07/10/2025 11:42 AM EDT
== END 2025-07-10 08:58 | disposition home or self-care (01) ==
LOC: HO.US 08:57
PROVIDERS: PCP Physician Assistant; Visit Provider Surgery Vascular Surgery
DX: I73.9 Peripheral vascular disease, unspecified (principal)
CPT/HCPCS: 93922; 93925

== ENCOUNTER → 2025-07-10 09:04 | Outpatient (BNV) | payer OTHER, MEDICARE, SELFPAY | PROVIDERS: PCP Physician Assistant; Visit Provider Radiology Diagnostic Radiology | DX: I73.9 Peripheral vascular disease, unspecified (principal) | CPT/HCPCS: 93922; 93925 ==

== ENCOUNTER 2025-09-01 07:41 | Outpatient (REF) | payer OTHER, MEDICARE, SELFPAY ==
--- OUTSIDE RECORDS SUMMARY | 2025-09-01 07:45 | XMS_ITS | Clinical Summary ---
Author Organization [address] Address [address] [place] [address] Phone Care Team Providers Care Employment Office Clerk Name Role Phone Yamila Anguiano Primary Care Provider [phone] Medications spironolactone (ALDACTONE) 100 mg tabletIndication s:Alcoholic cirrhosis of liver without ascites (CMS/HCC V24, CMS/HCC V28) Take 1 tablet (100 mg total) by mouth 1 (one) time each day. TAKE 3 TABLETS BY MOUTH ONCE A DAY DIRECTED 270 tablet 1 5 Active omeprazole (PriLOSEC) [address] Hernandez ns:Gastroesophag eal reflux disease without esophagitis Take 1 capsule (20 mg total) by mouth 2 (two) times a day. 180 capsule 1 5 Active Encounters Date Type Department Care Team Description 06/19/2025 Telephone Gastroenterology - [address] [place] [phone] Jeanmarie Jefferson MD 06/10/2025 Telephone Gastroenterology - [address] [place] [phone] Jeanmarie Jefferson MD from Last 3 Months Social History Tobacco Use Types Packs/Day Years Used Date Smoking Tobacco: Never Assessed Sex and Gender Information Value Date Recorded Sex Assigned at Not on file Legal Sex Male 7:57 PM EST Gender Identity Not on file Sexual Orientation Not on file Plan of Treatment Upcoming Encounters Date Type Department Care Team ([facility] Contact Info) Description 10/28/2025 9:20 AM EST Office Visit Gastroenterology - [address] [place] [phone] Lisette Doty, ENRIQUE [address] [facility] [address] [place] [address] Health Maintenance Due Date Last Done Comments Colorectal Cancer Screening: Colonoscopy 1968 DTaP,Tdap,and Td Vaccines (1 - Tdap) 1987 Hepatitis A Vaccines (1 of 2 - Risk 2-dose series) 1987 Pneumococcal Vaccine: 50+ Years (1 of 2 - PCV) 1987 RSV Immunization Adult Patients (1 - Risk 50-74 years 1-dose series) 2018 Zoster Vaccines (1 of 2) 2018 Cholesterol Screening (Lipid Panel) 09/03/2022 HIV Screening 09/03/2022 Hepatitis C Screening 09/03/2022 Medicare Annual Wellness Visit 09/03/2022 Social Influencers of Health Screening 09/03/2022 Depression Screening 10/02/2024 COVID-19 Vaccine ( season) 2025 Influenza Vaccine (#1) 2025 Hypertension/CHF/CAD [...] HEALTH [place] MED[employer] ADVANTAGE Care Teams Employment Office Clerk Relationship Specialty Start Date End Date Yamila Anguiano PA [address] [place] [address] PCP - General Physician Camp Counselor 06/10/25
--- OUTSIDE RECORDS SUMMARY | 2025-09-01 07:45 | XMS_ITS | Clinical Summary ---
Author Organization [facility] Address [address] [address] Phone Care Team Providers Care Adzing And Boring Machine Feeder Name Role Phone Yamila Anguiano Primary Care Provider [phone] Allergies Active Allergy Reactions Criticality Noted Date Comments Shellfish Protein-Containing Drug Products Hives High 11/16/2022 Medications acetaminophen (TYLENOL) 500 MG tablet Take [...] solution 20,000 UnitsIndications:Anemia in chronic kidney disease 32330 Units IJ Once 10/08/2024 A ctive Epoetin Chi-epbx solution 20,000 UnitsIndications:Anemia in chronic kidney disease,Stage 3a chronic kidney disease (HCC) 17753 Units IJ Once 08/06/2025 08/06/2025 End ed Active Problems Problem Noted Date [...] Encounters Date Type Department Care Team Description 08/06/2025 9:00 AM EST Clinical Support [facility] [address] [phone] Anemia in chronic kidney disease (Primary Dx); Stage 3a chronic kidney disease (HCC) 07/09/2025 9:15 AM EDT Clinical Support [facility] [address] [phone] Anemia in chronic kidney disease (Primary Dx) 06/25/2025 10:30 AM EDT Clinical Support [facility] [address] [phone] Anemia in chronic kidney disease (Primary Dx) 06/03/2025 8:20 AM EDT Office Visit [facility] [address] [phone] Yuri Chance MD Stage 3a chronic kidney disease (HCC) (Primary Dx); Psoriatic arthritis (HCC); Proteinuria, not otherwise specified; Other cirrhosis of liver (HCC); Localized edema; Chronic metabolic acidosis; Cerebrovascular accident (HCC); Aortic valve stenosis; Anemia in chronic kidney disease; Acute nontraumatic kidney injury, not otherwise specified (HCC) from Last 3 Months Family History Medical [...] Sign Reading Time Taken Comments Blood Pressure 122/60 08/06/2025 3:45 PM EST Pulse 69 06/03/2025 8:25 AM EDT Temperature [...] Care Team (Late st Contact Info) Description 09/02/2025 Orders Only [facility] [address] [phone] Yuri Chance MD [address] [place] [phone] Stage 3a chronic kidney disease (HCC); Psoriatic arthritis (HCC); Proteinuria, not otherwise specified; Other cirrhosis of liver (HCC); Localized edema; Chronic metabolic acidosis; Cerebrovascular accident (HCC); Aortic valve stenosis; Anemia in chronic kidney disease; Acute nontraumatic kidney injury, not otherwise specified (HCC) 09/03/2025 8:20 AM EST Office Visit [facility] [address] [phone] Yuri Chance MD [address] [place] [phone] Health Maintenance Due Date Last Done Comments Hepatitis B Vaccine (1 of 3 - 19+ 3-dose series) 1987 07/01/2019, 01/28/2019, 12/28/2018 Pneumococcal Vaccine: 50+ Ye ars (1 of 2 - PCV) 1987 Colorectal Cancer Screening: Annual FOBT 2017 Colorectal Cancer Screening: Colonoscopy 2017 Colorectal Cancer Screening: Sigmoidoscopy 2017 Diabetes: Hemoglobin A1C 04/29/2025 Diabetes: Ophthalmology Exam 04/29/2025 Diabetes: Pedal Pulse Checked 04/29/2025 Diabetes: Sensory Foot Exam 04/29/2025 Diabetes: Visual Foot Exam 04/29/2025 Influenza Vaccine (#1) 2025 Procedures Procedure Name Priority Date/Time Associated Diagnosis Comments POCT HEMOGLOBIN Routine 08/06/2025 3:45 PM EST Anemia in chronic kidney disease Stage 3a chronic kidney disease (HCC) POCT HEMOGLOBIN Routine 07/09/2025 4:45 PM EDT Anemia in chronic kidney disease POCT HEMOGLOBIN Routine 06/25/2025 4:35 PM EDT Anemia in chronic kidney disease from Last 3 Months Results * POCT hemoglobin (08/06/2025 3:45 PM EST) Only the most recent of3 resultswithin the time period is included. Hemoglobin 10.2 Blood Capillary 08/06/2025 3 :45 PM EST Allan eLon MD POINT OF CARE TEST ORDERABLES Fi nal Result from Last 3 Months Insurance [facility] Medicare Medicare [facility] Administrative Systems [facility] Medicare Care Teams Adzing And Boring Machine Feeder Relationship Specialty Start Date End Date Yamila Anguiano [address] [place] [id number] PCP - General 01/30/25
--- OUTSIDE RECORDS SUMMARY | 2025-09-01 07:45 | XMS_ITS | Clinical Summary ---
Author Organization [facility] Address [address] [place] [address] Care Team Providers Care Rubber Washer Name Role Phone Martínez Dunn Primary Care Provider [phone] Allergies Active Allergy Reactions Criticality Noted Date [...] Screening 10/02/2024 Influenza Vaccine (#1) 2025 08/16/2021 COVID-19 Vaccine ( season) 2025 10/15/2021, 01/11/2021, 12/14/2020 Medical Devices Implanted Type Area Emergency Department Coordinator Device Identifier Shelf Expiration Date Model / Serial / Lot Lens Intraocular [employer]peric Natural Single Piece Acrylic With Blue Light Filter [id number] 23.0d - [id number] - [id number] Implanted:Qty: 1 on 12/14/2021 by Omega Franco MD at [facility] Lens Right: Eye YESY 07/31/2026 [id number] 23.0 / [id number] / Retisert Implanted:Qty: 1 on 12/14/2021 by Omega Franco MD at [facility] Right: Eye BAUSCH [employer] LOMB 03/01/2023 [id number] / [id number] / [id number] Insurance [facility] Advance Directives Documents on File Type Date Recorded Patient Supervisor Self Service Store Expl anation Health Care Proxy 02/24/2022 12:02 PM 01-31 * Presumed Full Code (Latest Code Status on File) Date Activated Date Inactivated Comments 02/24/2022 11:45 AM 02/24/2022 4:36 PM * Presumed Full Code Date Activated Date Inactivated Comments 12/14/2021 7:20 AM 12/14/2021 12:36 PM Care Teams Rubber Washer Relationship Specialty Start Date End Date Martínez Dunn [address] [place] [address] [place] [address] PCP - General Internal Medicine 02/24/22
[2025-09-01 10:48] LABS: MANUAL DIFF FLAG NO
[2025-09-01 11:17] LABS: Hematocrit 32.6 % (42.0-52.0); Hemoglobin 10.3 g/dl (14.0-18.0); Imm Gran Abs Auto 0.03 X10*3/uL (0.00-0.03); Imm Gran Pct Auto 0.5 % (0.0-0.4); Lymphocytes Absolute Auto 0.8 X10*3/uL (1.2-4.9); Mean Corpuscular HGB Conc 31.6 g/dl (31.0-36.0); Mean Corpuscular Hemoglobin 29.4 pg (27.0-33.0); Mean Corpuscular Volume 93.1 fL (80.0-98.0); NRBC Abs Auto 0.000 X10*3/uL (0.0-0.012); NRBC Pct Auto 0.0 /100WBC (0.0-0.2); Platelet Count 218 X10*3/uL (160-400); Red Blood Count 3.50 X10*6/uL (4.60-5.80); White Blood Count 6.3 X10*3/uL (4.8-10.8)
[2025-09-01 11:34] LABS: Protein/Creatinine Ratio, Ur 3.79 (<0.2); Total Protein Urine Random 147 mg/dL (<12)
[2025-09-01 11:40] LABS: Alanine Aminotransferase 16 U/L (0-40); Albumin Level 4.7 g/dL (3.5-5.0); Alkaline Phosphatase 53 U/L (39-117); Anion Gap 14 (12-20); Aspartate Amino Transferase 29 U/L (5-37); Blood Urea Nitrogen 35 mg/dL (9-16); Calcium 9.3 mg/dL (8.4-10.2); Carbon Dioxide 18 mmol/L (22-29); Chloride 108 mmol/L (96-108); Estimated Glomerular Filt Rate 33; Iron 57 mcg/dL (45-160); Magnesium 2.0 mg/dL (1.6-2.6); Percent Iron Saturation 24 % (15-50); Potassium 4.4 mmol/L (3.3-5.1); Sodium 136 mmol/L (135-145); Total Iron Binding Capacity 234 mcg/dL (228-428); Total Protein 7.7 g/dL (6.5-8.0); Unsaturated Iron Binding 177 ug/dL; Uric Acid 5.8 mg/dL (3.4-7.0)
[2025-09-01 11:44] LABS: Ferritin 69 ng/mL (20-250)
[2025-09-01 12:20] LABS: Parathyroid Hormone Intact 39.5 pg/mL (8.7-77.1)
== END 2025-09-01 07:42 | disposition home or self-care (01) ==
LOC: HO.HMGCLDS 07:41
PROVIDERS: PCP Physician Assistant; Visit Provider Internal Medicine Nephrology
DX: I35.0 Nonrheumatic aortic (valve) stenosis (principal); I63.9 Cerebral infarction, unspecified; N18.31 Chronic kidney disease, stage 3a; D63.1 Anemia in chronic kidney disease; E87.22 Chronic metabolic acidosis; L40.50 Arthropathic psoriasis, unspecified; N17.9 Acute kidney failure, unspecified; R80.9 Proteinuria, unspecified; K74.69 Other cirrhosis of liver; R60.0 Localized edema
CPT/HCPCS: 36415; 80053; 82306; 82570; 82728; 83540; 83735; 83970; 84100; 84156; 84550; 85025

== ENCOUNTER 2025-09-04 09:49 | Outpatient (AMB) | payer OTHER, MEDICARE, SELFPAY ==
--- NOTE | 2025-09-04 09:59 | MHC.OFFVIS ---
Intake Visit Reasons: Follow Up 07/10 Arterial US Intake Note: Patient presents for follow up arterial US , performed on 07/10. Patient states he has ankle and foot pain. Accompanied by: Spouse Allergies shellfish derived (SHELLFISH DERIVED) Allergy (Severe, Verified 09/04/25 10:01) ANAPHYLAXIS acetazolamide Adverse Reaction (Verified 09/04/25 10:01) Confusion HPI HPI Follow Up 07/10 Arterial US: Details: The patient is a 55 year old male presenting for an arterial follow-up. He recently completed cardiac rehabilitation, which he passed with a Significant improvement. He reports he is able to walk farther now, managing a couple of blocks on a flat surface. He complains of intermittent pain in his feet and ankles, noting that it occurs even when sitting or going to bed and is not solely associated with walking. 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 The patient's medical history is significant for diabetes mellitus. He also has a history of back pain that occurs with activity. He denies seeing a m1a1 tank crewman or a neurologist. Recent blood work was reportedly good, with stable kidney function. he now presents for routine follow-up with noninvasive arterial testing [facility] Medical History Hypertension Congestive heart failure CHF (congestive heart failure) Uncontrolled hypertension Aortic stenosis Hypertensive urgency Acute on chronic diastolic (congestive) heart failure Chronic kidney disease Cataract Psoriatic arthritis Cirrhosis of liver not due to alcohol Diabetes Surgical History S/P TAVR (transcatheter aortic valve replacement) No pertinent past surgical history Family History Mother CHF (congestive heart failure) Father No problems noted. Social History Household Members: Spouse Housing: Condominium Do you presently have visiting nurse or other home services: No Alcohol intake: current Alcohol intake frequency: holidays/special occasions only Comment: patient steady with ambulation,ind. Patient Tobacco Use Status: Never used Tobacco Substance Use Type: Marijuana Advance Directives Date on File: 12/21/23 service: No Current occupational status: disabled Cognitive needs: No Hearing needs: No Vision needs: Yes (rx glasses) Review of Systems Const All systems reviewed & are unremarkable except as noted in HPI and below Reports no additional complaints ENT Reports Normal hearing present Card Denies chest pain, Denies chest pain at rest, Denies chest pain with activity and Denies pedal edema Resp Denies cough GI Denies abdominal pain Musc Denies abnormal gait, Denies muscle cramps and Denies radiating pain into limb Skin/Breast Denies skin ulcer and Denies wounds Neuro Reports Normal hearing present and Denies abnormal gait Psych Reports no additional complaints Physical Exam Const General: cooperative, healthy appearing and comfortable Orientation/consciousness: oriented to person, oriented to place and oriented to time HEENT Head: Yes normal to inspection Neck Neck: Yes normal visual inspection Carotids: no bruits Chest Chest palpation & inspection: normal inspection of the chest Resp Effort & Inspection: normal respiratory effort and able to speak in complete sentences Auscultation: clear to auscultation bilaterally, no crackles, no rales, no rhonchi and no wheezes Cardio Other: bilateral DP signals Rate: regular rate Rhythm: regular rhythm Heart sounds: S1 normal heart sound present and S2 normal heart sound present Bruits: no carotid bruits Peripheral pulses: Peripheral pulses 2+ throughout GI Inspection: Yes normal to inspection Skin Wounds: no wounds Hair: normal Neuro General: oriented to person, oriented to place and oriented to time Cranial nerves: Yes CN's II-XII intact bilaterally and Yes Normal hearing present Cognition (Neuro): normal cognition Motor exam (neuro): 5/5 motor strength present throughout Extrem Other: venous exam: No significant superficial varicosities or spider telangiectasias, minimal edema General: No clubbing, No cyanosis and No edema Psych Appearance: grossly normal Mental Status: mental status grossly normal Speech and movement: Normal speech and movement present Results Reviewed Results Reviewed: noninvasive arterial testing dated 07/10/2025 demonstrates triphasic waveforms all the way down bilateral lower extremities. ABIs could not be calculated Assessment & Plan Assessment & Plan (1) PAD (peripheral artery disease): Code(s): I73.9 - Peripheral vascular disease, unspecified Category: Medical Plan: In short patient has stable claudication. I did review the pathophysiology of peripheral vascular disease with the patient. In addition we did discuss routine conservative measures including a healthy diet and the importance of exercise and ambulation. We did discuss risk factor modification. The patient will continue to to follow-up with surveillance follow-up in approximately 1 year. Thank you for allowing us to participate in this patient's care. If there are any questions or concerns please do not hesitate to contact us. Orders: Orders US arterial duplex LE BI 1 Year I73.9 - Peripheral vascular disease, unspecified Coding Level of Care Code Est Pt Level 4 (64917) Diagnoses PAD (peripheral artery disease) I73.9
== END 2025-09-04 10:19 | disposition home or self-care (01) ==
LOC: HO.HVS 09:50
PROVIDERS: PCP Physician Assistant; Visit Provider Surgery Vascular Surgery
DX: I73.9 Peripheral vascular disease, unspecified (principal)
CPT/HCPCS: 99214